=== PATIENT | male | born 1935 | race Caucasian/White ===

== ENCOUNTER 2019-12-16 19:12 | Emergency (ER) | payer OTHER, MEDICARE, SELFPAY ==
--- NOTE | 2019-12-16 19:15 | XRR_ITS ---
PROCEDURE INFORMATION: Exam: XR Chest, 1 View Exam date and time: 12/16/2019 7:51 PM Age: 84 years old Clinical indication: Other: Weakness; Prior surgery; Surgery type: Bypass TECHNIQUE: Imaging protocol: XR of the chest Views: 1 view. COMPARISON: CR Chest 1 [place] [id number] 01/10/2015 3:04 AM FINDINGS: Lungs: Emphysematous change and interstitial prominence. Pleural space: Residual left basilar scarring. Heart/Mediastinum: No cardiomegaly. Bones/joints: Median sternotomy. Degenerative change and mild scoliosis. When correlating with the previous study, no significant interval changes are present. XR/XR chest 1V portable [id number] IMPRESSION: Stable appearance of the chest, not significantly changed from 01/10/15.
--- NOTE | 2019-12-16 19:16 | ECG_ITS ---
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 [id number]
[2019-12-16 19:36] VITALS: BP 122/74; PULSE 65; RESP 14; TEMP 36.9; O2SAT 96; BMI 26.6
[2019-12-16 19:40] LABS: Basophils # 0.1 10^3/uL (0.0-0.1); Basophils % 0.6 %; Eosinophils # 0.3 10^3/uL (0.0-0.8); Eosinophils % 3.8 %; Hemoglobin 12.1 g/dL (11.7-16.6); Lymphocytes # 4.2 10^3/uL (0.8-4.8); Lymphocytes % 53.6 %; Mean Corpuscular HGB Conc 31.8 g/dL (30.0-36.0); Mean Corpuscular Hemoglobin 30.8 pg (28.0-34.0); Mean Corpuscular Volume 96.7 fL (80-94); Mean Platelet Volume 9.5 fL (7.4-10.4); Monocytes # 0.9 10^3/uL (0.2-0.9); Monocytes % 11.5 %; Neutrophils # 2.38 10^3/uL (1.8-7.7); Neutrophils % 30.2 %; Nucleated Red Blood Cells % 0 %; Platelet Count 216 10^3/cmm (130-400); Red Blood Count 3.93 10^6/uL (4.1-5.3); Red Cell Distribution Width 12.3 % (12.1-15.1); White Blood Count 7.9 10^3/uL (4.0-10.0)
[2019-12-16 19:46] LABS: Glucose Point of Care 184 mg/dL (70-110)
[2019-12-16 19:55] LABS: INR 0.98 (0.8-1.2)
[2019-12-16 20:00] LABS: Alanine Aminotransferase 39 U/L (0-41); Albumin Level 4.3 g/dL (3.5-5.2); Alkaline Phosphatase 85 IU/L (40-130); Anion Gap 13.2 (5-19); Aspartate Amino Transferase 40 U/L (0-40); Blood Urea Nitrogen 16 mg/dL (8-23); Calcium 8.8 mg/dL (8.5-10.5); Carbon Dioxide 27 mmol/L (22-29); Chloride 104 mmol/L (98-107); Globulin 2.2 g/dL (1.3-4.6); Glucose 166 mg/dL (65-115); Osmolality Calculated 290 mOsm/kg (285-295); Potassium 4.2 mmol/L (3.5-5.1); Sodium 140 mmol/L (136-145); Total Bilirubin 0.3 mg/dL (0.15-1.2); Total Protein 6.5 g/dL (6.6-8.7)
[2019-12-16 20:31] VITALS: BP 139/74; PULSE 54; RESP 15; O2SAT 97
--- NOTE | 2019-12-16 20:31 | ED_ITS ---
HPI - Neuro Symptoms/Deficit General: Chief Complaint: Neuro Symptoms/Deficit Stated Complaint: WEAKNESS Time Seen by Provider: 12/16/19 20:20 Source: patient Mode of arrival: ambulatory Limitations: no limitations History of Present Illness: HPI Narrative: 84-year-old male who states that [place] 2 [place]. He states he did start a new nighttime medicine is unsure exactly what it was. He states he just felt very tired. He told triage he is having difficulty speaking but denied having any aphasia. He denies any focal deficits. He states he is feeling improved but still has some generalized weakness. Denies any worsening improving factors. Associated symptoms: Deny chest pain, nausea or vomiting Review of Systems Const: Denies: fever(s), chills, body aches or change in appetite Eyes: Denies: blurry vision or eye discomfort ENMT: Denies: throat pain or dental pain Card: Denies: chest pain Resp: Denies: dyspnea GI: Denies: abdominal pain, nausea, vomiting or diarrhea : Denies: dysuria Musc: Denies: neck pain or back pain Skin/Breast: Denies: rash Neuro: Reports: weakness in extremities Psych: Denies: depression Chase/Lymph: Denies: easy bruising All/Imm: Denies: urticaria PFSH ED PFSH: Medical History (Updated 12/16/19 @ 22:09 by Diana Thomas MD) Chronic constipation Constipation Family History Father , Age 34 No problems noted. Mother , Age 86 No problems noted. Denies family history of Anesthesia complication Bleeding disorder Social History Smoking and tobacco status: never smoked Lives independently: Yes Marital status: History of recent travel: No Physical Exam Const: COMMON NORMALS: no acute distress, patient oriented x3 and healthy appearing HENMT: COMMON NORMALS: normocephalic and atraumatic HEAD & SCALP: normocephalic and atraumatic Eye: COMMON NORMALS: Equal, round and reactive pupils present and EOMs intact bilaterally PUPIL: Yes Equal, round and reactive pupils present Neck/C-Spine: COMMON NORMALS: full ROM and supple Chest: COMMONS NORMALS: normal inspection of the chest and normal palpation of entire chest wall Resp: COMMON NORMALS: normal respiratory effort, No retractions, No use of accessory muscles and clear to auscultation bilaterally AUSCULTATION: clear to auscultation bilaterally Cardio: COMMON NORMALS: regular rate, regular rhythm and No murmurs present (Cardio) RATE: regular rate RHYTHM: regular rhythm GI: COMMON NORMALS: Normal to inspection, nondistended, normoactive bowel sounds present, Soft to palpation, non-tender and no masses PALPATION: Yes Soft to palpation Extremity: COMMON NORMALS: normal to inspection and full ROM Neuro: COMMON NORMALS: patient oriented x3, moves all extremities and no focal motor deficits Psych: COMMON NORMALS: mental status grossly normal, Normal thought process present and cooperative THOUGHT PROCESS: Normal thought process present Skin: COMMON NORMALS: no rashes or lesions noted and no wounds GENERAL SKIN EXAM: no rashes or lesions noted Course 2 Vital Signs: Vital signs: Vital Signs Temperature 98.5 F 12/16/19 19:36 Pulse Rate 53 L 12/16/19 22:00 Respiratory Rate 16 12/16/19 22:00 Blood Pressure 117/59 12/16/19 22:00 Pulse Oximetry 98 12/16/19 22:00 MDM - Neuro Symptoms/Deficit MDM Narrative: Medical decision making narrative: 84-year-old male who presents here with generalized weakness that is since resolved. He has no focal deficits and neuro exam here is benign. Patient's head CT here is normal. Patient is stable for discharge and is to follow-up with primary care doctor in 3 to 5 days and return if worsening. Patient is able to ambulate without any problems. Patient understands agrees to plan. Lab Data: Labs: Lab Results 12/16/19 12/16/19 12/16/19 Range/Units 19:30 19:30 19:30 WBC 7.9 (4.0-10.0) 10^3/ uL RBC 3.93 L (4.1-5.3) 10^6/u L Hgb 12.1 (11.7-16.6) g/dL Hct 38.0 L (42.0-52.0) % MCV 96.7 H (80-94) fL MCH 30.8 (28.0-34.0) pg MCHC 31.8 (30.0-36.0) g/dL RDW 12.3 (12.1-15.1) % Plt Count 216 (130-400) 10^3/c mm MPV 9.5 (7.4-10.4) fL Neut % (Auto) 30.2 % Lymph % (Auto) 53.6 % Alexander % (Auto) 11.5 % Eos % (Auto) 3.8 % Baso % (Auto) 0.6 % Neut # (Auto) 2.38 (1.8-7.7) 10^3/u L Lymph # (Auto) 4.2 (0.8-4.8) 10^3/u L Alexander # (Auto) 0.9 (0.2-0.9) 10^3/u L Eos # (Auto) 0.3 (0.0-0.8) 10^3/u L Baso # (Auto) 0.1 (0.0-0.1) 10^3/u L Nucleated RBC % (a uto) 0 % Nucleated RBCs # 0.0 /100WBC PT 13.30 (10.5-13.3) SECO NDS INR 0.98 (0.8-1.2) Sodium 140 (136-145) mmol/L Potassium 4.2 (3.5-5.1) mmol/L Chloride 104 (98-107) mmol/L Carbon Dioxide 27 (22-29) mmol/L Anion Gap 13.2 (5-19) BUN 16 (8-23) mg/dL Creatinine 1.2 (0.7-1.2) mg/dL Glucose 166 H (65-115) mg/dL POC Glucose (70-110) mg/dL Calculated Osmolal ity 290 (285-295) mOsm/k g Calcium 8.8 (8.5-10.5) mg/dL Total Bilirubin 0.3 (0.15-1.2) mg/dL AST 40 (0-40) U/L ALT 39 (0-41) U/L Alkaline Phosphata se 85 (40-130) IU/L Total Protein 6.5 L (6.6-8.7) g/dL Albumin 4.3 (3.5-5.2) g/dL Globulin 2.2 (1.3-4.6) g/dL Urine Color (Yellow) Urine Appearance (CLEAR) Urine pH (5-7) Ur Specific Gravit y (1.005-1.030) Urine Protein (Negative) Urine Glucose (UA) (Normal) Urine Ketones (Negative) Urine Blood (Negative) Urine Nitrate (Negative) Urine Bilirubin (NEGATIVE) Urine Urobilinogen (Negative) mg/dL Ur Leukocyte Anne ase (Negative) 12/16/19 12/16/19 Range/Units 19:37 20:33 WBC (4.0-10.0) 10^3/ uL RBC (4.1-5.3) 10^6/u L Hgb (11.7-16.6) g/dL Hct (42.0-52.0) % MCV (80-94) fL MCH (28.0-34.0) pg MCHC (30.0-36.0) g/dL RDW (12.1-15.1) % Plt Count (130-400) 10^3/c mm MPV (7.4-10.4) fL Neut % (Auto) % Lymph % (Auto) % Alexander % (Auto) % Eos % (Auto) % Baso % (Auto) % Neut # (Auto) (1.8-7.7) 10^3/u L Lymph # (Auto) (0.8-4.8) 10^3/u L Alexander # (Auto) (0.2-0.9) 10^3/u L Eos # (Auto) (0.0-0.8) 10^3/u L Baso # (Auto) (0.0-0.1) 10^3/u L Nucleated RBC % (a uto) % Nucleated RBCs # /100WBC PT (10.5-13.3) SECO NDS INR (0.8-1.2) Sodium (136-145) mmol/L Potassium (3.5-5.1) mmol/L Chloride (98-107) mmol/L Carbon Dioxide (22-29) mmol/L Anion Gap (5-19) BUN (8-23) mg/dL Creatinine (0.7-1.2) mg/dL Glucose (65-115) mg/dL POC Glucose 184 (70-110) mg/dL Calculated Osmolal ity (285-295) mOsm/k g Calcium (8.5-10.5) mg/dL Total Bilirubin (0.15-1.2) mg/dL AST (0-40) U/L ALT (0-41) U/L Alkaline Phosphata se (40-130) IU/L Total Protein (6.6-8.7) g/dL Albumin (3.5-5.2) g/dL Globulin (1.3-4.6) g/dL Urine Color Yellow (Yellow) Urine Appearance Clear (CLEAR) Urine pH 5 (5-7) Ur Specific Gravit y 1.025 (1.005-1.030) Urine Protein Neg (Negative) Urine Glucose (UA) Norm (Normal) Urine Ketones Negative (Negative) Urine Blood Neg (Negative) Urine Nitrate Negative (Negative) Urine Bilirubin Neg (NEGATIVE) Urine Urobilinogen Norm (Negative) mg/dL Ur Leukocyte Anne ase Negative (Negative) Imaging Data^: CT Head: Radiologist's impression: [place] [id number] CT Scan Report Signed Patient: Ida Vásquez Unit #: [id number] : 1935 Age/Sex: 84 / M ADM Date: 12/16/19 Loc: ER Room/Bed: Attending Dr: Ordering Provider/Ordering MD: Diana Thomas MD Date of Service: 12/16/19 Procedure(s): CT head wo con* [id number] Accession Number(s): [id number] Report Number: [id number] PROCEDURE INFORMATION: Exam: CT Head Without Contrast Exam date and time: 12/16/2019 8:31 PM Age: 84 years old Clinical indication: Malaise or fatigue; Patient HX: PT states he was at the [facility] when he began to feel very tired and weak; Additional info: Weakness TECHNIQUE: Imaging protocol: Computed tomography of the head without contrast. Radiation optimization: All CT scans at this facility use at least one of these dose optimization techniques: automated exposure control; mA and/or kV adjustment per patient size (includes targeted exams where dose is matched to clinical indication); or iterative reconstruction. COMPARISON: CTA Head/Neck [id number] 06/26/2013 9:18 AM RADIATION DOSE METRICS: Total DLP (mGy-cm): 862.31 FINDINGS: Brain: No findings of acute intracranial pathologic process or hemorrhage. Cerebral and cerebral atrophy with ventricular dilatation not inconsistent with the patient's chronological age. Moderate small vessel ischemic disease with senile periventricular leukomalacia. Ventricles: No obstructive ventriculomegaly. Bones/joints: Unremarkable. No acute fracture. Sinuses: Visualized sinuses are unremarkable. No fluid levels. Mastoid air cells: Visualized mastoid air cells are well aerated. Vasculature: Mild cerebral arterial sclerosis. Soft tissues: Unremarkable. CT/CT head wo con* [id number] IMPRESSION: 1. No visible evidence of acute intracranial pathologic process or hemorrhage. 2. Small vessel ischemic disease. Discharge Plan Discharge Patient Disposition: Home, Self-Care Clinical Impression: Weakness Condition: Stable Prescriptions: No Action docusate sodium 50 mg capsule 50 mg PO ONCE PRNRF: 0 acetaminophen 500 mg capsule 500 mg PO Q4H PRNRF: 0 levothyroxine 125 mcg capsule 125 mcg PO ONCE RF: 0 omeprazole 40 mg capsule,delayed release(DR/EC) 40 mg PO BID RF: 0 gabapentin 100 mg capsule 100 mg PO BID RF: 0 atorvastatin 40 mg tablet 40 mg PO ONCE RF: 0 cyclobenzaprine 5 mg tablet 5 mg PO .COMPLEX PRNRF: 0 Discharge Orders: Discharge Order (Routine); Ordered 12/16/19 Ordered By: Diana Thomas Referrals: Emily Pineda MD [Primary Care Provider] - 1-3 days Discharge Diet: Advance as tolerated Discharge Activity: Resume usual activity Patient Instructions: Weakness (ED) Discharge Date/Time: 12/16/19 22:18 Coding Level of Care Code ED Ammunition Storage Superintendent for Chg Fwd Exam Comprehensive
[2019-12-16 21:15] LABS: Add Urine Microscopic? NO
[2019-12-16 21:35] LABS: Bilirubin Urine Neg (NEGATIVE); Blood Urine Neg (Negative); Glucose Urine UA Norm (Normal); Ketones Urine Negative (Negative); Leukocyte Esterase Urine Negative (Negative); Nitrate Urine Negative (Negative); Protein Urine Neg (Negative); Specific Gravity, Urine 1.025 (1.005-1.030); Urine Appearance Clear (CLEAR); Urine Color Yellow (Yellow); Urobilinogen Urine Norm (Negative); pH Urine 5 (5-7)
[2019-12-16 22:00] VITALS: BP 117/59; PULSE 53; RESP 16; O2SAT 98
== END 2019-12-16 22:18 | disposition home or self-care (01) ==
PROVIDERS: Emergency Provider Emergency Medicine; PCP Family Medicine
DX: R53.1 Weakness (principal)
CPT/HCPCS: 12345; 36415; 36416; 70450; 71045; 80053; 81003; 82962; 85025; 85610; 93005; 99283; 99284

== ENCOUNTER 2020-01-06 18:36 | Emergency (ER) | payer OTHER, MEDICARE, SELFPAY ==
[2020-01-06 18:40] VITALS: BP 119/62; PULSE 63; RESP 22; TEMP 36.6; O2SAT 98; BMI 26.6
== END 2020-01-06 18:58 | disposition left against medical advice (07) ==
LOC: ER 19:04
PROVIDERS: Emergency Provider Emergency Medicine; PCP Family Medicine
DX: Z53.21 Procedure and treatment not carried out due to patient leaving prior to being seen by health care provider (principal)
CPT/HCPCS: 99281

== ENCOUNTER 2020-07-11 14:01 | Emergency (ER) | payer OTHER, MEDICARE, SELFPAY ==
[2020-07-11 14:06] VITALS: BP 138/62; PULSE 66; RESP 20; TEMP 37.1; O2SAT 97; BMI 25.8
[2020-07-11 14:14] VITALS: RESP 19
--- NOTE | 2020-07-11 14:42 | XRR_ITS ---
PROCEDURE INFORMATION: Exam: XR Right Ankle Exam date and time: 07/11/2020 2:50 PM Age: 85 years old Clinical indication: Injury or trauma; Fall; Blunt trauma; Ankle; Right; Additional info: Fall, deformity TECHNIQUE: Imaging protocol: XR Right ankle. Views: 3 or more views. COMPARISON: No relevant prior studies available. FINDINGS: Bones/joints: There is a nondisplaced spiral fracture of the distal fibula metaphysis. No additional acute fracture. No dislocation. Bony remodeling of the tip of the medial malleolus and fibula are noted compatible with old ankle injury. There is calcaneal enthesopathy. Soft tissues: There is soft tissue edema. XR/XR ankle RT min 3V* [id number] IMPRESSION: There is a nondisplaced spiral fracture of the distal fibula metaphysis.
--- NOTE | 2020-07-11 14:42 | XRR_ITS ---
PROCEDURE INFORMATION: Exam: XR Right Knee Exam date and time: 07/11/2020 2:49 PM Age: 85 years old Clinical indication: Injury or trauma; Fall; Blunt trauma; Knee; Right; Additional info: Fall, pain TECHNIQUE: Imaging protocol: XR Right knee. Views: 3 views. COMPARISON: No relevant prior studies available. FINDINGS: Bones/joints: There is no knee joint effusion. There is patellar enthesopathy. There are mild degenerative changes. There is no intra-articular body. No acute fracture or dislocation. No chondrocalcinosis. Soft tissues: There is no foreign body. XR/XR knee RT 3V* [id number] IMPRESSION: No acute bony abnormality.
--- NOTE | 2020-07-11 14:43 | ED_ITS ---
HPI - Extremity Problem General: Chief complaint: Extremity Injury, Lower Stated complaint: FALL / LEFT LEG PAIN / DEFORMITY Time Seen by Provider: 07/11/20 14:19 History of Present Illness: HPI Narrative: Patient arrives by ambulance complains about pain to his right ankle and right knee after a fall on the ice. Patient states that his his right foot was under [place] twisted about and says that his knees hurt since then but he is able to move his knee he denies any other injury. Denies any pain anywhere he denies hitting his head. Complaint: extremity pain and joint pain Onset (ago): minute(s) Pain Consistency: constant Location: right and lower extremity Severity scale (1-10): 4 Quality: aching Radiation: none Relieving factors: immobilization Exacerbating factors: range of motion and palpation Associated symptoms: Reports no associated symptoms; Deny chest pain, fever(s) or rash Review of Systems Const: Denies: fever(s), chills or body aches Eyes: Denies: change in vision or blurry vision ENMT: Denies: throat pain or nasal congestion Card: Denies: chest pain or dyspnea on exertion Resp: Denies: dyspnea, productive cough or non-productive cough GI: Denies: abdominal pain, nausea or vomiting : Denies: difficulty urinating Musc: Reports: extremity pain (Right knee and right ankle) and joint pain (Right knee right ankle -from a fall on ice.) Skin/Breast: Denies: rash Neuro: Denies: headache(s) Psych: Denies: anxiety or depression Chase/Lymph: Denies: easy bruising PFS ED PFSH: Medical History (Updated 07/11/20 @ 16:07 by MARÍA Philip) Chronic constipation Constipation Family History Father , Age 34 No problems noted. Mother , Age 86 No problems noted. Denies family history of Anesthesia complication Bleeding disorder Social History Smoking and tobacco status: never smoked Lives independently: Yes Marital status: History of recent travel: No Physical Exam Const: COMMON NORMALS: no acute distress, average body habitus and patient oriented x3 HENMT: COMMON NORMALS: normocephalic HEAD & SCALP: normal to inspection and normocephalic FACE & SINUS: normal facial exam Eye: COMMON NORMALS: conjunctivae normal GENERAL EYE: appearance normal, both eyes and all related structures CONJUNCTIVA: Yes conjunctivae normal Neck/C-Spine: COMMON NORMALS: no JVD Chest: COMMONS NORMALS: normal inspection of the chest Resp: COMMON NORMALS: normal respiratory effort and clear to auscultation bilaterally AUSCULTATION: clear to auscultation bilaterally Cardio: COMMON NORMALS: no JVD, regular rate and regular rhythm RATE: regular rate RHYTHM: regular rhythm GI: COMMON NORMALS: Normal to inspection, nondistended, normoactive bowel sounds present Extremity: RIGHT LOWER EXTREMITY: Yes knee joint (Tender with palpation but has full range of motion slight swelling bruising) and Yes foot & digits Right ankle: Yes inspection (Deformity lateral aspect swelling. Pulses intact) Neuro: COMMON NORMALS: patient oriented x3 Course Vital Signs: Vital signs: Vital Signs Temperature 98.8 F 07/11/20 14:06 Pulse Rate 66 07/11/20 14:06 Respiratory Rate 18 07/11/20 16:46 Blood Pressure 138/62 07/11/20 14:06 Pulse Oximetry 97 07/11/20 14:06 MDM - Extremity (Nontraumatic) MDM Narrative: Medical decision making narrative: Discussed patient with Dr. Rodas. Reviewed radiology results. Agreed upon plan to place plan to have patient use crutches, no weightbearing. Patient has pain medication at home to take. Patient agrees with plan and will meet with Ortho this coming week. Discharge Plan Discharge Patient Disposition: Home Clinical Impression: Fractured fibula Qualifiers: Encounter type: initial encounter Fibula location: distal Fracture type: closed Fracture morphology: torus Laterality: right Qualified Code(s): S82.821A - Torus fracture of lower end of right fibula, initial encounter for closed fracture Condition: Stable Prescriptions: No Action docusate sodium 50 mg capsule 50 mg PO ONCE PRNRF: 0 acetaminophen 500 mg capsule 500 mg PO Q4H PRNRF: 0 levothyroxine 125 mcg capsule 125 mcg PO ONCE RF: 0 omeprazole 40 mg capsule,delayed release(DR/EC) 40 mg PO BID RF: 0 gabapentin 100 mg capsule 100 mg PO BID RF: 0 atorvastatin 40 mg tablet 40 mg PO ONCE RF: 0 cyclobenzaprine 5 mg tablet 5 mg PO .COMPLEX PRNRF: 0 Discharge Orders: Discharge ED (Routine); Ordered 07/11/20 Ordered By: Laurent Booker Referrals: Emily Pineda MD [Primary Care Provider] - Discharge Diet: Usual diet Discharge Activity: Use walker/crutches as instructed Patient Instructions: Leg Fracture (ED), Crutch Instructions (ED) Activity Restrictions/Additional Instructions: Hospital contact you on Monday with appointment for therapeutics. No weightbearing. Use crutches. Take medicine that you have at home for discomfort. Wear splint. Coding Level of Care Code ED Cloth Covered Helmet Puller for Chg Fwd Exam Comprehensive
[2020-07-11 16:46] VITALS: RESP 18
--- NOTE | 2020-07-13 10:35 | DCPLANNER ---
manager leasing received message to schedule a follow up appointment with ortho. manager leasing called and spoke to Lesvia. manager leasing provided Lesvia with patient information needed. Ortho will contact patient with appointment details.
--- NOTE | 2020-07-15 13:37 | DCPLANNER ---
Patient has VA insurance, case supervisor called the [facility] clinic, spoke with Tamra informed the clinic that patient had VA insurance. manager testing told [facility] that case supervisor would email patients information to [employer] with [employer] in the community to start the authorization process. Tamra told case supervisor that when clinic called patient to schedule a follow up appointment that patient declined appointment at this time. Patient stated that his does not drive and that right now he can not drive. Patient stated that he wanted to see his primary care physician. Patient will call clinic and let clinic know if he wants a follow up appointment. manager testing emailed patients information to the VA, so that authorization process could be started in case patient wanted a follow up appointment.
== END 2020-07-11 17:16 | disposition home or self-care (01) ==
PROVIDERS: Emergency Provider Nurse Practitioner Family; PCP Family Medicine
DX: S82.821A Torus fracture of lower end of right fibula, initial encounter for closed fracture (principal); W00.0XXA Fall on same level due to ice and snow, initial encounter
CPT/HCPCS: 29515; 73562; 73610; 99283

== ENCOUNTER → 2020-07-28 13:18 | Outpatient (BNVA) | payer OTHER, SELFPAY | PROVIDERS: PCP Family Medicine; Visit Provider Orthopaedic Surgery | DX: S82.61XD Displaced fracture of lateral malleolus of right fibula, subsequent encounter for closed fracture with routine healing (principal); X58.XXXD Exposure to other specified factors, subsequent encounter | CPT/HCPCS: 73610 ==

== ENCOUNTER 2020-07-28 14:54 | Outpatient (CLI) | payer OTHER, SELFPAY | END 2020-07-28 14:55 | disposition home or self-care (01) | LOC: SPT 14:55 | PROVIDERS: PCP Family Medicine; Visit Provider Orthopaedic Surgery | DX: Z46.89 Encounter for fitting and adjustment of other specified devices (principal); S82.831D Other fracture of upper and lower end of right fibula, subsequent encounter for closed fracture with routine healing; X58.XXXD Exposure to other specified factors, subsequent encounter | CPT/HCPCS: 97760; L4361 ==

== ENCOUNTER → 2020-08-11 14:32 | Outpatient (BNVA) | payer OTHER, SELFPAY | PROVIDERS: PCP Family Medicine; Visit Provider Orthopaedic Surgery | DX: S82.61XA Displaced fracture of lateral malleolus of right fibula, initial encounter for closed fracture (principal); X58.XXXA Exposure to other specified factors, initial encounter | CPT/HCPCS: 73610 ==

== ENCOUNTER → 2020-09-08 16:31 | Outpatient (BNVA) | payer OTHER, SELFPAY | PROVIDERS: PCP Family Medicine; Visit Provider Orthopaedic Surgery | DX: S82.61XD Displaced fracture of lateral malleolus of right fibula, subsequent encounter for closed fracture with routine healing (principal); X58.XXXD Exposure to other specified factors, subsequent encounter | CPT/HCPCS: 73610 ==

== ENCOUNTER 2020-11-10 09:56 | Outpatient (CLI) | payer MEDICARE, SELFPAY ==
--- NOTE | 2020-11-10 10:04 | CT_ITS ---
WS: [id number] CT NECK WITH CONTRAST HISTORY: OTHER DYSPHAGIA TECHNIQUE: Contiguous 5 mm axial images are performed through the neck with intravenous contrast. Sag ittal and coronal reformats are also submitted. All CT scans at [facility] use at least o ne of these dose optimization techniques: automated exposure control; mA and/or kV adjustment per pat ient size (includes targeted exams where dose is matched to clinical indication); or iterative recons truction. CONTRAST: CONTRAST: Omnipaque 300; 95 mL IV. DLP: 1241.42 mGycm COMPARISON: 03/13/2019 and 09/29/2017 Nasopharynx, oropharynx, hypopharynx and larynx are unremarkable. No soft tissue masses or abnormal e nhancement. Torus tubarius and fossa of Rosenmuller and parapharyngeal fat are normal. No significant lymphadenopathy is identified. Small caliber thyroid. Submandibular glands and parotid glands are normal. No masses. No obstruction or inflammation. No osseous abnormalities. Visualized portions of the skull base demonstrate no abnormalities. Orbits and globes are within norm al limits. No soft tissue masses. Visualized paranasal sinuses and mastoid air cells are normal. Prior median sternotomy. Mild atherosclerotic plaque within the visualized thoracic aorta. CT/CT neck w con* [id number] IMPRESSION: 1. No mass or adenopathy. 2. Similar appearance to the soft tissues of the neck since 03/13/2019. No int erval change.
--- NOTE | 2020-11-10 10:04 | FL_ITS ---
WS: [id number] ESOPHAGRAM WITH FLUOROSCOPY HISTORY: OTHER DYSPHAGIA COMPARISON: None available. FLUOROSCOPY TIME: 0.8 minutes. Esophagus and swallowing function: Patient was able to swallow the barium mixture without difficulty. There is a moderate stenosis in the cervical esophagus at the C5-6 level. Stenosis approximately 50% . May be due to cricopharyngeal spasm. The mucosa is smooth. Did not attempt to have the patient swal lowed the barium tablet as patient describes pills becoming lodged. Otherwise no mucosal abnormalitie s are identified. Gastroesophageal reflux: None. Hiatal hernia: There is a small reducible hiatal hernia seen during the examination. FL/FL barium swallow [id number] IMPRESSION: 1. 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 Also noted on prio r examinations. Recommend endoscopy. 2. Small reducible hiatal hernia.
[2020-11-10 10:52] LABS: Blood Urea Nitrogen 16 mg/dL (8-23)
[2020-11-10] MEDS: iohexol 300 mg/mL 100 mL Btl IV (11:07)
== END 2020-11-10 09:57 | disposition home or self-care (01) ==
PROVIDERS: PCP Family Medicine; Visit Provider Specialist
DX: R13.19 Other dysphagia (principal); K44.9 Diaphragmatic hernia without obstruction or gangrene; M48.02 Spinal stenosis, cervical region
CPT/HCPCS: 70491; 74220; 82565; 84520; Q9967

== ENCOUNTER 2020-12-16 09:41 | Outpatient (CLI) | payer MEDICARE, SELFPAY ==
--- NOTE | 2020-12-16 10:28 | ECG_ITS ---
[facility] Test Date: 2020-12-16 Pat Name: Ida Vásquez Department: Room: Gender: Male Help Aid: : 1935 Requested By: Navneet Prieto Order Number: [id number] Stanton MD: Vahe Flores M.D. Measurements Intervals [place] Rate: 59 P: 58 CT: 200 QRS: -9 QRSD: 91 T: 53 QT: 411 QTc: 410 Interpretive Statements SINUS BRADYCARDIA MODERATE ST DEPRESSION [0.05+ mV ST DEPRESSION] Compared to ECG 12/16/2019 19:40:20 ST (T wave) deviation now present Sinus rhythm no longer present Myocardial infarct finding no longer present Electronically Signed On 12-16-2020 18:35:38 CDT by Vahe Flores M.D. [email or web address]
[2020-12-16 10:48] LABS: Basophils # 0.1 10^3/uL (0.0-0.1); Eosinophils # 0.2 10^3/uL (0.0-0.8); Eosinophils % 2.4 %; Hematocrit 35.9 % (42.0-52.0); Lymphocytes # 3.1 10^3/uL (0.8-4.8); Lymphocytes % 44.1 %; Mean Corpuscular HGB Conc 33.4 g/dL (30.0-36.0); Mean Corpuscular Hemoglobin 32.3 pg (28.0-34.0); Mean Corpuscular Volume 96.8 fL (80-94); Monocytes # 0.8 10^3/uL (0.2-0.9); Neutrophils # 2.81 10^3/uL (1.8-7.7); Neutrophils % 40.1 %; Nucleated Red Blood Cells % 0 %; Platelet Count 198 10^3/cmm (130-400); Red Blood Count 3.71 10^6/uL (4.1-5.3); Red Cell Distribution Width 12.4 % (12.1-15.1)
[2020-12-16 11:23] LABS: Alanine Aminotransferase 13 U/L (0-41); Albumin Level 3.8 g/dL (3.5-5.2); Alkaline Phosphatase 77 IU/L (40-130); Anion Gap 12.3 (5-19); Aspartate Amino Transferase 19 U/L (0-40); Blood Urea Nitrogen 14 mg/dL (8-23); Calcium 8.5 mg/dL (8.5-10.5); Carbon Dioxide 28 mmol/L (22-29); Chloride 105 mmol/L (98-107); Globulin 2.4 g/dL (1.3-4.6); Glucose 115 mg/dL (65-115); Osmolality Calculated 293 mOsm/kg (285-295); Potassium 4.3 mmol/L (3.5-5.1); Sodium 141 mmol/L (136-145); Total Bilirubin 0.5 mg/dL (0.15-1.2); Total Protein 6.2 g/dL (6.6-8.7)
== END 2020-12-16 09:42 | disposition home or self-care (01) ==
LOC: RT 09:48
PROVIDERS: PCP Family Medicine; Visit Provider Specialist
DX: R13.19 Other dysphagia (principal); R00.1 Bradycardia, unspecified
CPT/HCPCS: 36415; 80053; 85025; 93005

== ENCOUNTER 2022-05-25 13:59 | Emergency (ER) | payer MEDICARE, SELFPAY ==
[2022-05-25 14:06] VITALS: BP 117/76; PULSE 93; RESP 18; TEMP 36.8; O2SAT 99; BMI 27.3
--- NOTE | 2022-05-25 15:41 | ED_ITS ---
HPI - Abdominal Pain General: Chief Complaint: Abdominal Pain Stated Complaint: possible kidney infection Time Seen by Provider: 05/25/22 15:01 History of Present Illness: 87-year-old male who presents with abdominal distention and difficulty urinating. Patient states has not had a bowel movement for the past 5 days. He is also now not been able to urinate more than dribbling for the past 24 hours. He denies fever. He denies nausea or vomiting. No prior history of prostatic hypertrophy or urinary retention. He also states today he feels like he is more cloudy headed into has generalized weakness. Associated Symptoms: Reports belching and excessive flatus; Denies chills, coffee ground emesis, fever(s), heartburn, hematochezia, hemat uria, hematemesis, nausea, syncope and vomiting Review of Systems Const: Reports: fatigue and malaise; Denies: fever(s), chills or body aches Eyes: Denies: change in vision or blurry vision ENMT: Denies: throat pain, hoarseness or mouth pain Card: Reports: lightheadedness; Denies: chest pain, palpitations, swelling of feet/ankles, syncope, pre-syncope or dyspnea on exertion Resp: Denies: dyspnea, productive cough, non-productive cough or wheezing GI: Reports: abdominal pain, belching and excessive flatus; Denies: nausea, vomiting, hematemesis, coffee ground emesis, dysphagia, heartburn or hematochezia : Reports: difficulty urinating, urinary dribbling and difficulty starting urination; Denies: flank pain, urinary urgency or hematuria Musc: Reports: joint pain and muscle cramps (rare) Skin/Breast: Denies: rash, pruritus or erythema Neuro: Reports: dizziness; Denies: headache(s) Psych: Denies: anxiety, depression, mood swings, suicidal ideation or homicidal ideation Endo: Denies: polyuria, polydipsia or excessive sweating [place]/Lymph: Denies: easy bruising or easy bleeding PFSH ED PFSH: Medical History Asymptomatic stenosis of right carotid artery Atherosclerosis of coronary artery of [place] heart without angina pectoris Bilateral carotid artery stenosis BPH with urinary obstruction Chronic constipation Constipation Dysphagia HTN (hypertension), benign Hyperlipidemia Surgical History History of cataract surgery Bilateral History of coronary artery bypass graft History of vasectomy Family History Father , Age 34 No problems noted. Mother , Age 86 No problems noted. Denies family history of Anesthesia complication Bleeding disorder Social History Smoking and tobacco status: never smoked Lives independently: Yes Marital status: History of recent travel: No Physical Exam Const: COMMON NORMALS: no acute distress, average body habitus, patient oriented x3, alert and well nourished GENERAL APPEARANCE: cooperative, comfortable, well kempt and well developed ORIENTATION/CONSCIOUSNESS: Yes oriented to person, Yes oriented to place and Yes oriented to time HENMT: COMMON NORMALS: normocephalic, atraumatic, hearing grossly normal bilaterally, external ears normal and Normal external nose present HEAD & SCALP: normocephalic and atraumatic FACE & SINUS: face symmetric NOSE: Normal external nose present EXTERNAL EAR: Yes external ears normal Eye: COMMON NORMALS: Equal, round and reactive pupils present, EOMs intact bilaterally and conjunctivae normal ALIGNMENT: Yes alignment normal CONJUNCTIVA: Yes conjunctivae normal SCLERA: sclerae normal PUPIL: Yes Equal, round and reactive pupils present Neck/C-Spine: COMMON NORMALS: supple, no JVD and Thyroid normal; negative for No carotid bruits THYROID: Thyroid normal Chest: COMMONS NORMALS: normal inspection of the chest CHEST: Yes Symmetrical chest wall rise and No tenderness Resp: COMMON NORMALS: normal respiratory effort, No use of accessory muscles and clear to auscultation bilaterally EFFORT & INSPECTION: Yes able to speak in complete sentences, No tachypneic and No audible wheezes AUSCULTATION: clear to auscultation bilaterally, no crackles, no rales, no rhonchi and no wheezes Cardio: COMMON NORMALS: no JVD, regular rate, regular rhythm, S1 normal heart sound present, S2 normal heart sound present and Peripheral pulses 2+ throughout; negative for No gallops present (Cardio) JUGULAR VENOUS DISTENTION: no JVD PALPATION: normal PMI, no heave, no palpable S3 and no thrill RATE: regular rate RHYTHM: regular rhythm HEART SOUNDS: S1 normal heart sound present, S2 normal heart sound present, no gallops and no murmurs BRUITS: no carotid b ruits PERIPHERAL PULSES: Peripheral pulses 2+ throughout GI: COMMON NORMALS: Normal to inspection, nondistended, normoactive bowel sounds present and Soft to palpation PALPATION: Yes Soft to palpation, Yes Tenderness to palpation present (GI) (mild tenderness in lower abdomen) and Yes Bladder palpation abnormal PERCUSSION: tympanic to percussion RECTAL EXAM: Yes deferred : BLADDER/KIDNEY EXAM: Yes Bladder palpation abnormal Bladder abnormal details: distended midway to the umbilicus Back/Pelvis: LUMBAR SPINE/LOWER BACK: Yes normal to inspection Neuro: COMMON NORMALS: patient oriented x3, no focal motor deficits and gait normal SENSORIUM/ORIENTATION: Yes alert, Yes oriented to person, Yes oriented to place and Yes oriented to time CRANIAL NERVES: Yes CN normal except as noted Psych: COMMON NORMALS: Normal thought process present APPEARANCE: Yes well kempt MOOD & AFFECT: Yes euthymic mood THOUGHT PROCESS: Normal thought process present THOUGHT CONTENT: Yes Normal thought content present ATTENTION/CONCENTRATION: Yes attention grossly intact MEMORY/COGNITION: Yes memory grossly intact INSIGHT: Good insight present (Psych) JUDGEMENT: Renan rainey judgement present (Psych) Course ED course: Patient's work-up is unremarkable. His labs are stable. Urinalysis is negative. He has been able to void small amounts of urine spontaneously in the ER. Renal function is stable. We will plan to discharge home on Flomax 0.4 mg daily. Return precautions have been discussed Vital Signs: Vital signs: Vital Signs Temperature 98.3 F 05/25/22 14:06 Pulse Rate 84 05/25/22 16:12 Respiratory Rate 16 05/25/22 16:12 Blood Pressure 126/71 05/25/22 16:12 Pulse Oximetry 98 05/25/22 16:12 Oxygen Delivery Me thod 05/25/22 16:12 MDM - Abdominal Pain Medical Decision Making 87-year-old male who presents with urinary frequency and hesitancy as well as constipation. Differential includes constipation, urinary obstruction, UTI, spinal cord compression. We will start an IV, obtain labs. We will send urinalysis. We will do bladder scan to see if patient is having retention. Lab Data 05/25/22 15:42 05/25/22 15:42 Labs/Radiology: Laboratory Results WBC 8.3 10^3/uL (4.0-10.0) 05/25/22 15:42 RBC 3.83 10^6/uL (4.1-5.3) L 05/25/22 15:42 Hgb 12.2 g/dL (11.7-16.6) 05/25/22 15:42 Hct 36.5 % (42.0-52.0) L 05/25/22 15:42 MCV 95.3 fl (80-94) H 05/25/22 15:42 MCH 31.9 pg (28.0-34.0) 05/25/22 15:42 MCHC 33.4 g/dL (30.0-36.0) 05/25/22 15:42 RDW 12.3 % (12.1-15.1) 05/25/22 15:42 Plt Count 274 10^3/cmm (130-400) 05/25/22 15:42 MPV 8.8 fL (7.4-10.4) 05/25/22 15:42 Neut % (Auto) 46.8 % 05/25/22 15:42 Lymph % (Auto) 38.9 % 05/25/22 15:42 [place] % (Auto) 11.0 % 05/25/22 15:42 Eos % (Auto) 2.1 % 05/25/22 15:42 Baso % (Auto) 0.8 % 05/25/22 15:42 Neut # (Auto) 3.87 10^3/uL (1.8-7.7) 05/25/22 15:42 Lymph # (Auto) 3.2 10^3/uL (0.8-4.8) 05/25/22 15:42 [place] # (Auto) 0.9 10^3/uL (0.2-0.9) 05/25/22 15:42 Eos # (Auto) 0.2 10^3/uL (0.0-0.8) 05/25/22 15:42 Baso # (Auto) 0.1 10^3/uL (0.0-0.1) 05/25/22 15:42 Nucleated RBC % (auto) 0 % 05/25/22 15:42 Nucleated RBCs # 0.0 /100WBC 05/25/22 15:42 Sodium 133 mmol/L (136-145) L 05/25/22 15:42 Potassium 3.9 mmol/L (3.5-5.1) 05/25/22 15:42 Chloride 99 mmol/L (98-107) 05/25/22 15:42 Carbon Dioxide 25 mmol/L (22-29) 05/25/22 15:42 Anion Gap 12.9 (5-19) 05/25/22 15:42 BUN 23 mg/dL (8-23) 05/25/22 15:42 Creatinine 1.3 mg/dL (0.7-1.2) H 05/25/22 15:42 GFR Calculation Not Reportable 05/25/22 15:42 Glucose 160 mg/dL (65-115) H 05/25/22 15:42 Calculated Osmolality 283 mOsm/kg (285-295) L 05/25/22 15:42 Lactate 1.1 mmol/L (0.5-2.2) 05/25/22 15:42 Calcium 9.2 mg/dL (8.5-10.5) 05/25/22 15:42 Magnesium 2.0 mg/dL (1.7-2.3) 05/25/22 15:42 Total Bilirubin 0.7 mg/dL (0.15-1.2) 05/25/22 15:42 AST 32 U/L (0-40) 05/25/22 15:42 ALT 18 U/L (0-41) 05/25/22 15:42 Alkaline Phosphatase 90 U/L (40-130) 05/25/22 15:42 Total Protein 7.0 g/dL (6.6-8.7) 05/25/22 15:42 Albumin 4.2 g/dL (3.5-5.2) 05/25/22 15:42 Globulin 2.8 g/dL (1.3-4.6) 05/25/22 15:42 Urine Color Yellow (Yellow) 05/25/22 16:10 Urine Appearance Clear (CLEAR) 05/25/22 16:10 Urine pH 5 (5-7) 05/25/22 16:10 Ur Specific [place] 1.030 (1.005-1.030) 05/25/22 16:10 Urine Protein Trace (Negative) 05/25/22 16:10 Urine Glucose (UA) Norm (Normal) 05/25/22 16:10 Urine Ketones 1+ (Negative) H 05/25/22 16:10 Urine Blood Neg (Negative) 05/25/22 16:10 Urine Nitrate Negative (Negative) 05/25/22 16:10 Urine Bilirubin Neg (Negative) 05/25/22 16:10 Urine Urobilinogen Norm mg/dL (Negative) 05/25/22 16:10 Ur Leukocyte Esterase Negative (Negative) 05/25/22 16:10 Urine RBC None /hpf (0-2) 05/25/22 16:10 Urine WBC None /hpf (0-5) 05/25/22 16:10 Ur Squamous Epith Cells None /hpf (0-5) 05/25/22 16:10 Amorphous Sediment Not Reportable 05/25/22 16:10 Urine Bacteria Trace /hpf (NONE) 05/25/22 16:10 Urine Mucus 4+ /hpf 05/25/22 16:10 Discharge Plan Discharge Patient Disposition: Home Clinical Impression: Urinary hesitancy Condition: Stable Prescriptions: New Flomax 0.4 mg capsule 0.4 mg PO DAILY Qty: 30 0RF No Action (DME) Buzz Quesada See Rx Instructions .ROUTE .MEDSUPPLY Qty: 1 0RF Rx Instructions: As directed docusate sodium 50 mg capsule 50 mg PO ONCE PRN acetaminophen 500 mg capsule 500 mg PO Q4H PRN levothyroxine 125 mcg capsule 125 mcg PO ONCE omeprazole 40 mg capsule,delayed release(DR/EC) 40 mg PO BID gabapentin 100 mg capsule 100 mg PO BID atorvastatin 40 mg tablet 40 mg PO ONCE Rx Instructions: bedtime cyclobenzaprine 5 mg tablet 5 mg PO .COMPLEX PRN Rx Instructions: 5 mg PO PRN; 1-2 tablets Discharge Orders: Discharge ED (Routine); Ordered 05/25/22 Ordered By: Rosalind Walker Referrals: Emily Pineda MD [Primary Care Provider] - Discharge Diet: Advance as tolerated Discharge Activity: Resume usual activity Patient Instructions: Enlarged Prostate (BPH) (ED), Opioid Safety, Pain Management Activity Restrictions/Additional Instructions: Take the Flomax daily. Return if you have any further problems emptying your bladder. Follow-up in 1 to 2 weeks with your primary care doctor Coding Level of Care Code ED [employer] for Chg Fwd Exam Comprehensive
[2022-05-25 15:53] LABS: Basophils # 0.1 10^3/uL (0.0-0.1); Basophils % 0.8 %; Eosinophils # 0.2 10^3/uL (0.0-0.8); Eosinophils % 2.1 %; Hematocrit 36.5 % (42.0-52.0); Hemoglobin 12.2 g/dL (11.7-16.6); Lymphocytes # 3.2 10^3/uL (0.8-4.8); Lymphocytes % 38.9 %; Mean Corpuscular HGB Conc 33.4 g/dL (30.0-36.0); Mean Corpuscular Hemoglobin 31.9 pg (28.0-34.0); Mean Corpuscular Volume 95.3 fl (80-94); Mean Platelet Volume 8.8 fL (7.4-10.4); Monocytes # 0.9 10^3/uL (0.2-0.9); Neutrophils # 3.87 10^3/uL (1.8-7.7); Neutrophils % 46.8 %; Nucleated Red Blood Cells % 0 %; Platelet Count 274 10^3/cmm (130-400); Red Blood Count 3.83 10^6/uL (4.1-5.3); Red Cell Distribution Width 12.3 % (12.1-15.1); White Blood Count 8.3 10^3/uL (4.0-10.0)
[2022-05-25 16:00] VITALS: BP 126/71; PULSE 90; RESP 16; O2SAT 98
[2022-05-25 16:12] VITALS: BP 126/71; PULSE 84; RESP 16; O2SAT 98
[2022-05-25 16:12] LABS: Alanine Aminotransferase 18 U/L (0-41); Albumin Level 4.2 g/dL (3.5-5.2); Alkaline Phosphatase 90 U/L (40-130); Anion Gap 12.9 (5-19); Aspartate Amino Transferase 32 U/L (0-40); Blood Urea Nitrogen 23 mg/dL (8-23); Calcium 9.2 mg/dL (8.5-10.5); Carbon Dioxide 25 mmol/L (22-29); Chloride 99 mmol/L (98-107); Globulin 2.8 g/dL (1.3-4.6); Glucose 160 mg/dL (65-115); Lactate (Lactic Acid level) 1.1 mmol/L (0.5-2.2); Osmolality Calculated 283 mOsm/kg (285-295); Potassium 3.9 mmol/L (3.5-5.1); Sodium 133 mmol/L (136-145); Total Bilirubin 0.7 mg/dL (0.15-1.2)
[2022-05-25 17:40] LABS: Add Urine Microscopic? YES; Bilirubin Urine Neg (Negative); Blood Urine Neg (Negative); Glucose Urine UA Norm (Normal); Ketones Urine 1+ (Negative); Leukocyte Esterase Urine Negative (Negative); Nitrate Urine Negative (Negative); Protein Urine Trace (Negative); Urine Appearance Clear (CLEAR); Urine Color Yellow (Yellow); Urobilinogen Urine Norm (Negative); pH Urine 5 (5-7)
[2022-05-25 17:41] LABS: Add Urine Culture? No; Bacteria Urine TRACE /hpf; Mucus Urine 4+ /hpf
[2022-05-25 18:39] VITALS: BP 120/79; PULSE 77; RESP 16; O2SAT 98
== END 2022-05-25 18:41 | disposition home or self-care (01) ==
PROVIDERS: Family Medicine; Emergency Provider Emergency Medicine; PCP Family Medicine
DX: R39.11 Hesitancy of micturition (principal); I25.10 Atherosclerotic heart disease of native coronary artery without angina pectoris; I10 Essential (primary) hypertension; E78.5 Hyperlipidemia, unspecified; Z95.1 Presence of aortocoronary bypass graft
CPT/HCPCS: 36415; 51798; 80053; 81001; 83605; 83735; 85025; 99283

== ENCOUNTER 2022-07-04 05:42 | Emergency (ER) | payer OTHER, SELFPAY ==
[2022-07-04 05:44] VITALS: BMI 25.1
[2022-07-04 05:49] VITALS: BP 143/64; PULSE 90; RESP 18; TEMP 36.9; O2SAT 98
--- NOTE | 2022-07-04 06:08 | XRR_ITS ---
PROCEDURE INFORMATION: Exam: XR Cervical Spine Exam date and time: 07/04/2022 6:17 AM Age: 87 years old Clinical indication: Injury or trauma; Fall; Blunt trauma; Injury date: 1 week ago; Additional info: Pain/fall 1 wk ago TECHNIQUE: Imaging protocol: Radiologic exam of the cervical spine. Views: 2 or 3 views. COMPARISON: CT neck w con* [id number] 11/10/2020 10:58 AM FINDINGS: Bones/joints: The cervical spine is visible through C6 on the lateral view. Alignment is normal. Vertebral body height is maintained. No acute fracture. There is intervertebral and facet ankylosis at C3-C4. Soft tissues: Visible soft tissues are unremarkable. XR/XR cervical spine 3V* [id number] IMPRESSION: 1. No acute findings. 2. Lower cervical spine is incompletely visualized.
--- NOTE | 2022-07-04 06:09 | ED_ITS ---
HPI - Neck Pain/Injury General: Chief Complaint: Neck Pain/Injury Stated Complaint: neck pain Time Seen by Provider: 07/04/22 06:00 Source: patient Mode of arrival: ambulatory History of Present Illness: 87-year-old male presents emergency room with complaint of neck pain. He states it began last night he thinks it may be from a tooth. He has poor dentition he is complaining of some discomfort with a tooth on the left side of the mandible the premolar region. He has not had any drainage from it there is not been any swelling. He also fell 1 week ago when he slipped on the ice landed on his back he was not seen after this happened he had no loss consciousness. He has some stiffness in his neck that he had been accounting to the tooth. Denies any other injury or any other pain MD complaint: neck pain Onset (ago): day(s) Place: home Radiation: left lateral Severity: mild Quality: aching Duration: constant Relieving factors: none Exacerbating factors: none Associated symptoms: Denies dysphagia, difficulty walking, dizziness, fevers/c hills, headache(s), nausea, swollen glands, tingling or weakness Treatments prior to arrival: none Review of Systems Const: Denies: fever(s), chills, body aches, change in appetite, fatigue or malaise ENMT: Denies: throat pain, ear or mastoid pain, nasal discharge or nasal congestion Card: Denies: chest pain, edema, dyspnea on exertion or orthopnea Resp: Denies: dyspnea, productive cough or non-productive cough GI: Denies: nausea or dysphagia Skin/Breast: Denies: rash or pruritus Neuro: Denies: headache(s), difficulty walking or dizziness PFSH ED PFSH: Medical History Asymptomatic stenosis of right carotid artery Atherosclerosis of coronary artery of [place] heart without angina pectoris Bilateral carotid artery stenosis BPH with urinary obstruction Chronic constipation Constipation Dysphagia HTN (hypertension), benign Hyperlipidemia Surgical History History of cataract surgery Bilateral History of coronary artery bypass graft History of vasectomy Family History Father , Age 34 No problems noted. Mother , Age 86 No problems noted. Denies family history of Anesthesia complication Bleeding disorder Social History Smoking and tobacco status: never smoked Lives independently: Yes Marital status: History of recent travel: No Physical Exam Const: COMMON NORMALS: no acute distress GENERAL APPEARANCE: cooperative and comfortable ORIENTATION/CONSCIOUSNESS: Yes awake, Yes oriented to person, Yes oriented to place and Yes oriented to time HENMT: COMMON NORMALS: normocephalic, atraumatic and hearing grossly normal bilaterally HEAD & SCALP: normocephalic and atraumatic OTHER: Poor dentition with multiple caries several missing teeth but no swelling of the gumline no obvious dental abscesses. Palpation along the mandible on the left there is no exquisite tenderness there is no cervical lymphadenopathy no submandibular fullness or swelling. Neck/C-Spine: COMMON NORMALS: no lymphadenopathy, supple and no JVD OTHER: Pain with side bending and rotation to the right. Otherwise has full range of motion no crepitus no step-offs no reproducible pain with palpation along the cervical spine Resp: COMMON NORMALS: normal respiratory effort, No retractions, No use of accessory muscles and clear to auscultation bilaterally AUSCULTATION: clear to auscultation bilaterally Cardio: COMMON NORMALS: no JVD, regular rate, regular rhythm and No murmurs present (Cardio) RATE: regular rate RHYTHM: regular rhythm Extremity: COMMON NORMALS: normal to inspection, capillary refill normal, no clubbing, cyanosis or edema, no calf tenderness and no pedal edema Neuro: SENSORIUM/ORIENTATION: Yes oriented to person, Yes oriented to place and Yes oriented to time Skin: COMMON NORMALS: no rashes or lesions noted GENERAL SKIN EXAM: no rashes or lesions noted Course Vital Signs: Vital signs: Vital Signs Temperature 98.4 F 07/04/22 05:49 Pulse Rate 90 07/04/22 05:49 Respiratory Rate 18 07/04/22 05:49 Blood Pressure 143/64 07/04/22 05:49 Pulse Oximetry 98 07/04/22 05:49 Oxygen Delivery Me thod 07/04/22 05:49 MDM - Neck Pain/Injury Medical Decision Making CBC reviewed unremarkable, no leukocytosis. C-spine films show significant arthritic changes but otherwise is unremarkable. Patient has some improvement with the Decadron Norflex and Toradol given will discharge patient home on diclofenac he has cyclobenzaprine to use as needed. He has some underlying dementia on the Norflex we gave him caused some mild confusion we will get a family member to bring him home. Do not think steroids or other muscle relaxers would be helpful as it is likely due to increased confusion and create other issues. Follow-up with primary care as needed. Medical Records I reviewed the patient's medical records. Lab Data I reviewed the patient's lab results. 07/04/22 06:06 Laboratory Results WBC 6.6 10^3/uL (4.0-10.0) 07/04/22 06:06 RBC 3.83 10^6/uL (4.1-5.3) L 07/04/22 06:06 Hgb 11.9 g/dL (11.7-16.6) 07/04/22 06:06 Hct 36.7 % (42.0-52.0) L 07/04/22 06:06 MCV 95.8 fl (80-94) H 07/04/22 06:06 MCH 31.1 pg (28.0-34.0) 07/04/22 06:06 MCHC 32.4 g/dL (30.0-36.0) 07/04/22 06:06 RDW 12.1 % (12.1-15.1) 07/04/22 06:06 Plt Count 295 10^3/cmm (130-400) 07/04/22 06:06 MPV 9.4 fL (7.4-10.4) 07/04/22 06:06 Neut % (Auto) 40.9 % 07/04/22 06:06 Lymph % (Auto) 43.4 % 07/04/22 06:06 [place] % (Auto) 11.3 % 07/04/22 06:06 Eos % (Auto) 3.2 % 07/04/22 06:06 Baso % (Auto) 0.9 % 07/04/22 06:06 Neut # (Auto) 2.68 10^3/uL (1.8-7.7) 07/04/22 06:06 Lymph # (Auto) 2.8 10^3/uL (0.8-4.8) 07/04/22 06:06 [place] # (Auto) 0.7 10^3/uL (0.2-0.9) 07/04/22 06:06 Eos # (Auto) 0.2 10^3/uL (0.0-0.8) 07/04/22 06:06 Baso # (Auto) 0.1 10^3/uL (0.0-0.1) 07/04/22 06:06 Nucleated RBC % (auto) 0 % 07/04/22 06:06 Nucleated RBCs # 0.0 /100WBC 07/04/22 06:06 Discharge Plan Discharge Patient Disposition: Home Clinical Impression: Cervicalgia Condition: Stable Prescriptions: New diclofenac sodium 75 mg tablet,delayed release (DR/EC) 75 mg PO Q12H PRN (Reason: pain) Qty: 20 0RF No Action (DME) Cam Walker See Rx Instructions .ROUTE .MEDSUPPLY Qty: 1 0RF Rx Instructions: As directed docusate sodium 50 mg capsule 50 mg PO ONCE PRN acetaminophen 500 mg capsule 500 mg PO Q4H PRN levothyroxine 125 mcg capsule 125 mcg PO ONCE omeprazole 40 mg capsule,delayed release(DR/EC) 40 mg PO BID gabapentin 100 mg capsule 100 mg PO BID atorvastatin 40 mg tablet 40 mg PO ONCE Rx Instructions: bedtime cyclobenzaprine 5 mg tablet 5 mg PO .COMPLEX PRN Rx Instructions: 5 mg PO PRN; 1-2 tablets Flomax 0.4 mg capsule 0.4 mg PO DAILY Qty: 30 0RF Discharge Orders: Discharge ED (Routine); Ordered 07/04/22 Ordered By: Maxx Spann Referrals: Emily Pineda MD [Primary Care Provider] - Discharge Diet: Usual diet Discharge Activity: Increase activity as tolerated Patient Instructions: Opioid Safety, Pain Management Activity Restrictions/Additional Instructions: You were seen today for neck discomfort. On exam there is no evidence of infection tooth. We gave you a prescription for diclofenac to use as needed. Follow-up with your primary care doctor if not improving Coding Level of Care Code ED Mustanger for Chg Fwd Exam Detailed
[2022-07-04 06:20] LABS: Basophils # 0.1 10^3/uL (0.0-0.1); Basophils % 0.9 %; Eosinophils # 0.2 10^3/uL (0.0-0.8); Eosinophils % 3.2 %; Hematocrit 36.7 % (42.0-52.0); Hemoglobin 11.9 g/dL (11.7-16.6); Lymphocytes # 2.8 10^3/uL (0.8-4.8); Lymphocytes % 43.4 %; Mean Corpuscular HGB Conc 32.4 g/dL (30.0-36.0); Mean Corpuscular Hemoglobin 31.1 pg (28.0-34.0); Mean Corpuscular Volume 95.8 fl (80-94); Mean Platelet Volume 9.4 fL (7.4-10.4); Monocytes # 0.7 10^3/uL (0.2-0.9); Monocytes % 11.3 %; Neutrophils # 2.68 10^3/uL (1.8-7.7); Neutrophils % 40.9 %; Nucleated Red Blood Cells % 0 %; Platelet Count 295 10^3/cmm (130-400); Red Blood Count 3.83 10^6/uL (4.1-5.3); Red Cell Distribution Width 12.1 % (12.1-15.1); White Blood Count 6.6 10^3/uL (4.0-10.0)
[2022-07-04] MEDS: dexamethasone 10 mg/mL INJ IVP (06:44)
[2022-07-04] MEDS: orphenadrine 30 mg/mL Inj 2 mL 60 MG IVP (06:45)
[2022-07-04] MEDS: ketorolac 30 mg/mL INJ 15 MG IVP (06:45)
--- NOTE | 2022-07-04 07:16 | PC.NURSE ---
attempted to call both contacts on file to come get patient for DC. no answer for son and no voice mail not set up. Other contact, Tamiak is not an active contact.
[2022-07-04 07:50] VITALS: BP 148/76; PULSE 71; RESP 18; O2SAT 97
[2022-07-04 08:03] VITALS: BP 148/76; PULSE 70; RESP 18; O2SAT 98
== END 2022-07-04 08:11 | disposition home or self-care (01) ==
PROVIDERS: Emergency Provider Family Medicine; PCP Family Medicine
DX: M54.2 Cervicalgia (principal); I25.10 Atherosclerotic heart disease of native coronary artery without angina pectoris; I10 Essential (primary) hypertension; E78.5 Hyperlipidemia, unspecified
CPT/HCPCS: 72040; 85025; 96374; 96375; 99284; J1100; J1885; J2360

== ENCOUNTER 2022-08-13 11:41 | Inpatient (IN) | payer OTHER, SELFPAY ==
[2022-08-13 11:51] VITALS: BP 129/65; PULSE 75; RESP 15; TEMP 36.6; O2SAT 98; BMI 24.9
--- NOTE | 2022-08-13 12:28 | CTR_ITS ---
PROCEDURE INFORMATION: Exam: CT Cervical Spine Without Contrast Exam date and time: 08/13/2022 12:39 PM Age: 87 years old Clinical indication: Injury or trauma; Fall; Blunt trauma TECHNIQUE: Imaging protocol: Computed tomography of the cervical spine without contrast. Radiation optimization: All CT scans at this facility use at least one of these dose optimization techniques: automated exposure control; mA and/or kV adjustment per patient size (includes targeted exams where dose is matched to clinical indication); or iterative reconstruction. REPORTING DATA: Count of CT and Cardiac NM exams in prior 12 months: This patient has received [address] and 0 known cardiac nuclear medicine studies in the 12 months prior to the current study. COMPARISON: CR XR cervical spine 3V* [id number] 07/04/2022 6:17 AM RADIATION DOSE METRICS: Total DLP (mGy-cm): 256.1 FINDINGS: Bones/joints: Spinal alignment is normal. Vertebral body height is maintained. There is mild degenerative disc disease in the cervical spine. There is mild multilevel facet spondylosis. No acute fracture. No spinal canal stenosis. Lungs: Lung apices are clear. Vasculature: There is mild atherosclerotic disease of the carotid arteries bilaterally. Soft tissues: Soft tissues in the neck and thoracic inlet are unremarkable. CT/CT cervical spin wo con* [id number] IMPRESSION: No acute fracture.
--- NOTE | 2022-08-13 12:28 | CTR_ITS ---
PROCEDURE INFORMATION: Exam: CT Head Without Contrast Exam date and time: 08/13/2022 12:39 PM Age: 87 years old Clinical indication: Injury or trauma; Fall; Blunt trauma (contusions or hematomas); Additional info: Fall with head injury TECHNIQUE: Imaging protocol: Computed tomography of the head without contrast. Radiation optimization: All CT scans at this facility use at least one of these dose optimization techniques: automated exposure control; mA and/or kV adjustment per patient size (includes targeted exams where dose is matched to clinical indication); or iterative reconstruction. REPORTING DATA: Count of CT and Cardiac NM exams in prior 12 months: This patient has received [address] and 0 known cardiac nuclear medicine studies in the 12 months prior to the current study. COMPARISON: CT head wo con* [id number] 12/16/2019 9:33 PM RADIATION DOSE METRICS: Total DLP (mGy-cm): 1213.5 FINDINGS: Brain: There is diffuse cerebral atrophy and chronic microvascular white matter disease. There is no acute intracranial hemorrhage. Cerebral ventricles: There is moderate ex vacuo dilation of the lateral ventricles. Basal cisterns are unremarkable. Paranasal sinuses: The paranasal sinuses are clear. Mastoid air cells: The mastoid air cells are clear. Bones/joints: The calvarium is intact. Soft tissues: The visible extracranial soft tissues are unremarkable. CT/CT head wo con* [id number] IMPRESSION: No acute intracranial abnormality.
[2022-08-13 12:40] LABS: Add Urine Microscopic? NO; Charge for UA Resulting for Rev
--- NOTE | 2022-08-13 12:40 | ED_ITS ---
HPI - Neck Pain/Injury General: Chief Complaint: Neck Pain/Injury Stated Complaint: neck pian Time Seen by Provider: 08/13/22 11:48 History of Present Illness: This 87-year-old male with a history of hyperlipidemia, hypertension, and coronary artery disease presents to the ER with neck pain. However, on questioning, patient appears to be confused. He talked about having a lady friend and also talked about how the chair slipped from under him when he was transferring from 1 wheelchair to the other. On further inquiry, one of the RNs told me how patient was wandering in the [place] ways and had to be directed to the ER. He is able to mobilize without support. During my initial evaluation patient did not complain of neck pain. Daughter who I later spoke with noted that patient has been living by himself since his passed about 2 months ago. She recalls how patient went to the police station, thinking it was the [place]. This makes me suspect that confusion has been going on for a while. However, there is no documentation of dementia in patient's medical records. Patient could not exactly state how he got to the hospital. Daughter does not believe he has a lady friend. He appears clinically stable. Associated symptoms: Reports headache(s) Review of Systems Const: Denies: chills, body aches or change in appetite Eyes: Denies: change in vision or eye discharge ENMT: Denies: throat pain, dental pain or nasal discharge Card: Denies: chest pain or lightheadedness : Denies: dysuria Musc: Reports: neck pain; Denies: back pain Neuro: Reports: headache(s); Denies: weakness in extremities Chase/Lymph: Denies: easy bruising All/Imm: Denies: urticaria, tongue swelling or facial swelling PFSH ED PFSH: Medical History Asymptomatic stenosis of right carotid artery Atherosclerosis of coronary artery of [place] heart without angina pectoris Bilateral carotid artery stenosis BPH with urinary obstruction Chronic constipation Constipation Dysphagia HTN (hypertension), benign Hyperlipidemia Surgical History History of cataract surgery Bilateral History of coronary artery bypass graft History of vasectomy Family History Father , Age 34 No problems noted. Mother , Age 86 No problems noted. Denies family history of Anesthesia complication Bleeding disorder Social History Smoking and tobacco status: never smoked Lives independently: Yes Marital status: Physical Exam Const: COMMON NORMALS: no acute distress, patient oriented x3, no limitations and alert HENMT: COMMON NORMALS: normocephalic HEAD & SCALP: normocephalic Eye: COMMON NORMALS: EOMs intact bilaterally Neck/C-Spine: COMMON NORMALS: full ROM (With minimal discomfort. No demonstrable tenderness to palpation.) Chest: COMMONS NORMALS: normal inspection of the chest Resp: COMMON NORMALS: normal respiratory effort, No retractions, No use of accessory muscles and clear to auscultation bilaterally AUSCULTATION: clear to auscultation bilaterally Cardio: COMMON NORMALS: regular rate, regular rhythm and No murmurs present ( Cardio) RATE: regular rate RHYTHM: regular rhythm GI: COMMON NORMALS: Normal to inspection, nondistended, normoactive bowel sounds present and non-tender : COMMON NORMALS: Yes no CVA tenderness BLADDER/KIDNEY EXAM: Yes no CVA tenderness Back/Pelvis: COMMON NORMALS: no CVA tenderness and no thoracic nor lumbar tenderness Extremity: GENERAL: Yes normal exam except as noted Neuro: COMMON NORMALS: patient oriented x3 and no focal motor deficits SENSORIUM/ORIENTATION: Yes alert Psych: COMMON NORMALS: mental status grossly normal and cooperative Course Vital Signs: Vital signs: Vital Signs Temperature 97.8 F 08/13/22 20:00 Pulse Rate 52 L 08/13/22 20:00 Respiratory Rate 17 08/13/22 20:00 Blood Pressure 138/68 08/13/22 20:00 Pulse Oximetry 99 08/13/22 20:00 Oxygen Delivery Me thod 08/13/22 17:13 MDM - Neck Pain/Injury Medical Decision Making Medical decision making: History as above. Patient is obviously confused and since he lives by himself, will not be able to care for himself. Case discussed with Dr. Cordero who accepted patient for admission. Lab Data 08/13/22 13:07 08/13/22 13:07 Radiology Impressions Cervical Spine CT 08/13/22 12:28 IMPRESSION: No acute fracture. Head CT 08/13/22 12:28 IMPRESSION: No acute intracranial abnormality. Carotid Doppler Study 08/13/22 17:12 IMPRESSION: 1. Less than 50% stenosis left internal carotid artery. 2. Less than 50% stenosis right internal carotid artery. 3. Patent bilateral vertebral arteries with normal direction of flow. REFERENCES: SRU CRITERIA. The degree of internal carotid artery stenosis is based on criteria defined by the Society of Radiologists in Ultrasound (SRU). Normal is no stenosis. Mild is less than 50% stenosis. Moderate is 50-69% stenosis. Severe is greater than 69% stenosis to near occlusion. Near occlusion is a markedly narrowed lumen. Total occlusion is no detectable patent lumen. Chest X-Ray 08/13/22 17:12 IMPRESSION: Mild left basilar atelectasis and/or infiltrate and/or effusion. Laboratory Results WBC 5.7 10^3/uL (4.0-10.0) 08/13/22 13:07 RBC 3.57 10^6/uL (4.1-5.3) L 08/13/22 13:07 Hgb 11.0 g/dL (11.7-16.6) L 08/13/22 13:07 Hct 34.2 % (42.0-52.0) L 08/13/22 13:07 MCV 95.8 fl (80-94) H 08/13/22 13:07 MCH 30.8 pg (28.0-34.0) 08/13/22 13:07 MCHC 32.2 g/dL (30.0-36.0) 08/13/22 13:07 RDW 11.9 % (12.1-15.1) L 08/13/22 13:07 Plt Count 219 10^3/cmm (130-400) 08/13/22 13:07 MPV 9.4 fL (7.4-10.4) 08/13/22 13:07 Neut % (Auto) 46.5 % 08/13/22 13:07 Lymph % (Auto) 38.1 % 08/13/22 13:07 [place] % (Auto) 12.0 % 08/13/22 13:07 Eos % (Auto) 2.1 % 08/13/22 13:07 Baso % (Auto) 0.9 % 08/13/22 13:07 Neut # (Auto) 2.64 10^3/uL (1.8-7.7) 08/13/22 13:07 Lymph # (Auto) 2.2 10^3/uL (0.8-4.8) 08/13/22 13:07 [place] # (Auto) 0.7 10^3/uL (0.2-0.9) 08/13/22 13:07 Eos # (Auto) 0.1 10^3/uL (0.0-0.8) 08/13/22 13:07 Baso # (Auto) 0.1 10^3/uL (0.0-0.1) 08/13/22 13:07 Nucleated RBC % (auto) 0 % 08/13/22 13:07 Nucleated RBCs # 0.0 /100WBC 08/13/22 13:07 Sodium 140 mmol/L (136-145) 08/13/22 13:07 Potassium 4.1 mmol/L (3.5-5.1) 08/13/22 13:07 Chloride 105 mmol/L (98-107) 08/13/22 13:07 Carbon Dioxide 25 mmol/L (22-29) 08/13/22 13:07 Anion Gap 14.1 (5-19) 08/13/22 13:07 BUN 14 mg/dL (8-23) 08/13/22 13:07 Creatinine 1.0 mg/dL (0.7-1.2) 08/13/22 13:07 GFR Calculation Not Reportable 08/13/22 13:07 Glucose 135 mg/dL (65-115) H 08/13/22 13:07 Calculated Osmolality 293 mOsm/kg (285-295) 08/13/22 13:07 Calcium 8.9 mg/dL (8.5-10.5) 08/13/22 13:07 Total Bilirubin 0.4 mg/dL (0.15-1.2) 08/13/22 13:07 AST 18 U/L (0-40) 08/13/22 13:07 ALT 15 U/L (0-41) 08/13/22 13:07 Alkaline Phosphatase 78 U/L (40-130) 08/13/22 13:07 Total Protein 5.9 g/dL (6.6-8.7) L 08/13/22 13:07 Albumin 3.5 g/dL (3.5-5.2) 08/13/22 13:07 Globulin 2.4 g/dL (1.3-4.6) 08/13/22 13:07 Urine Color Yellow (Yellow) 08/13/22 12:08 Urine Appearance Clear (CLEAR) 08/13/22 12:08 Urine pH 5 (5-7) 08/13/22 12:08 Ur Specific [place] 1.025 (1.005-1.030) 08/13/22 12:08 Urine Protein Neg (Negative) 08/13/22 12:08 Urine Glucose (UA) 1+ (Normal) H 08/13/22 12:08 Urine Ketones Negative (Negative) 08/13/22 12:08 Urine Blood Neg (Negative) 08/13/22 12:08 Urine Nitrate Negative (Negative) 08/13/22 12:08 Urine Bilirubin Neg (Negative) 08/13/22 12:08 Urine Urobilinogen Norm mg/dL (Negative) 08/13/22 12:08 Ur Leukocyte Esterase Negative (Negative) 08/13/22 12:08 Discharge Plan Discharge Patient Disposition: Admitted As Inpatient Admit Provider: Elvis Cordero Clinical Impression: Neck pain, Dementia, Fall, Confusion Condition: Stable Coding Level of Care Code ED Lead Neurodiagnostic Technologist for Madi Gonzalez
[2022-08-13 13:01] LABS: Bilirubin Urine Neg (Negative); Blood Urine Neg (Negative); Glucose Urine UA 1+ (Normal); Ketones Urine Negative (Negative); Leukocyte Esterase Urine Negative (Negative); Nitrate Urine Negative (Negative); Protein Urine Neg (Negative); Specific Gravity, Urine 1.025 (1.005-1.030); Urine Appearance Clear (CLEAR); Urine Color Yellow (Yellow); Urobilinogen Urine Norm (Negative); pH Urine 5 (5-7)
[2022-08-13 13:15] LABS: Basophils # 0.1 10^3/uL (0.0-0.1); Basophils % 0.9 %; Eosinophils # 0.1 10^3/uL (0.0-0.8); Eosinophils % 2.1 %; Hematocrit 34.2 % (42.0-52.0); Lymphocytes # 2.2 10^3/uL (0.8-4.8); Lymphocytes % 38.1 %; Mean Corpuscular HGB Conc 32.2 g/dL (30.0-36.0); Mean Corpuscular Hemoglobin 30.8 pg (28.0-34.0); Mean Corpuscular Volume 95.8 fl (80-94); Mean Platelet Volume 9.4 fL (7.4-10.4); Monocytes # 0.7 10^3/uL (0.2-0.9); Neutrophils # 2.64 10^3/uL (1.8-7.7); Neutrophils % 46.5 %; Nucleated Red Blood Cells % 0 %; Platelet Count 219 10^3/cmm (130-400); Red Blood Count 3.57 10^6/uL (4.1-5.3); Red Cell Distribution Width 11.9 % (12.1-15.1); White Blood Count 5.7 10^3/uL (4.0-10.0)
[2022-08-13 13:43] LABS: Alanine Aminotransferase 15 U/L (0-41); Albumin Level 3.5 g/dL (3.5-5.2); Alkaline Phosphatase 78 U/L (40-130); Anion Gap 14.1 (5-19); Aspartate Amino Transferase 18 U/L (0-40); Blood Urea Nitrogen 14 mg/dL (8-23); Calcium 8.9 mg/dL (8.5-10.5); Carbon Dioxide 25 mmol/L (22-29); Chloride 105 mmol/L (98-107); Globulin 2.4 g/dL (1.3-4.6); Glucose 135 mg/dL (65-115); Osmolality Calculated 293 mOsm/kg (285-295); Potassium 4.1 mmol/L (3.5-5.1); Sodium 140 mmol/L (136-145); Total Bilirubin 0.4 mg/dL (0.15-1.2); Total Protein 5.9 g/dL (6.6-8.7)
--- NOTE | 2022-08-13 15:59 | PC.PHAR ---
Addendum entered by Heather Rodriguez 08/13/22 16:00: meds verified by last entered Original Note: pt was unable to verify meds - fills med[facility]
[2022-08-13 16:20] VITALS: BP 135/84; PULSE 78; RESP 14; O2SAT 98
[2022-08-13 16:52] VITALS: BMI 24.9
--- NOTE | 2022-08-13 17:12 | USR_ITS ---
PROCEDURE INFORMATION: Exam: US Duplex Bilateral Extracranial Arteries, Carotid Arteries Exam date and time: 08/13/2022 8:37 PM Age: 87 years old Clinical indication: Altered mental status/memory loss; Additional info: AMS TECHNIQUE: Imaging protocol: Real-time Duplex ultrasound scan of the bilateral carotid and vertebral arteries combining monet scale, color Doppler and spectral waveform analysis. Bilateral exam. Exam focused on the carotid arteries. COMPARISON: CT cervical spin wo con* [id number] 08/13/2022 12:39 PM FINDINGS: Right common carotid artery: Unremarkable. No occlusion or stenosis. Waveforms are normal. Right internal carotid artery: Unremarkable. No occlusion or stenosis. Waveforms are normal. Right ICA/CCA ratio: Within normal limits. Right external carotid artery: No stenosis in the origin. Right vertebral artery: Unremarkable. Antegrade flow. Left common carotid artery: Unremarkable. No occlusion or stenosis. Waveforms are normal. Left internal carotid artery: Unremarkable. No occlusion or stenosis. Waveforms are normal. Left ICA/CCA ratio: Within normal limits. Left external carotid artery: No stenosis in the origin. Left vertebral artery: Unremarkable. Antegrade flow. US/CV carotid duplex BI* [id number] IMPRESSION: 1. Less than 50% stenosis left internal carotid artery. 2. Less than 50% stenosis right internal carotid artery. 3. Patent bilateral vertebral arteries with normal direction of flow. REFERENCES: SRU CRITERIA. The degree of internal carotid artery stenosis is based on criteria defined by the Society of Radiologists in Ultrasound (SRU). Normal is no stenosis. Mild is less than 50% stenosis. Moderate is 50-69% stenosis. Severe is greater than 69% stenosis to near occlusion. Near occlusion is a markedly narrowed lumen. Total occlusion is no detectable patent lumen.
--- NOTE | 2022-08-13 17:12 | XRR_ITS ---
PROCEDURE INFORMATION: Exam: XR Chest Exam date and time: 08/13/2022 4:34 PM Age: 87 years old Clinical indication: Other: Ams/fall; Prior surgery; Surgery type: Bypass TECHNIQUE: Imaging protocol: Radiologic exam of the chest. Views: 1 view. COMPARISON: CR XR chest 1V portable [id number] 12/16/2019 7:33 PM FINDINGS: Lungs: Mild left basilar atelectasis and/or infiltrate and/or effusion. Pleural spaces: Unremarkable. No pleural effusion. No pneumothorax. Heart/Mediastinum: Unremarkable. No cardiomegaly. Bones/joints: Stable sternotomy. XR/XR chest 1V portable [id number] IMPRESSION: Mild left basilar atelectasis and/or infiltrate and/or effusion.
[2022-08-13 17:13] VITALS: BP 149/71; PULSE 74; RESP 18; TEMP 36.4; O2SAT 99
[2022-08-13 17:50] VITALS: PULSE 63
--- NOTE | 2022-08-13 17:50 | ECG_ITS ---
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
--- NOTE | 2022-08-13 17:50 | PM.HP ---
Providers/Chief Complaint Admitting Physician: Elvis Cordero MD Primary Care Provider: Emily Pineda MD Chief Complaint: neck pian History of Present Illness Ida Vásquez is a 87 year old male with a past medical history of hypertension, CAD status post single-vessel CABG, carotid artery stenosis, hypertension, hyperlipidemia who presents to [facility] due to altered mental status and neck pain. Currently patient is alert to person, not to place, not to time, he tells me he drove to the hospital but he does not know the type of car he has, nor does he know what color car he drives. He tells me that what brought him to the hospital he was having neck pain, neck pain at the back of his neck, no pain with range of motion, but pain radiating down both sides of his neck, no clicking, no popping, no recent injury. But that is all he is able to tell me pain in the back of his neck. And he talked to this vague person which was a girl he does not know her name and she told him to come to the hospital so he came to the hospital. He is not exactly sure how he got here but then he corrects himself and told his tells me he drove here I asked him what road he took and he cannot remember I asked him where he parked, and he cannot remember. I asked him his address he cannot remember, he tells me he lives here in town, he tells me that his 4 months ago and he becomes very tearful and quite withdrawn and does not want to answer any more questions about that. He denies any suicidal ideation, denies any homicidal ideation, he does not report feeling down or depressed. He denies any chest pain. Denies any palpitations, denies any shortness of breath, denies any dysuria. Denies any flank pain. No falls, no injuries. I asked him after your who was cooking for you, he tells me that the neighbor, I asked him what he had for breakfast he cannot remember that. I asked that once the last time he had a meal and he cannot remember. I asked him how he buys groceries and he tells me people help him but he is not exactly able to elaborate who these people are. I asked him about his medical conditions and he is not exactly sure, but I was able to get some of his medical history from the chart. He is actually a [place] , he tells me, he was in the [place], he is not exactly able to tell me where he went for in the [place]. 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 But he knows that he has to keep his distance from children, he gives me an example of a child falls, he will make sure that besides a fall the child is doing okay but he will never go up and help the child up. He does report weight loss, and a poor appetite. He does not know the month, he does not know the date he does not know the year, he does not know who the president is. Denies any blurry vision. He is well dressed, he has his [place] hat on, he is well shaven. I was upfront and honest with patient, I discussed with him that I am concerned about his forgetfulness, I am not sure if this is his baseline, but I am worried that with his passing, he has developed severe atypical depression. I am wondering if he does have some underlying dementia, and that now is worse with his atypical depression. But I want to make sure that there is nothing medically going on to explain his confusion, so I will run a few other tests and make sure that there is nothing other medically going on. But I was upfront and honest with him that I am worried about his safety when he goes home, as I do not know how he is going to get home I would recommend against driving but I do not know who is going to take care of him, and his social support network. He tells me he has children but he is quite estranged from his children and he has not talked to them in many years,, that he has no family, he has no friends. He actually recognizes that he is confused, and is agreeable that it is related to dementia, but he does not know what to do about it, he is agreeable to stay here in the hospital overnight but he tells me he does want to eventually go home Review of Systems Const: Denies: fever(s), chills, fatigue or malaise Eyes: Denies: change in vision or blurry vision ENMT: Denies: nasal congestion Resp: Denies: dyspnea, productive cough, non-productive cough or wheezing GI: Denies: abdominal pain, nausea, vomiting, hematemesis, diarrhea, constipation, hematochezia or melena : Denies: flank pain, difficulty urinating, dysuria or urinary frequency Musc: Denies: back pain Skin/Breast: Denies: rash Neuro: Reports: confusion; Denies: headache(s), dizziness or vertigo Psych: Denies: anxiety or depression Endo: Denies: polyuria or polydipsia Medications/Allergies Home Medications Medication Instructions Recorded Confirmed Last Taken Type acetaminophen 500 mg capsule 500 mg PO Q4H PRN Pain 06/03/19 08/13/22 Unknown History atorvastatin 40 mg tablet 40 mg PO DAILY 06/03/19 08/13/22 Unknown History cyclobenzaprine 5 mg tablet 5 mg PO .COMPLEX PRN Muscle Pain 06/03/19 08/13/22 Unknown History docusate sodium 50 mg capsule 50 mg PO DAILY PRN Constipation 06/03/19 08/13/22 Unknown History gabapentin 100 mg capsule 100 mg PO BID 06/03/19 08/13/22 Unknown History levothyroxine 125 mcg capsule 125 mcg PO DAILY 06/03/19 08/13/22 Unknown History omeprazole 40 mg capsule,delayed 40 mg PO BID 06/03/19 08/13/22 Unknown History release Cam Walker #1 ea 07/28/20 08/13/22 Unknown Rx tamsulosin 0.4 mg capsule (Flomax) 0.4 mg PO DAILY #30 caps 05/25/22 08/13/22 Unknown Rx diclofenac sodium 75 mg 75 mg PO Q12H PRN pain #20 tabs 07/04/22 08/13/22 Unknown Rx tablet,delayed release Allergies Allergy/AdvReac Type Severity Reaction Status Date / Time promethazine Allergy Unknown Verified 04/26/21 13:03 PFSH Acute PFSH: Medical History Asymptomatic stenosis of right carotid artery Atherosclerosis of coronary artery of [place] heart without angina pectoris Bilateral carotid artery stenosis BPH with urinary obstruction Chronic constipation Constipation Dysphagia HTN (hypertension), benign Hyperlipidemia Surgical History History of cataract surgery Bilateral History of coronary artery bypass graft History of vasectomy Family History Father , Age 34 No problems noted. Mother , Age 86 No problems noted. Denies family history of Anesthesia complication Bleeding disorder Social History Smoking and tobacco status: never smoked Lives independently: Yes Marital status: Vitals/I&O/Wt Last Vital Signs Temp 97.5 F L 08/13/22 17:13 Pulse 74 08/13/22 17:13 Resp 18 08/13/22 17:13 BP 149/71 08/13/22 17:13 Pulse Ox 99 08/13/22 17:13 O2 Del Method 08/13/22 17:13 Weight last 48 hrs Weight 76.657 kg Physical Exam Const: COMMON NORMALS: no acute distress EXAM LIMITATIONS: altered mental status ORIENTATION/CONSCIOUSNESS: Yes awake, Yes oriented to person and Yes confused; not oriented to place and not oriented to time HENMT: COMMON NORMALS: normocephalic HEAD & SCALP: normocephalic Neck/C-Spine: COMMON NORMALS: no JVD GENERAL: Yes normal visual inspection CERVICAL SPINE: Yes cervical ROM normal, No Cervical spine tenderness, No Paracervical muscle tenderness and Yes Trapezius muscle tenderness Resp: COMMON NORMALS: normal respiratory effort, No retractions, No use of accessory muscles and clear to auscultation bilaterally AUSCULTATION: clear to auscultation bilaterally Cardio: COMMON NORMALS: no JVD, regular rate, regular rhythm, S1 normal heart sound present and S2 normal heart sound present RATE: regular rate RHYTHM: regular rhythm HEART SOUNDS: S1 normal heart sound present and S2 normal heart sound present GI: COMMON NORMALS: Normal to inspection, nondistended, normoactive bowel sounds present, Soft to palpation and non-tender PALPATION: Yes Soft to palpation and Yes No hepatosplenomegaly present Extremity: COMMON NORMALS: capillary refill normal, no clubbing, cyanosis or edema, no calf tenderness and no pedal edema Neuro: COMMON NORMALS: CN's II-XII intact bilaterally, moves all extremities and no focal motor deficits Psych: COMMON NORMALS: mental status grossly normal Data 08/13/22 13:07 08/13/22 13:07 A&P Assessment and plan (1) Dementia: (2) Confusion: (3) Neck pain: (4) Altered mental status: (5) Hyperlipidemia: Qualifiers: Hyperlipidemia type: unspecified Qualified Code(s): E78.5 - Hyperlipidemia, unspecified (6) HTN (hypertension), benign: (7) Atherosclerosis of coronary artery of [place] heart without angina pectoris: Qualifiers: Coronary Disease-Associated Artery/Lesion type: [place] artery Qualified Code(s): I25.10 - Atherosclerotic heart disease of [place] coronary artery without angina pectoris Plan Altered mental status -Likely secondary to underlying dementia -With severe atypical depression -However need to rule out underlying medical etiology -He does complain of neck pain, but Kernig sign negative, Brudzinski sign negative, no fevers, no vision changes, good neck pain range of motion -Urinalysis no evidence of UTI -Chest x-ray pending -No significant leukocytosis -No significant electrolyte abnormalities -Head CT no acute findings, but does show diffuse cerebral atrophy and chronic microvascular white matter disease. -Cervical CT no acute findings -He does have a history of coronary stenosis, will order a carotid artery ultrasound -Does have a history of CAD, serial EKGs or troponins cardiac echo -We will get alcohol out of her, U tox, acetaminophen, salicylate level -HIV, acute hep, blood alcohol level -B12, folate, RPR, thiamine, TSH -The issue is that patient does not have a safe discharge, he does not even know how he got to the hospital but eventually remembers the drove here but does not know the type of car he has, does not know the color of car, so he is an unsafe discharge home, I do not know how I would even get him home, nor he is not sure where he lives, or to get into his home -I I have told him he cannot drive -He does not have a lot of social support -He does not have any suicidal ideation, no homicide ideation, he is not a harm to himself -But I recommend at least medical evaluation for his confusion -But if there is no significant medical reason for his confusion except that he has dementia and atypical depression -Then I do not have anything else to really hold him here in the hospital -Certainly I could have psychiatry see him and psychiatrist in consult for possible competency evaluation but this would be quite difficult -As patient understands he has dementia, he understands he is forgetful, and he is reasonable -I do not think he will agree to custodial placement, or placement to a neuro unit -I I do not believe I could do a 96-hour hold, as he is not on imminent danger to himself, or others -I have reached out to psychiatry to see if competency evaluation could help -Ongoing to reach out to patient's family members to see if I can get more of the family dynamics, to see if he has a support structure at home -But patient is agreeable to stay here in the hospital, he is reasonable, -I will start him on Prozac 10 mg once daily for depression -Full code -Lovenox for DVT prophylaxis Attestations Medical Necessity Statement*: Patient requires hospitalization, inpatient, greater than 2 midnights, for altered mental status Coding Level of Care Code Acute Code for [facility] Fwd Diagnoses Dementia F03.90 Confusion R41.0 Neck pain M54.2 Altered mental status R41.82 Hyperlipidemia E78.5 Hyperlipidemia type: unspecified HTN (hypertension), benign I10 Atherosclerosis of coronary artery of [place] heart without angina pectoris I25.10 Coronary Disease-Associated Artery/Lesion type: [place] artery
[2022-08-13] MEDS: pantoprazole DR 40 mg Tablet PO (18:04)
[2022-08-13] MEDS: gabapentin 100 mg Capsule PO (18:04)
[2022-08-13] MEDS: enoxaparin 40 mg/0.4 mL Syringe SUBCUT (18:05)
[2022-08-13 19:24] LABS: Troponin(5th) Baseline 22 ng/L (0-15)
[2022-08-13 19:29] LABS: NT Pro B Type Natriuretic Pept 163 pg/mL (0-450); Procalcitonin 0.06 ng/mL (0-0.5)
[2022-08-13 19:35] LABS: Thyroid Stimulating Hormone 0.03 uIU/mL (0.27-4.20); Vitamin B12 473 pg/mL (232-1245)
[2022-08-13 19:43] LABS: Acetaminophen < 5.0 ug/mL (10-30); Alcohol Level < 10 mg/dL (0-10); Folate Level 12.5 ng/mL (4.5-32.2); Salicylate < 0.3 mg/dL (3-10)
[2022-08-13 19:47] LABS: Chol HDL Ratio 3.18 mg/dL (1.0-5.00); Cholesterol 124 mg/dL (0-200); HDL Cholesterol 39 mg/dL (60-100); LDL Cholesterol Calculated 67 mg/dL (50-129); LDL HDL Ratio 1.72 RATIO (0.00-3.22); Triglycerides 90 mg/dL (0-150)
[2022-08-13 20:00] VITALS: BP 138/68; PULSE 52; RESP 17; TEMP 36.6; O2SAT 99
--- NOTE | 2022-08-13 20:04 | ECG_ITS ---
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
[2022-08-13 21:16] LABS: Troponin 5 2HR 22.41 ng/L (0-15)
[2022-08-13 21:18] LABS: Troponin 5 2HR Delta 0.41 ABS# (0-10)
[2022-08-13 23:02] LABS: Estmated Average Glucose 163; Hemoglobin A1C 7.3 % (4.0-6.0)
[2022-08-13 23:10] LABS: Hepatitis A Antibody IgM Non-Reactive (Nonreactive); Hepatitis B Core IgM Non-Reactive (Nonreactive); Hepatitis B Surface Antigen Non-Reactive (Nonreactive); Hepatitis C Virus Antibody Non-Reactive (Nonreactive)
[2022-08-13 23:11] LABS: Rapid Plasma Reagin Syphilis Nonreactive (Nonreactive)
[2022-08-13 23:48] LABS: T3 Free 3.8 PG/ML (2.0-4.4)
[2022-08-14] VITALS: BP 137/75; BP 142/72; PULSE 57; PULSE 75; RESP 17; RESP 19; TEMP 36.2; TEMP 36.6; O2SAT 98
[2022-08-14 00:34] LABS: Troponin 5 6HR 27.26 ng/L (0-15)
[2022-08-14 00:38] LABS: Troponin 5 6HR Delta 5.26 ng/L (0-12)
[2022-08-14 03:33] LABS: Basophils # 0.1 10^3/uL (0.0-0.1); Basophils % 0.9 %; Eosinophils # 0.2 10^3/uL (0.0-0.8); Eosinophils % 2.9 %; Hematocrit 33.1 % (42.0-52.0); Hemoglobin 10.8 g/dL (11.7-16.6); Lymphocytes # 3.3 10^3/uL (0.8-4.8); Lymphocytes % 47.3 %; Mean Corpuscular HGB Conc 32.6 g/dL (30.0-36.0); Mean Corpuscular Hemoglobin 30.8 pg (28.0-34.0); Mean Corpuscular Volume 94.3 fl (80-94); Mean Platelet Volume 9.2 fL (7.4-10.4); Monocytes # 0.9 10^3/uL (0.2-0.9); Monocytes % 12.4 %; Neutrophils % 36.2 %; Nucleated Red Blood Cells % 0 %; Platelet Count 211 10^3/cmm (130-400); Red Blood Count 3.51 10^6/uL (4.1-5.3); Red Cell Distribution Width 11.9 % (12.1-15.1); White Blood Count 6.9 10^3/uL (4.0-10.0)
[2022-08-14 03:56] LABS: Alanine Aminotransferase 14 U/L (0-41); Albumin Level 3.2 g/dL (3.5-5.2); Alkaline Phosphatase 60 U/L (40-130); Anion Gap 10.2 (5-19); Aspartate Amino Transferase 19 U/L (0-40); Blood Urea Nitrogen 12 mg/dL (8-23); Calcium 8.9 mg/dL (8.5-10.5); Carbon Dioxide 28 mmol/L (22-29); Chloride 107 mmol/L (98-107); Globulin 2.4 g/dL (1.3-4.6); Glucose 125 mg/dL (65-115); Magnesium 1.9 mg/dL (1.7-2.3); Osmolality Calculated 293 mOsm/kg (285-295); Phosphorus 3.8 mg/dL (2.5-4.5); Potassium 4.2 mmol/L (3.5-5.1); Sodium 141 mmol/L (136-145); Total Bilirubin 0.6 mg/dL (0.15-1.2); Total Protein 5.6 g/dL (6.6-8.7)
[2022-08-14 04:00] VITALS: BP 137/75; PULSE 57; RESP 17; TEMP 36.6; O2SAT 98
--- NOTE | 2022-08-14 06:00 | USCV_ITS ---
Ida Vásquez Age: 87 Gender: M : 1935 Exam Date: 08/14/2022 12:53 Ordering Phys: Elvis Cordero MD Technologist: ELVIA [place] [facility] [place]: ams BP: / HR: Rhythm: Sinus Technical Quality: Adequate MEASUREMENTS (Male / Female) Normal Values FINDINGS Left Ventricle Normal left ventricular size, systolic function and wall thickness, with no regional wall motion abnormalities. Left ventricular ejection fraction is estimated at 60 %. Grade I/IV diastolic dysfunction (abnormal relaxation filling pattern), normal to mildly elevated filling pressures. Right Ventricle The right ventricle is normal in size and function. Right Atrium The right atrium is normal in size. Left Atrium The left atrium is normal in size. Mitral Valve Structurally normal mitral valve without significant stenosis or prolapse. There is no mitral regurgitation. Aortic Valve Structurally normal aortic valve without significant sclerosis or stenosis. There is no aortic regurgitation. Tricuspid Valve Qdvk-gq-leihvgic tricuspid valve regurgitation. Pulmonic Valve Structurally normal pulmonic valve without significant stenosis. There is no pulmonic regurgitation. Pericardium Normal pericardium without effusion. Aorta Normal ascending aorta dimension. IVC The inferior vena cava appears normal. CONCLUSIONS 1-Normal left ventricular size, systolic function and wall thickness, with no regional wall motion abnormalities. Left ventricular ejection fraction is estimated at 60 %. Grade I/IV diastolic dysfunction (abnormal relaxation filling pattern), normal to mildly elevated filling pressures. 8-Trtk-xa-moderate tricuspid valve regurgitation. 3-There is no pericardial effusion. 4-Right atrial pressure is around 5 mm of mercury. Artem Desai MD (Electronically Signed) Final Date: 14 August 2022 16:34 S
[2022-08-14 06:46] LABS: Amphetamines Screen Urine Negative (Negative); Barbiturates Screen Urine Negative (Negative); Benzodiazepines Screen Urine Negative (Negative); Cocaine Screen Urine Negative (Negative); Opiate Screen Urine Negative (Negative); PCP Screen Urine Negative (Negative); THC Screen Urine Negative (Negative)
[2022-08-14 08:00] VITALS: BP 107/61; PULSE 66; O2SAT 97
[2022-08-14] MEDS: pantoprazole DR 40 mg Tablet PO ×2 (09:02→17:23)
[2022-08-14] MEDS: tamsulosin 0.4 mg Capsule PO (09:03)
[2022-08-14] MEDS: gabapentin 100 mg Capsule PO ×2 (09:03→17:23)
[2022-08-14] MEDS: levothyroxine 125 mcg Tablet PO (09:03)
[2022-08-14] MEDS: fluoxetine 10 mg Capsule PO (09:03)
[2022-08-14] MEDS: atorvastatin 40 mg Tablet PO (09:03)
[2022-08-14] MEDS: cyclobenzaprine 10 mg Tablet 5 MG PO (09:07)
[2022-08-14 12:12] LABS: Glucose Point of Care 216 mg/dL (70-110)
--- NOTE | 2022-08-14 12:18 | PM.PN ---
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, he tells me that it is in the 1966 model, he is not sure how he got here again is very vague in his description on how he got to the hospital, he has no complaints, during my conversation with him he periodically has to stop and think about his answers and cannot come up with an answer, denies any neck pain this morning, he tells me he did not like the hospital food this morning, but cannot elaborate exactly what he ate Vitals/I&O/Wt Last Vital Signs Temp 97.9 F 08/14/22 04:00 Pulse 66 08/14/22 08:00 Resp 17 08/14/22 04:00 BP 107/61 08/14/22 08:00 Pulse Ox 97 08/14/22 08:00 O2 Del Method 08/13/22 17:13 08/13/22 08/14/22 08/14/22 22:59 06:59 14:59 Intake Total 120 / 120 Balance 120 / 120 Weight last 48 hrs Weight 76.657 kg Weight 76.657 kg Physical Exam Const: COMMON NORMALS: no acute distress and patient oriented x3 Resp: COMMON NORMALS: normal respiratory effort, No retractions, No use of accessory muscles and clear to auscultation bilaterally AUSCULTATION: clear to auscultation bilaterally Cardio: COMMON NORMALS: regular rate, regular rhythm, S1 normal heart sound present and S2 normal heart sound present RATE: regular rate RHYTHM: regular rhythm HEART SOUNDS: S1 normal heart sound present and S2 normal heart sound present GI: COMMON NORMALS: Normal to inspection, nondistended, normoactive bowel sounds present and non-tender Extremity: COMMON NORMALS: no pedal edema Neuro: COMMON NORMALS: patient oriented x3 Psych: COMMON NORMALS: mental status grossly normal Data 08/14/22 03:15 08/14/22 03:15 Micro: Microbiology 08/13/22 18:45 Blood Culture - Preliminary Blood SPECIMEN COLLECTED 08/13/22 18:30 Blood Culture - Preliminary Blood SPECIMEN COLLECTED A&P Assessment and plan (1) Dementia: (2) Confusion: (3) Neck pain: (4) Altered mental status: (5) Hyperlipidemia: Qualifiers: Hyperlipidemia type: unspecified Qualified Code(s): E78.5 - Hyperlipidemia, unspecified (6) HTN (hypertension), benign: (7) 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 pectoris: Qualifiers: Coronary Disease-Associated Artery/Lesion type: [place] artery Qualified Code(s): I25.10 - Atherosclerotic heart disease of [place] coronary artery without angina pectoris Plan Altered mental status -Evidence of short-term memory loss, long-term memory loss -Evidence of inability to make complex decisions -Likely secondary to underlying dementia -With severe atypical depression -However need to rule out underlying medical etiology -He does complain of neck pain, but Kernig sign negative, Brudzinski sign negative, no fevers, no vision changes, good neck pain range of motion -Urinalysis no evidence of UTI -Chest x-ray pending -No significant leukocytosis -No significant electrolyte abnormalities -Head CT no acute findings, but does show diffuse cerebral atrophy and chronic microvascular white matter disease. -Cervical CT no acute findings -He does have a history of coronary stenosis, will order a carotid artery ultrasound -Does have a history of CAD, serial EKGs or troponins cardiac echo -We will get alcohol out of her, U tox, acetaminophen, salicylate level -HIV, acute hep, blood alcohol level negative -B12, folate, RPR, within normal limits -The issue is that patient does not have a safe discharge, he does not even know how he got to the hospital but eventually remembers the drove here but does not know the type of car he has, does not know the color of car, so he is an unsafe discharge home, I do not know how I would even get him home, nor he is not sure where he lives, or to get into his home -I I have told him he cannot drive -He does not have social support -We will have psychiatry see him, as I do not think he has capacity to make decisions, and I feel that he is an unsafe discharge home, spoke to psychiatry will see -I will start him on Prozac 10 mg once daily for depression -Full code -Lovenox for DVT prophylaxis Attestations Medical Necessity Statement*: Patient requires hospitalization for altered mental status, increased forgetfulness Diagnoses Dementia F03.90 Confusion R41.0 Neck pain M54.2 Altered mental status R41.82 Hyperlipidemia E78.5 Hyperlipidemia type: unspecified HTN (hypertension), benign I10 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 pectoris I25.10 Coronary Disease-Associated Artery/Lesion type: [place] artery
[2022-08-14] MEDS: insulin lispro 100 unit/1 mL SUBCUT (12:26)
[2022-08-14 16:00] VITALS: BP 134/55; PULSE 63; RESP 16; TEMP 36.6; O2SAT 99
[2022-08-14 17:14] LABS: Glucose Point of Care 111 mg/dL (70-110)
[2022-08-14] MEDS: enoxaparin 40 mg/0.4 mL Syringe SUBCUT (17:23)
--- NOTE | 2022-08-14 17:27 | P.NPUCON_ITS ---
Providers/Reason for Consult Consulting Physican/Specialty*: Lukasz Chavez MD Reason for Consult*: confusion/altered mental status Attending Physician: Elvis Cordero MD Primary Care Provider: Emily Pineda MD Psych Consult HPI History of Present Illness Ida Vásquez is a 87 year old male who presented to [facility] initially into the emergency department with complaints of neck pain. He was admitted to the unit for altered mental status and had been admitted to the [facility] floor on 08/13/2022. Patient was evaluated and was willing to sit down and discuss his information and stated that he had problems with his memory as he reported that he was unable to recall any information regarding where he was where he lived the date this season the year or even the floor that he was currently on. He had reported that he had been more upset since his of several years had a few months ago. 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 He reports struggling with remembering warnings and reports that he has been cooking for himself and l iving in his own home. Allergies: Unknown Psychiatric history: Unknown Medical history: History of bilateral carotid artery stenosis, hyperlipidemia, hypertension, atherosclerosis ,constipation, Drug and alcohol history: None reported Family history: Unknown Social history: Patient had reported having been in the [place]. He reports having been and stated that he had limited contact with his family. 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 Meds Home Medications and Allergies Home Medications Medication Instructions Recorded Confirmed Last Taken Type acetaminophen 500 mg capsule 500 mg PO Q4H PRN Pain 06/03/19 08/13/22 Unknown History atorvastatin 40 mg tablet 40 mg PO DAILY 06/03/19 08/13/22 Unknown History cyclobenzaprine 5 mg tablet 5 mg PO .COMPLEX PRN Muscle Pain 06/03/19 08/13/22 Unknown History docusate sodium 50 mg capsule 50 mg PO DAILY PRN Constipation 06/03/19 08/13/22 Unknown History gabapentin 100 mg capsule 100 mg PO BID 06/03/19 08/13/22 Unknown History levothyroxine 125 mcg capsule 125 mcg PO DAILY 06/03/19 08/13/22 Unknown History omeprazole 40 mg capsule,delayed 40 mg PO BID 06/03/19 08/13/22 Unknown History release Cam Walker #1 ea 07/28/20 08/13/22 Unknown Rx tamsulosin 0.4 mg capsule (Flomax) 0.4 mg PO DAILY #30 caps 05/25/22 08/13/22 Unknown Rx diclofenac sodium 75 mg 75 mg PO Q12H PRN pain #20 tabs 07/04/22 08/13/22 Unknown Rx tablet,delayed release Allergies Allergy/AdvReac Type Severity Reaction Status Date / Time promethazine Allergy Unknown Verified 04/26/21 13:03 Current Medications Current Medications Generic Name Dose Route Start Last Admin Trade Name Freq PRN Reason Stop Dose Admin Atorvastatin Calcium 40 mg 08/14/22 09:00 08/14/22 09:03 Atorvastatin 40 Mg Tablet PO 40 mg DAILY NICHOLAS Administration Cyclobenzaprine HCl 5 mg 08/13/22 17:20 08/14/22 09:07 Cyclobenzaprine 10 Mg Tablet PO 5 mg Q24H PRN Administration Muscle Pain Enoxaparin Sodium 40 mg 08/13/22 17:15 08/14/22 17:23 Enoxaparin 40 Mg/0.4 Ml Syringe SUBCUT 40 mg Q24H NICHOLAS Administration Fluoxetine HCl 10 mg 08/14/22 09:00 08/14/22 09:03 Fluoxetine 10 Mg Capsule PO 10 mg DAILY NICHOLAS Administration Gabapentin 100 mg 08/13/22 18:00 08/14/22 17:23 Gabapentin 100 Mg Capsule PO 100 mg BID NICHOLAS Administration Insulin Human Lispro 0 unit 08/14/22 12:00 08/14/22 17:22 Insulin Lispro 100 Unit/1 Ml SUBCUT Not Given TIDWM [facility] Protocol Levothyroxine Sodium 125 mcg 08/14/22 09:00 08/14/22 09:03 Levothyroxine 125 Mcg Tablet PO 125 mcg DAILY NICHOLAS Administration Pantoprazole Sodium 40 mg 08/13/22 18:00 08/14/22 17:[address] 40 Mg Tablet PO 40 mg BID NICHOLAS Administration Tamsulosin HCl 0.4 mg 08/14/22 09:00 08/14/22 09:03 Tamsulosin 0.4 Mg Capsule PO 0.4 mg DAILY NICHOLAS Administration PFSH NPU PFSH: Medical History Asymptomatic stenosis of right carotid artery Atherosclerosis of coronary artery of [place] heart without angina pectoris Bilateral carotid artery stenosis BPH with urinary obstruction Chronic constipation Constipation Dysphagia HTN (hypertension), benign Hyperlipidemia Surgical History History of cataract surgery Bilateral History of coronary artery bypass graft History of vasectomy Family History Father , Age 34 No problems noted. Mother , Age 86 No problems noted. Denies family history of Anesthesia complication Bleeding disorder Social History Smoking and tobacco status: never smoked Lives independently: Yes Marital status: Mental Status Exam MSE Comments: He was a well-dressed white male tall and skinny who appeared his stated age. He was initially guarded and did reference that he had spoken to me before despite the lead technical writer never having spoken to him. His mood was descr ibed as fine. His affect appeared somewhat flat and mood incongruent. His thought process was superficial there appeared to be some confabulation was present. His thought content showed no evidence of homicidal or suicidal ideation. There was no clear evidence of delusional thinking. His ability to abstract was impaired when asked questions regarding decisions to be made. He was not oriented to date day month season or year. He appeared uncertain as to his exact location or the kind of place that he was at. He was unable to recall 3 objects stated to them after 5 minutes. His registration was also impaired his attention appeared impaired as he was unable to complete serial sevens or calculate things. He appeared to struggle significantly with naming things and struggled with following three-step commands. His insight appeared impaired his judgment appeared poor. His impulse control appeared guarded at this time. There did not appear to be any waxing or waning of consciousness as he was fully alert and awake during the interview. Vitals/I&O/Wt Last Vital Signs Temp 97.8 F 08/14/22 16:00 Pulse 63 08/14/22 16:00 Resp 16 08/14/22 16:00 BP 134/55 08/14/22 16:00 Pulse Ox 99 08/14/22 16:00 O2 Del Method 08/13/22 17:13 08/14/22 08/14/22 08/14/22 06:59 14:59 22:59 Intake Total 480 / 480 Balance 480 / 480 Weight last 48 hrs Weight 76.657 kg Weight 76.657 kg Data NPU 08/14/22 03:15 08/14/22 03:15 Micro: Microbiology 08/13/22 18:45 Blood Culture - Preliminary Blood SPECIMEN COLLECTED 08/13/22 18:30 Blood Culture - Preliminary Blood SPECIMEN COLLECTED Microbiology 08/13/22 18:45 Blood Blood Culture - Preliminary SPECIMEN COLLECTED 08/13/22 18:30 Blood Blood Culture - Preliminary SPECIMEN COLLECTED A&P Assessment and plan (1) Dementia: (2) Altered mental status: Plan This is a 87-year-old male who appears to be suffering from significant dementia of unknown type who presents with confusion and appears to lack any ability to make decisions at this time. It would be likely very dangerous for him to attempt to even return home as he poses a risk to himself or others if he were to drive a vehicle. He appears to have some reasonable insight regarding his memory problems and had intimated that he may need further help for managing his significant loss of memory. Attestations NPU Medical Necessity Statement*: He may need hospitalization at a geropsych facility with long-term plan of guardianship necessary and possible placement in an extended care facility such as a dementia unit. In the interim a work-up for dementia may be beneficial. Coding Level of Care Code Acute Code for [facility] Fwd Diagnoses Dementia F03.90 Altered mental status R41.82
[2022-08-14 20:00] VITALS: BP 105/58; PULSE 64; RESP 17; TEMP 36.4; O2SAT 96
--- NOTE | 2022-08-14 21:31 | PC.NURSE ---
Pt served with copy of 96 HH paperwork by this nurse and security @ [id number]. Pt did not seem to fully comprehend purpose of 96 Hour Hold, pt stated I don't think I'm worth all that trouble .
--- NOTE | 2022-08-14 21:33 | PC.NURSE ---
Pt moved to [place] 278-2 for 1:1, placed in green NPU scrubs, belongings takend and placed in closet.
[2022-08-14 22:11] LABS: Glucose Point of Care 196 mg/dL (70-110)
[2022-08-15] VITALS: BP 134/85; PULSE 68; RESP 17; TEMP 36.7; O2SAT 98
[2022-08-15 03:28] VITALS: BP 112/70; PULSE 79; RESP 16; TEMP 36.6; O2SAT 97
[2022-08-15 06:47] LABS: Glucose Point of Care 143 mg/dL (70-110)
[2022-08-15 08:00] VITALS: BP 117/63; PULSE 93; RESP 18; TEMP 37.1; O2SAT 98
[2022-08-15] MEDS: insulin lispro 100 unit/1 mL SUBCUT ×3 (08:42→17:18)
[2022-08-15] MEDS: fluoxetine 10 mg Capsule PO (08:44)
[2022-08-15] MEDS: atorvastatin 40 mg Tablet PO (08:44)
[2022-08-15] MEDS: levothyroxine 125 mcg Tablet PO (08:44)
[2022-08-15] MEDS: gabapentin 100 mg Capsule PO ×2 (08:44→17:18)
[2022-08-15] MEDS: pantoprazole DR 40 mg Tablet PO ×2 (08:45→17:19)
[2022-08-15] MEDS: tamsulosin 0.4 mg Capsule PO (08:45)
--- NOTE | 2022-08-15 10:22 | PC.SOCIAL ---
IMM update IMM updated with patient's family at bedside. Verbalized an understanding. Copy Pg 2 provided. Initialled, dated, timed, and placed in chart.
[2022-08-15 10:42] LABS: Glucose Point of Care 176 mg/dL (70-110)
--- NOTE | 2022-08-15 10:49 | PC.CHAP ---
Pastoral Care Encounter/Spiritual Assessment Type of Contact [] Declined imaging clerk visit [] Patient/Family/Request visit [] Outpatient visit [] Follow-up visit [] Physician referral [] Code/Alert [] Routine visit [] Staff referral [] Actively dying [] Patient sleeping [] Family support [] [] Out of room [] Palliative care [] [x] Receiving care in room [] Pre-surgical visit [] Trauma [] Long length of stay [] ICU visit [] Other: Relational/Emotional Strength [] Patient feels connected with others/family/visitors/staff [] Distress [] Loneliness/isolation [] Abandonment Spirituality of Patient [] Person of Agnes [] Attends Protestant of their Agnes [] Believes in Prayer [] Reads Bible or Yarsanism materials [] There are Spiritual issues to be addressed Welfare Officer Interventions [] Prayer [] Active listening [] Non-anxious presence [] Spiritual/emotional support [] Crisis/trauma care [] Spiritual counseling [] Bereavement support [] Provided bereavement packet [] Provided Bible/devotional materials [] Provided toy/stuffed animal, coloring book to patient or family member [] Provided Communion [] Anointing/[place] [] Salvation [] Completed spiritual assessment [] Other: Impact on Illness or Injury [] Angry [] Fearful [] Anxious [] Often cries [] Exhaustion [] Unable to work [] Unable to attend holiness [] Unable to walk/stand [] Unable to read [] Unable to drive [] Unable to eat/drink [] Unable to sleep [] Unable to be with family [] Patient intubated [] Other: Summary Time spent with patient
[2022-08-15 11:49] LABS: T4 Total 15.9 mcg/dL (4.9-10.5)
[2022-08-15 12:00] VITALS: BP 115/67; PULSE 98; RESP 18; TEMP 36.7; O2SAT 97
--- NOTE | 2022-08-15 12:52 | P.PN_ITS ---
Subjective Subjective: Patient was seen this morning, he is alert to person, not to place, not to time, he has no complaints, he is seen by me while walking the halls with nursing staff, he tells me that normally he exercises, and is hard to exercise here in the hospital Vitals/I&O/Wt Last Vital Signs Temp 98.0 F 08/15/22 12:00 Pulse 98 08/15/22 12:00 Resp 18 08/15/22 12:00 BP 115/67 08/15/22 12:00 Pulse Ox 97 08/15/22 12:00 O2 Del Method 08/15/22 12:00 08/14/22 08/15/22 08/15/22 22:59 06:59 14:59 Intake Total 480 / 960 240 / 240 Output Total 250 / 250 Balance 230 / 710 240 / 240 Weight last 48 hrs Weight 76.657 kg Physical Exam Const: COMMON NORMALS: no acute distress ORIENTATION/CONSCIOUSNESS: Yes awake, Yes oriented to person and Yes confused; not oriented to place and not oriented to time Resp: COMMON NORMALS: normal respiratory effort, No retractions, No use of accessory muscles and clear to auscultation bilaterally AUSCULTATION: clear to auscultation bilaterally Cardio: COMMON NORMALS: regular rate, regular rhythm, S1 normal heart sound present and S2 normal heart sound present RATE: regular rate RHYTHM: regular rhythm HEART SOUNDS: S1 normal heart sound present and S2 normal heart sound present GI: COMMON NORMALS: Normal to inspection, nondistended, normoactive bowel sounds present and non-tender Extremity: COMMON NORMALS: no pedal edema Neuro: SENSORIUM/ORIENTATION: Yes oriented to person, No oriented to place and No oriented to time Data 08/14/22 03:15 08/14/22 03:15 Micro: Microbiology 08/13/22 18:30 Blood Culture - Preliminary Blood NEGATIVE TO DATE 08/13/22 18:45 Blood Culture - Preliminary Blood NEGATIVE TO DATE A&P Assessment and plan (1) Dementia: (2) Confusion: (3) Neck pain: (4) Altered mental status: (5) Hyperlipidemia: Qualifiers: Hyperlipidemia type: unspecified Qualified Code(s): E78.5 - Hy perlipidemia, unspecified (6) HTN (hypertension), benign: (7) Atherosclerosis of coronary artery of [place] heart without angina pectoris: Qualifiers: Coronary Disease-Associated Artery/Lesion type: [place] artery Qualified Code(s): I25.10 - Atherosclerotic heart disease of [place] coronary artery without angina pectoris Plan Altered mental status -Evidence of short-term memory loss, long-term memory loss -Evidence of inability to make complex decisions -Likely secondary to underlying dementia -With atypical depression -I will start him on Prozac 10 mg once daily for depression -Patient is a unsafe discharge home, with no social support, placed on a 96-hour hold, will require guardianship -Full code -Lovenox for DVT prophylaxis Attestations Medical Necessity Statement*: Patient requires hospitalization for altered mental status, with evidence of short-term and long-term memory loss, inability to make complex decisions Coding Level of Care Code Acute Code for [facility] Fwd Diagnoses Dementia F03.90 Confusion R41.0 Neck pain M54.2 Altered mental status R41.82 Hyperlipidemia E78.5 Hyperlipidemia type: unspecified HTN (hypertension), benign I10 Atherosclerosis of coronary artery of [place] heart without angina pectoris I25 .10 Coronary Disease-Associated Artery/Lesion type: [place] artery
[2022-08-15 16:00] VITALS: BP 95/55; PULSE 75; RESP 18; TEMP 36.4; O2SAT 100
[2022-08-15 16:39] LABS: Glucose Point of Care 189 mg/dL (70-110)
--- NOTE | 2022-08-15 17:02 | P.NPUCON_ITS ---
Providers/Reason for Consult Consulting Physican/Specialty*: Lukasz Chavez MD Reason for Consult*: confusion, dementia Attending Physician: Elvis Cordero MD Primary Psychiatrist/Therapist: Lukasz Chavez MD Primary Care Provider: Emily Pineda MD Psych Consult HPI History of Present Illness Ida Vásquez is a 87 year old male admitted with complaints of neck pain and confusion. The patient continued to appear confused with significant memory problems. There were no affective changes today. Patient had reported that he was just sitting in his room waiting. He did not appear to make any attempts to leave the hospital And continued to have one-to-one observation in the hospital. Meds Home Medications and Allergies Home Medications Medication Instructions Recorded Confirmed Last Taken Type acetaminophen 500 mg capsule 500 mg PO Q4H PRN Pain 06/03/19 08/13/22 Unknown History atorvastatin 40 mg tablet 40 mg PO DAILY 06/03/19 08/13/22 Unknown History cyclobenzaprine 5 mg tablet 5 mg PO .COMPLEX PRN Muscle Pain 06/03/19 08/13/22 Unknown History docusate sodium 50 mg capsule 50 mg PO DAILY PRN Constipation 06/03/19 08/13/22 Unknown History gabapentin 100 mg capsule 100 mg PO BID 06/03/19 08/13/22 Unknown History levothyroxine 125 mcg capsule 125 mcg PO DAILY 06/03/19 08/13/22 Unknown History omeprazole 40 mg capsule,delayed 40 mg PO BID 06/03/19 08/13/22 Unknown History release Cam Walker #1 ea 07/28/20 08/13/22 Unknown Rx tamsulosin 0.4 mg capsule (Flomax) 0.4 mg PO DAILY #30 caps 05/25/22 08/13/22 Unknown Rx diclofenac sodium 75 mg 75 mg PO Q12H PRN pain #20 tabs 07/04/22 08/13/22 U nknown Rx tablet,delayed release Allergies Allergy/AdvReac Type Severity Reaction Status Date / Time promethazine Allergy Unknown Verified 04/26/21 13:03 Current Medications Current Medications Generic Name Dose Route Start Last Admin Trade Name Freq PRN Reason Stop Dose Admin Atorvastatin Calcium 40 mg 08/14/22 09:00 08/15/22 08:44 Atorvastatin 40 Mg Tablet PO 40 mg DAILY NICHOLAS Administration Cyclobenzaprine HCl 5 mg 08/13/22 17:20 08/14/22 09:07 Cyclobenzaprine 10 Mg Tablet PO 5 mg Q24H PRN Administration Muscle Pain Enoxaparin Sodium 40 mg 08/13/22 17:15 08/14/22 17:23 Enoxaparin 40 Mg/0.4 Ml Syringe SUBCUT 40 mg Q24H NICHOLAS Administration Fluoxetine HCl 10 mg 08/14/22 09:00 08/15/22 08:44 Fluoxetine 10 Mg Capsule PO 10 mg DAILY NICHOLAS Administration Gabapentin 100 mg 08/13/22 18:00 08/15/22 08:44 Gabapentin 100 Mg Capsule PO 100 mg BID NICHOLAS Administration Insulin Human Lispro 0 unit 08/14/22 12:00 08/15/22 12:19 Insulin Lispro 100 Unit/1 Ml SUBCUT 2 unit TIDWM NICHOLAS Administration Protocol Levothyroxine Sodium 125 mcg 08/14/22 09:00 08/15/22 08:44 Levothyroxine 125 Mcg Tablet PO 125 mcg DAILY NICHOLAS Administration Pantoprazole Sodium 40 mg 08/13/22 18:00 08/15/22 08:[address] 40 Mg Tablet PO 40 mg BID NICHOLAS Administration Tamsulosin HCl 0.4 mg 08/14/22 09:00 08/15/22 08:45 Tamsulosin 0.4 Mg Capsule PO 0.4 mg DAILY NICHOLAS Administration PFSH NPU PFSH: Medical History Asymptomatic stenosis of right carotid artery Atherosclerosis of coronary artery of [place] heart without angina pectoris Bilateral carotid artery stenosis BPH with urinary obstruction Chronic constipation Constipation Dysphagia HTN (hypertension), benign Hyperlipidemia Surgical History History of cataract surgery Bilateral History of coronary artery bypass graft History of vasectomy Family History Father , Age 34 No problems noted. Mother , Age 86 No problems noted. Denies family history of Anesthesia complication Bleeding disorder Social History Smoking and tobacco status: never smoked Lives independently: Yes Marital status: Mental Status Exam MSE Comments: He was a well-dressed white male tall and skinny who appeared his stated age. He was initially guarded and stated that he had seen me before but could not remember where. His mood was described as fine. His affect appeared somewhat flat and mood incongruent. His thought process was superficial there appeared to be some confabulation was present. His thought content showed no evidence of homicidal or suicidal ideation. There was no clear evidence of delusional thinking. His ability to abstract was impaired when asked questions regarding decisions to be made. He was not oriented to date day month season or year. He appeared uncertain as to his exact location or the kind of place that he was at. His registration was also impaired his attention appeared impaired as he was unable to complete serial sevens or calculate things. He appeared to struggle significantly with naming things and struggled with following three-step commands. His insight appeared impaired his judgment appeared poor. His impulse control appeared guarded at this time. There did not appear to be any waxing or waning of consciousness as he was fully alert and awake during the interview. Vitals/I&O/Wt Last Vital Signs Temp 98.0 F 08/15/22 12:00 Pulse 98 08/15/22 12:00 Resp 18 08/15/22 12:00 BP 115/67 08/15/22 12:00 Pulse Ox 97 08/15/22 12:00 O2 Del Method 08/15/22 12:00 08/15/22 08/15/22 08/15/22 06:59 14:59 22:59 Intake Total 480 / 480 Balance 480 / 480 Data NPU 08/14/22 03:15 08/14/22 03:15 Micro: Microbiology 08/13/22 18:30 Blood Culture - Preliminary Blood NEGATIVE TO DATE 08/13/22 18:45 Blood Culture - Preliminary Blood NEGATIVE TO DATE Microbiology 08/13/22 18:30 Blood Blood Culture - Preliminary NEGATIVE TO DATE 08/13/22 18:45 Blood Blood Culture - Preliminary NEGATIVE TO DATE A&P Assessment and plan (1) Dementia: (2) Altered mental status: Plan Patient unable to provide consent, needs workup for dementia, geropsychiatry inpatient bed availability needs to be checked. Attestations NPU Medical Necessity Statement*: Continued inpatient hospitalization as patient unable to return safely to home, no guardian in place. Coding Level of Care Code Acute Code for [facility] Diagnoses Dementia F03.90 Altered mental status R41.82
[2022-08-15] MEDS: enoxaparin 40 mg/0.4 mL Syringe SUBCUT (17:18)
[2022-08-15 20:00] VITALS: BP 97/53; PULSE 60; RESP 17; TEMP 36.6; O2SAT 97
[2022-08-15 20:27] LABS: Glucose Point of Care 148 mg/dL (70-110)
--- NOTE | 2022-08-15 22:09 | PC.NURSE ---
Sales Exhibitor received a phone call from a Song Sanderson requesting information on this pt. He stated he was the grandson of Fahad, and that him and his provide all day to day care for this pt in their home. He reports that pt got into a car a couple of days ago, and took off, and that they had been looking for him since his disappearance. Mr Sanderson states that he was on his way to the police station to file a missing persons report because they were having no such luck finding him. Commercial Management Accountant informed him that without him being on pt chart, I was unable to discuss anything in regards to patient. Kin also states that he is an RN, and has been caring him in all regards since April when pt's /Kin's grandmother. Mr Sanderson says that pt does not speak to son, and that family does not have anything to do with him. Information from the phone call passed off to the ceramic chemist on [facility], so that she may report info off to dayshift Charge as well. Song Sanderson phone #
[2022-08-16] VITALS: BP 106/56; PULSE 62; RESP 17; TEMP 36.5; O2SAT 96
--- NOTE | 2022-08-16 02:26 | PC.NURSE ---
Addendum entered by GRETA Hendricks 08/16/22 02:28: This event took place at 2305 on 08/15/2022. Original Note: This nurse was in room 278 caring for the patient in 278 bed 1 when Mr. Vásquez began talking. He stated that there was a mouse running around the room and that the ceiling tiles were falling out of the ceiling. He also stated that he had a pet opossum in the room with him, and stated She bit me, but I still like her.
[2022-08-16 04:00] VITALS: BP 132/77; PULSE 70; RESP 16; TEMP 36.6; O2SAT 99
[2022-08-16 06:27] LABS: Glucose Point of Care 126 mg/dL (70-110)
[2022-08-16 08:00] VITALS: BP 110/63; PULSE 64; RESP 18; TEMP 36.8; O2SAT 97
[2022-08-16] MEDS: atorvastatin 40 mg Tablet PO (08:37)
[2022-08-16] MEDS: tamsulosin 0.4 mg Capsule PO (08:37)
[2022-08-16] MEDS: cyclobenzaprine 10 mg Tablet 5 MG PO ×2 (08:37→22:00)
[2022-08-16] MEDS: pantoprazole DR 40 mg Tablet PO ×2 (08:37→17:09)
[2022-08-16] MEDS: fluoxetine 10 mg Capsule PO (08:37)
[2022-08-16] MEDS: levothyroxine 125 mcg Tablet PO (08:37)
[2022-08-16] MEDS: gabapentin 100 mg Capsule PO ×2 (08:37→17:09)
--- NOTE | 2022-08-16 10:04 | PC.CHAP ---
Pastoral Care Encounter/Spiritual Assessment Type of Contact [] Declined wine cellar worker visit [] Patient/Family/Request visit [] Outpatient visit [] Follow-up visit [] Physician referral [] Code/Alert [x] Routine visit [] Staff referral [] Actively dying [] Patient sleeping [] Family support [] [] Out of room [] Palliative care [] [] Receiving care in room [] Pre-surgical visit [] Trauma [] Long length of stay [] ICU visit [] Other: Relational/Emotional Strength [] Patient feels connected with others/family/visitors/staff [] Distress [] Loneliness/isolation [] Abandonment Spirituality of Patient [x] Person of Agnes [] Attends Shinto of their Agnes [x] Believes in Prayer [] Reads Bible or Alevism materials [] There are Spiritual issues to be addressed Travel Manager Interventions [x] Prayer [] Active listening [] Non-anxious presence [] Spiritual/emotional support [] Crisis/trauma care [] Spiritual counseling [] Bereavement support [] Provided bereavement packet [] Provided Bible/devotional materials [] Provided toy/stuffed animal, coloring book to patient or family member [] Provided Communion [] Anointing/[place] [] Salvation [] Completed spiritual assessment [] Other: Impact on Illness or Injury [] Angry [] Fearful [] Anxious [] Often cries [] Exhaustion [] Unable to work [] Unable to attend adventist [] Unable to walk/stand [] Unable to read [] Unable to drive [] Unable to eat/drink [] Unable to sleep [] Unable to be with family [] Patient intubated [] Other: Summary Time spent with patient 5 min
[2022-08-16 11:20] LABS: Glucose Point of Care 180 mg/dL (70-110)
[2022-08-16 12:00] VITALS: BP 138/82; PULSE 76; RESP 18; TEMP 36.8; O2SAT 94
[2022-08-16] MEDS: insulin lispro 100 unit/1 mL SUBCUT ×2 (12:27→17:09)
--- NOTE | 2022-08-16 14:25 | PC.SOCIAL ---
IMM Update pg 2 of IMM not updated w/ patient as patient is confused and is on 96 hour hold and not anticipated to DC. Copy placed in chart and copy left @ bedside.
--- NOTE | 2022-08-16 14:54 | P.PN_ITS ---
Subjective Subjective: Patient was seen this morning, he tells me he is doing well, he is alert to person, not place, not to time, but he tells me that he likes to eat, and that he wants to take me possum hunting Vitals/I&O/Wt Last Vital Signs Temp 98.2 F 08/16/22 12:00 Pulse 76 08/16/22 12:00 Resp 18 08/16/22 12:00 BP 138/82 08/16/22 12:00 Pulse Ox 94 08/16/22 12:00 O2 Del Method 08/16/22 12:00 08/15/22 08/16/22 08/16/22 22:59 06:59 14:59 Intake Total 480 / 960 1080 / 1080 Balance 480 / 960 1080 / 1080 Physical Exam Const: COMMON NORMALS: no acute distress Resp: COMMON NORMALS: normal respiratory effort, No retractions, No use of accessory muscles and clear to auscultation bilaterally AUSCULTATION: clear to auscultation bilaterally Cardio: COMMON NORMALS: regular rate, regular rhythm, S1 normal heart sound present and S2 normal heart sound present RATE: regular rate RHYTHM: regular rhythm HEART SOUNDS: S1 normal heart sound present and S2 normal heart sound present GI: COMMON NORMALS: Normal to inspection, nondistended, normoactive bowel sounds present and non-tender Extremity: COMMON NORMALS: no pedal edema Psych: COMMON NORMALS: mental status grossly normal Data 08/14/22 03:15 08/14/22 03:15 A&P Assessment and plan (1) Dementia: (2) Confusion: (3) Neck pain: (4) Altered mental status: (5) Hyperlipidemia: Qualifiers: Hyperlipidemia type: unspecified Qualified Code(s): E78.5 - Hyperlipidemia, unspecified (6) HTN (hypertension), benign: (7) Atherosclerosis of coronary artery of [place] heart without angina pectoris: Qualifiers: Coronary Disease-Associated Artery/Lesion type: [place] artery Qualified Code(s): I25.10 - Atherosclerotic heart disease of [place] coronary artery without angina pectoris Plan Altered mental status likely secondary to dementia -Evidence of short-term memory loss, long-term memory loss -Evidence of inability to make complex decisions -Likely secondary to underlying dementia -With atypical depression -Continue n Prozac 10 mg once daily for depression -Patient is a unsafe discharge home, with no social support, placed on a 96-hour hold, will require guardianship versus geriatric psych -Full code -Lovenox for DVT prophylaxis Attestations Medical Necessity Statement*: Patient requires hospitalization, for dementia Diagnoses Dementia F03.90 Confusion R41.0 Neck pain M54.2 Altered mental status R41.82 Hyperlipidemia E78.5 Hyperlipidemia type: unspecified HTN (hypertension), benign I10 Atherosclerosis of coronary artery of [place] heart without angina pectoris I25.10 Coronary Disease-Associated Artery/Lesion type: [place] artery
[2022-08-16 16:00] VITALS: BP 127/56; PULSE 70; RESP 18; TEMP 36.7; O2SAT 98
[2022-08-16 16:58] LABS: Glucose Point of Care 157 mg/dL (70-110)
[2022-08-16] MEDS: enoxaparin 40 mg/0.4 mL Syringe SUBCUT (17:09)
[2022-08-16 20:00] VITALS: BP 115/62; PULSE 64; RESP 17; TEMP 36.7; O2SAT 94
[2022-08-16] MEDS: acetaminophen 325 mg Tablet 650 MG PO (22:00)
[2022-08-17] VITALS (7 sets, daily range): BP systolic 108–122; BP diastolic 58–69; PULSE 59–66; RESP 16–18; TEMP 36.6–37.1; O2SAT 94–98
[2022-08-17] MEDS: insulin lispro 100 unit/1 mL SUBCUT ×2 (09:51→17:58)
[2022-08-17] MEDS: fluoxetine 10 mg Capsule PO (09:53)
[2022-08-17] MEDS: gabapentin 100 mg Capsule PO ×2 (09:53→17:58)
[2022-08-17] MEDS: atorvastatin 40 mg Tablet PO (09:53)
[2022-08-17] MEDS: pantoprazole DR 40 mg Tablet PO ×2 (09:53→17:58)
[2022-08-17] MEDS: tamsulosin 0.4 mg Capsule PO (09:53)
[2022-08-17] MEDS: levothyroxine 125 mcg Tablet PO (09:53)
[2022-08-17 09:59] LABS: Glucose Point of Care 139 mg/dL (70-110)
[2022-08-17 09:59] LABS: Glucose Point of Care 172 mg/dL (70-110)
[2022-08-17 11:17] LABS: Glucose Point of Care 138 mg/dL (70-110)
--- NOTE | 2022-08-17 12:47 | P.PN_ITS ---
Subjective Subjective: Patient was seen this morning, he was complaining of constipation but had a bowel movement this morning he feels a lot better, he has no complaints, he is alert to person, not to place, not to time, no episodes of agitation, he is quite ambulatory, can ambulate to the bathroom without assistance, can be seen walking the hallways under the supervision of nursing staff Vitals/I&O/Wt Last Vital Signs Temp 98.1 F 08/17/22 12:00 Pulse 64 08/17/22 12:00 Resp 16 08/17/22 12:00 BP 122/65 08/17/22 12:00 Pulse Ox 95 08/17/22 12:00 O2 Del Method 08/17/22 12:00 08/16/22 08/17/22 08/17/22 22:59 06:59 14:59 Intake Total 480 / 1560 240 / 1800 480 / 480 Balance 480 / 1560 240 / 1800 480 / 480 Physical Exam Const: COMMON NORMALS: no acute distress ORIENTATION/CONSCIOUSNESS: Yes awake and Yes oriented to person; not oriented to place and not oriented to time Resp: COMMON NORMALS: normal respiratory effort, No retractions, No use of accessory muscles and clear to auscultation bilaterally AUSCULTATION: clear to auscultation bilaterally Cardio: COMMON NORMALS: regular rate, regular rhythm, S1 normal heart sound present and S2 normal heart sound present RATE: regular rate RHYTHM: regular rhythm HEART SOUNDS: S1 normal heart sound present and S2 normal heart sound present GI: COMMON NORMALS: Normal to inspection, nondistended, normoactive bowel sounds present and non-tender Extremity: COMMON NORMALS: no pedal edema Neuro: SENSORIUM/ORIENTATION: Yes oriented to person, No oriented to place and No oriented to time Data 08/14/22 03:15 08/14/22 03:15 A&P Assessment and plan (1) Dementia: (2) Confusion: (3) Neck pain: (4) Altered mental status: (5) Hyperlipidemia: Qualifiers: Hyperlipidemia type: unspecified Qualified Code(s): E78.5 - Hyperlipidemia, unspecified (6) HTN (hypertension), benign: (7) Atherosclerosis of coronary artery of [place] heart without angina pectoris: Qualifiers: Coronary Disease-Associated Artery/Lesion type: [place] artery Qualified Code(s): I25.10 - Atherosclerotic heart disease of [place] coronary artery without angina pectoris Plan Altered mental status likely secondary to dementia -Evidence of short-term memory loss, long-term memory loss -Evidence of inability to make complex decisions -Likely secondary to underlying dementia -With atypical depression -Continue n Prozac 10 mg once daily for depression -Patient is a unsafe discharge home, with no social support, placed on a 96-hour hold, will require guardianship versus geriatric psych -Full code -Patient is quite mobile, stop Lovenox, SCDs Attestations Medical Necessity Statement*: Patient requires hospitalization for dementia, altered mental status, Coding Level of Care Code Acute Code for [facility] Fwd Diagnoses Dementia F03.90 Confusion R41.0 Neck pain M54.2 Altered mental status R41.82 Hyperlipidemia E78.5 Hyperlipidemia type: unspecified HTN (hypertension), benign I10 Atherosclerosis of coronary artery of [place] heart without angina pectoris I25.10 Coronary Disease-Associated Artery/Lesion type: [place] artery
[2022-08-17 17:05] LABS: Glucose Point of Care 171 mg/dL (70-110)
[2022-08-17] MEDS: docusate sodium 100 mg Capsule PO (17:58)
--- NOTE | 2022-08-17 19:18 | W.PM.PSYCONS ---
Providers/Reason for Consult Consulting Physican/Specialty*: Dementia Reason for Consult*: dementia Requesting Physcian: Lukasz Chavez MD Attending Physician: Elvis Cordero MD Primary Care Provider: Emily Pineda MD Psych Consult HPI History of Present Illness Ida Vásquez is a 87 year old male currently admitted with complaints of neck pain and complete confusion. He appears unchanged from yesterday. He has been compliant in taking medications as tolerated. He was unable to provide any new information nor was he able to recognize the movie writer of this note despite seeing the movie writer for the past 3 days. Meds Home Medications and Allergies Home Medications Medication Instructions Recorded Confirmed Last Taken Type acetaminophen 500 mg capsule 500 mg PO Q4H PRN Pain 06/03/19 08/13/22 Unknown History atorvastatin 40 mg tablet 40 mg PO DAILY 06/03/19 08/13/22 Unknown History cyclobenzaprine 5 mg tablet 5 mg PO .COMPLEX PRN Muscle Pain 06/03/19 08/13/22 Unknown History docusate sodium 50 mg capsule 50 mg PO DAILY PRN Constipation 06/03/19 08/13/22 Unknown History gabapentin 100 mg capsule 100 mg PO BID 06/03/19 08/13/22 Unknown History levothyroxine 125 mcg capsule 125 mcg PO DAILY 06/03/19 08/13/22 Unknown History omeprazole 40 mg capsule,delayed 40 mg PO BID 06/03/19 08/13/22 Unknown History release Cam Walker #1 ea 07/28/20 08/13/22 Unknown Rx tamsulosin 0.4 mg capsule (Flomax) 0.4 mg PO DAILY #30 caps 05/25/22 08/13/22 Unknown Rx diclofenac sodium 75 mg 75 mg PO Q12H PRN pain #20 tabs 07/04/22 08/13/22 Unknown Rx tablet,delayed release Allergies Allergy/AdvReac Type Severity Reaction Status Date / Time promethazine Allergy Unknown Verified 04/26/21 13:03 Current Medications Current Medications Generic Name Dose Route Start Last Admin Trade Name Freq PRN Reason Stop Dose Admin Acetaminophen 650 mg 08/13/22 17:12 08/16/22 22:00 Acetaminophen 325 Mg Tablet PO 650 mg Q6H PRN Administration Mild/Mod Pain Or Temp >/= 101 Atorvastatin Calcium 40 mg 08/14/22 09:00 08/17/22 09:53 Atorvastatin 40 Mg Tablet PO 40 mg DAILY NICHOLAS Administration Cyclobenzaprine HCl 5 mg 08/13/22 17:20 08/16/22 22:00 Cyclobenzaprine 10 Mg Tablet PO 5 mg Q24H PRN Administration Muscle Pain Docusate Sodium 100 mg 08/17/22 18:00 08/17/22 17:58 Docusate Sodium 100 Mg Capsule PO 100 mg BID NICHOLAS Administration Fluoxetine HCl 10 mg 08/14/22 09:00 08/17/22 09:53 Fluoxetine 10 Mg Capsule PO 10 mg DAILY NICHOLAS Administration Gabapentin 100 mg 08/13/22 18:00 08/17/22 17:58 Gabapentin 100 Mg Capsule PO 100 mg BID NICHOLAS Administration Insulin Human Lispro 0 unit 08/14/22 12:00 08/17/22 17:58 Insulin Lispro 100 Unit/1 Ml SUBCUT 2 unit TIDWM NICHOLAS Administration Protocol Levothyroxine Sodium 125 mcg 08/14/22 09:00 08/17/22 09:53 Levothyroxine 125 Mcg Tablet PO 125 mcg DAILY NICHOLAS Administration Pantoprazole Sodium 40 mg 08/13/22 18:00 08/17/22 17:[address] 40 Mg Tablet PO 40 mg BID NICHOLAS Administration Tamsulosin HCl 0.4 mg 08/14/22 09:00 08/17/22 09:53 Tamsulosin 0.4 Mg Capsule PO 0.4 mg DAILY NICHOLAS Administration PFSH NPU PFSH: Medical History Asymptomatic stenosis of right carotid artery Atherosclerosis of coronary artery of [place] heart without angina pectoris Bilateral carotid artery stenosis BPH with urinary obstruction Chronic constipation Constipation Dysphagia HTN (hypertension), benign Hyperlipidemia Surgical History History of cataract surgery Bilateral History of coronary artery bypass graft History of vasectomy Family History Father , Age 34 No problems noted. Mother , Age 86 No problems noted. Denies family history of Anesthesia complication Bleeding disorder Social History Smoking and tobacco status: never smoked Lives independently: Yes Marital status: Mental Status Exam MSE Comments: He was a well-dressed white male tall and skinny who appeared his stated age. He was initially guarded and stated that he had seen me before but could not remember where. His mood was described as okay.. His affect appeared somewhat flat and mood incongruent. His thought process was superficial there appeared to be some confabulation was present. His thought content showed no evidence of homicidal or suicidal ideation. There was no clear evidence of delusional thinking. His ability to abstract was impaired when asked questions regarding decisions to be made. He was not oriented to date day month season or year. He appeared uncertain as to his exact location or the kind of place that he was at. His registration was also impaired his attention appeared impaired as he was unable to complete serial sevens or calculate things. He appeared to struggle significantly with naming things and struggled with following three-step commands. His insight appeared impaired his judgment appeared poor. His impulse control appeared guarded at this time. There did not appear to be any waxing or waning of consciousness as he was fully alert and awake during the interview. Vitals/I&O/Wt Last Vital Signs Temp 97.8 F 08/17/22 16:00 Pulse 62 08/17/22 16:00 Resp 18 08/17/22 16:00 BP 113/66 08/17/22 16:00 Pulse Ox 97 08/17/22 16:00 O2 Del Method 08/17/22 16:00 08/17/22 08/17/22 08/17/22 06:59 14:59 22:59 Intake Total 240 / 1800 960 / 960 480 / 1440 Balance 240 / 1800 960 / 960 480 / 1440 Data NPU 08/14/22 03:15 08/14/22 03:15 A&P Assessment and plan (1) Dementia: Plan continue Prozac, needs residential unit Attestations NPU Medical Necessity Statement*: Continued inpatient hospitalization as patient unable to return safely to home, no guardian in place. He will need placement in Dementia- Senior Living Unit. 96 hour hold placed. Coding Level of Care Code Acute Code for [facility] Fwd Diagnoses Dementia F03.90
[2022-08-17 21:34] LABS: Glucose Point of Care 175 mg/dL (70-110)
[2022-08-18 04:00] VITALS: BP 116/61; PULSE 64; RESP 16; TEMP 36.8; O2SAT 96
[2022-08-18 06:54] LABS: Glucose Point of Care 124 mg/dL (70-110)
[2022-08-18 07:26] VITALS: BP 116/66; PULSE 64; RESP 18; TEMP 37.1; O2SAT 93
[2022-08-18] MEDS: tamsulosin 0.4 mg Capsule PO (08:26)
[2022-08-18] MEDS: docusate sodium 100 mg Capsule PO ×2 (08:26→17:22)
[2022-08-18] MEDS: gabapentin 100 mg Capsule PO ×2 (08:26→17:22)
[2022-08-18] MEDS: cyclobenzaprine 10 mg Tablet 5 MG PO (08:26)
[2022-08-18] MEDS: atorvastatin 40 mg Tablet PO (08:26)
[2022-08-18] MEDS: levothyroxine 125 mcg Tablet PO (08:26)
[2022-08-18] MEDS: thiamine 100 mg Tablet PO (08:26)
[2022-08-18] MEDS: multivitamin therapeutic Tablet 1 TAB PO (08:27)
[2022-08-18] MEDS: pantoprazole DR 40 mg Tablet PO ×2 (08:27→17:22)
[2022-08-18] MEDS: fluoxetine 10 mg Capsule PO (08:27)
[2022-08-18 11:35] VITALS: BP 100/56; PULSE 60; RESP 16; TEMP 37; O2SAT 97
[2022-08-18 12:03] LABS: Glucose Point of Care 191 mg/dL (70-110)
[2022-08-18] MEDS: insulin lispro 100 unit/1 mL SUBCUT (13:04)
[2022-08-18] MEDS: acetaminophen 325 mg Tablet 650 MG PO (13:52)
[2022-08-18 14:08] LABS: HIV 1 & 2 Antibody Non-Reactive (Non-Reactiv); HIV 1 & 2 Antigen Non-Reactive (Non-Reactiv)
--- NOTE | 2022-08-18 14:17 | PM.PN ---
Subjective Subjective: Patient was seen this morning, alert to person, not to place, not to time, he is complaining of neck pain Vitals/I&O/Wt Last Vital Signs Temp 98.6 F 08/18/22 11:35 Pulse 60 08/18/22 11:35 Resp 16 08/18/22 11:35 BP 100/56 08/18/22 11:35 Pulse Ox 97 08/18/22 11:35 O2 Del Method 08/18/22 11:35 08/17/22 08/18/22 08/18/22 22:59 06:59 14:59 Intake Total 480 / 1440 200 / 1640 960 / 960 Balance 480 / 1440 200 / 1640 960 / 960 Physical Exam Const: COMMON NORMALS: no acute distress ORIENTATION/CONSCIOUSNESS: Yes awake, Yes oriented to person and Yes oriented to place; not oriented to time Resp: COMMON NORMALS: normal respiratory effort, No retractions, No use of accessory muscles and clear to auscultation bilaterally AUSCULTATION: clear to auscultation bilaterally Cardio: COMMON NORMALS: regular rate, regular rhythm, S1 normal heart sound present and S2 normal heart sound present RATE: regular rate RHYTHM: regular rhythm HEART SOUNDS: S1 normal heart sound present and S2 normal heart sound present GI: COMMON NORMALS: Normal to inspection, nondistended, normoactive bowel sounds present and non-tender Extremity: COMMON NORMALS: no pedal edema Neuro: SENSORIUM/ORIENTATION: Yes oriented to person, Yes oriented to place and No oriented to time Psych: COMMON NORMALS: mental status grossly normal Data 08/14/22 03:15 08/14/22 03:15 A&P Assessment and plan (1) Dementia: (2) Confusion: (3) Neck pain: (4) Altered mental status: (5) Hyperlipidemia: Qualifiers: Hyperlipidemia type: unspecified Qualified Code(s): E78.5 - Hyperlipidemia, unspecified (6) HTN (hypertension), benign: (7) Atherosclerosis of coronary artery of [place] heart without angina pectoris: Qualifiers: Coronary Disease-Associated Artery/Lesion type: [place] artery Qualified Code(s): I25.10 - Atherosclerotic heart disease of [place] coronary artery without angina pectoris Plan Altered mental status likely secondary to dementia -Evidence of short-term memory loss, long-term memory loss -Evidence of inability to make decisions, -Likely secondary to underlying dementia -With atypical depression -Continue n Prozac 10 mg once daily for depression -Patient is a unsafe discharge home, with no social support, placed on a 96-hour hold, will require guardianship -Tramadol 50 every 8 hours as needed for pain -Flexeril 5 mg p.o. 3 times daily for neck pain -Full code -Patient is quite mobile, stop Lovenox, SCDs Attestations Medical Necessity Statement*: Patient requires hospitalization for dementia, proceeding with guardianship Coding Level of Care Code Acute Code for [facility] Fwd Diagnoses Dementia F03.90 Confusion R41.0 Neck pain M54.2 Altered mental status R41.82 Hyperlipidemia E78.5 Hyperlipidemia type: unspecified HTN (hypertension), benign I10 Atherosclerosis of coronary artery of [place] heart without angina pectoris I25.10 Coronary Disease-Associated Artery/Lesion type: [place] artery
--- NOTE | 2022-08-18 14:27 | PC.SOCIAL ---
IMM not updated as patient is on 96 hours hold, guardianship and placement are being arranged. Patient not expect to discharge in the next 24-48 hours.
[2022-08-18 15:38] VITALS: BP 103/54; PULSE 62; RESP 17; TEMP 36.9; O2SAT 96
[2022-08-18 17:00] LABS: Glucose Point of Care 103 mg/dL (70-110)
[2022-08-18 19:11] VITALS: BP 113/58; PULSE 65; RESP 18; TEMP 36.9; O2SAT 94
--- NOTE | 2022-08-18 19:27 | W.PM.NPUPNS ---
Subjective NPU Subjective: 87-year-old white male with history of dementia with no legal guardian who arrived in the hospital with confusion and disorientation with complaints of neck pain. He had continued require one-to-one observation. He had been able to get out of bed to exercise. He had continued to be unaware of his surroundings although he was able to state that he was in a place where people got fixed . He was unable to recognize the mortgage underwriter of this note today despite routine visits over the past week. He reported no changes in his mood. He had reported neck pain today. Mental Status Exam MSE Comments: He was a well-dressed white male tall and skinny who appeared his stated age. He was pleasant and cooperative but still confused as to whether he had met the mortgage underwriter of this note before. His mood was described as okay. His affect appeared somewhat flat and mood incongruent. His thought process was superficial there appeared to be some confabulation was present. His thought content showed no evidence of homicidal or suicidal ideation. There was no clear evidence of delusional thinking. His ability to abstract was impaired when asked questions regarding decisions to be made. He was not oriented to date day month season or year. He appeared uncertain as to his exact location or the kind of place that he was at. His registration was also impaired his attention appeared impaired as he was unable to complete serial sevens or calculate things. He appeared to struggle significantly with naming things and struggled with following three-step commands. His insight appeared impaired his judgment appeared poor. His impulse control appeared guarded at this time. There did not appear to be any waxing or waning of consciousness as he was fully alert and awake during the interview. Vitals/I&O/Wt Last Vital Signs Temp 98.5 F 08/18/22 19:11 Pulse 65 08/18/22 19:11 Resp 18 08/18/22 19:11 BP 113/58 08/18/22 19:11 Pulse Ox 94 08/18/22 19:11 O2 Del Method 08/18/22 19:11 08/18/22 08/18/22 08/18/22 06:59 14:59 22:59 Intake Total 200 / 1640 960 / 960 480 / 1440 Balance 200 / 1640 960 / 960 480 / 1440 Data NPU 08/14/22 03:15 08/14/22 03:15 Micro: Microbiology 08/13/22 18:45 Blood Culture - Final Blood NO GROWTH AFTER 5 DAYS 08/13/22 18:30 Blood Culture - Final Blood NO GROWTH AFTER 5 DAYS Microbiology 08/13/22 18:45 Blood Blood Culture - Final NO GROWTH AFTER 5 DAYS 08/13/22 18:30 Blood Blood Culture - Final NO GROWTH AFTER 5 DAYS A&P Assessment and plan (1) Dementia: Plan continue Prozac, needs correction unit, hearing tommorow for 21 day stay. Attestations NPU Medical Necessity Statement*: Continued inpatient hospitalization as patient unable to return safely to home, no guardian in place. He will need placement in Dementia- Fdc Unit. 21 day hearing scheduled tommorow. Coding Level of Care Code Acute Code for [facility] Diagnoses Dementia F03.90
[2022-08-18 20:09] LABS: Glucose Point of Care 208 mg/dL (70-110)
[2022-08-18 23:47] VITALS: BP 121/62; PULSE 68; RESP 18; TEMP 36.9; O2SAT 94
[2022-08-19 04:00] VITALS: BP 123/64; PULSE 62; RESP 16; TEMP 36.9; O2SAT 94
[2022-08-19 06:33] LABS: Glucose Point of Care 124 mg/dL (70-110)
[2022-08-19 07:57] VITALS: BP 117/64; PULSE 64; RESP 18; TEMP 36.9; O2SAT 95
[2022-08-19] MEDS: thiamine 100 mg Tablet PO (08:41)
[2022-08-19] MEDS: atorvastatin 40 mg Tablet PO (08:41)
[2022-08-19] MEDS: multivitamin therapeutic Tablet 1 TAB PO (08:41)
[2022-08-19] MEDS: docusate sodium 100 mg Capsule PO ×2 (08:41→17:39)
[2022-08-19] MEDS: tamsulosin 0.4 mg Capsule PO (08:41)
[2022-08-19] MEDS: fluoxetine 10 mg Capsule PO (08:41)
[2022-08-19] MEDS: levothyroxine 125 mcg Tablet PO (08:41)
[2022-08-19] MEDS: pantoprazole DR 40 mg Tablet PO ×2 (08:41→17:39)
[2022-08-19] MEDS: gabapentin 100 mg Capsule PO ×2 (08:41→17:39)
--- NOTE | 2022-08-19 11:53 | W.PM.NPUPNS ---
Subjective NPU Subjective: Patient presented today reporting that he was doing fine. We spent considerable time discussing his birthday which he could not recall. We discussed that we had a hearing later today and that I was meeting him to be able to testify that hearing. He did recall that there was a hearing and that he did not have to go. Otherwise we spent most of the time talking about things that he could not remember. I did discuss with him the ultimate plan to find placement and get guardianship which she acknowledges he did not want to go to a facility. Mental Status Exam MSE Comments: This is a well-nourished well-developed white male in hospital clothing with adequate grooming and eye contact. No abnormal movements. Cooperative with exam in no acute distress. Speech was normal rate and volume. Mood described as good, affect congruent. Thought process organized. Thought content: Patient denied suicidal or homicidal ideation, there were no delusions reported or noted, he denied any auditory or visual hallucinations. Attention and concentration were limited and memory was impaired but none were formally tested. He is alert and oriented times person and place. Insight, judgment and impulse control were impaired. Vitals/I&O/Wt Last Vital Signs Temp 98.0 F 08/19/22 12:17 Pulse 73 08/19/22 12:17 Resp 17 08/19/22 12:17 BP 98/48 08/19/22 12:17 Pulse Ox 98 08/19/22 12:17 O2 Del Method 08/19/22 12:17 08/18/22 08/19/22 08/19/22 22:59 06:59 14:59 Intake Total 580 / 1540 60 / 1600 720 / 720 Balance 580 / 1540 60 / 1600 720 / 720 Data NPU 08/14/22 03:15 08/14/22 03:15 Micro: Microbiology 08/13/22 18:45 Blood Culture - Final Blood NO GROWTH AFTER 5 DAYS 08/13/22 18:30 Blood Culture - Final Blood NO GROWTH AFTER 5 DAYS Microbiology 08/13/22 18:45 Blood Blood Culture - Final NO GROWTH AFTER 5 DAYS 08/13/22 18:30 Blood Blood Culture - Final NO GROWTH AFTER 5 DAYS A&P Assessment and plan (1) Dementia: (2) Altered mental status: Plan This is a 87-year-old male who appears to be suffering from significant dementia of unknown type who presents with confusion and appears to lack any ability to make decisions at this time. It would be likely very dangerous for him to attempt to even return home as he poses a risk to himself or others if he were to drive a vehicle. He appears to have some reasonable insight regarding his memory problems and had intimated that he may need further help for managing his significant loss of memory. 1. Continue current medication. 2. Agree for the need for a 21-day hold and pursuit of guardianship. 3. We will attend the hearing and pursuit of a 21-day hold. Attestations NPU Medical Necessity Statement*: Continued inpatient hospitalization as patient unable to return safely to home, no guardian in place. He will need placement in Dementia- Group Home Unit. 21 day hearing scheduled today. Coding Level of Care Code Acute Code for [facility] Diagnoses Dementia F03.90 Altered mental status R41.82
[2022-08-19 12:13] LABS: Glucose Point of Care 210 mg/dL (70-110)
[2022-08-19 12:17] VITALS: BP 98/48; PULSE 73; RESP 17; TEMP 36.7; O2SAT 98
[2022-08-19] MEDS: insulin lispro 100 unit/1 mL SUBCUT ×2 (13:22→18:18)
[2022-08-19 14:05] LABS: SARS Covid-2 Antigen negative (Negative)
--- NOTE | 2022-08-19 15:13 | P.PN_ITS ---
Subjective Subjective: Patient was seen this morning, he does not remember what he had for breakfast this morning, he does not know where he is, he knows his name, does not know the date, does not know the time, Vitals/I&O/Wt Last Vital Signs Temp 98.0 F 08/19/22 12:17 Pulse 73 08/19/22 12:17 Resp 17 08/19/22 12:17 BP 98/48 08/19/22 12:17 Pulse Ox 98 08/19/22 12:17 O2 Del Method 08/19/22 12:17 08/19/22 08/19/22 08/19/22 06:59 14:59 22:59 Intake Total 60 / 1600 720 / 720 Balance 60 / 1600 720 / 720 Physical Exam Const: COMMON NORMALS: no acute distress Resp: COMMON NORMALS: normal respiratory effort, No retractions, No use of accessory muscles and clear to auscultation bilaterally AUSCULTATION: clear to auscultation bilaterally Cardio: COMMON NORMALS: regular rate, regular rhythm, S1 normal heart sound present and S2 normal heart sound present RATE: regular rate RHYTHM: regular rhythm HEART SOUNDS: S1 normal heart sound present and S2 normal heart sound present GI: COMMON NORMALS: Normal to inspection, nondistended, normoactive bowel sounds present Extremity: COMMON NORMALS: no pedal edema Data 08/14/22 03:15 08/14/22 03:15 Micro: Microbiology 08/13/22 18:45 Blood Culture - Final Blood NO GROWTH AFTER 5 DAYS 08/13/22 18:30 Blood Culture - Final Blood NO GROWTH AFTER 5 DAYS A&P Assessment and plan (1) Dementia: (2) Confusion: (3) Neck pain: (4) Altered mental status: (5) Hyperlipidemia: Qualifiers: Hyperlipidemia type: unspecified Qualified Code(s): E78.5 - Hyperlipidemia, unspecified (6) HTN (hypertension), benign: (7) Atherosclerosis of coronary artery of [place] heart without angina pectoris: Qualifiers: Coronary Disease-Associated Artery/Lesion type: [place] artery Qualified Code(s): I25.10 - Atherosclerotic heart disease of [place] coronary artery without angina pectoris Plan Altered mental status likely secondary to dementia -Evidence of short-term memory loss, long-term memory loss -Evidence of inability to make decisions, -Likely secondary to underlying dementia -With atypical depression -Continue n Prozac 10 mg once daily for depression -Patient is a unsafe discharge home, with no social support, placed on a 96-hour hold, will require guardianship -Tramadol 50 every 8 hours as needed for pain -Flexeril 5 mg p.o. 3 times daily for neck pain -Full code -Patient is quite mobile, SCDs Attestations Medical Necessity Statement*: Patient requires hospitalization for guardianship, versus [facility] Diagnoses Dementia F03.90 Confusion R41.0 Neck pain M54.2 Altered mental status R41.82 Hyperlipidemia E78.5 Hyperlipidemia type: unspecified HTN (hypertension), benign I10 Atherosclerosis of coronary artery of [place] heart without angina pectoris I25.10 Coronary Disease-Associated Artery/Lesion type: [place] artery
[2022-08-19 15:55] VITALS: BP 108/57; PULSE 65; RESP 18; TEMP 36.6; O2SAT 94
[2022-08-19 16:00] VITALS: BP 108/57; PULSE 65; RESP 18; TEMP 36.6
[2022-08-19 17:06] LABS: Glucose Point of Care 144 mg/dL (70-110)
--- NOTE | 2022-08-19 17:29 | PC.NURSE ---
Patient 17:00 accucheck is 144.
[2022-08-19 21:16] VITALS: BP 114/62; PULSE 65; RESP 18; TEMP 36.7; O2SAT 94
[2022-08-19 22:55] LABS: Glucose Point of Care 136 mg/dL (70-110)
[2022-08-20] VITALS (7 sets, daily range): BP systolic 107–125; BP diastolic 50–66; PULSE 63–92; RESP 16–18; TEMP 36.5–36.7; O2SAT 94–97
[2022-08-20 07:10] LABS: Glucose Point of Care 133 mg/dL (70-110)
[2022-08-20] MEDS: pantoprazole DR 40 mg Tablet PO ×2 (09:21→17:38)
[2022-08-20] MEDS: atorvastatin 40 mg Tablet PO (09:21)
[2022-08-20] MEDS: tamsulosin 0.4 mg Capsule PO (09:21)
[2022-08-20] MEDS: thiamine 100 mg Tablet PO (09:21)
[2022-08-20] MEDS: levothyroxine 125 mcg Tablet PO (09:21)
[2022-08-20] MEDS: gabapentin 100 mg Capsule PO ×2 (09:21→17:38)
[2022-08-20] MEDS: multivitamin therapeutic Tablet 1 TAB PO (09:21)
[2022-08-20] MEDS: docusate sodium 100 mg Capsule PO ×2 (09:21→17:38)
[2022-08-20] MEDS: fluoxetine 10 mg Capsule PO (09:21)
--- NOTE | 2022-08-20 10:51 | PC.SOCIAL ---
IMM not updated as patient is on 21 day hold, guardianship and placement are being arranged. Patient not expect to discharge in the next 24-48 hours.
[2022-08-20 11:53] LABS: Glucose Point of Care 268 mg/dL (70-110)
[2022-08-20] MEDS: insulin lispro 100 unit/1 mL SUBCUT (12:30)
--- NOTE | 2022-08-20 14:20 | P.NPUPN_ITS ---
Subjective NPU Subjective: Patient presented today once again demonstrating his very significant reduced attention span and memory difficulties that he acknowledges. He was able to listen to this functional tester typewriters's report about the plan including guardianship and placement. We discussed the importance of us keeping him safe which he agreed was probably a good idea. He did not report any new problems or difficulties. Mental Status Exam MSE Comments: This is a well-nourished well-developed white male in hospital clothing with adequate grooming and eye contact. No abnormal movements. Cooperative with exam in no acute distress. Speech was normal rate and volume. Mood described as pretty good, affect congruent. Thought process organized but confused. Thought content: Patient denied suicidal or homicidal ideation, there were no delusions reported or noted, he denied any auditory or visual hallucinations. Attention and concentration were limited and memory was impaired but none were formally tested. He is alert and oriented times person and place. Insight, judgment and impulse control were impaired. Vitals/I&O/Wt Last Vital Signs Temp 98.1 F 08/20/22 10:50 Pulse 66 08/20/22 10:50 Resp 17 08/20/22 10:50 BP 108/58 08/20/22 10:50 Pulse Ox 96 08/20/22 05:08 O2 Del Method 08/19/22 15:55 08/19/22 08/20/22 08/20/22 22:59 06:59 14:59 Intake Total 240 / 960 240 / 1200 720 / 720 Balance 240 / 960 240 / 1200 720 / 720 Data NPU 08/14/22 03:15 08/14/22 03:15 A&P Assessment and plan (1) Dementia: (2) Altered mental status: Plan This is a 87-year-old male who appears to be suffering from significant dementia of unknown type who presents with confusion and appears to lack any ability to make decisions at this time. It would be likely very dangerous for him to attempt to even return home as he poses a risk to himself or others if he were to drive a vehicle. He appears to have some reasonable insight regarding his memory problems and had intimated that he may need further help for managing his significant loss of memory. 1. Continue current medication. 2. Agree for the need for a 21-day hold and pursuit of guardianship. 3. Patient placed on a 21-day hold 08/19/2022. Will work on interrogatories. Attestations NPU Medical Necessity Statement*: Continued inpatient hospitalization as patient unable to return safely to home, no guardian in place. He will need placement in Dementia- Group Home Unit. Coding Level of Care Code Acute Code for [facility] Diagnoses Dementia F03.90 Altered mental status R41.82
--- NOTE | 2022-08-20 15:51 | PC.NURSE ---
Patient asked if he would wear security monitor and he refused. Patient educated on importance of cardiac monitoring. Patient still refused.
--- NOTE | 2022-08-20 17:08 | PM.PN ---
Subjective Subjective: Patient was seen this morning resting comfortably, has no complaints Vitals/I&O/Wt Last Vital Signs Temp 98.0 F 08/20/22 15:31 Pulse 92 08/20/22 15:31 Resp 18 08/20/22 15:31 BP 125/65 08/20/22 15:31 Pulse Ox 96 08/20/22 05:08 O2 Del Method 08/19/22 15:55 08/20/22 08/20/22 08/20/22 06:59 14:59 22:59 Intake Total 240 / 1200 720 / 720 Balance 240 / 1200 720 / 720 Physical Exam Const: COMMON NORMALS: no acute distress Neck/C-Spine: COMMON NORMALS: no JVD Resp: COMMON NORMALS: normal respiratory effort, No retractions, No use of accessory muscles and clear to auscultation bilaterally AUSCULTATION: clear to auscultation bilaterally Cardio: COMMON NORMALS: no JVD, regular rate, regular rhythm, S1 normal heart sound present and S2 normal heart sound present RATE: regular rate RHYTHM: regular rhythm HEART SOUNDS: S1 normal heart sound present and S2 normal heart sound present GI: COMMON NORMALS: Normal to inspection, nondistended, normoactive bowel sounds present and non-tender Extremity: COMMON NORMALS: no calf tenderness and no pedal edema Data 08/14/22 03:15 08/14/22 03:15 A&P Assessment and plan (1) Dementia: (2) Confusion: (3) Neck pain: (4) Altered mental status: (5) Hyperlipidemia: Qualifiers: Hyperlipidemia type: unspecified Qualified Code(s): E78.5 - Hyperlipidemia, unspecified (6) HTN (hypertension), benign: (7) Atherosclerosis of coronary artery of [place] heart without angina pectoris: Qualifiers: Coronary Disease-Associated Artery/Lesion type: [place] artery Qualified Code(s): I25.10 - Atherosclerotic heart disease of [place] coronary artery without angina pectoris Plan Altered mental status likely secondary to dementia -Evidence of short-term memory loss, long-term memory loss -Evidence of inability to make decisions, -Likely secondary to underlying dementia -With atypical depression -Continue n Prozac 10 mg once daily for depression -Patient is a unsafe discharge home, with no social support, placed on a 96-hour hold, will require guardianship -Tramadol 50 every 8 hours as needed for pain -Flexeril 5 mg p.o. 3 times daily for neck pain -Full code -Patient is quite mobile, SCDs Attestations Medical Necessity Statement*: Patient requires hospitalization for guardianship, versus [facility] Diagnoses Dementia F03.90 Confusion R41.0 Neck pain M54.2 Altered mental status R41.82 Hyperlipidemia E78.5 Hyperlipidemia type: unspecified HTN (hypertension), benign I10 Atherosclerosis of coronary artery of [place] heart without angina pectoris I25.10 Coronary Disease-Associated Artery/Lesion type: [place] artery
[2022-08-20 17:10] LABS: Glucose Point of Care 111 mg/dL (70-110)
[2022-08-20 20:17] LABS: Glucose Point of Care 242 mg/dL (70-110)
[2022-08-21 04:00] VITALS: BP 109/59; PULSE 65; RESP 16; TEMP 36.9; O2SAT 97
[2022-08-21 06:31] LABS: Glucose Point of Care 143 mg/dL (70-110)
[2022-08-21 08:00] VITALS: BP 120/63; PULSE 61; RESP 16; TEMP 37; O2SAT 96
[2022-08-21] MEDS: docusate sodium 100 mg Capsule PO ×2 (08:47→17:23)
[2022-08-21] MEDS: multivitamin therapeutic Tablet 1 TAB PO (08:47)
[2022-08-21] MEDS: thiamine 100 mg Tablet PO (08:47)
[2022-08-21] MEDS: levothyroxine 125 mcg Tablet PO (08:47)
[2022-08-21] MEDS: pantoprazole DR 40 mg Tablet PO ×2 (08:47→17:23)
[2022-08-21] MEDS: fluoxetine 10 mg Capsule PO (08:47)
[2022-08-21] MEDS: gabapentin 100 mg Capsule PO ×2 (08:47→17:23)
[2022-08-21] MEDS: atorvastatin 40 mg Tablet PO (08:47)
[2022-08-21] MEDS: tamsulosin 0.4 mg Capsule PO (08:47)
[2022-08-21] MEDS: insulin lispro 100 unit/1 mL SUBCUT ×3 (08:48→17:23)
[2022-08-21 12:00] VITALS: BP 109/62; PULSE 61; RESP 15; TEMP 36.9; O2SAT 96
--- NOTE | 2022-08-21 12:52 | PM.PN ---
Subjective Subjective: Patient was seen this morning, he has no complaints, he is resting comfortably Vitals/I&O/Wt Last Vital Signs Temp 98.6 F 08/21/22 08:00 Pulse 61 08/21/22 08:00 Resp 16 08/21/22 08:00 BP 120/63 08/21/22 08:00 Pulse Ox 96 08/21/22 08:00 O2 Del Method 08/19/22 15:55 08/20/22 08/21/22 08/21/22 22:59 06:59 14:59 Intake Total 600 / 1320 240 / 240 Balance 600 / 1320 240 / 240 Physical Exam Const: COMMON NORMALS: no acute distress Resp: COMMON NORMALS: normal respiratory effort, No retractions, No use of accessory muscles and clear to auscultation bilaterally AUSCULTATION: clear to auscultation bilaterally Cardio: COMMON NORMALS: regular rate, regular rhythm, S1 normal heart sound present and S2 normal heart sound present RATE: regular rate RHYTHM: regular rhythm HEART SOUNDS: S1 normal heart sound present and S2 normal heart sound present GI: COMMON NORMALS: Normal to inspection, nondistended, normoactive bowel sounds present and non-tender Extremity: COMMON NORMALS: no pedal edema Data 08/14/22 03:15 08/14/22 03:15 A&P Assessment and plan (1) Dementia: (2) Confusion: (3) Neck pain: (4) Altered mental status: (5) Hyperlipidemia: Qualifiers: Hyperlipidemia type: unspecified Qualified Code(s): E78.5 - Hyperlipidemia, unspecified (6) HTN (hypertension), benign: (7) Atherosclerosis of coronary artery of [place] heart without angina pectoris: Qualifiers: Coronary Disease-Associated Artery/Lesion type: [place] artery Qualified Code(s): I25.10 - Atherosclerotic heart disease of [place] coronary artery without angina pectoris Plan Altered mental status likely secondary to dementia -Evidence of short-term memory loss, long-term memory loss -Evidence of inability to make decisions, -Likely secondary to underlying dementia -With atypical depression -Continue n Prozac 10 mg once daily for depression -Patient is a unsafe discharge home, with no social support, placed on a 96-hour hold, will require guardianship -Tramadol 50 every 8 hours as needed for pain -Flexeril 5 mg p.o. 3 times daily for neck pain -Full code -Patient is quite mobile, SCDs Attestations Medical Necessity Statement*: Patient requires hospitalization, proceeding guardianship Coding Level of Care Code Acute Code for [facility] Diagnoses Dementia F03.90 Confusion R41.0 Neck pain M54.2 Altered mental status R41.82 Hyperlipidemia E78.5 Hyperlipidemia type: unspecified HTN (hypertension), benign I10 Atherosclerosis of coronary artery of [place] heart without angina pectoris I25.10 Coronary Disease-Associated Artery/Lesion type: [place] artery
[2022-08-21 13:55] LABS: Glucose Point of Care 141 mg/dL (70-110)
[2022-08-21 17:11] LABS: Glucose Point of Care 157 mg/dL (70-110)
[2022-08-21 17:22] VITALS: BP 118/60; PULSE 71; RESP 16; TEMP 37; O2SAT 96
--- NOTE | 2022-08-21 17:24 | P.NPUPN_ITS ---
Subjective NPU Subjective: Presented today with continued limitations in his memory but very pleasant and interactive. He has one-to-one and was interactive with staff in room. He continues to be honest about his memory deficits and seeming to understand what the plan is however he continues to struggle with recollection later in the conversation. Mental Status Exam MSE Comments: This is a well-nourished well-developed white male in hospital clothing with adequate grooming and eye contact. No abnormal movements. Coop erative with exam in no acute distress. Speech was normal rate and volume. Mood described as pretty good, affect congruent. Thought process organized but confused. Thought content: Patient denied suicidal or homicidal ideation, there were no delusions reported or noted, he denied any auditory or visual hallucinations. Attention and concentration were limited and memory was impaired but none were formally tested. He is alert and oriented times person and place. Insight, judgment and impulse control were impaired. Vitals/I&O/Wt Last Vital Signs Temp 98.6 F 08/21/22 17:22 Pulse 71 08/21/22 17:22 Resp 16 08/21/22 17:22 BP 118/60 08/21/22 17:22 Pulse Ox 96 08/21/22 17:22 O2 Del Method 08/21/22 17:22 Data NPU 08/14/22 03:15 08/14/22 03:15 A&P Assessment and plan (1) Dementia: (2) Altered mental status: Plan This is a 87-year-old male who appears to be suffering from significant dementia of unknown type who presents with confusion and appears to lack any ability to make decisions at this time. It would be likely very dangerous for him to attempt to even return home as he poses a risk to himself or others if he were to drive a vehicle. He appears to have some reasonable insight regarding his memory problems and had intimated that he may need further help for managing his significant loss of memory. 1. Continue current medication. 2. Agree for the need for a 21-day hold and pursuit of guardianship. 3. Patient placed on a 21-day hold 08/19/2022. Will work on interrogatories. Attestations NPU Medical Necessity Statement*: Continued inpatient hospitalization as patient unable to return safely to home, no guardian in place. He will need placement in Dementia- Care Home Unit. Coding Level of Care Code Acute Code for [facility] Diagnoses Dementia F03.90 Altered mental status R41.82
[2022-08-21 19:23] VITALS: BP 124/72; PULSE 62; RESP 16; TEMP 36.6; O2SAT 95
[2022-08-21 20:53] LABS: Glucose Point of Care 127 mg/dL (70-110)
[2022-08-21 23:44] VITALS: BP 115/56; PULSE 64; RESP 16; TEMP 36.8; O2SAT 95
[2022-08-22] VITALS (7 sets, daily range): BP systolic 106–130; BP diastolic 58–67; PULSE 62–94; RESP 15–17; TEMP 36.6–37.1; O2SAT 95–97
[2022-08-22 06:49] LABS: Glucose Point of Care 123 mg/dL (70-110)
[2022-08-22] MEDS: docusate sodium 100 mg Capsule PO ×2 (08:59→17:41)
[2022-08-22] MEDS: pantoprazole DR 40 mg Tablet PO ×2 (08:59→17:41)
[2022-08-22] MEDS: gabapentin 100 mg Capsule PO ×2 (08:59→17:41)
[2022-08-22] MEDS: atorvastatin 40 mg Tablet PO (08:59)
[2022-08-22] MEDS: thiamine 100 mg Tablet PO (08:59)
[2022-08-22] MEDS: tamsulosin 0.4 mg Capsule PO (09:00)
[2022-08-22] MEDS: levothyroxine 125 mcg Tablet PO (09:00)
[2022-08-22] MEDS: fluoxetine 10 mg Capsule PO (09:00)
[2022-08-22] MEDS: multivitamin therapeutic Tablet 1 TAB PO (09:02)
[2022-08-22 11:15] LABS: Glucose Point of Care 172 mg/dL (70-110)
--- NOTE | 2022-08-22 14:06 | PM.PN ---
Subjective Subjective: Patient was seen and examined this morning Patient said he has a lot of question but he forgot at the time of my evaluation He is under one-to-one supervision No complaints No active complaint Vitals/I&O/Wt Last Vital Signs Temp 98.8 F 08/22/22 12:18 Pulse 75 08/22/22 12:18 Resp 15 08/22/22 12:18 BP 113/58 08/22/22 12:18 Pulse Ox 96 08/22/22 12:18 O2 Del Method 08/22/22 12:18 08/21/22 08/22/22 08/22/22 22:59 06:59 14:59 Intake Total 240 / 720 300 / 300 Balance 240 / 720 300 / 300 Physical Exam Narrative: Awake and alert Sitting in his chair Euvolemic Disorganized thinking Nonfocal neuro exam S1, S2 Currently on room air Hemodynamically stable Data 08/14/22 03:15 08/14/22 03:15 A&P Assessment and plan (1) Dementia: (2) Altered mental status: (3) Bilateral carotid artery stenosis: (4) Constipation: Plan Dementia No acute exacerbation Atypical depression with behavioral disturbance Awaiting [facility] placement I would continue his antidepressant Patient has no social support he has been placed on 96-hour hold requiring guardianship SCDs for DVT prophylaxis We will add senna S for constipation Attestations Medical Necessity Statement*: Awaiting placement Diagnoses Dementia F03.90 Altered mental status R41.82 Bilateral carotid artery stenosis I65.23 Constipation K59.00
--- NOTE | 2022-08-22 14:21 | PC.OT ---
OT TREATMENT ATTEMPTED. PATIENT IS SLEEPING SOUNDLY. WILL ATTEMPT AGAIN AT A LATER TIME.
[2022-08-22 17:18] LABS: Glucose Point of Care 122 mg/dL (70-110)
[2022-08-22] MEDS: sennosides-docusate Tablet 1 TAB PO (17:41)
--- NOTE | 2022-08-22 17:51 | W.PM.NPUPNS ---
Subjective NPU Subjective: Patient presented today essentially unchanged. We continued to discuss the plan moving forward which he understood in real-time but continues to have short-term memory deficits as well as long-term memory deficits as he asked the same questions about the plan each day. However he continues to be pleasant and agreeable that this is a reasonable plan given his limitations. Mental Status Exam MSE Comments: This is a well-nourished well-developed white male in hospital clothing with adequate grooming and eye contact. No abnormal movements. Cooperative with exam in no acute distress. Speech was normal rate and volume. Mood described as fine, affect congruent. Thought process organized but confused. Thought content: Patient denied suicidal or homicidal ideation, there were no delusions reported or noted, he denied any auditory or visual hallucinations. Attention and concentration were limited and memory was impaired but none were formally tested. He is alert and oriented times person and place. Insight, judgment and impulse control were impaired. Vitals/I&O/Wt Last Vital Signs Temp 97.9 F 08/22/22 16:24 Pulse 62 08/22/22 16:24 Resp 16 08/22/22 16:24 BP 106/61 08/22/22 16:24 Pulse Ox 96 08/22/22 16:24 O2 Del Method 08/22/22 16:24 Data NPU 08/14/22 03:15 08/14/22 03:15 A&P Assessment and plan (1) Dementia: (2) Altered mental status: Plan This is a 87-year-old male who appears to be suffering from significant dementia of unknown type who presents with confusion and appears to lack any ability to make decisions at this time. It would be likely very dangerous for him to attempt to even return home as he poses a risk to himself or others if he were to drive a vehicle. He appears to have some reasonable insight regarding his memory problems and had intimated that he may need further help for managing his significant loss of memory. 1. Continue current medication. 2. Agree for the need for a 21-day hold and pursuit of guardianship. 3. Patient placed on a 21-day hold 08/19/2022. Will work on interrogatories. Attestations NPU Medical Necessity Statement*: Continued inpatient hospitalization as patient unable to return safely to home, no guardian in place. He will need placement in Dementia- [facility] Unit. Coding Level of Care Code Acute Code for [facility] Diagnoses Dementia F03.90 Altered mental status R41.82
[2022-08-22 20:31] LABS: Glucose Point of Care 161 mg/dL (70-110)
[2022-08-23 04:00] VITALS: BP 113/56; PULSE 65; RESP 17; TEMP 36.4; O2SAT 96
[2022-08-23 06:31] LABS: Glucose Point of Care 150 mg/dL (70-110)
[2022-08-23 08:00] VITALS: BP 121/65; PULSE 77; RESP 16; TEMP 36.6; O2SAT 97
[2022-08-23] MEDS: insulin lispro 100 unit/1 mL SUBCUT ×3 (08:00→17:46)
[2022-08-23] MEDS: fluoxetine 10 mg Capsule PO (08:01)
[2022-08-23] MEDS: docusate sodium 100 mg Capsule PO ×2 (08:01→17:46)
[2022-08-23] MEDS: multivitamin therapeutic Tablet 1 TAB PO (08:02)
[2022-08-23] MEDS: gabapentin 100 mg Capsule PO ×2 (08:02→17:46)
[2022-08-23] MEDS: sennosides-docusate Tablet 1 TAB PO ×2 (08:02→17:46)
[2022-08-23] MEDS: atorvastatin 40 mg Tablet PO (08:02)
[2022-08-23] MEDS: tamsulosin 0.4 mg Capsule PO (08:02)
[2022-08-23] MEDS: thiamine 100 mg Tablet PO (08:02)
[2022-08-23] MEDS: pantoprazole DR 40 mg Tablet PO ×2 (08:02→17:46)
[2022-08-23] MEDS: levothyroxine 125 mcg Tablet PO (08:02)
--- NOTE | 2022-08-23 10:52 | PM.PN ---
Subjective Subjective: Stating that he has not felt this good in a long time, endorsing feeling better No events overnight Patient is endorsing sore throat No fever or cough Vitals/I&O/Wt Last Vital Signs Temp 97.8 F 08/23/22 08:00 Pulse 77 08/23/22 08:00 Resp 16 08/23/22 08:00 BP 121/65 08/23/22 08:00 Pulse Ox 97 08/23/22 08:00 O2 Del Method 08/22/22 20:00 08/22/22 08/23/22 08/23/22 22:59 06:59 14:59 Intake Total 480 / 780 Balance 480 / 780 Physical Exam Narrative: Eating breakfast Awake and alert GCS 15 Pleasant and cooperative Asymptomatic On room air S1, S2 Abdomen soft Data 08/14/22 03:15 08/14/22 03:15 A&P Assessment and plan (1) Sore throat: (2) Dementia: (3) Altered mental status: (4) Dementia: (5) Dysphagia: Qualifiers: Dysphagia type: unspecified Qualified Code(s): R13.10 - Dysphagia, unspecified (6) Fracture of right ankle, lateral malleolus: (7) Constipation: Plan Patient is awaiting placement For sore throat we will give him Chloraseptic spray Postprandial is not showing any sign of purulence mild hyperemia noted Afebrile Dry cough Request rapid strep Dementia without acute exacerbation Patient does not have enough care at home and safe to be discharged Awaiting placement Continue levothyroxine and SSRI Attestations Medical Necessity Statement*: Awaiting placement Diagnoses Sore throat J02.9 Dementia F03.90 Altered mental status R41.82 Dementia F03.90 Dysphagia R13.10 Dysphagia type: unspecified Fracture of right ankle, lateral malleolus S82.61XA Constipation K59.00
[2022-08-23 11:37] LABS: Glucose Point of Care 176 mg/dL (70-110)
[2022-08-23] MEDS: phenol oral Spray 177 mL 3 SPRAY MUCOUS MEM ×2 (11:56→17:46)
[2022-08-23 12:00] VITALS: BP 119/61; PULSE 74; RESP 16; TEMP 36.6; O2SAT 96
--- NOTE | 2022-08-23 12:21 | PM.DCS ---
Discharge Providers Date of Admission: 08/13/22 15:56 Date of Discharge: August 23, 2022 Attending Provider at Admission: Elvis Cordero MD Attending Provider at Discharge: Artem Diamond MD Primary Care Provider: Emily Pineda MD Diagnoses at Discharge Discharge Diagnosis (1) Sore throat: Status: Acute (2) Dementia: Status: Acute (3) Altered mental status: Status: Acute (4) Dementia: Status: Acute (5) Dysphagia: Status: Acute Qualifiers: Dysphagia type: unspecified Qualified Code(s): R13.10 - Dysphagia, unspecified (6) Fracture of right ankle, lateral malleolus: Status: Acute (7) Constipation: Status: Acute Reason for Visit Reason for Visit: neck pian Hospital Course Hospital Course 87-year male who was admitted to the hospital for management of altered mental status related to underlying dementia, patient has atypical depression with behavioral disturbance there were no signs of infection patient remained hemodynamically stable, infectious work-up was unremarkable, psychiatrist was consulted who recommended management with Prozac 10 mg daily, tramadol and Flexeril for neck pain patient is full code, patient was put on 21-day hold, guardianship was pursued, preserved ejection fraction grade 1 diastolic function, no acute decompensation, patient was complaining of sore throat for which rapid strep test was requested, Chloraseptic spray was recommended. He remained afebrile. COVID-negative, rapid strep negative Physical Exam Narrative: Eating breakfast Awake and alert GCS 15 Pleasant and cooperative Asymptomatic On room air S1, S2 Abdomen soft Discharge Data Studies Completed and Pending Completed Studies During Hospitalization Category Date Time Status CT cervical spin wo con* [id number] Stat Cat Scan 08/13/22 12:[address] head wo con* [id number] Stat Cat Scan 08/13/22 12:28 Completed XR chest 1V portable [id number] Routine Exams 08/13/22 17:12 Completed CV carotid duplex BI* [id number] Routine Ultrasound 08/13/22 17:12 Completed CV. echo complete* [id number] Routine Ultrasound 08/14/22 06:00 Completed Pending at discharge Category Date Time Status Rapid Strep A Test Routine Lab 08/23/22 11:32 Received SARS Covid-2 Antigen Stat Lab 08/23/22 11:31 Received Vitamin B1(Thiamin) Plas/Ser Stat Lab 08/13/22 18:30 Received Radiology Impressions Cervical Spine CT 08/13/22 12:28 IMPRESSION: No acute fracture. Head CT 08/13/22 12:28 IMPRESSION: No acute intracranial abnormality. Carotid Doppler Study 08/13/22 17:12 IMPRESSION: 1. Less than 50% stenosis left internal carotid artery. 2. Less than 50% stenosis right internal carotid artery. 3. Patent bilateral vertebral arteries with normal direction of flow. REFERENCES: SRU CRITERIA. The degree of internal carotid artery stenosis is based on criteria defined by the Society of Radiologists in Ultrasound (SRU). Normal is no stenosis. Mild is less than 50% stenosis. Moderate is 50-69% stenosis. Severe is greater than 69% stenosis to near occlusion. Near occlusion is a markedly narrowed lumen. Total occlusion is no detectable patent lumen. Chest X-Ray 08/13/22 17:12 IMPRESSION: Mild left basilar atelectasis and/or infiltrate and/or effusion. Laboratory Results WBC 6.9 10^3/uL (4.0-10.0) 08/14/22 03:15 RBC 3.51 10^6/uL (4.1-5.3) L 08/14/22 03:15 Hgb 10.8 g/dL (11.7-16.6) L 08/14/22 03:15 Hct 33.1 % (42.0-52.0) L 08/14/22 03:15 MCV 94.3 fl (80-94) H 08/14/22 03:15 MCH 30.8 pg (28.0-34.0) 08/14/22 03:15 MCHC 32.6 g/dL (30.0-36.0) 08/14/22 03:15 RDW 11.9 % (12.1-15.1) L 08/14/22 03:15 Plt Count 211 10^3/cmm (130-400) 08/14/22 03:15 MPV 9.2 fL (7.4-10.4) 08/14/22 03:15 Neut % (Auto) 36.2 % 08/14/22 03:15 Lymph % (Auto) 47.3 % 08/14/22 03:15 [place] % (Auto) 12.4 % 08/14/22 03:15 Eos % (Auto) 2.9 % 08/14/22 03:15 Baso % (Auto) 0.9 % 08/14/22 03:15 Neut # (Auto) 2.50 10^3/uL (1.8-7.7) 08/14/22 03:15 Lymph # (Auto) 3.3 10^3/uL (0.8-4.8) 08/14/22 03:15 [place] # (Auto) 0.9 10^3/uL (0.2-0.9) 08/14/22 03:15 Eos # (Auto) 0.2 10^3/uL (0.0-0.8) 08/14/22 03:15 Baso # (Auto) 0.1 10^3/uL (0.0-0.1) 08/14/22 03:15 Nucleated RBC % (auto) 0 % 08/14/22 03:15 Nucleated RBCs # 0.0 /100WBC 08/14/22 03:15 Sodium 141 mmol/L (136-145) 08/14/22 03:15 Potassium 4.2 mmol/L (3.5-5.1) 08/14/22 03:15 Chloride 107 mmol/L (98-107) 08/14/22 03:15 Carbon Dioxide 28 mmol/L (22-29) 08/14/22 03:15 Anion Gap 10.2 (5-19) 08/14/22 03:15 BUN 12 mg/dL (8-23) 08/14/22 03:15 Creatinine 1.1 mg/dL (0.7-1.2) 08/14/22 03:15 GFR Calculation Not Reportable 08/14/22 03:15 Glucose 125 mg/dL (65-115) H 08/14/22 03:15 POC Glucose 176 mg/dL (70-110) H 08/23/22 11:03 Estimat Average Glucose 163 08/13/22 18:30 Hemoglobin A1c 7.3 % (4.0-6.0) H 08/13/22 18:30 Calculated Osmolality 293 mOsm/kg (285-295) 08/14/22 03:15 Calcium 8.9 mg/dL (8.5-10.5) 08/14/22 03:15 Phosphorus 3.8 mg/dL (2.5-4.5) 08/14/22 03:15 Magnesium 1.9 mg/dL (1.7-2.3) 08/14/22 03:15 Total Bilirubin 0.6 mg/dL (0.15-1.2) 08/14/22 03:15 AST 19 U/L (0-40) 08/14/22 03:15 ALT 14 U/L (0-41) 08/14/22 03:15 Alkaline Phosphatase 60 U/L (40-130) 08/14/22 03:15 Troponin T Baseline 22 ng/L (0-15) H 08/13/22 18:30 Troponin T 120 Minute 22.41 ng/L (0-15) H 08/13/22 20:30 Delta Troponin T 0.41 ABS# (0-10) 08/13/22 20:30 Troponin T Hi Sens 6Hr 27.26 ng/L (0-15) H 08/13/22 23:59 Troponin T Hi Sens 6Hr Delta 5.26 ng/L (0-12) 08/13/22 23:59 C-Reactive Protein 3.0 mg/L (0.0-4.9) 08/13/22 18:30 NT-Pro-B Natriuret Pep 163 pg/mL (0-450) 08/13/22 18:30 Total Protein 5.6 g/dL (6.6-8.7) L 08/14/22 03:15 Albumin 3.2 g/dL (3.5-5.2) L 08/14/22 03:15 Globulin 2.4 g/dL (1.3-4.6) 08/14/22 03:15 Triglycerides 90 mg/dL (0-150) 08/13/22 18:30 Cholesterol 124 mg/dL (0-200) 08/13/22 18:30 LDL Cholesterol, Calc 67 mg/dL (50-129) 08/13/22 18:30 HDL Cholesterol 39 mg/dL (60-100) L 08/13/22 18:30 LDL/HDL Ratio 1.72 RATIO (0.00-3.22) 08/13/22 18:30 Cholesterol/HDL Ratio 3.18 mg/dL (1.0-5.00) 08/13/22 18:30 Vitamin B12 473 pg/mL (232-1245) 08/13/22 18:30 Folate 12.5 ng/mL (4.5-32.2) 08/13/22 18:30 Procalcitonin 0.06 ng/mL (0-0.5) 08/13/22 18:30 TSH 0.03 uIU/mL (0.27-4.20) L 08/13/22 18:30 Thyroxine (T4) 15.9 mcg/dL (4.9-10.5) H 08/13/22 18:30 Free T3 3.8 PG/ML (2.0-4.4) 08/13/22 18:30 Urine Color Yellow (Yellow) 08/13/22 12:08 Urine Appearance Clear (CLEAR) 08/13/22 12:08 Urine pH 5 (5-7) 08/13/22 12:08 Ur Specific [place] 1.025 (1.005-1.030) 08/13/22 12:08 Urine Protein Neg (Negative) 08/13/22 12:08 Urine Glucose (UA) 1+ (Normal) H 08/13/22 12:08 Urine Ketones Negative (Negative) 08/13/22 12:08 Urine Blood Neg (Negative) 08/13/22 12:08 Urine Nitrate Negative (Negative) 08/13/22 12:08 Urine Bilirubin Neg (Negative) 08/13/22 12:08 Urine Urobilinogen Norm mg/dL (Negative) 08/13/22 12:08 Ur Leukocyte Esterase Negative (Negative) 08/13/22 12:08 Salicylates < 0.3 mg/dL (3-10) L 08/13/22 18:30 Urine Opiates Screen Negative ng/mL (Negative) 08/13/22 12:08 Acetaminophen < 5.0 ug/mL (10-30) L 08/13/22 18:30 Ur Barbiturates Screen Negative ng/mL (Negative) 08/13/22 12:08 Ur Phencyclidine Scrn Negative ng/mL (Negative) 08/13/22 12:08 Ur Amphetamines Screen Negative ng/mL (Negative) 08/13/22 12:08 U Benzodiazepines Scrn Negative ng/mL (Negative) 08/13/22 12:08 Urine Cocaine Screen Negative ng/mL (Negative) 08/13/22 12:08 U Marijuana (THC) Screen Negative ng/mL (Negative) 08/13/22 12:08 Ethyl Alcohol < 10 mg/dL (0-10) 08/13/22 18:30 RPR Nonreactive (Nonreactive) 08/13/22 18:30 Hepatitis A IgM Ab Non-reactive (Nonreactive) 08/13/22 18:30 Hep Bs Antigen Non-reactive (Nonreactive) 08/13/22 18:30 Hep B Core IgM Ab Non-reactive (Nonreactive) 08/13/22 18:30 Hepatitis C Antibody Non-reactive (Nonreactive) 08/13/22 18:30 HIV 1&2 Ab & HIV 1 Ag Non-reactive (Non-Reactiv) 08/13/22 18:30 HIV 1&2 Antibody Non-reactive (Non-Reactiv) 08/13/22 18:30 SARS-CoV-2 Ag (Rapid) negative (Negative) 08/19/22 13:00 Vitals Last Vital Signs Temp 97.8 F 08/23/22 12:00 Pulse 74 08/23/22 12:00 Resp 16 08/23/22 12:00 BP 119/61 08/23/22 12:00 Pulse Ox 96 08/23/22 12:00 O2 Del Method 08/22/22 20:00 Discharge Plan Discharge Patient Disposition: Home Condition: Stable Prescriptions: New fluoxetine 10 mg Capsule 10 mg PO DAILY Qty: 30 3RF Continued (DME) Buzz Quesada See Rx Instructions .ROUTE .MEDSUPPLY Qty: 1 0RF Rx Instructions: As directed docusate sodium 50 mg capsule 50 mg PO DAILY PRN (Reason: Constipation) acetaminophen 500 mg capsule 500 mg PO Q4H PRN (Reason: Pain) levothyroxine 125 mcg capsule 125 mcg PO DAILY omeprazole 40 mg capsule,delayed release(DR/EC) 40 mg PO BID gabapentin 100 mg capsule 100 mg PO BID atorvastatin 40 mg tablet 40 mg PO DAILY Rx Instructions: bedtime cyclobenzaprine 5 mg tablet 5 mg PO .COMPLEX PRN (Reason: Muscle Pain) Rx Instructions: 5 mg PO PRN; 1-2 tablets tamsulosin [Flomax] 0.4 mg capsule 0.4 mg PO DAILY Qty: 30 0RF Discontinued diclofenac sodium 75 mg tablet,delayed release (DR/EC) 75 mg PO Q12H PRN (Reason: pain) Qty: 20 0RF Referrals: Emily Pineda MD [Primary Care Provider] - Patient Instructions: Opioid Safety, Pain Management Coding Level of Care Code Acute Code for Chg Fwd Diagnoses Sore throat J02.9 Dementia F03.90 Altered mental status R41.82 Dementia F03.90 Dysphagia R13.10 Dysphagia type: unspecified Fracture of right ankle, lateral malleolus S82.61XA Constipation K59.00
[2022-08-23 12:40] LABS: Rapid Strep A Test Negative (Negative)
[2022-08-23 12:46] LABS: SARS Covid-2 Antigen negative (Negative)
[2022-08-23 14:00] VITALS: PULSE 72
[2022-08-23 15:59] VITALS: BP 118/63; PULSE 69; RESP 17; O2SAT 98
[2022-08-23 17:19] LABS: Glucose Point of Care 162 mg/dL (70-110)
[2022-08-23 20:00] VITALS: BP 118/64; PULSE 69; RESP 18; TEMP 36.4; O2SAT 97
[2022-08-23 21:31] LABS: Glucose Point of Care 193 mg/dL (70-110)
[2022-08-24] VITALS (11 sets, daily range): BP systolic 110–132; BP diastolic 53–78; PULSE 61–80; RESP 16–18; TEMP 36.6–37.1; O2SAT 95–97
[2022-08-24 06:41] LABS: Glucose Point of Care 144 mg/dL (70-110)
[2022-08-24] MEDS: insulin lispro 100 unit/1 mL SUBCUT ×3 (08:49→18:26)
[2022-08-24] MEDS: levothyroxine 125 mcg Tablet PO (08:50)
[2022-08-24] MEDS: atorvastatin 40 mg Tablet PO (08:50)
[2022-08-24] MEDS: tamsulosin 0.4 mg Capsule PO (08:50)
[2022-08-24] MEDS: pantoprazole DR 40 mg Tablet PO ×2 (08:50→18:26)
[2022-08-24] MEDS: gabapentin 100 mg Capsule PO ×2 (08:50→18:26)
[2022-08-24] MEDS: thiamine 100 mg Tablet PO (08:50)
[2022-08-24] MEDS: fluoxetine 10 mg Capsule PO (08:50)
[2022-08-24] MEDS: docusate sodium 100 mg Capsule PO ×2 (08:50→18:26)
[2022-08-24] MEDS: sennosides-docusate Tablet 1 TAB PO ×2 (08:50→18:26)
[2022-08-24] MEDS: multivitamin therapeutic Tablet 1 TAB PO (08:51)
[2022-08-24] MEDS: phenol oral Spray 177 mL 3 SPRAY MUCOUS MEM ×2 (10:46→18:36)
--- NOTE | 2022-08-24 10:52 | PM.PN ---
Subjective Subjective: Patient sitting comfortably in his chair Yesterday he required a dose of Haldol when he was trying to leave AGAINST MEDICAL ADVICE, code 10 was called however today he is very calm and cooperative I do not see any signs of agitation or confusion today He is in good spirits, Vitals/I&O/Wt Last Vital Signs Temp 98.5 F 08/24/22 08:15 Pulse 77 08/24/22 08:15 Resp 18 08/24/22 08:15 BP 132/63 08/24/22 08:15 Pulse Ox 96 08/24/22 07:44 O2 Del Method 08/24/22 07:44 08/23/22 08/24/22 08/24/22 22:59 06:59 14:59 Intake Total 120 / 790 360 / 360 Balance 120 / 790 360 / 360 Physical Exam Narrative: Awake and alert Euvolemic No active complaint GCS 15 Nonfocal neuro exam Currently on room air S1, S2 Being in a chair without any discomfort No signs of confusion or agitation Data 08/14/22 03:15 08/14/22 03:15 A&P Assessment and plan (1) Sore throat: (2) Dementia: (3) Altered mental status: (4) Fracture of right ankle, lateral malleolus: Plan Dementia without acute exacerbation Yesterday required 1 dose of Haldol when he was trying to leave AMA, code 10 was called This morning he is very cooperative In good spirits No active complaint Sore throat: Rapid strep negative, COVID-negative afebrile Continue regular diet Atypical depression Continue Prozac Hypothyroidism continue levothyroxine BPH continue tamsulosin Awaiting placement Attestations Medical Necessity Statement*: Continue medical management Diagnoses Sore throat J02.9 Dementia F03.90 Altered mental status R41.82 Fracture of right ankle, lateral malleolus S82.61XA
[2022-08-24 11:49] LABS: Glucose Point of Care 157 mg/dL (70-110)
--- NOTE | 2022-08-24 12:07 | PC.OT ---
OT TREATMENT ATTEMPTED. PATIENT REPORTS, NOT RIGHT NOW. AGREEABLE TO P.M. ATTEMPT.
--- NOTE | 2022-08-24 12:28 | PC.SOCIAL ---
IMM Not Updated IMM not updated. Pt is on 21 day hold, guardianship and placement are being arranged. Pt is not expected to discharge in the next 24-48 hours.
[2022-08-24 17:11] LABS: Glucose Point of Care 165 mg/dL (70-110)
[2022-08-24] MEDS: acetaminophen 325 mg Tablet 650 MG PO (18:35)
[2022-08-24 21:07] LABS: Glucose Point of Care 82 mg/dL (70-110)
[2022-08-25 03:40] VITALS: BP 113/58; PULSE 67; RESP 16; TEMP 37; O2SAT 94
[2022-08-25] MEDS: acetaminophen 325 mg Tablet 650 MG PO (06:42)
[2022-08-25 06:57] LABS: Glucose Point of Care 128 mg/dL (70-110)
[2022-08-25 08:00] VITALS: BP 109/61; PULSE 68; RESP 15; TEMP 37; O2SAT 96
[2022-08-25] MEDS: docusate sodium 100 mg Capsule PO ×2 (09:02→17:21)
[2022-08-25] MEDS: pantoprazole DR 40 mg Tablet PO ×2 (09:02→17:21)
[2022-08-25] MEDS: multivitamin therapeutic Tablet 1 TAB PO (09:02)
[2022-08-25] MEDS: gabapentin 100 mg Capsule PO ×2 (09:02→17:21)
[2022-08-25] MEDS: atorvastatin 40 mg Tablet PO (09:02)
[2022-08-25] MEDS: sennosides-docusate Tablet 1 TAB PO ×2 (09:02→17:21)
[2022-08-25] MEDS: fluoxetine 10 mg Capsule PO (09:02)
[2022-08-25] MEDS: thiamine 100 mg Tablet PO (09:02)
[2022-08-25] MEDS: tamsulosin 0.4 mg Capsule PO (09:02)
[2022-08-25] MEDS: levothyroxine 125 mcg Tablet PO (09:02)
[2022-08-25] MEDS: cyclobenzaprine 10 mg Tablet 5 MG PO (09:23)
--- NOTE | 2022-08-25 09:51 | P.PN_ITS ---
Subjective Subjective: We have started the process of pursuing guardianship Patient is complaining of neck pain and neck stiffness I have asked nurse to give him Flexeril Chloraseptic spray for the sore throat COVID and rapid strep negative He was eating breakfast Vitals/I&O/Wt Last Vital Signs Temp 98.6 F 08/25/22 08:00 Pulse 68 08/25/22 08:00 Resp 15 08/25/22 08:00 BP 109/61 08/25/22 08:00 Pulse Ox 96 08/25/22 08:00 O2 Del Method 08/25/22 08:00 08/24/22 08/25/22 08/25/22 22:59 06:59 14:59 Intake Total 120 / 720 240 / 240 Balance 120 / 720 240 / 240 Physical Exam Narrative: Patient is eating breakfast No headache Neck sprain Tense neck muscles GCS 15 Abdomen soft no signs of agitation Calm and cooperative S1, S2 Abdomen soft Currently on room air Data 08/14/22 03:15 08/14/22 03:15 Micro: Microbiology 08/23/22 11:32 Group A Streptococcus Rapid Screen - Preliminary Throat A&P Assessment and plan (1) Sore throat: (2) Altered mental status: (3) Neck pain: (4) Fracture of right ankle, lateral malleolus: (5) Constipation: Plan Sore throat Complaining of cough Neck pain I will add Augmentin Afebrile Dementia without acute exacerbation No active signs of delirium Constipation: Continue docusate Hypothyroid continue with thyroxine Chloraseptic [place] for sore throat For neck stiffness okay with Flexeril for now Pursuing guardianship Full code Regular diet DVT prophylaxis Lovenox Attestations Medical Necessity Statement*: Pursuing guardianship Diagnoses Sore throat J02.9 Altered mental status R41.82 Neck pain M54.2 Fracture of right ankle, lateral malleolus S82.61XA Constipation K59.00
[2022-08-25 11:00] VITALS: BP 103/61; PULSE 68; RESP 16; TEMP 36.8; O2SAT 96
[2022-08-25 12:01] LABS: Glucose Point of Care 209 mg/dL (70-110)
[2022-08-25] MEDS: insulin lispro 100 unit/1 mL SUBCUT (12:23)
[2022-08-25] MEDS: enoxaparin 40 mg/0.4 mL Syringe SUBCUT (12:23)
[2022-08-25 16:00] VITALS: BP 116/63; PULSE 71; RESP 18; TEMP 36.7; O2SAT 99
[2022-08-25] MEDS: amoxicillin-clav 875-125 mg Tablet 1 TAB PO (17:21)
[2022-08-25 17:23] LABS: Glucose Point of Care 129 mg/dL (70-110)
[2022-08-25 19:08] VITALS: BP 119/61; PULSE 64; RESP 17; TEMP 37.3; O2SAT 97
[2022-08-25 22:03] LABS: Glucose Point of Care 158 mg/dL (70-110)
--- NOTE | 2022-08-25 22:25 | PC.NURSE ---
Patient keeps coughing and asked sitter if nurse could get some medication for cough. Nurse informed Dr Graham of the situation and patient medication request. Dr Graham instructed to give Tessalon pearls 100mg TID PRN.
[2022-08-25] MEDS: benzonatate 100 mg Capsule PO (22:47)
[2022-08-25 23:43] VITALS: BP 120/64; PULSE 62; RESP 17; TEMP 37.2; O2SAT 96
[2022-08-26 03:55] VITALS: BP 125/65; PULSE 65; RESP 17; TEMP 37.2; O2SAT 96
[2022-08-26 06:10] LABS: Glucose Point of Care 124 mg/dL (70-110)
[2022-08-26 08:00] VITALS: BP 109/64; PULSE 67; RESP 15; TEMP 37.2; O2SAT 94
--- NOTE | 2022-08-26 08:07 | PC.SOCIAL ---
IMM Update pg 2 of IMM not updated @ this time. Guardianship is pending and Level 2 is pending @ this time.
[2022-08-26] MEDS: gabapentin 100 mg Capsule PO ×2 (09:36→17:40)
[2022-08-26] MEDS: amoxicillin-clav 875-125 mg Tablet 1 TAB PO ×2 (09:37→17:39)
[2022-08-26] MEDS: docusate sodium 100 mg Capsule PO ×2 (09:38→17:40)
[2022-08-26] MEDS: sennosides-docusate Tablet 1 TAB PO ×2 (09:39→17:40)
[2022-08-26] MEDS: atorvastatin 40 mg Tablet PO (09:39)
[2022-08-26] MEDS: tamsulosin 0.4 mg Capsule PO (09:40)
[2022-08-26] MEDS: fluoxetine 10 mg Capsule PO (09:41)
[2022-08-26] MEDS: pantoprazole DR 40 mg Tablet PO ×2 (09:41→17:40)
[2022-08-26] MEDS: multivitamin therapeutic Tablet 1 TAB PO (09:41)
[2022-08-26] MEDS: levothyroxine 125 mcg Tablet PO (09:42)
[2022-08-26] MEDS: thiamine 100 mg Tablet PO (09:42)
[2022-08-26] MEDS: enoxaparin 40 mg/0.4 mL Syringe SUBCUT (09:49)
--- NOTE | 2022-08-26 11:06 | PM.PN ---
Subjective Subjective: Patient was eating breakfast One-to-one supervision No overnight events Vitals/I&O/Wt Last Vital Signs Temp 99.0 F 08/26/22 08:00 Pulse 67 08/26/22 08:00 Resp 15 08/26/22 08:00 BP 109/64 08/26/22 08:00 Pulse Ox 94 08/26/22 08:00 O2 Del Method 08/26/22 08:00 08/25/22 08/26/22 08/26/22 22:59 06:59 14:59 Intake Total 400 / 880 0 / 880 240 / 240 Balance 400 / 880 0 / 880 240 / 240 Physical Exam Narrative: Pleasant cooperative GCS 15 Euvolemic Neck pain improved No signs of meningitis S1, S2 Nonfocal neuro exam Data 08/14/22 03:15 08/14/22 03:15 Micro: Microbiology 08/23/22 11:32 Group A Streptococcus Rapid Screen - Final Throat A&P Assessment and plan (1) Sore throat: (2) Dementia: (3) Altered mental status: (4) Neck pain: (5) Dementia: (6) Confusion: (7) Fracture of right ankle, lateral malleolus: (8) Constipation: Plan 87-year male who was admitted to the hospital for management of altered mental status related to underlying dementia, patient has atypical depression with behavioral disturbance there were no signs of infection patient remained hemodynamically stable, infectious work-up was unremarkable, psychiatrist was consulted who recommended management with Prozac 10 mg daily, tramadol and Flexeril for neck pain patient is full code, patient was put on 21-day hold, guardianship was pursued, preserved ejection fraction grade 1 diastolic function, no acute decompensation, patient was complaining of sore throat for which rapid strep test was requested, Chloraseptic spray was recommended. He remained afebrile. COVID-negative, rapid strep negative Dementia: No acute exacerbation Patient has been very calm and cooperative Requiring one-to-one supervision because of psych hold Sore throat slightly better experiencing dry cough afebrile Using Chloraseptic spray I started him on Augmentin yesterday Regular diet DVT prophylaxis Lovenox Right ankle fracture: Conservative management We are pursuing guardianship because state guardianship will take about 10 months, after we pursued guardianship should be able to place him to a longterm No change in medications today Attestations Medical Necessity Statement*: Continue medical management Diagnoses Sore throat J02.9 Dementia F03.90 Altered mental status R41.82 Neck pain M54.2 Dementia F03.90 Confusion R41.0 Fracture of right ankle, lateral malleolus S82.61XA Constipation K59.00
[2022-08-26 11:51] VITALS: BP 110/64; PULSE 67; TEMP 37.2; O2SAT 93
[2022-08-26 11:51] LABS: Glucose Point of Care 172 mg/dL (70-110)
[2022-08-26] MEDS: insulin lispro 100 unit/1 mL SUBCUT (12:20)
[2022-08-26 16:00] VITALS: BP 106/62; PULSE 67; RESP 16; TEMP 36.6; O2SAT 97
[2022-08-26 16:30] LABS: Glucose Point of Care 108 mg/dL (70-110)
[2022-08-26 20:05] VITALS: BP 117/61; PULSE 84; RESP 18; TEMP 36.8; O2SAT 97
[2022-08-26 21:09] LABS: Glucose Point of Care 137 mg/dL (70-110)
--- NOTE | 2022-08-26 21:33 | PC.NURSE ---
Nurse walked by patient room and found patient standing near doorway with sitter, and patient was asking primary nurse if he could walk around the unit. Nurse informed patient that he had to stay in his room, and nurse told sitter to keep patient in his room and bed.
[2022-08-27 00:52] VITALS: BP 112/62; PULSE 66; RESP 17; TEMP 37.2; O2SAT 95
[2022-08-27 04:20] VITALS: BP 97/59; PULSE 77; RESP 19; TEMP 36.8; O2SAT 95
[2022-08-27 06:38] LABS: Glucose Point of Care 117 mg/dL (70-110)
[2022-08-27 08:00] VITALS: BP 108/55; PULSE 64; RESP 16; O2SAT 94
--- NOTE | 2022-08-27 08:37 | P.NPUPN_ITS ---
Subjective NPU Subjective: Patient presented today reporting that he is doing fine. He continues to show signs of memory deficiency but continues to appear to be on board with the plan for placement. He continues to await guardianship. Mental Status Exam MSE Comments: This is a well-nourished well-developed white male in hospital clothing with adequate grooming and eye contact. No abnormal movements. Cooperative with exam in no acute distress. Speech was normal rate and volume. Mood described as pretty good, affect congruent. Thought process organized but confused. Thought content: Patient denied suicidal or homicidal ideation, there were no delusions reported or noted, he denied any auditory or visual halluc inations. Attention and concentration were limited and memory was impaired but none were formally tested. He is alert and oriented times person and place. Insight, judgment and impulse control were impaired. Vitals/I&O/Wt Last Vital Signs Temp 98.2 F 08/27/22 04:20 Pulse 64 08/27/22 08:00 Resp 16 08/27/22 08:00 BP 108/55 08/27/22 08:00 Pulse Ox 94 08/27/22 08:00 O2 Del Method 08/27/22 04:20 08/26/22 08/27/22 08/27/22 22:59 06:59 14:59 Intake Total 0 / 480 0 / 480 Balance 0 / 480 0 / 480 Data NPU 08/14/22 03:15 08/14/22 03:15 A&P Assessment and plan (1) Dementia: (2) Altered mental status: Plan This is a 87-year-old male who appears to be suffering from significant dementia of unknown type who presents with confusion and appears to lack any ability to m javi decisions at this time. It would be likely very dangerous for him to attempt to even return home as he poses a risk to himself or others if he were to drive a vehicle. He appears to have some reasonable insight regarding his memory problems and had intimated that he may need further help for managing his significant loss of memory. 1. Continue current medication. 2. Agree for the need for a 21-day hold and pursuit of guardianship. 3. Patient placed on a 21-day hold 08/19/2022. The interrogatories were submitted. Attestations NPU Medical Necessity Statement*: Continued inpatient hospitalization as patient unable to return safely to home, no guardian in place. He will need placement in Dementia- Detention Unit. Coding Level of Care Code Acute Code for g Fwd Diagnoses Dementia F03.90 Altered mental status R41.82
[2022-08-27] MEDS: gabapentin 100 mg Capsule PO ×2 (09:42→18:22)
[2022-08-27] MEDS: docusate sodium 100 mg Capsule PO ×2 (09:42→18:22)
[2022-08-27] MEDS: multivitamin therapeutic Tablet 1 TAB PO (09:42)
[2022-08-27] MEDS: tamsulosin 0.4 mg Capsule PO (09:42)
[2022-08-27] MEDS: amoxicillin-clav 875-125 mg Tablet 1 TAB PO ×2 (09:42→18:22)
[2022-08-27] MEDS: sennosides-docusate Tablet 1 TAB PO ×2 (09:42→18:22)
[2022-08-27] MEDS: fluoxetine 10 mg Capsule PO (09:43)
[2022-08-27] MEDS: thiamine 100 mg Tablet PO (09:43)
[2022-08-27] MEDS: levothyroxine 125 mcg Tablet PO (09:43)
[2022-08-27] MEDS: pantoprazole DR 40 mg Tablet PO ×2 (09:43→18:22)
[2022-08-27] MEDS: atorvastatin 40 mg Tablet PO (09:43)
[2022-08-27] MEDS: enoxaparin 40 mg/0.4 mL Syringe SUBCUT (09:47)
[2022-08-27 11:18] VITALS: BP 116/64; PULSE 62; RESP 15; O2SAT 95
[2022-08-27 11:27] LABS: Glucose Point of Care 158 mg/dL (70-110)
[2022-08-27] MEDS: insulin lispro 100 unit/1 mL SUBCUT (13:29)
[2022-08-27 16:00] VITALS: BP 110/59; PULSE 62; RESP 16; TEMP 36.6; O2SAT 97
[2022-08-27 17:18] LABS: Glucose Point of Care 119 mg/dL (70-110)
--- NOTE | 2022-08-27 17:58 | P.PN_ITS ---
Subjective Subjective: No recurrence overnight. Hospital course appreciated. Comfortably in bed with sitter at bedside. No new complaints. No labs done in some time. We will repeat tomorrow morning. Vitals/I&O/Wt Last Vital Signs Temp 97.8 F 08/27/22 16:00 Pulse 62 08/27/22 16:00 Resp 16 08/27/22 16:00 BP 110/59 08/27/22 16:00 Pulse Ox 97 08/27/22 16:00 O2 Del Method 08/27/22 04:20 08/27/22 08/27/22 08/27/22 06:59 14:59 22:59 Intake Total 0 / 480 720 / 720 Balance 0 / 480 720 / 720 Physical Exam Narrative: Pleasant cooperative GCS 15 Euvolemic Neck pain improved No signs of meningitis S1, S2 Nonfocal neuro exam Data 08/14/22 03:15 08/14/22 03:15 A&P Assessment and plan (1) Sore throat: (2) Dementia: (3) Altered mental status: (4) Neck pain: (5) Confusion: (6) Fracture of right ankle, lateral malleolus: (7) Constipation: Plan 87-year male who was admitted to the hospital for management of altered mental status related to underlying dementia, patient has atypical depression with behavioral disturbance there were no signs of infection patient remained hemodynamically stable, infectious work-up was unremarkable, psychiatrist was consulted who recommended management with Prozac 10 mg daily, tramadol and Flexeril for neck pain patient is full code, patient was put on 21- day hold, guardianship was pursued, preserved ejection fraction grade 1 diastolic function, no acute decompensation, patient was complaining of sore throat for which rapid strep test was requested, Chloraseptic spray was recommended. He remained afebrile. COVID-negative, rapid strep negative Dementia: No acute exacerbation Patient has been very calm and cooperative Requiring one-to-one supervision because of psych hold awaiting guardianship. Sore throat slightly better experiencing dry cough afebrile Augmentin started on 08/25 possible upper respiratory infection empirically. We will continue to finish a 5-day course. Regular diet DVT prophylaxis Lovenox Right ankle fracture: Conservative management We are pursuing guardianship because state guardianship will take about 10 months, after we pursued guardianship should be able to place him to a retirement No change in medications today. Psychiatrist team is primary. Will follow peripherally now. Will monitor blood work done tomorrow. Continue chronic medication for now including statin, Protonix, Flomax, gabapentin, levothyroxine. Please feel free to reach out to us when needed. Attestations Medical Necessity Statement*: As per primary team as guardianship is sought before safe discharge planning. Diagnoses Sore throat J02.9 Dementia F03.90 Altered mental status R41.82 Neck pain M54.2 Confusion R41.0 Fracture of right ankle, lateral malleolus S82.61XA Constipation K59.00
[2022-08-27] MEDS: acetaminophen 325 mg Tablet 650 MG PO (18:25)
[2022-08-27] MEDS: cyclobenzaprine 10 mg Tablet 5 MG PO (18:26)
[2022-08-27] MEDS: sitagliptin 100 mg Tablet PO (18:26)
[2022-08-27 20:00] VITALS: BP 109/55; PULSE 73; RESP 17; TEMP 37.1; O2SAT 95
[2022-08-27 20:47] LABS: Glucose Point of Care 161 mg/dL (70-110)
[2022-08-28] VITALS (8 sets, daily range): BP systolic 95–129; BP diastolic 51–70; PULSE 61–90; RESP 16–18; TEMP 36.4–37.1; O2SAT 95–97
[2022-08-28 05:33] LABS: Basophils # 0.1 10^3/uL (0.0-0.1); Basophils % 1.1 %; Eosinophils # 0.3 10^3/uL (0.0-0.8); Eosinophils % 4.3 %; Hematocrit 32.3 % (42.0-52.0); Hemoglobin 10.5 g/dL (11.7-16.6); Lymphocytes # 2.8 10^3/uL (0.8-4.8); Lymphocytes % 37.8 %; Mean Corpuscular HGB Conc 32.5 g/dL (30.0-36.0); Mean Corpuscular Hemoglobin 30.2 pg (28.0-34.0); Mean Corpuscular Volume 92.8 fl (80-94); Mean Platelet Volume 9.5 fL (7.4-10.4); Monocytes % 13.8 %; Neutrophils # 3.14 10^3/uL (1.8-7.7); Neutrophils % 42.2 %; Nucleated Red Blood Cells % 0 %; Platelet Count 275 10^3/cmm (130-400); Red Blood Count 3.48 10^6/uL (4.1-5.3); Red Cell Distribution Width 11.8 % (12.1-15.1); White Blood Count 7.4 10^3/uL (4.0-10.0)
[2022-08-28 06:12] LABS: Alanine Aminotransferase 12 U/L (0-41); Albumin Level 3.1 g/dL (3.5-5.2); Alkaline Phosphatase 69 U/L (40-130); Anion Gap 9.6 (5-19); Aspartate Amino Transferase 18 U/L (0-40); Blood Urea Nitrogen 18 mg/dL (8-23); Calcium 8.8 mg/dL (8.5-10.5); Carbon Dioxide 25 mmol/L (22-29); Chloride 97 mmol/L (98-107); Globulin 2.8 g/dL (1.3-4.6); Glucose 114 mg/dL (65-115); Osmolality Calculated 269 mOsm/kg (285-295); Potassium 3.6 mmol/L (3.5-5.1); Sodium 128 mmol/L (136-145); Total Bilirubin 0.3 mg/dL (0.15-1.2); Total Protein 5.9 g/dL (6.6-8.7)
[2022-08-28 06:52] LABS: Glucose Point of Care 122 mg/dL (70-110)
--- NOTE | 2022-08-28 08:28 | PC.SOCIAL ---
Imm update IMM Update pg 2 of IMM not updated @ this time. Guardianship is pending and Level 2 is pending @ this time.
[2022-08-28] MEDS: amoxicillin-clav 875-125 mg Tablet 1 TAB PO ×2 (09:44→18:25)
[2022-08-28] MEDS: gabapentin 100 mg Capsule PO ×2 (09:44→18:25)
[2022-08-28] MEDS: tamsulosin 0.4 mg Capsule PO (09:44)
[2022-08-28] MEDS: atorvastatin 40 mg Tablet PO (09:44)
[2022-08-28] MEDS: sitagliptin 100 mg Tablet PO (09:44)
[2022-08-28] MEDS: pantoprazole DR 40 mg Tablet PO ×2 (09:45→18:25)
[2022-08-28] MEDS: thiamine 100 mg Tablet PO (09:45)
[2022-08-28] MEDS: sennosides-docusate Tablet 1 TAB PO ×2 (09:45→18:25)
[2022-08-28] MEDS: fluoxetine 10 mg Capsule PO (09:45)
[2022-08-28] MEDS: enoxaparin 40 mg/0.4 mL Syringe SUBCUT (09:45)
[2022-08-28] MEDS: multivitamin therapeutic Tablet 1 TAB PO (09:45)
[2022-08-28] MEDS: docusate sodium 100 mg Capsule PO ×2 (09:45→18:24)
[2022-08-28] MEDS: levothyroxine 125 mcg Tablet PO (09:45)
[2022-08-28 11:53] LABS: Glucose Point of Care 134 mg/dL (70-110)
[2022-08-28 17:04] LABS: Glucose Point of Care 140 mg/dL (70-110)
[2022-08-28] MEDS: cyclobenzaprine 10 mg Tablet 5 MG PO (18:24)
[2022-08-28] MEDS: benzonatate 100 mg Capsule PO (18:24)
[2022-08-28] MEDS: acetaminophen 325 mg Tablet 650 MG PO (18:25)
[2022-08-28 20:05] LABS: Glucose Point of Care 138 mg/dL (70-110)
[2022-08-29 04:00] VITALS: BP 94/54; PULSE 64; RESP 17; TEMP 36.8; O2SAT 97
[2022-08-29 06:34] LABS: Glucose Point of Care 121 mg/dL (70-110)
[2022-08-29 08:00] VITALS: BP 109/61; PULSE 58; RESP 16; TEMP 36.7; O2SAT 98
[2022-08-29] MEDS: amoxicillin-clav 875-125 mg Tablet 1 TAB PO ×2 (08:53→17:45)
[2022-08-29] MEDS: pantoprazole DR 40 mg Tablet PO ×2 (08:54→17:45)
[2022-08-29] MEDS: enoxaparin 40 mg/0.4 mL Syringe SUBCUT (08:54)
[2022-08-29] MEDS: sennosides-docusate Tablet 1 TAB PO ×2 (08:54→17:45)
[2022-08-29] MEDS: gabapentin 100 mg Capsule PO ×2 (08:54→17:45)
[2022-08-29] MEDS: thiamine 100 mg Tablet PO (08:54)
[2022-08-29] MEDS: sitagliptin 100 mg Tablet PO (08:54)
[2022-08-29] MEDS: docusate sodium 100 mg Capsule PO ×2 (08:54→17:45)
[2022-08-29] MEDS: fluoxetine 10 mg Capsule PO (08:54)
[2022-08-29] MEDS: tamsulosin 0.4 mg Capsule PO (08:54)
[2022-08-29] MEDS: atorvastatin 40 mg Tablet PO (08:54)
[2022-08-29] MEDS: multivitamin therapeutic Tablet 1 TAB PO (08:54)
[2022-08-29] MEDS: levothyroxine 125 mcg Tablet PO (08:54)
--- NOTE | 2022-08-29 08:57 | P.NPUPN_ITS ---
Subjective NPU Subjective: Patient presented today unchanged. He continues to be pleasant and without expressed concern. He attempted to tell some stories but got sidetracked and his poor working memory derailed the storytelling. He continues to acknowledge his memory limitations and understands the plan for placement and guardianship. During the conversation his son came in the room and he did recognize his son and he denied any new or pressing problems. Mental Status Exam MSE Comments: This is a well-nourished well-developed white male in hospital clothing with adequate grooming and eye contact. No abnormal movements. Cooperative with exam in no acute distress. Speech was normal rate and volume. Mood described as all right, affect congruent. Thought process organized but confused. Thought content: Patient denied suicidal or homicidal ideation, there were no delusions reported or noted, he denied any auditory or visual hallucinations. Attention and concentration were limited and memory was impaired but none were formally tested. He is alert and oriented times person and place. Insight, judgment and impulse control were impaired. Vitals/I&O/Wt Last Vital Signs Temp 98.0 F 08/29/22 08:00 Pulse 58 L 08/29/22 08:00 Resp 16 08/29/22 08:00 BP 109/61 08/29/22 08:00 Pulse Ox 98 08/29/22 08:00 O2 Del Method 08/29/22 08:00 08/28/22 08/29/22 08/29/22 22:59 06:59 14:59 Intake Total 480 / 1080 Balance 480 / 1080 Data NPU 08/28/22 05:13 08/28/22 05:13 A&P Assessment and plan (1) Dementia: (2) Altered mental status: Plan This is a 87-year-old male who appears to be suffering from significant dementia of unknown type who presents with confusion and appears to lack any ability to make decisions at this time. It would be likely very dangerous for him to attempt to even return home as he poses a risk to himself or others if he were to drive a vehicle. He appears to have some reasonable insight regarding his memory problems and had intimated that he may need further help for managing his significant loss of memory. 1. Continue current medication. 2. Agree for the need for a 21-day hold and pursuit of guardianship. 3. Patient placed on a 21-day hold 08/19/2022. The interrogatories were submitted. Attestations NPU Medical Necessity Statement*: Continued inpatient hospitalization as patient unable to return safely to home, no guardian in place. He will need placement in Dementia- Custodial Unit. Coding Level of Care Code Acute Code for Chg Fwd Diagnoses Dementia F03.90 Altered mental status R41.82
[2022-08-29 11:46] VITALS: BP 109/61; PULSE 58; RESP 16; TEMP 36.7; O2SAT 98
[2022-08-29 11:57] LABS: Glucose Point of Care 146 mg/dL (70-110)
[2022-08-29] MEDS: insulin lispro 100 unit/1 mL SUBCUT (12:43)
[2022-08-29 15:30] VITALS: BP 103/77; PULSE 62; RESP 16; TEMP 36.6; O2SAT 98
[2022-08-29 16:59] LABS: Glucose Point of Care 111 mg/dL (70-110)
--- NOTE | 2022-08-29 17:19 | P.PN_ITS ---
Subjective Subjective: Status: No acute events. Patient executively in bed. Sitter at bedside. No episode of agitation. Eating well. Blood sugars better controlled. Vitals/I&O/Wt Last Vital Signs Temp 97.8 F 08/29/22 15:30 Pulse 62 08/29/22 15:30 Resp 16 08/29/22 15:30 BP 103/77 08/29/22 15:30 Pulse Ox 98 08/29/22 15:30 O2 Del Method 08/29/22 15:30 08/29/22 08/29/22 08/29/22 06:59 14:59 22:59 Intake Total 360 / 360 Balance 360 / 360 Physical Exam Narrative: Pleasant cooperative GCS 15 Euvolemic Neck pain improved No signs of meningitis S1, S2 Nonfocal neuro exam Data 08/28/22 05:13 08/28/22 05:13 A&P Assessment and plan (1) Sore throat: (2) Dementia: (3) Altered mental status: (4) Neck pain: (5) Confusion: (6) Fracture of right ankle, lateral malleolus: (7) Constipation: Plan 87-year male who was admitted to the hospital for management of altered mental status related to underlying dementia, patient has atypical depression with behavioral disturbance there were no signs of infection patient remained hemodynamically stable, infectious work-up was unremarkable, psychiatrist was consulted who recommended management with Prozac 10 mg daily, tramadol and Flexeril for neck pain patient is full code, patient was put on 21- day hold, guardianship was pursued, preserved ejection fraction grade 1 diastolic function, no acute decompensation, patient was complaining of sore throat for which rapid strep test was requested, Chloraseptic spray was recommended. He remained afebrile. COVID-negative, rapid strep negative Dementia: No acute exacerbation Patient has been very calm and cooperative Requiring one-to-one supervision because of psych hold awaiting guardianship. Sore throat slightly better experiencing dry cough afebrile Augmentin started on 08/25 possible upper respiratory infection empirically. We will continue to finish a 5-day course. Regular diet DVT prophylaxis Lovenox Right ankle fracture: Conservative management We are pursuing guardianship because state guardianship will take about 10 months, after we pursued guardianship should be able to place him to a intermediate No change in medications today. Care discussed in detail with nurse at bedside. Will follow peripherally now. Continue chronic medication for now including statin, Protonix, Flomax, gabapentin, levothyroxine. Started on Januvia for diabetes mellitus. Most likely will discharge on Januvia with recommendation to repeat A1c in 6 months. Please feel free to reach out to us when needed. Attestations Medical Necessity Statement*: As per primary team as level 2 was awaited for safe discharge planning Diagnoses Sore throat J02.9 Dementia F03.90 Altered mental status R41.82 Neck pain M54.2 Confusion R41.0 Fracture of right ankle, lateral malleolus S82.61XA Constipation K59.00
[2022-08-29 20:00] VITALS: BP 106/59; PULSE 60; RESP 17; TEMP 36.6; O2SAT 98
[2022-08-29 20:18] LABS: Glucose Point of Care 162 mg/dL (70-110)
[2022-08-29 23:47] VITALS: BP 105/62; PULSE 65; RESP 17; TEMP 36.2; O2SAT 96
[2022-08-30 04:00] VITALS: BP 119/66; PULSE 66; RESP 16; TEMP 36.5; O2SAT 97
[2022-08-30 06:59] LABS: Glucose Point of Care 111 mg/dL (70-110)
--- NOTE | 2022-08-30 07:42 | PC.SOCIAL ---
IMM Update pg 2 of IMM not updated. Patient is on 21 day hold and guardianship is pending @ this time.
[2022-08-30 08:00] VITALS: BP 130/71; PULSE 92; RESP 18; TEMP 36.6; O2SAT 96
[2022-08-30] MEDS: thiamine 100 mg Tablet PO (08:27)
[2022-08-30] MEDS: fluoxetine 10 mg Capsule PO (08:27)
[2022-08-30] MEDS: atorvastatin 40 mg Tablet PO (08:27)
[2022-08-30] MEDS: gabapentin 100 mg Capsule PO ×2 (08:27→17:23)
[2022-08-30] MEDS: amoxicillin-clav 875-125 mg Tablet 1 TAB PO (08:28)
[2022-08-30] MEDS: tamsulosin 0.4 mg Capsule PO (08:28)
[2022-08-30] MEDS: docusate sodium 100 mg Capsule PO ×2 (08:28→17:24)
[2022-08-30] MEDS: pantoprazole DR 40 mg Tablet PO ×2 (08:28→17:23)
[2022-08-30] MEDS: sitagliptin 100 mg Tablet PO (08:28)
[2022-08-30] MEDS: levothyroxine 125 mcg Tablet PO (08:28)
[2022-08-30] MEDS: sennosides-docusate Tablet 1 TAB PO ×2 (08:28→17:23)
[2022-08-30] MEDS: multivitamin therapeutic Tablet 1 TAB PO (08:28)
[2022-08-30 08:30] VITALS: O2SAT 96
[2022-08-30] MEDS: enoxaparin 40 mg/0.4 mL Syringe SUBCUT (11:09)
[2022-08-30 11:14] LABS: Glucose Point of Care 149 mg/dL (70-110)
[2022-08-30] MEDS: insulin lispro 100 unit/1 mL SUBCUT (11:52)
[2022-08-30 12:00] VITALS: BP 111/62; PULSE 82; RESP 18; TEMP 36.6; O2SAT 98
[2022-08-30 16:00] VITALS: BP 121/58; PULSE 66; RESP 17; TEMP 36.9; O2SAT 97
--- NOTE | 2022-08-30 16:55 | W.PM.NPUPNS ---
Subjective NPU Subjective: Patient presented today unchanged and without any specific issues. He continues to be aware of the plan and awaiting guardianship and placement. Mental Status Exam MSE Comments: This is a well-nourished well-developed white male in hospital clothing with adequate grooming and eye contact. No abnormal movements. Cooperative with exam in no acute distress. Speech was normal rate and volume. Mood described as pretty good, affect congruent. Thought process organized but confused. Thought content: Patient denied suicidal or homicidal ideation, there were no delusions reported or noted, he denied any auditory or visual hallucinations. Attention and concentration were limited and memory was impaired but none were formally tested. He is alert and oriented times person and place. Insight, judgment and impulse control were impaired. Vitals/I&O/Wt Last Vital Signs Temp 98.5 F 08/30/22 16:00 Pulse 66 08/30/22 16:00 Resp 17 08/30/22 16:00 BP 121/58 08/30/22 16:00 Pulse Ox 97 08/30/22 16:00 O2 Del Method 08/30/22 16:00 08/30/22 08/30/22 08/31/22 14:59 22:59 06:59 Intake Total 480 / 480 Balance 480 / 480 Data NPU 08/28/22 05:13 08/28/22 05:13 A&P Assessment and plan (1) Dementia: (2) Altered mental status: Plan This is a 87-year-old male who appears to be suffering from significant dementia of unknown type who presents with confusion and appears to lack any ability to make decisions at this time. It would be likely very dangerous for him to attempt to even return home as he poses a risk to himself or others if he were to drive a vehicle. He appears to have some reasonable insight regarding his memory problems and had intimated that he may need further help for managing his significant loss of memory. 1. Continue current medication. 2. Agree for the need for a 21-day hold and pursuit of guardianship. 3. Patient placed on a 21-day hold 08/19/2022. The interrogatories were submitted. Attestations NPU Medical Necessity Statement*: Continued inpatient hospitalization as patient unable to return safely to home, no guardian in place. He will need placement in Dementia- Senior Living Unit. Coding Level of Care Code Acute Code for Chg Fwd Diagnoses Dementia F03.90 Altered mental status R41.82
[2022-08-30 17:15] LABS: Glucose Point of Care 110 mg/dL (70-110)
[2022-08-30 20:00] VITALS: BP 131/71; PULSE 88; RESP 18; TEMP 36.4; O2SAT 91
[2022-08-30 21:19] LABS: Glucose Point of Care 160 mg/dL (70-110)
[2022-08-31] MEDS: acetaminophen 325 mg Tablet 650 MG PO ×2 (00:07→19:54)
[2022-08-31 01:00] VITALS: BP 113/54; PULSE 69; RESP 19; TEMP 37.2; O2SAT 95
[2022-08-31 04:00] VITALS: BP 118/76; PULSE 64; RESP 17; TEMP 37; O2SAT 98
[2022-08-31 06:21] LABS: Glucose Point of Care 104 mg/dL (70-110)
[2022-08-31 08:00] VITALS: BP 110/69; PULSE 89; RESP 18; TEMP 36.9; O2SAT 98
[2022-08-31] MEDS: docusate sodium 100 mg Capsule PO ×2 (08:39→17:36)
[2022-08-31] MEDS: multivitamin therapeutic Tablet 1 TAB PO (08:39)
[2022-08-31] MEDS: atorvastatin 40 mg Tablet PO (08:40)
[2022-08-31] MEDS: levothyroxine 125 mcg Tablet PO (08:40)
[2022-08-31] MEDS: thiamine 100 mg Tablet PO (08:40)
[2022-08-31] MEDS: pantoprazole DR 40 mg Tablet PO ×2 (08:40→17:36)
[2022-08-31] MEDS: fluoxetine 10 mg Capsule PO (08:40)
[2022-08-31] MEDS: sennosides-docusate Tablet 1 TAB PO ×2 (08:40→17:36)
[2022-08-31] MEDS: gabapentin 100 mg Capsule PO ×2 (08:40→17:36)
[2022-08-31] MEDS: sitagliptin 100 mg Tablet PO (08:41)
[2022-08-31] MEDS: tamsulosin 0.4 mg Capsule PO (08:41)
[2022-08-31 11:21] LABS: Glucose Point of Care 121 mg/dL (70-110)
[2022-08-31] MEDS: enoxaparin 40 mg/0.4 mL Syringe SUBCUT (11:46)
[2022-08-31 12:00] VITALS: BP 117/60; PULSE 74; RESP 18; TEMP 36.9; O2SAT 96
--- NOTE | 2022-08-31 12:51 | P.NPUPN_ITS ---
Subjective NPU Subjective: Patient presented today reporting he is doing okay. For the first time he expressed some interest in doing something other than just letting us get him a place to stay. He reports that his son who I had spoken with a couple days ago would be a place to go and then made some general statement that he knows lots of people that he could go stay with. We discussed the fact that this was not just to go hang out this is long-term placement and that his son could be a possibility if he was open to that and we make sure his son's number was in the chart so that we can reach out to help and find out if he has any knowledge of this suggestion. Mental Status Exam MSE Comments: This is a well-nourished well-developed white male in hospital clothing with adequate grooming and eye contact. No abnormal movements. Cooperative with exam in no acute distress. Speech was normal rate and volume. Mood described as pretty good, affect congruent. Thought process organized but confused. Thought content: Patient denied suicidal or homicidal ideation, there were no delusions reported or noted, he denied any auditory or visual hallucinations. Attention and concentration were limited and memory was impaired but none were formally tested. He is alert and oriented times person and place. Insight, judgment and impulse control were impaired. Vitals/I&O/Wt Last Vital Signs Temp 98.6 F 08/31/22 04:00 Pulse 64 08/31/22 04:00 Resp 17 08/31/22 04:00 BP 118/76 08/31/22 04:00 Pulse Ox 98 08/31/22 04:00 O2 Del Method 08/30/22 16:00 08/30/22 08/31/22 08/31/22 22:59 06:59 14:59 Intake Total 600 / 1080 120 / 1200 Balance 600 / 1080 120 / 1200 Data NPU 08/28/22 05:13 08/28/22 05:13 A&P Assessment and plan (1) Dementia: (2) Altered mental status: Plan This is a 87-year-old male who appears to be suffering from significant dementia of unknown type who presents with confusion and appears to lack any ability to make decisions at this time. It would be likely very dangerous for him to attempt to even return home as he poses a risk to himself or others if he were t o drive a vehicle. He appears to have some reasonable insight regarding his memory problems and had intimated that he may need further help for managing his significant loss of memory. 1. Continue current medication. 2. Reach out to son and find out about if he is a possibility for placement. . 3. Patient placed on a 21-day hold 08/19/2022. The interrogatories were submitted. Attestations U Medical Necessity Statement*: Continued inpatient hospitalization as patient unable to return safely to home, no guardian in place. He will need placement in Dementia- Correction Unit. Coding Level of Care Code Acute Code for Chg Fwd Diagnoses Dementia F03.90 Altered mental status R41.82
[2022-08-31 16:00] VITALS: BP 120/62; PULSE 80; RESP 18; TEMP 36.8; O2SAT 98
[2022-08-31 17:14] LABS: Glucose Point of Care 124 mg/dL (70-110)
[2022-08-31] MEDS: cyclobenzaprine 10 mg Tablet 5 MG PO (19:54)
[2022-08-31 20:43] VITALS: BP 109/66; PULSE 57; RESP 17; TEMP 36.4; O2SAT 96
[2022-08-31 21:37] LABS: Glucose Point of Care 110 mg/dL (70-110)
[2022-09-01] MEDS: haloperidol inj 5 mg/mL INJ 1 mL 2 MG IM (01:06)
--- NOTE | 2022-09-01 01:08 | PC.NURSE ---
Patient seen running toward elevator. One-on-one sitter attempting to stop him. Security and warehouse distribution associate called to the floor. Patient confused and unable to be reoriented. Patient stating to staff members You are friends with the devil, you are snakes and I rebuke you in the name of Alessandro. After a few minutes, patient went back to him room and laid down in bed. When staff tries to touch patient or walk toward patient, patient states stop, don't come any closer. CARTER Sheldon ordered and given.
[2022-09-01 03:34] VITALS: BP 121/68; PULSE 58; RESP 17; TEMP 36.7; O2SAT 96
[2022-09-01 06:25] LABS: Glucose Point of Care 106 mg/dL (70-110)
[2022-09-01 08:00] VITALS: BP 104/57; PULSE 65; RESP 16; TEMP 36.6; O2SAT 98
[2022-09-01] MEDS: gabapentin 100 mg Capsule PO ×2 (10:51→18:10)
[2022-09-01] MEDS: tamsulosin 0.4 mg Capsule PO (10:51)
[2022-09-01] MEDS: sitagliptin 100 mg Tablet PO (10:51)
[2022-09-01] MEDS: sennosides-docusate Tablet 1 TAB PO ×2 (10:52→18:10)
[2022-09-01] MEDS: docusate sodium 100 mg Capsule PO ×2 (10:52→18:10)
[2022-09-01] MEDS: pantoprazole DR 40 mg Tablet PO ×2 (10:52→18:10)
[2022-09-01] MEDS: levothyroxine 125 mcg Tablet PO (10:52)
[2022-09-01] MEDS: multivitamin therapeutic Tablet 1 TAB PO (10:52)
[2022-09-01] MEDS: fluoxetine 10 mg Capsule PO (10:52)
[2022-09-01] MEDS: thiamine 100 mg Tablet PO (10:53)
[2022-09-01] MEDS: atorvastatin 40 mg Tablet PO (10:53)
[2022-09-01] MEDS: enoxaparin 40 mg/0.4 mL Syringe SUBCUT (10:56)
[2022-09-01 11:15] LABS: Glucose Point of Care 124 mg/dL (70-110)
--- NOTE | 2022-09-01 11:28 | PC.SOCIAL ---
IMM update IMM not updated as patient is awaiting court date for guardianship. No anticipated dc date at this time.
[2022-09-01 12:00] VITALS: BP 106/60; PULSE 64; RESP 15; TEMP 36.8; O2SAT 97
--- NOTE | 2022-09-01 12:45 | W.PM.NPUPNS ---
Subjective NPU Subjective: Patient presented today reporting that he is doing okay. He was lying in bed watching TV with sitter by bedside. We had a relaxed conversation once again reviewing vision for treatment and what we are waiting on. We discussed talking with the social work team about contact with his son to see if staying with him was actually a possibility. Otherwise things are unchanged as he awaits for guardianship and placement. Mental Status Exam MSE Comments: This is a well-nourished well-developed white male in hospital clothing with adequate grooming and eye contact. No abnormal movements. Cooperative with exam in no acute distress. Speech was normal rate and volume. Mood described as pretty good, affect congruent. Thought process organized but confused. Thought content: Patient denied suicidal or homicidal ideation, there were no delusions reported or noted, he denied any auditory or visual hallucinations. Attention and concentration were limited and memory was impaired but none were formally tested. He is alert and oriented times person and place. Insight, judgment and impulse control were impaired. Vitals/I&O/Wt Last Vital Signs Temp 98.0 F 09/01/22 03:34 Pulse 58 L 09/01/22 03:34 Resp 17 09/01/22 03:34 BP 121/68 09/01/22 03:34 Pulse Ox 96 09/01/22 03:34 O2 Del Method 09/01/22 03:34 08/31/22 09/01/22 09/01/22 22:59 06:59 14:59 Intake Total 240 / 960 Balance 240 / 960 Data NPU 08/28/22 05:13 08/28/22 05:13 A&P Assessment and plan (1) Dementia: (2) Altered mental status: Plan This is a 87-year-old male who appears to be suffering from significant dementia of unknown type who presents with confusion and appears to lack any ability to make decisions at this time. It would be likely very dangerous for him to attempt to even return home as he poses a risk to himself or others if he were to drive a vehicle. He appears to have some reasonable insight regarding his memory problems and had intimated that he may need further help for managing his significant loss of memory. 1. Continue current medication. 2. Reach out to son and find out about if he is a possibility for placement. . 3. Patient placed on a 21-day hold 08/19/2022. The interrogatories were submitted. Attestations NPU Medical Necessity Statement*: Continued inpatient hospitalization as patient unable to return safely to home, no guardian in place. He will need placement in Dementia- Group Home Unit. Coding Level of Care Code Acute Code for Chg Fwd Diagnoses Dementia F03.90 Altered mental status R41.82
--- NOTE | 2022-09-01 13:18 | P.PN_ITS ---
Subjective Subjective: Patient seen today morning laying comfortably in bed. Sitter at bedside. Patient did have episode of agitation last night when he tried to elope. Otherwise has remained hemodynamically stable and afebrile. Vitals/I&O/Wt Last Vital Signs Temp 98.3 F 09/01/22 12:00 Pulse 64 09/01/22 12:00 Resp 15 09/01/22 12:00 BP 106/60 09/01/22 12:00 Pulse Ox 97 09/01/22 12:00 O2 Del Method 09/01/22 12:00 08/31/22 09/01/22 09/01/22 22:59 06:59 14:59 Intake Total 240 / 960 240 / 240 Balance 240 / 960 240 / 240 Physical Exam Narrative: Pleasant cooperative GCS 15 Euvolemic Neck pain improved No signs of meningitis S1, S2 Nonfocal neuro exam Data 08/28/22 05:13 08/28/22 05:13 A&P Assessment and plan (1) Sore throat: (2) Dementia: (3) Altered mental status: (4) Neck pain: (5) Confusion: (6) Fracture of right ankle, lateral malleolus: (7) Constipation: Plan 87-year male who was admitted to the hospital for management of altered mental status related to underlying dementia, patient has atypical depression with behavioral disturbance there were no signs of infection patient remained hemodynamically stable, infectious work-up was unremarkable, psychiatrist was consulted who recommended management with Prozac 10 mg daily, tramadol and Flexeril for neck pain patient is full code, patient was put on 21- day hold, guardianship was pursued, preserved ejection fraction grade 1 diastolic function, no acute decompensation, patient was complaining of sore throat for which rapid strep test was requested, Chloraseptic spray was recommended. He remained afebrile. COVID-negative, rapid strep negative. Dementia: No acute exacerbation Patient has been very calm and cooperative Requiring one-to-one supervision because of psych hold awaiting guardianship. Did have episode of agitation overnight and he tried to elope. Haldol as needed. Continue as per primary psychiatric team. Might benefit with walk outside and confined area with sitter and security. But please confirm with primary team prior to doing so. Type 2 diabetes mellitus: Continue with Januvia 100 mg daily. A1c 7.3. Not requiring any added insulin premeals after adding Januvia. Continue with hypoglycemia protocol. Regular diet DVT prophylaxis Lovenox Right ankle fracture: Conservative management We are pursuing guardianship because state guardianship will take about 10 months, after we pursued guardianship should be able to place him to a snf. No changes in medications. On discharge patient should get recommendation of repeat A1c in 6 months. Care discussed in detail with patient nurse at bedside. Please call with any questions. Attestations Medical Necessity Statement*: As per primary team patient requires hospitalization while level 2 was achieved for safe discharge planning Diagnoses Sore throat J02.9 Dementia F03.90 Altered mental status R41.82 Neck pain M54.2 Confusion R41.0 Fracture of right ankle, lateral malleolus S82.61XA Constipation K59.00
[2022-09-01 16:00] VITALS: BP 101/60; PULSE 60; RESP 18; TEMP 36.6; O2SAT 96
[2022-09-01 17:10] LABS: Glucose Point of Care 109 mg/dL (70-110)
[2022-09-01 19:26] VITALS: BP 103/63; PULSE 80; RESP 20; TEMP 36.8; O2SAT 97
[2022-09-01 21:46] LABS: Glucose Point of Care 88 mg/dL (70-110)
[2022-09-01 23:08] VITALS: BP 118/63; PULSE 60; RESP 20; TEMP 36.6; O2SAT 97
[2022-09-02 03:39] VITALS: BP 105/60; PULSE 61; RESP 18; TEMP 36.6
[2022-09-02 06:19] LABS: Glucose Point of Care 110 mg/dL (70-110)
[2022-09-02] MEDS: cyclobenzaprine 10 mg Tablet 5 MG PO (08:47)
[2022-09-02] MEDS: multivitamin therapeutic Tablet 1 TAB PO (08:47)
[2022-09-02] MEDS: thiamine 100 mg Tablet PO (08:47)
[2022-09-02] MEDS: atorvastatin 40 mg Tablet PO (08:47)
[2022-09-02] MEDS: levothyroxine 125 mcg Tablet PO (08:47)
[2022-09-02] MEDS: sennosides-docusate Tablet 1 TAB PO ×2 (08:47→17:51)
[2022-09-02] MEDS: fluoxetine 10 mg Capsule PO (08:47)
[2022-09-02] MEDS: tamsulosin 0.4 mg Capsule PO (08:47)
[2022-09-02] MEDS: sitagliptin 100 mg Tablet PO (08:47)
[2022-09-02] MEDS: docusate sodium 100 mg Capsule PO ×2 (08:47→17:51)
[2022-09-02] MEDS: pantoprazole DR 40 mg Tablet PO ×2 (08:47→17:51)
[2022-09-02] MEDS: gabapentin 100 mg Capsule PO ×2 (08:47→17:51)
--- NOTE | 2022-09-02 10:37 | P.NPUPN_ITS ---
Subjective NPU Subjective: Patient presented today reporting that he was doing fine. Our conversation was pretty good in the beginning. He continues to show paraphasic errors and memory difficulties. Often responding to a question with a request for me to remind him of the basis of that question. We discussed the fact that his son was contacted and described that it would not be possible for his father to live with him. He asked what that meant and we discussed that we would continue looking for a place for him to go and pursue guardianship. This frustrated him and he started talking about us being in charge of him and doing what ever we wanted and that he did not want to continue the conversation anymore. Mental Status Exam MSE Comments: This is a well-nourished well-developed white male in hospital clothing with adequate grooming and eye contact. No abnormal movements. Cooperative with exam in no acute distress. Speech was normal rate and volume. Mood described as okay, affect congruent. Thought process organized but confused. Thought content: Patient denied suicidal or homicidal ideation, there were no delusions reported or noted, he denied any auditory or visual hallucinations. Attention and concentration were limited and memory was impaired but none were formally tested. He is alert and oriented times person and place. Insight, judgment and impulse control were impaired. Vitals/I&O/Wt Last Vital Signs Temp 97.9 F 09/02/22 03:39 Pulse 61 09/02/22 03:39 Resp 18 09/02/22 03:39 BP 105/60 09/02/22 03:39 Pulse Ox 97 09/01/22 23:08 O2 Del Method 09/01/22 23:08 09/01/22 09/02/22 09/02/22 22:59 06:59 14:59 Intake Total 360 / 840 200 / 1040 Output Total 1000 / 1000 Balance 360 / 840 -800 / 40 Data NPU 08/28/22 05:13 08/28/22 05:13 A&P Assessment and plan (1) Dementia: (2) Altered mental status: Plan This is a 87-year-old male who appears to be suffering from significant dementia of unknown type who presents with confusion and appears to lack any ability to make decisions at this time. It would be likely very dangerous for him to attempt to even return home as he poses a risk to himself or others if he were to drive a vehicle. He appears to have some reasonable insight regarding his memory problems and had intimated that he may need further help for managing his significant loss of memory. 1. Continue current medication. 2. Reach out to son and find out about if he is a possibility for placement. . 3. Patient placed on a 21-day hold 08/19/2022. The interrogatories were submitted. Attestations NPU Medical Necessity Statement*: Continued inpatient hospitalization as patient unable to return safely to home, no guardian in place. He will need placement in Dementia- Penitentiary Unit. Coding Level of Care Code Acute Code for g Fwd Diagnoses Dementia F03.90 Altered mental status R41.82
[2022-09-02 11:10] VITALS: BP 105/62; PULSE 84; RESP 15; TEMP 36.8; O2SAT 98
[2022-09-02 11:12] LABS: Glucose Point of Care 148 mg/dL (70-110)
[2022-09-02] MEDS: enoxaparin 40 mg/0.4 mL Syringe SUBCUT (11:23)
[2022-09-02] MEDS: insulin lispro 100 unit/1 mL SUBCUT (11:23)
[2022-09-02 15:40] VITALS: BP 106/58; PULSE 64; RESP 16; TEMP 36.6; O2SAT 98
[2022-09-02 17:06] LABS: Glucose Point of Care 113 mg/dL (70-110)
[2022-09-02 20:00] VITALS: BP 121/52; PULSE 74; RESP 16; TEMP 36.8; O2SAT 97
--- NOTE | 2022-09-02 20:25 | P.PN_ITS ---
Subjective Subjective: No new complaints. Wanting to know his plan to get out of here. Vitals/I&O/Wt Last Vital Signs Temp 97.8 F 09/02/22 15:40 Pulse 64 09/02/22 15:40 Resp 16 09/02/22 15:40 BP 106/58 09/02/22 15:40 Pulse Ox 98 09/02/22 15:40 O2 Del Method 09/02/22 15:40 09/02/22 09/02/22 09/02/22 06:59 14:59 22:59 Intake Total 200 / 1040 480 / 480 240 / 720 Output Total 1000 / 1000 Balance -800 / 40 480 / 480 240 / 720 Physical Exam Narrative: Patient awake and alert, oriented to person and place, not entirely to situation. Lungs are clear. Regular rhythm. 2+ pulses radially. No pitting edema. No involuntary movements. Cooperative during my evaluation and pleasant. Normal affect. Data 08/28/22 05:13 08/28/22 05:13 A&P Assessment and plan (1) Dementia: Specific type unknown known but well documented in his records (2) Sore throat: Resolved (3) Altered mental status: Resolved to recent baseline which varies (4) Neck pain: Not a current complaint (5) Confusion: Resolved to recent baseline (6) Constipation: Plan FROM PRIOR DOCUMENTATION: 87-year male who was admitted to the hospital for management of altered mental status related to underlying dementia, patient has atypical depression with behavioral disturbance there were no signs of infection patient remained hemodynamically stable, infectious work-up was unremarkable, psychiatrist was consulted who recommended management with Prozac 10 mg daily, tramadol and Flexeril for neck pain patient is full code, patient was put on 21- day hold, guardianship was pursued, preserved ejection fraction grade 1 diastolic function, no acute decompensation, patient was complaining of sore throat for which rapid strep test was requested, Chloraseptic spray was recommended. He remained afebrile. COVID-negative, rapid strep negative. Dementia: No acute exacerbation Patient generally calm and cooperative though with a few episodes of acute confusion One-to-one supervision for safety, he has tried to elope. Haldol as needed. Continue as per primary psychiatric team. Might benefit with walk outside in confined area with sitter and security. But please confirm with primary team prior to doing so. Type 2 diabetes mellitus: Continue with Januvia 100 mg daily. A1c 7.3. Minimal added insulin after adding Januvia. Continue with hypoglycemia protocol. Regular diet DVT prophylaxis Lovenox Right ankle fracture: Conservative management >> this is an old fracture from what I gather in records rather than new We are pursuing guardianship because state guardianship will take about 10 months, after we pursued guardianship should be able to place him to a group home. No changes in medications. On discharge patient should get recommendation of repeat A1c in 6 months. For Today: We will add bisacodyl and increase Senokot as dosing as no bowel movement for several days Decrease dose of prn Haldol Continue home statin therapy, as needed Flexeril, Flomax and gabapentin along with levothyroxine and PPI. Has had fluoxetine and Januvia added Currently off of home diclofenac which was a as needed medication Will recheck electrolytes anemia and hyponatremia previously noted Repeat thyroid studies as patient had a significantly low TSH in July and I do not see that he had dosage adjustment of his levothyroxine Attestations Medical Necessity Statement*: Requires ongoing stay in the hospital for ps ychiatric and other care until safe discharge can be arranged in this gentleman with dementia who has lost his and is not able to care for himself. and Moderate Time for a total of 35 minutes, includes reviewing past or interval history, examining/interviewing patient, placing orders and documenting encounter Diagnoses Dementia F03.90 Sore throat J02.9 Altered mental status R41.82 Neck pain M54.2 Confusion R41.0 Constipation K59.00
[2022-09-02 22:15] LABS: Glucose Point of Care 110 mg/dL (70-110)
[2022-09-02 23:46] VITALS: BP 116/57; PULSE 83; RESP 15; TEMP 36.7; O2SAT 95
[2022-09-03] VITALS (10 sets, daily range): BP systolic 107–123; BP diastolic 59–65; PULSE 64–90; RESP 15–18; TEMP 36.4–36.8; O2SAT 94–98
[2022-09-03 05:38] LABS: Basophils # 0.1 10^3/uL (0.0-0.1); Eosinophils # 0.2 10^3/uL (0.0-0.8); Eosinophils % 2.8 %; Hematocrit 33.4 % (42.0-52.0); Hemoglobin 10.8 g/dL (11.7-16.6); Lymphocytes # 3.1 10^3/uL (0.8-4.8); Mean Corpuscular HGB Conc 32.3 g/dL (30.0-36.0); Mean Corpuscular Hemoglobin 30.3 pg (28.0-34.0); Mean Corpuscular Volume 93.8 fl (80-94); Mean Platelet Volume 8.9 fL (7.4-10.4); Monocytes # 0.9 10^3/uL (0.2-0.9); Monocytes % 12.6 %; Neutrophils # 2.85 10^3/uL (1.8-7.7); Neutrophils % 39.8 %; Nucleated Red Blood Cells % 0 %; Platelet Count 306 10^3/cmm (130-400); Red Blood Count 3.56 10^6/uL (4.1-5.3); White Blood Count 7.2 10^3/uL (4.0-10.0)
[2022-09-03 06:08] LABS: Anion Gap 13.2 (5-19); Blood Urea Nitrogen 13 mg/dL (8-23); Calcium 8.9 mg/dL (8.5-10.5); Carbon Dioxide 25 mmol/L (22-29); Chloride 103 mmol/L (98-107); Glucose 103 mg/dL (65-115); Osmolality Calculated 284 mOsm/kg (285-295); Phosphorus 3.1 mg/dL (2.5-4.5); Potassium 4.2 mmol/L (3.5-5.1); Sodium 137 mmol/L (136-145); T3 Free 2.6 PG/ML (2.0-4.4)
[2022-09-03 07:10] LABS: Glucose Point of Care 106 mg/dL (70-110)
--- NOTE | 2022-09-03 07:39 | PC.SOCIAL ---
IMM update pg 2 of IMM not updated. Guardianship has been applied for, pending court date.
--- NOTE | 2022-09-03 09:48 | P.NPUPN_ITS ---
Subjective NPU Subjective: Patient presented today being much more pleasant and back to his old self. He was thankful for the plan to find him placement. We continue to discuss our plan to obtain guardianship and stable safe housing in a retirement facility and he reported that would be a start. He did ask whether he would be able to go squirrel hunting and we discussed the importance of finding a stable place and that there may be some concessions that may need to be made for that to happen. Mental Status Exam MSE Comments: This is a well-nourished well-developed white male in hospital clothing with adequate grooming and eye contact. No abnormal movements. Cooperative with exam in no acute distress. Speech was normal rate and volume. Mood described as okay, affect congruent. Thought process organized but confused. Thought content: Patient denied suicidal or homicidal ideation, there were no delusions reported or noted, he denied any auditory or visual hallucinations. Attention and concentration were limited and memory was impaired but none were formally tested. He is alert and oriented times person and place. Insight, judgment and impulse control were impaired. Vitals/I&O/Wt Last Vital Signs Temp 97.7 F 09/03/22 07:51 Pulse 64 09/03/22 07:51 Resp 16 09/03/22 07:51 BP 107/62 09/03/22 07:51 Pulse Ox 95 09/03/22 07:51 O2 Del Method 09/03/22 07:51 09/02/22 09/03/22 09/03/22 22:59 06:59 14:59 Intake Total 240 / 720 Balance 240 / 720 Data NPU 09/03/22 05:18 09/03/22 05:18 A&P Assessment and plan (1) Dementia: (2) Altered mental status: Plan This is a 87-year-old male who appears to be suffering from significant dementia of unknown type who presents with confusion and appears to lack any ability to make decisions at this time. It would be likely very dangerous for him to attempt to even return home as he poses a risk to himself or others if he were to drive a vehicle. He appears to have some reasonable insight regarding his memory problems and had intimated that he may need further help for managing his significant loss of memory. 1. Continue current medication. 2. Reach out to son and find out about if he is a possibility for placement. . 3. Patient placed on a 21-day hold 08/19/2022. The interrogatories were submitted. Attestations NPU Medical Necessity Statement*: Continued inpatient hospitalization as patient unable to return safely to home, no guardian in place. He will need placement in Dementia- [facility] Unit. Coding Level of Care Code Acute Code for [facility] Fwd Diagnoses Dementia F03.90 Altered mental status R41.82
[2022-09-03 10:47] LABS: Glucose Point of Care 153 mg/dL (70-110)
[2022-09-03] MEDS: docusate sodium 100 mg Capsule PO ×2 (11:04→18:02)
[2022-09-03] MEDS: gabapentin 100 mg Capsule PO ×2 (11:04→18:02)
[2022-09-03] MEDS: sitagliptin 100 mg Tablet PO (11:04)
[2022-09-03] MEDS: fluoxetine 10 mg Capsule PO (11:04)
[2022-09-03] MEDS: sennosides-docusate Tablet 2 TAB PO ×2 (11:04→18:02)
[2022-09-03] MEDS: pantoprazole DR 40 mg Tablet PO ×2 (11:04→18:02)
[2022-09-03] MEDS: tamsulosin 0.4 mg Capsule PO (11:05)
[2022-09-03] MEDS: multivitamin therapeutic Tablet 1 TAB PO (11:05)
[2022-09-03] MEDS: atorvastatin 40 mg Tablet PO (13:21)
[2022-09-03] MEDS: thiamine 100 mg Tablet PO (13:21)
[2022-09-03] MEDS: levothyroxine 50 mcg Tablet PO (13:22)
[2022-09-03] MEDS: insulin lispro 100 unit/1 mL SUBCUT (13:22)
[2022-09-03] MEDS: enoxaparin 40 mg/0.4 mL Syringe SUBCUT (13:22)
[2022-09-03 16:44] LABS: Glucose Point of Care 88 mg/dL (70-110)
--- NOTE | 2022-09-03 19:40 | PM.PN ---
Subjective Subjective: Patient without new complaints today Vitals/I&O/Wt Last Vital Signs Temp 98.0 F 09/03/22 16:00 Pulse 68 09/03/22 16:00 Resp 16 09/03/22 16:00 BP 117/59 09/03/22 16:00 Pulse Ox 98 09/03/22 15:59 O2 Del Method 09/03/22 15:59 Physical Exam Narrative: Patient asleep on arrival, awakens easily and cooperative, regular rhythm, no abnormal movements. Data 09/03/22 05:18 09/03/22 05:18 A&P Assessment and plan (1) Dementia: Specific type unknown known but well documented in his records this hospital stay Has been evaluated during this hospital stay for medical causes as follows: CT of the head with diffuse cerebral atrophy and chronic microvascular white matter disease Carotid artery Dopplers with less than 50% stenosis bilaterally Echocardiogram with normal systolic function, EF at 60%, grade 1 diastolic dysfunction Unremarkable troponin delta's and BNP Normal B12, folate, RPR, HIV, acute hepatitis panel and blood alcohol levels along with tox screen, Tylenol and salicylate levels, normal electrolytes and renal function No evidence of acute infection, normal CRP, normal procalcitonin a few months prior to admission and was started on Prozac for depression Demonstrates short and long-term memory loss and inability to make complex decisions. Has been seen by psychiatry as well and deemed to not have decision-making capacity for his own safety. On a 21-day hold and application has been made for guardianship. (2) Altered mental status: Resolved to recent baseline which varies (3) Hypothyroidism: TSH 0.03 with normal free T3 (3.8) and an elevated thyroxine level/T4 (15.49) at presentation. Has chronically been on 125 mcg of levothyroxine. Values rechecked revealing TSH of 0.10 with free T4 of 1.70 and free T3 of 2.6. Levothyroxine dose decreased on September 03 to 50 mcg with plan to repeat laboratory studies in 4 weeks (4) Diabetes mellitus, type II: New diagnosis, [id number]-fwqacxskq, A1c 7.3, started on Januvia during hospital stay. Blood sugars have been as high as 260s with average glucose at 163. (5) Sore throat: Resolved (6) Neck pain: Chief complaint upon arrival to the emergency room but not a current complaint. CT of the cervical spine showed no acute abnormalities. He may or may not have had a fall precipitating the neck pain. Not currently complaining of neck pain though has as needed cyclobenzaprine should pain recur. (7) Confusion: Resolved to recent baseline (8) Constipation: Chronic issue on laxative therapy (9) Hyperlipidemia: Chronically on statin therapy (10) HTN (hypertension), benign: Previous diagnosis, not an active medical condition, not on any medications for this prior to admission. Blood pressures have been in normal range and at times soft during hospital stay. (11) Atherosclerosis of coronary artery of [place] heart without angina pectoris: Chronic diagnosis, history of single-vessel bypass surgery. (12) BPH w urinary obs/LUTS: Chronically on Flomax Plan Normocytic anemia, present on admission, slight drop likley iatrogenic Documentation reflects a right ankle fracture. He had an ankle fracture in July 2020. He has been able to ambulate. I do not get a sense of a recent fracture. CAM Walker is still included on his medication list from July 2020. Denies ankle pain with me. Continue laxative therapy Has not required haldol Continue home statin therapy, Flomax and gabapentin Decrease dose of levothyroxine Has had fluoxetine and Januvia added this hospital stay Monitor blood sugars Off of home diclofenac which was a as needed medication, not complaining of pain, with anemia, will continue to hold Tylenol for pain as needed, flexeril if muscle pain On PPI On Lovenox for DVT prophylaxis Will adjust vital sign frequency and remove telemetry monitoring order Discussed case with Dr. Mercado; patient remains on a 21-day hold with guardianship application in process Supportive care otherwise Attestations Medical Necessity Statement*: Ongoing stay as not safe for disposition and Moderate Time for a total of 40 minutes, includes reviewing past or interval history, examining/interviewing patient, placing orders, discussing plan of care with staff, communicating with other healthcare providers and documenting encounter Diagnoses Dementia F03.90 Altered mental status R41.82 Hypothyroidism E03.9 Diabetes mellitus, type II E11.9 Sore throat J02.9 Neck pain M54.2 Confusion R41.0 Constipation K59.00 Hyperlipidemia E78.5 HTN (hypertension), benign I10 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
[2022-09-03 20:43] LABS: Glucose Point of Care 159 mg/dL (70-110)
[2022-09-04 04:58] VITALS: BP 107/58; PULSE 65; RESP 17; TEMP 36.4; O2SAT 94
[2022-09-04 06:39] LABS: Glucose Point of Care 106 mg/dL (70-110)
[2022-09-04 07:50] VITALS: BP 108/60; PULSE 54; RESP 17; TEMP 36.8; O2SAT 96
--- NOTE | 2022-09-04 07:55 | W.PM.NPUPNS ---
Subjective NPU Subjective: Patient presented today reporting that things are going fine. We discussed the guardianship hearing which has not been sent yet which he continues to not be happy about but quickly forgets that there was a hearing discussed. 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 Chavez will be back tomorrow to continue the process and then move towards guardianship and appropriate placement. Mental Status Exam MSE Comments: This is a well-nourished well-developed white male in hospital clothing with adequate grooming and eye contact. No abnormal movements. Cooperative with exam in no acute distress. Speech was normal rate and volume. Mood described as okay, affect congruent. Thought process organized but confused. Thought content: Patient denied suicidal or homicidal ideation, there were no delusions reported or noted, he denied any auditory or visual hallucinations. Attention and concentration were limited and memory was impaired but none were formally tested. He is alert and oriented times person. Insight, judgment and impulse control were impaired. Vitals/I&O/Wt Last Vital Signs Temp 98.3 F 09/04/22 07:50 Pulse 54 L 09/04/22 07:50 Resp 17 09/04/22 07:50 BP 108/60 09/04/22 07:50 Pulse Ox 96 09/04/22 07:50 O2 Del Method Room Air 09/04/22 07:50 Data NPU 09/10/22 03:13 09/03/22 05:18 A&P Assessment and plan (1) Dementia: (2) Altered mental status: Plan This is a 87-year-old male who appears to be suffering from significant dementia of unknown type who presents with confusion and appears to lack any ability to make decisions at this time. It would be likely very dangerous for him to attempt to even return home as he poses a risk to himself or others if he were to drive a vehicle. He appears to have some reasonable insight regarding his memory problems and had intimated that he may need further help for managing his significant loss of memory. 1. Continue current medication. 2. Reach out to son and find out about if he is a possibility for placement. . 3. Patient placed on a 21-day hold 08/19/2022. The interrogatories were submitted. Attestations NPU Medical Necessity Statement*: Continued inpatient hospitalization as patient unable to return safely to home, no guardian in place. He will need placement in Dementia- [facility] Unit. Coding Level of Care Code Acute Code for [facility] Fwd Diagnoses Dementia F03.90 Altered mental status R41.82
[2022-09-04] MEDS: atorvastatin 40 mg Tablet PO (10:34)
[2022-09-04] MEDS: sennosides-docusate Tablet 2 TAB PO ×2 (10:34→17:45)
[2022-09-04] MEDS: enoxaparin 40 mg/0.4 mL Syringe SUBCUT (10:34)
[2022-09-04] MEDS: levothyroxine 50 mcg Tablet PO (10:35)
[2022-09-04] MEDS: gabapentin 100 mg Capsule PO ×2 (10:35→17:44)
[2022-09-04] MEDS: thiamine 100 mg Tablet PO (10:35)
[2022-09-04] MEDS: tamsulosin 0.4 mg Capsule PO (10:35)
[2022-09-04] MEDS: docusate sodium 100 mg Capsule PO ×2 (10:35→17:45)
[2022-09-04] MEDS: pantoprazole DR 40 mg Tablet PO ×2 (10:35→17:44)
[2022-09-04] MEDS: multivitamin therapeutic Tablet 1 TAB PO (10:35)
[2022-09-04] MEDS: fluoxetine 10 mg Capsule PO (10:35)
[2022-09-04] MEDS: sitagliptin 100 mg Tablet PO (10:35)
[2022-09-04 12:07] LABS: Glucose Point of Care 159 mg/dL (70-110)
[2022-09-04] MEDS: insulin lispro 100 unit/1 mL SUBCUT (12:56)
[2022-09-04 14:00] VITALS: BP 101/60; PULSE 61; RESP 16; TEMP 36.8; O2SAT 98
[2022-09-04 17:08] LABS: Glucose Point of Care 99 mg/dL (70-110)
[2022-09-04 19:54] VITALS: BP 130/60; PULSE 74; RESP 18; TEMP 36.4; O2SAT 97
[2022-09-04 20:12] LABS: Glucose Point of Care 130 mg/dL (70-110)
--- NOTE | 2022-09-04 23:06 | PM.PN ---
Subjective Subjective: Complains of some itching on a spot on his back and requested something for it. He also asked if it would be okay if he used Chloraseptic once a day. He said his throat bothers him sometimes. Not bothering him now but he knows that that medicine helps when it does. No other complaints. Vitals/I&O/Wt Last Vital Signs Temp 97.6 F 09/04/22 19:54 Pulse 74 09/04/22 19:54 Resp 18 09/04/22 19:54 BP 130/60 09/04/22 19:54 Pulse Ox 97 09/04/22 19:54 O2 Del Method 09/03/22 15:59 09/04/22 09/04/22 09/05/22 14:59 22:59 06:59 Intake Total 840 / 840 480 / 1320 Balance 840 / 840 480 / 1320 Physical Exam Narrative: Mucous membranes are slightly dry but visible posterior oropharynx without any erythema. Has some dry skin and seborrheic keratosis noted. Data 09/03/22 05:18 09/03/22 05:18 A&P Assessment and plan (1) Dementia: Specific type unknown known but well documented in his records this hospital stay Has been evaluated during this hospital stay for medical causes as follows: CT of the head with diffuse cerebral atrophy and chronic microvascular white matter disease Carotid artery Dopplers with less than 50% stenosis bilaterally Echocardiogram with normal systolic function, EF at 60%, grade 1 diastolic dysfunction Unremarkable troponin delta's and BNP Normal B12, folate, RPR, HIV, acute hepatitis panel and blood alcohol levels along with tox screen, Tylenol and salicylate levels, normal electrolytes and renal function No evidence of acute infection, normal CRP, normal procalcitonin a few months prior to admission and was started on Prozac for depression Demonstrates short and long-term memory loss and inability to make complex decisions. Has been seen by psychiatry as well and deemed to not have decision-making capacity for his own safety. On a 21-day hold and application has been made for guardianship. (2) Altered mental status: Resolved to recent baseline which varies (3) Hypothyroidism: TSH 0.03 with normal free T3 (3.8) and an elevated thyroxine level/T4 (15.49) at presentation. Has chronically been on 125 mcg of levothyroxine. Values rechecked revealing TSH of 0.10 with free T4 of 1.70 and free T3 of 2.6. Levothyroxine dose decreased on September 03 to 50 mcg with plan to repeat laboratory studies in 4 weeks (4) Diabetes mellitus, type II: New diagnosis, jpr-paiqiyp-odrpqvsad, A1c 7.3, started on Januvia during hospital stay. Blood sugars have been as high as 260s with average glucose at 163. (5) Sore throat: Intermittent, has as needed chloroseptic spray (6) Neck pain: Chief complaint upon arrival to the emergency room but not a current complaint. CT of the cervical spine showed no acute abnormalities. He may or may not have had a fall precipitating the neck pain. Not currently complaining of neck pain though has as needed cyclobenzaprine should pain recur. (7) Confusion: Resolved to recent baseline (8) Constipation: Chronic issue on laxative therapy (9) Hyperlipidemia: Chronically on statin therapy (10) HTN (hypertension), benign: Previous diagnosis, not an active medical condition, not on any medications for this prior to admission. Blood pressures have been in normal range and at times soft during hospital stay. (11) Atherosclerosis of coronary artery of [place] heart without angina pectoris: Chronic diagnosis, history of single-vessel bypass surgery. (12) BPH w urinary obs/LUTS: Chronically on Flomax Plan Normocytic anemia, present on admission, slight drop likley iatrogenic Documentation reflects a right ankle fracture. He had an ankle fracture in July 2020. He has been able to ambulate. I do not get a sense of a recent fracture. CAM Walker is still included on his medication list from July 2020. Denies ankle pain with me. On home statin therapy, Flomax and gabapentin On lower dose of levothyroxine Need TSH rechecked ~ September 26 On laxative therapy Has had fluoxetine and Januvia added as new medications this hospital stay Monitor blood sugars Off of home diclofenac which was a as needed medication, not complaining of pain, with anemia, have continued to hold Tylenol for pain as needed, flexeril if muscle pain Add benadryl topical for itchy spot on back Has Chloroseptic spray if needed On PPI On Lovenox for DVT prophylaxis Patient remains on a 21-day hold with guardianship application in process Supportive care otherwise Will continue to follow Attestations Medical Necessity Statement*: On 21 day hold and Straight Forward/Low Time for a total of 25 minutes, includes examining/interviewing patient, placing orders and documenting encounter Diagnoses Dementia F03.90 Altered mental status R41.82 Hypothyroidism E03.9 Diabetes mellitus, type II E11.9 Sore throat J02.9 Neck pain M54.2 Confusion R41.0 Constipation K59.00 Hyperlipidemia E78.5 HTN (hypertension), benign I10 Atherosclerosis of coronary artery of [place] heart without angina pectoris I25.10 BPH w urinary obs/LUTS N40.1; N13.8
[2022-09-05 04:16] VITALS: BP 109/62; PULSE 77; RESP 16; TEMP 36.6; O2SAT 97
[2022-09-05 06:28] LABS: Glucose Point of Care 110 mg/dL (70-110)
[2022-09-05 08:04] VITALS: BP 115/62; PULSE 60; RESP 16; TEMP 36.8; O2SAT 97
--- NOTE | 2022-09-05 08:22 | PC.SOCIAL ---
IMM update pg 2 of IMM not updated. Guardianship has been applied for, pending court date.
[2022-09-05] MEDS: sennosides-docusate Tablet 2 TAB PO ×2 (10:13→16:30)
[2022-09-05] MEDS: atorvastatin 40 mg Tablet PO (10:13)
[2022-09-05] MEDS: sitagliptin 100 mg Tablet PO (10:13)
[2022-09-05] MEDS: gabapentin 100 mg Capsule PO ×2 (10:13→16:30)
[2022-09-05] MEDS: pantoprazole DR 40 mg Tablet PO ×2 (10:13→16:30)
[2022-09-05] MEDS: thiamine 100 mg Tablet PO (10:14)
[2022-09-05] MEDS: levothyroxine 50 mcg Tablet PO (10:14)
[2022-09-05] MEDS: fluoxetine 10 mg Capsule PO (10:14)
[2022-09-05] MEDS: multivitamin therapeutic Tablet 1 TAB PO (10:15)
[2022-09-05] MEDS: tamsulosin 0.4 mg Capsule PO (10:15)
[2022-09-05] MEDS: docusate sodium 100 mg Capsule PO ×2 (10:15→16:30)
[2022-09-05] MEDS: enoxaparin 40 mg/0.4 mL Syringe SUBCUT (10:15)
[2022-09-05 11:34] VITALS: BP 123/75; PULSE 67; RESP 18; TEMP 36.8; O2SAT 96
[2022-09-05 11:46] LABS: Glucose Point of Care 121 mg/dL (70-110)
[2022-09-05 14:00] VITALS: BP 121/62; PULSE 94; RESP 18; TEMP 36.8; O2SAT 99
[2022-09-05 16:51] LABS: Glucose Point of Care 122 mg/dL (70-110)
--- NOTE | 2022-09-05 18:35 | P.NPUPN_ITS ---
Subjective NPU Subjective: The patient continued to appear pleasant with no problems noted. He had been sleeping well. He continued to state that he would like to be placed in a place that was nearby and reported that he needed to find a place to be able to move around a little bit. He had again been told about the plan to obtain guardianship and for the patient to be placed in a skilled living facility. Mental Status Exam MSE Comments: This is a well-nourished well-developed white male in hospital clothing with adequate grooming and eye contact. No abnormal movements. Cooperative with exam in no acute distress. Speech was normal rate and volume. Mood described as allright, affect is mood congruent. Thought process organized but confused. Thought content: Patient denied suicidal or homicidal ideation, t here were no delusions reported or noted, he denied any auditory or visual hallucinations. Attention and concentration were limited and memory was impaired but none were formally tested. He is alert and oriented times person and place. Insight, judgment and impulse control were impaired. Vitals/I&O/Wt Last Vital Signs Temp 98.2 F 09/05/22 14:00 Pulse 94 09/05/22 14:00 Resp 18 09/05/22 14:00 BP 121/62 09/05/22 14:00 Pulse Ox 99 09/05/22 14:00 O2 Del Method 09/05/22 14:00 09/05/22 09/05/22 09/05/22 06:59 14:59 22:59 Intake Total 600 / 600 240 / 840 Balance 600 / 600 240 / 840 Data NPU 09/03/22 05:18 09/03/22 05:18 A&P Assessment and plan (1) Dementia: (2) Altered mental status: Plan This is a 87-year-old male who appears to be suffering from significant dementia of unknown type who presents with confusion and appears to lack any ability to make decisions at this time. It would be likely very dangerous for him to attempt to even return home as he poses a risk to himself or others if he were to drive a vehicle. He appears to have some reasonable insight regarding his memory problems and had intimated that he may need further help for managing his significant loss of memory. 1. Continue current medication. 2. Reach out to son and find out about if he is a possibility for placement. . 3. Patient placed on a 21-day hold 08/19/2022. The interrogatories were submitted. Attestations NPU Medical Necessity Statement*: Continued inpatient hospitalization as patient unable to return safely to home, no guardian in place. He will need placement in D[facility]- [facility] Unit. Coding Level of Care Code Acute Code for [facility] Fwd Diagnoses Dementia F03.90 Altered mental status R41.82
[2022-09-05 20:23] LABS: Glucose Point of Care 131 mg/dL (70-110)
[2022-09-05 20:31] VITALS: BP 98/57; PULSE 57; RESP 17; TEMP 37.1; O2SAT 97
--- NOTE | 2022-09-05 20:47 | P.PN_ITS ---
Subjective Subjective: Ambulating in the room. Denies pain or discomfort. Does not appear to remember medical issues, reminded him of diabetes, hypothyroidism. Does seem to agree that he has had memory issues. Vitals/I&O/Wt Last Vital Signs Temp 98.8 F 09/05/22 20:31 Pulse 57 L 09/05/22 20:31 Resp 17 09/05/22 20:31 BP 98/57 09/05/22 20:31 Pulse Ox 97 09/05/22 20:31 O2 Del Method 09/05/22 14:00 09/05/22 09/05/22 09/05/22 06:59 14:59 22:59 Intake Total 600 / 600 240 / 840 Balance 600 / 600 240 / 840 Physical Exam Const: COMMON NORMALS: alert GENERAL APPEARANCE: cooperative ORIENTATION/CONSCIOUSNESS: Yes awake HENMT: COMMON NORMALS: oropharynx normal Neck/C-Spine: COMMON NORMALS: no JVD Resp: COMMON NORMALS: normal respiratory effort and clear to auscultation bilaterally AUSCULTATION: clear to auscultation bilaterally Cardio: COMMON NORMALS: no JVD, regular rhythm, S1 normal heart sound present, S2 normal heart sound present and No murmurs present (Cardio) RHYTHM: regular rhythm HEART SOUNDS: S1 normal heart sound present and S2 normal heart sound present GI: COMMON NORMALS: Normal to inspection, nondistended, normoactive bowel sounds present, Soft to palpation and non-tender PALPATION: Yes Soft to palpation Extremity: COMMON NORMALS: no joint enlargement and no pedal edema Neuro: COMMON NORMALS: moves all extremities SENSORIUM/ORIENTATION: Yes alert Skin: COMMON NORMALS: no rashes or lesions noted GENERAL SKIN EXAM: no rashes or lesions noted Data 09/03/22 05:18 09/03/22 05:18 A&P Assessment and plan (1) Dementia: Discussed with case management. Awaiting guardianship process. Specific type unknown known but well documented in his records this hospital stay Has been evaluated during this hospital stay for medical causes as follows: CT of the head with diffuse cerebral atrophy and chronic microvascular white matter disease Carotid artery Dopplers with less than 50% stenosis bilaterally Echocardiogram with normal systolic function, EF at 60%, grade 1 diastolic dysfunction Unremarkable troponin delta's and BNP Normal B12, folate, RPR, HIV, acute hepatitis panel and blood alcohol levels along with tox screen, Tylenol and salicylate levels, normal electrolytes and renal function No evidence of acute infection, normal CRP, normal procalcitonin a few months prior to admission and was started on Prozac for depression Demonstrates short and long-term memory loss and inability to make complex decisions. Has been seen by psychiatry as well and deemed to not have decision- making capacity for his own safety. On a 21-day hold and application has been made for guardianship. (2) Altered mental status: Resolved to recent baseline which varies (3) Hypothyroidism: Levothyroxine dose has been decreased down to 50 mcg daily. TSH 0.03 with normal free T3 (3.8) and an elevated thyroxine level/T4 (15.49) at presentation. Has chronically been on 125 mcg of levothyroxine. Values rechecked revealing TSH of 0.10 with free T4 of 1.70 and free T3 of 2.6. Levothyroxine dose decreased on September 03 to 50 mcg with plan to repeat laboratory studies in 4 weeks (4) Diabetes mellitus, type II: Changed to consistent carbohydrate diet. Sliding scale insulin. New diagnosis, [id number]-amlmhynva, A1c 7.3, started on Januvia during hospital stay. (5) Sore throat: Resolved. Intermittent, has as needed chloroseptic spray (6) Neck pain: Chief complaint upon arrival to the emergency room but not a current complaint. CT of the cervical spine showed no acute abnormalities. He may or may not have had a fall precipitating the neck pain. Not currently complaining of neck pain though has as needed cyclobenzaprine should pain recur. (7) Confusion: Resolved to recent baseline (8) Constipation: Chronic issue on laxative therapy (9) Hyperlipidemia: Chronically on statin therapy (10) HTN (hypertension), benign: Previous diagnosis, not an active medical condition, not on any medications for this prior to admission. Blood pressures have been in normal range and at times soft during hospital stay. (11) Atherosclerosis of coronary artery of [place] heart without angina pectoris: Chronic diagnosis, history of single-vessel bypass surgery. (12) BPH w urinary obs/LUTS: Chronically on Flomax Plan Normocytic anemia, present on admission, slight drop likley iatrogenic Documentation reflects a right ankle fracture. He had an ankle fracture in July 2020. He has been able to ambulate. I do not get a sense of a recent fracture. CAM Walker is still included on his medication list from July 2020. Denies ankle pain with me. On home statin therapy, Flomax and gabapentin On lower dose of levothyroxine Need TSH rechecked ~ September 26 On laxative therapy Has had fluoxetine and Januvia added as new medications this hospital stay Monitor blood sugars Off of home diclofenac which was a as needed medication, not complaining of pain, with anemia, have continued to hold Tylenol for pain as needed, flexeril if muscle pain Benadryl topical for itchy spot on back Has Chloroseptic spray if needed Attestations Medical Necessity Statement*: Continue admission seeking guardianship. Diagnoses Dementia F03.90 Altered mental status R41.82 Hypothyroidism E03.9 Diabetes mellitus, type II E11.9 Sore throat J02.9 Neck pain M54.2 Confusion R41.0 Constipation K59.00 Hyperlipidemia E78.5 HTN (hypertension), benign I10 Atherosclerosis of coronary artery of [place] heart without angina pectoris I25.10 BPH w urinary obs/LUTS N40.1; N13.8
[2022-09-06 02:07] VITALS: O2SAT 98
[2022-09-06] MEDS: cyclobenzaprine 10 mg Tablet 5 MG PO (02:59)
[2022-09-06 04:00] VITALS: BP 102/52; PULSE 57; RESP 16; TEMP 36.6; O2SAT 95
[2022-09-06 06:30] LABS: Glucose Point of Care 109 mg/dL (70-110)
[2022-09-06 08:00] VITALS: BP 107/72; PULSE 60; RESP 16; TEMP 36.6; O2SAT 96
[2022-09-06] MEDS: sennosides-docusate Tablet 2 TAB PO ×2 (09:21→18:20)
[2022-09-06] MEDS: sitagliptin 100 mg Tablet PO (09:21)
[2022-09-06] MEDS: levothyroxine 50 mcg Tablet PO (09:21)
[2022-09-06] MEDS: tamsulosin 0.4 mg Capsule PO (09:21)
[2022-09-06] MEDS: multivitamin therapeutic Tablet 1 TAB PO (09:21)
[2022-09-06] MEDS: atorvastatin 40 mg Tablet PO (09:21)
[2022-09-06] MEDS: pantoprazole DR 40 mg Tablet PO ×2 (09:21→18:20)
[2022-09-06] MEDS: docusate sodium 100 mg Capsule PO (09:21)
[2022-09-06] MEDS: thiamine 100 mg Tablet PO (09:21)
[2022-09-06] MEDS: gabapentin 100 mg Capsule PO ×2 (09:22→18:20)
[2022-09-06] MEDS: enoxaparin 40 mg/0.4 mL Syringe SUBCUT (09:22)
[2022-09-06] MEDS: fluoxetine 10 mg Capsule PO (09:22)
[2022-09-06 11:08] LABS: Glucose Point of Care 134 mg/dL (70-110)
[2022-09-06 11:40] VITALS: BP 105/57; PULSE 68; RESP 16; TEMP 36.6; O2SAT 96
[2022-09-06 15:33] VITALS: BP 123/66; PULSE 62; RESP 16; TEMP 36.9; O2SAT 98
[2022-09-06 16:39] LABS: Glucose Point of Care 124 mg/dL (70-110)
[2022-09-06 19:30] VITALS: BP 121/65; PULSE 60; RESP 16; TEMP 36.4; O2SAT 98
--- NOTE | 2022-09-06 19:41 | W.PM.NPUPNS ---
Subjective NPU Subjective: The patient continues to remain in the hospital while seeking placement with guardianship hearing pending. He did not appear to have any episodes of noted aggression according to staff. Otherwise the patient had been walking briefly and continued to spend time in bed. Mental Status Exam MSE Comments: This is a well-nourished well-developed white male in hospital clothing with adequate grooming and eye contact. No abnormal movements. Cooperative with exam in no acute distress. Speech was normal rate and volume. Mood described as okay. Affect is mood congruent. Thought process organized but confused. Thought content: Patient denied suicidal or homicidal ideation, there were no delusions reported or noted, he denied any auditory or visual hallucinations. Attention and concentration were limited and memory was impaired but none were formally tested. He is alert and oriented to person only. Insight, judgment and impulse control were impaired. Vitals/I&O/Wt Last Vital Signs Temp 97.5 F L 09/06/22 19:30 Pulse 60 09/06/22 19:30 Resp 16 09/06/22 19:30 BP 121/65 09/06/22 19:30 Pulse Ox 98 09/06/22 19:30 O2 Del Method 09/06/22 19:30 09/06/22 09/06/22 09/06/22 06:59 14:59 22:59 Intake Total 600 / 600 240 / 840 Balance 600 / 600 240 / 840 Data NPU 09/03/22 05:18 09/03/22 05:18 A&P Assessment and plan (1) Dementia: (2) Altered mental status: Plan This is a 87-year-old male who appears to be suffering from significant dementia of unknown type who presents with confusion and appears to lack any ability to make decisions at this time. It would be likely very dangerous for him to attempt to even return home as he poses a risk to himself or others if he were to drive a vehicle. He appears to have some reasonable insight regarding his memory problems and had intimated that he may need further help for managing his significant loss of memory. 1. Continue current medication. 2. Patient placed on a 21-day hold 08/19/2022. The interrogatories were submitted. Attestations NPU Medical Necessity Statement*: Continued inpatient hospitalization as patient unable to return safely to home, no guardian in place. He will need placement in Dementia- Detention Unit. Coding Level of Care Code Acute Code for Chg Fwd Diagnoses Dementia F03.90 Altered mental status R41.82
[2022-09-06 20:46] LABS: Glucose Point of Care 140 mg/dL (70-110)
--- NOTE | 2022-09-06 22:15 | PM.PN ---
Subjective Subjective: He denies any pain or discomfort today. Denies any new complaints. No events per one-to-one sitter. Vitals/I&O/Wt Last Vital Signs Temp 97.5 F L 09/06/22 19:30 Pulse 60 09/06/22 19:30 Resp 16 09/06/22 19:30 BP 121/65 09/06/22 19:30 Pulse Ox 98 09/06/22 19:30 O2 Del Method 09/06/22 19:30 09/06/22 09/06/22 09/06/22 06:59 14:59 22:59 Intake Total 600 / 600 240 / 840 Balance 600 / 600 240 / 840 Physical Exam Const: COMMON NORMALS: alert GENERAL APPEARANCE: cooperative ORIENTATION/CONSCIOUSNESS: Yes awake HENMT: COMMON NORMALS: oropharynx normal Neck/C-Spine: COMMON NORMALS: no JVD Resp: COMMON NORMALS: normal respiratory effort and clear to auscultation bilaterally AUSCULTATION: clear to auscultation bilaterally Cardio: COMMON NORMALS: no JVD, regular rhythm, S1 normal heart sound present, S2 normal heart sound present and No murmurs present (Cardio) RHYTHM: regular rhythm HEART SOUNDS: S1 normal heart sound present and S2 normal heart sound present GI: COMMON NORMALS: Normal to inspection, nondistended, normoactive bowel sounds present, Soft to palpation and non-tender PALPATION: Yes Soft to palpation Extremity: COMMON NORMALS: no joint enlargement and no pedal edema Neuro: COMMON NORMALS: moves all extremities SENSORIUM/ORIENTATION: Yes alert Skin: COMMON NORMALS: no rashes or lesions noted GENERAL SKIN EXAM: no rashes or lesions noted Data 09/03/22 05:18 09/03/22 05:18 A&P Assessment and plan (1) Dementia: Guardianship hearing appointment is made. Post discharge planning in process. Specific type unknown known but well documented in his records this hospital stay Has been evaluated during this hospital stay for medical causes as follows: CT of the head with diffuse cerebral atrophy and chronic microvascular white matter disease Carotid artery Dopplers with less than 50% stenosis bilaterally Echocardiogram with normal systolic function, EF at 60%, grade 1 diastolic dysfunction Unremarkable troponin delta's and BNP Normal B12, folate, RPR, HIV, acute hepatitis panel and blood alcohol levels along with tox screen, Tylenol and salicylate levels, normal electrolytes and renal function No evidence of acute infection, normal CRP, normal procalcitonin a few months prior to admission and was started on Prozac for depression Demonstrates short and long-term memory loss and inability to make complex decisions. Has been seen by psychiatry as well and deemed to not have decision-making capacity for his own safety. On a 21-day hold and application has been made for guardianship. (2) Altered mental status: Resolved to recent baseline which varies (3) Hypothyroidism: Levothyroxine dose has been decreased down to 50 mcg daily. TSH 0.03 with normal free T3 (3.8) and an elevated thyroxine level/T4 (15.49) at presentation. Has chronically been on 125 mcg of levothyroxine. Values rechecked revealing TSH of 0.10 with free T4 of 1.70 and free T3 of 2.6. Levothyroxine dose decreased on September 03 to 50 mcg with plan to repeat laboratory studies in 4 weeks (4) Diabetes mellitus, type II: Glucose noted 140. Changed to consistent carbohydrate diet. Sliding scale insulin. New diagnosis, [id number], A1c 7.3, started on Januvia during hospital stay. (5) Sore throat: Resolved. Intermittent, has as needed chloroseptic spray (6) Neck pain: Chief complaint upon arrival to the emergency room but not a current complaint. CT of the cervical spine showed no acute abnormalities. He may or may not have had a fall precipitating the neck pain. Not currently complaining of neck pain though has as needed cyclobenzaprine should pain recur. (7) Confusion: Resolved to recent baseline (8) Constipation: Chronic issue on laxative therapy (9) Hyperlipidemia: Chronically on statin therapy (10) HTN (hypertension), benign: Previous diagnosis, not an active medical condition, not on any medications for this prior to admission. Blood pressures have been in normal range and at times soft during hospital stay. (11) Atherosclerosis of coronary artery of [place] heart without angina pectoris: Chronic diagnosis, history of single-vessel bypass surgery. (12) BPH w urinary obs/LUTS: Chronically on Flomax Plan Normocytic anemia, present on admission, slight drop likley iatrogenic Documentation reflects a right ankle fracture. He had an ankle fracture in July 2020. He has been able to ambulate. I do not get a sense of a recent fracture. CAM Walker is still included on his medication list from July 2020. Denies ankle pain with me. On home statin therapy, Flomax and gabapentin On lower dose of levothyroxine Need TSH rechecked ~ September 26 On laxative therapy Has had fluoxetine and Januvia added as new medications this hospital stay Monitor blood sugars Off of home diclofenac which was a as needed medication, not complaining of pain, with anemia, have continued to hold Tylenol for pain as needed, flexeril if muscle pain Benadryl topical for itchy spot on back Has Chloroseptic spray if needed Attestations Medical Necessity Statement*: Continue hospitalization pending guardianship arrangements and disposition planning, continue optimization reassessment of diabetes control. Other Coding Information Focused coding review requested Diagnoses Dementia F03.90 Altered mental status R41.82 Hypothyroidism E03.9 Diabetes mellitus, type II E11.9 Sore throat J02.9 Neck pain M54.2 Confusion R41.0 Constipation K59.00 Hyperlipidemia E78.5 HTN (hypertension), benign I10 Atherosclerosis of coronary artery of [place] heart without angina pectoris I25.10 BPH w urinary obs/LUTS N40.1; N13.8
--- NOTE | 2022-09-06 22:19 | PC.NURSE ---
This nurse went to round on and assess the patient at 21:58 and found the patient resting with his eyes closed while laying on his left side. The patient's sitter was seen by this nurse sitting in the chair across from the patient, watching him intently. This nurse saw the that the patient's respirations were even and unlabored.
[2022-09-07] VITALS: BP 98/49; PULSE 69; RESP 16; TEMP 36.4; O2SAT 96
[2022-09-07] MEDS: cyclobenzaprine 10 mg Tablet 5 MG PO (00:20)
[2022-09-07 04:00] VITALS: BP 120/76; PULSE 62; RESP 16; TEMP 36.6; O2SAT 98
[2022-09-07 06:46] LABS: Glucose Point of Care 100 mg/dL (70-110)
[2022-09-07 08:00] VITALS: BP 101/57; PULSE 56; RESP 15; TEMP 36.4; O2SAT 97
[2022-09-07] MEDS: fluoxetine 10 mg Capsule PO (08:20)
[2022-09-07] MEDS: sitagliptin 100 mg Tablet PO (08:20)
[2022-09-07] MEDS: sennosides-docusate Tablet 2 TAB PO ×2 (08:20→17:59)
[2022-09-07] MEDS: gabapentin 100 mg Capsule PO ×2 (08:20→17:59)
[2022-09-07] MEDS: multivitamin therapeutic Tablet 1 TAB PO (08:20)
[2022-09-07] MEDS: thiamine 100 mg Tablet PO (08:20)
[2022-09-07] MEDS: levothyroxine 50 mcg Tablet PO (08:20)
[2022-09-07] MEDS: atorvastatin 40 mg Tablet PO (08:20)
[2022-09-07] MEDS: pantoprazole DR 40 mg Tablet PO ×2 (08:20→17:59)
[2022-09-07] MEDS: tamsulosin 0.4 mg Capsule PO (08:20)
[2022-09-07] MEDS: enoxaparin 40 mg/0.4 mL Syringe SUBCUT (08:20)
[2022-09-07 10:51] LABS: Glucose Point of Care 134 mg/dL (70-110)
[2022-09-07 12:00] VITALS: BP 101/58; PULSE 59; RESP 16; TEMP 36.7; O2SAT 96
--- NOTE | 2022-09-07 13:25 | PC.SOCIAL ---
IMM Update pg 2 of IMM not updated. Guardianship is pending. Court date scheduled for 09/19.
[2022-09-07 16:00] VITALS: BP 115/62; PULSE 74; RESP 18; TEMP 36.6; O2SAT 95
[2022-09-07 17:04] LABS: Glucose Point of Care 108 mg/dL (70-110)
--- NOTE | 2022-09-07 17:13 | P.PN_ITS ---
Subjective Subjective: Greets me and tells me he remembers me from somewhere. Today he is having some sore throat and tenderness at the angle of his jaw bilaterally. Denies any other complaints. Vitals/I&O/Wt Last Vital Signs Temp 97.8 F 09/07/22 16:00 Pulse 74 09/07/22 16:00 Resp 18 09/07/22 16:00 BP 115/62 09/07/22 16:00 Pulse Ox 95 09/07/22 16:00 O2 Del Method Room Air 09/07/22 16:00 09/07/22 09/07/22 09/07/22 06:59 14:59 22:59 Intake Total 960 / 960 Balance 960 / 960 Physical Exam Const: COMMON NORMALS: alert GENERAL APPEARANCE: cooperative ORIENTATION/CONSCIOUSNESS: Yes awake HENMT: COMMON NORMALS: oropharynx normal Neck/C-Spine: COMMON NORMALS: no JVD Resp: COMMON NORMALS: normal respiratory effort and clear to auscultation bi laterally AUSCULTATION: clear to auscultation bilaterally Cardio: COMMON NORMALS: no JVD, regular rhythm, S1 normal heart sound present, S2 normal heart sound present and No murmurs present (Cardio) RHYTHM: regular rhythm HEART SOUNDS: S1 normal heart sound present and S2 normal heart sound present GI: COMMON NORMALS: Normal to inspection, nondistended, normoactive bowel sounds present, Soft to palpation and non-tender PALPATION: Yes Soft to palpation Extremity: COMMON NORMALS: no joint enlargement and no pedal edema Neuro: COMMON NORMALS: moves all extremities SENSORIUM/ORIENTATION: Yes alert Skin: COMMON NORMALS: no rashes or lesions noted GENERAL SKIN EXAM: no rashes or lesions noted Data 09/03/22 05:18 09/03/22 05:18 A&P Assessment and plan (1) Dementia: Guardianship hearing appointment is made. Post discharge planning in process. Specific type unknown known but well documented in his records this hospital stay Has been evaluated during this hospital stay for medical causes as follows: CT of the head with diffuse cerebral atrophy and chronic microvascular white matter disease Carotid artery Dopplers with less than 50% stenosis bilaterally Echocardiogram with normal systolic function, EF at 60%, grade 1 diastolic dysfunction Unremarkable troponin delta's and BNP Normal B12, folate, RPR, HIV, acute hepatitis panel and blood alcohol levels along with tox screen, Tylenol and salicylate levels, normal electrolytes and renal function No evidence of acute infection, normal CRP, normal procalcitonin a few months prior to admission and was started on Prozac for depression Demonstrates short and long-term memory loss and inability to make complex decisions. Has been seen by psychiatry as well and deemed to not have decision- making capacity for his own safety. On a 21-day hold and application has been made for guardianship. (2) Altered mental status: Resolved to recent baseline which varies (3) Hypothyroidism: Levothyroxine dose has been decreased down to 50 mcg daily. TSH 0.03 with normal free T3 (3.8) and an elevated thyroxine level/T4 (15.49) at presentation. Has chronically been on 125 mcg of levothyroxine. Values re checked revealing TSH of 0.10 with free T4 of 1.70 and free T3 of 2.6. Levothyroxine dose decreased on September 03 to 50 mcg with plan to repeat laboratory studies in 4 weeks (4) Diabetes mellitus, type II: Glucose noted 140. Changed to consistent carbohydrate diet. Sliding scale insulin. New diagnosis, [id number], A1c 7.3, started on Januvia during hospital stay. (5) Sore throat: Resolved. Intermittent, has as needed chloroseptic spray (6) Neck pain: Chief complaint upon arrival to the emergency room but not a current complaint. CT of the cervical spine showed no acute abnormalities. He may or may not have had a fall precipitating the neck pain. Not currently complaining of neck pain though has as needed cyclobenzaprine should pain recur. (7) Confusion: Resolved to recent baseline (8) Constipation: Chronic issue on laxative therapy (9) Hyperlipidemia: Chronically on statin therapy (10) HTN (hypertension), benign: Previous diagnosis, not an active medical condition, not on any medications for this prior to admission. Blood pressures have been in normal range and at times soft during hospital stay. (11) Atherosclerosis of coronary artery of [place] heart without angina pectoris: Chronic diagnosis, history of single-vessel bypass surgery. (12) BPH w urinary obs/LUTS: Chronically on Flomax Plan Sore throat: We will check rapid strep. Normocytic anemia, present on admission, slight drop likley iatrogenic Documentation reflects a right ankle fracture. He had an ankle fracture in July 2020. He has been able to ambulate. I do not get a sense of a recent fracture. CAM Walker is still included on his medication list from July 2020. Denies ankle pain with me. On home statin therapy, Flomax and gabapentin On lower dose of levothyroxine Need TSH rechecked ~ September 26 On laxative therapy Has had fluoxetine and Januvia added as new medications this hospital stay Monitor blood sugars Off of home diclofenac which was a as needed medication, not complaining of pain, with anemia, have continued to hold Tylenol for pain as needed, flexeril if muscle pain Benadryl topical for itchy spot on back Has Chloroseptic spray if needed Attestations Medical Necessity Statement*: Continue hospitalization pending guardianship arrangement. Diagnoses Dementia F03.90 Altered mental status R41.82 Hypothyroidism E03.9 Diabetes mellitus, type II E11.9 Sore throat J02.9 Neck pain M54.2 Confusion R41.0 Constipation K59.00 Hyperlipidemia E78.5 HTN (hypertension), benign I10 Atherosclerosis of coronary artery of [place] heart without angina pectoris I25 .10 BPH w urinary obs/LUTS N40.1; N13.8
--- NOTE | 2022-09-07 18:37 | W.PM.NPUPNS ---
Subjective NPU Subjective: The patient continues to remain in the hospital while seeking placement with guardianship hearing pending. He had been compliant on the milieu. There has been no noted changes. We continue to await guardianship hearing. Mental Status Exam MSE Comments: This is a well-nourished well-developed white male in hospital clothing with adequate grooming and eye contact. No abnormal movements. Cooperative with exam in no acute distress. Speech was normal rate and volume. Mood described as okay. Affect is mood congruent. Thought process organized but confused. Thought content: Patient denied suicidal or homicidal ideation, there were no delusions reported or noted, he denied any auditory or visual hallucinations. Attention and concentration were limited and memory was impaired but none were formally tested. He is alert and oriented to person only. Insight, judgment and impulse control were impaired. Vitals/I&O/Wt Last Vital Signs Temp 97.8 F 09/07/22 16:00 Pulse 74 09/07/22 16:00 Resp 18 09/07/22 16:00 BP 115/62 09/07/22 16:00 Pulse Ox 95 09/07/22 16:00 O2 Del Method Room Air 09/07/22 16:00 09/07/22 09/07/22 09/07/22 06:59 14:59 22:59 Intake Total 960 / 960 Balance 960 / 960 Data NPU 09/03/22 05:18 09/03/22 05:18 A&P Assessment and plan (1) Dementia: (2) Altered mental status: Plan This is a 87-year-old male who appears to be suffering from significant dementia of unknown type who presents with confusion and appears to lack any ability to make decisions at this time. It would be likely very dangerous for him to attempt to even return home as he poses a risk to himself or others if he were to drive a vehicle. He appears to have some reasonable insight regarding his memory problems and had intimated that he may need further help for managing his significant loss of memory. 1. Continue current medication. 2. Patient placed on a 21-day hold 08/19/2022. The interrogatories were submitted. Attestations NPU Medical Necessity Statement*: Continued inpatient hospitalization as patient unable to return safely to home, no guardian in place. He will need placement in Dementia- Shelter Unit. Coding Level of Care Code Acute Code for Chg Fwd Diagnoses Dementia F03.90 Altered mental status R41.82
[2022-09-07 18:39] LABS: Rapid Strep A Test Negative (Negative)
[2022-09-07 20:00] VITALS: BP 114/60; PULSE 63; RESP 17; TEMP 36.9; O2SAT 96
[2022-09-07 21:55] LABS: Glucose Point of Care 117 mg/dL (70-110)
[2022-09-08] VITALS: BP 108/57; PULSE 61; RESP 16; TEMP 37.1; O2SAT 95
[2022-09-08 04:00] VITALS: BP 96/57; PULSE 74; RESP 17; TEMP 37; O2SAT 95
[2022-09-08 06:54] LABS: Glucose Point of Care 103 mg/dL (70-110)
[2022-09-08 08:00] VITALS: BP 123/61; PULSE 59; RESP 15; TEMP 36.6; O2SAT 95
[2022-09-08] MEDS: atorvastatin 40 mg Tablet PO (08:17)
[2022-09-08] MEDS: pantoprazole DR 40 mg Tablet PO ×2 (08:17→17:36)
[2022-09-08] MEDS: sennosides-docusate Tablet 2 TAB PO ×2 (08:17→17:36)
[2022-09-08] MEDS: tamsulosin 0.4 mg Capsule PO (08:17)
[2022-09-08] MEDS: levothyroxine 50 mcg Tablet PO (08:17)
[2022-09-08] MEDS: thiamine 100 mg Tablet PO (08:17)
[2022-09-08] MEDS: multivitamin therapeutic Tablet 1 TAB PO (08:17)
[2022-09-08] MEDS: gabapentin 100 mg Capsule PO ×2 (08:17→17:36)
[2022-09-08] MEDS: fluoxetine 10 mg Capsule PO (08:17)
[2022-09-08] MEDS: sitagliptin 100 mg Tablet PO (08:17)
[2022-09-08] MEDS: enoxaparin 40 mg/0.4 mL Syringe SUBCUT (08:18)
[2022-09-08] MEDS: phenol oral Spray 177 mL 3 SPRAY MUCOUS MEM ×2 (08:18→09:54)
[2022-09-08 12:00] VITALS: BP 109/52; PULSE 57; RESP 15; TEMP 36.8; O2SAT 96
[2022-09-08 12:37] LABS: Glucose Point of Care 109 mg/dL (70-110)
--- NOTE | 2022-09-08 13:46 | PM.PN ---
Subjective Subjective: When sees me states I remember you from somewhere , I have seen you around . Still having some sore throat but feels it is better than before. Denies any ear pain or hearing deficit. No ear drainage. Vitals/I&O/Wt Last Vital Signs Temp 98.3 F 09/08/22 12:00 Pulse 57 L 09/08/22 12:00 Resp 15 09/08/22 12:00 BP 109/52 09/08/22 12:00 Pulse Ox 96 09/08/22 12:00 O2 Del Method Room Air 09/08/22 04:00 09/07/22 09/08/22 09/08/22 22:59 06:59 14:59 Intake Total 240 / 1200 250 / 250 Balance 240 / 1200 250 / 250 Physical Exam Const: COMMON NORMALS: alert GENERAL APPEARANCE: cooperative ORIENTATION/CONSCIOUSNESS: Yes awake HENMT: COMMON NORMALS: oropharynx normal OTHER: I do not appreciate pharyngeal erythema or tonsillar enlargement. Neck/C-Spine: COMMON NORMALS: no JVD Resp: COMMON NORMALS: normal respiratory effort and clear to auscultation bilaterally AUSCULTATION: clear to auscultation bilaterally Cardio: COMMON NORMALS: no JVD, regular rhythm, S1 normal heart sound present, S2 normal heart sound present and No murmurs present (Cardio) RHYTHM: regular rhythm HEART SOUNDS: S1 normal heart sound present and S2 normal heart sound present GI: COMMON NORMALS: Normal to inspection, nondistended, normoactive bowel sounds present, Soft to palpation and non-tender PALPATION: Yes Soft to palpation Extremity: COMMON NORMALS: no joint enlargement and no pedal edema Neuro: COMMON NORMALS: moves all extremities SENSORIUM/ORIENTATION: Yes alert Skin: COMMON NORMALS: no rashes or lesions noted GENERAL SKIN EXAM: no rashes or lesions noted Data 09/03/22 05:18 09/03/22 05:18 A&P Assessment and plan (1) Dementia: Guardianship hearing appointment is made. Post discharge planning in process. Specific type unknown known but well documented in his records this hospital stay Has been evaluated during this hospital stay for medical causes as follows: CT of the head with diffuse cerebral atrophy and chronic microvascular white matter disease Carotid artery Dopplers with less than 50% stenosis bilaterally Echocardiogram with normal systolic function, EF at 60%, grade 1 diastolic dysfunction Unremarkable troponin delta's and BNP Normal B12, folate, RPR, HIV, acute hepatitis panel and blood alcohol levels along with tox screen, Tylenol and salicylate levels, normal electrolytes and renal function No evidence of acute infection, normal CRP, normal procalcitonin a few months prior to admission and was started on Prozac for depression Demonstrates short and long-term memory loss and inability to make complex decisions. Has been seen by psychiatry as well and deemed to not have decision-making capacity for his own safety. On a 21-day hold and application has been made for guardianship. (2) Sore throat: Stable mild sore throat, feels it is better than before. But symptoms persist. Stop Chloraseptic. Add Cepacol lozenges. I do not appreciate obvious pharyngitis. No venous distention. No submandibular swelling or tenderness. Cannot palpate tenderness on exam externally over SCM, mastoids, do not appreciate any swollen lymph nodes. Rapid strep noted negative. In case persistent symptoms consider also follow-up with ENT. (3) Altered mental status: Resolved to recent baseline which varies (4) Hypothyroidism: Levothyroxine dose has been decreased down to 50 mcg daily. TSH 0.03 with normal free T3 (3.8) and an elevated thyroxine level/T4 (15.49) at presentation. Has chronically been on 125 mcg of levothyroxine. Values rechecked revealing TSH of 0.10 with free T4 of 1.70 and free T3 of 2.6. Levothyroxine dose decreased on September 03 to 50 mcg with plan to repeat laboratory studies in 4 weeks (5) Diabetes mellitus, type II: Glucose noted improved with change to consistent carbohydrate diet. Changed to consistent carbohydrate diet. Sliding scale insulin. New diagnosis, [id number], A1c 7.3, started on Januvia during hospital stay. (6) Neck pain: Chief complaint upon arrival to the emergency room but not a current complaint. CT of the cervical spine showed no acute abnormalities. He may or may not have had a fall precipitating the neck pain. Not currently complaining of neck pain though has as needed cyclobenzaprine should pain recur. (7) Confusion: Resolved to recent baseline (8) Constipation: Chronic issue on laxative therapy (9) Hyperlipidemia: Chronically on statin therapy (10) HTN (hypertension), benign: Previous diagnosis, not an active medical condition, not on any medications for this prior to admission. Blood pressures have been in normal range and at times soft during hospital stay. (11) Atherosclerosis of coronary artery of [place] heart without angina pectoris: Chronic diagnosis, history of single-vessel bypass surgery. (12) BPH w urinary obs/LUTS: Chronically on Flomax Plan Normocytic anemia, present on admission, slight drop likley iatrogenic Documentation reflects a right ankle fracture. He had an ankle fracture in July 2020. He has been able to ambulate. I do not get a sense of a recent fracture. CAM Walker is still included on his medication list from July 2020. Denies ankle pain with me. On home statin therapy, Flomax and gabapentin On lower dose of levothyroxine Need TSH rechecked ~ September 26 On laxative therapy Has had fluoxetine and Januvia added as new medications this hospital stay Monitor blood sugars Off of home diclofenac which was a as needed medication, not complaining of pain, with anemia, have continued to hold Tylenol for pain as needed, flexeril if muscle pain Benadryl topical for itchy spot on back Has Chloroseptic spray if needed Attestations Medical Necessity Statement*: Continue admission pending guardianship and disposition planning and arrangements. Diagnoses Dementia F03.90 Sore throat J02.9 Altered mental status R41.82 Hypothyroidism E03.9 Diabetes mellitus, type II E11.9 Neck pain M54.2 Confusion R41.0 Constipation K59.00 Hyperlipidemia E78.5 HTN (hypertension), benign I10 Atherosclerosis of coronary artery of [place] heart without angina pectoris I25.10 BPH w urinary obs/LUTS N40.1; N13.8
[2022-09-08 16:00] VITALS: BP 115/63; PULSE 68; RESP 17; TEMP 36.7; O2SAT 97
[2022-09-08 17:03] LABS: Glucose Point of Care 106 mg/dL (70-110)
[2022-09-08] MEDS: cetylpyridinium Lozenge 1 EACH MUCOUS MEM (17:37)
[2022-09-08] MEDS: cyclobenzaprine 10 mg Tablet 5 MG PO (17:40)
--- NOTE | 2022-09-08 17:49 | P.NPUPN_ITS ---
Subjective NPU Subjective: The patient continues to remain in the hospital while seeking placement with guardianship hearing pending. Continues to require one-to-one observation. Patient continued to struggle with his memory. He had stayed in his room while taking brief periods of time where he would walk outside with his one-to-one staff. He had continued to appear confused and he was unable to remember any details regarding his past. Mental Status Exam MSE Comments: This is a well-nourished well-developed white male in hospital clothing with adequate grooming and eye contact. No abnormal movements. Cooperative with exam in no acute distress. Speech was normal rate and volume. Mood described as good. Affect is mood incongruent and flat. Thought process organized but confused. Thought content: Patient denied suicidal or homicidal ideation, there were no delusions reported or noted, he denied any auditory or visual hallucinations. Attention and concentration were limited and memory was impaired but none were formally tested. He is alert and oriented to person only. Insight, judgment and impulse control were impaired. Vitals/I&O/Wt Last Vital Signs Temp 98.1 F 09/08/22 16:00 Pulse 68 09/08/22 16:00 Resp 17 09/08/22 16:00 BP 115/63 09/08/22 16:00 Pulse Ox 97 09/08/22 16:00 O2 Del Method Room Air 09/08/22 04:00 09/08/22 09/08/22 09/08/22 06:59 14:59 22:59 Intake Total 590 / 590 Balance 590 / 590 Data NPU 09/03/22 05:18 09/03/22 05:18 A&P Assessment and plan (1) Dementia: (2) Altered mental status: Plan This is a 87-year-old male who appears to be suffering from significant dementia of unknown type who presents with confusion and appears to lack any ability to make decisions at this time. It would be likely very dangerous for him to attempt to even return home as he poses a risk to himself or others if he were to drive a vehicle. He appears to have some reasonable insight regarding his memory problems and had intimated that he may need further help for managing his significant loss of memory. 1. Continue current medication. 2. Guardianship hearing set? Continue Prozac Attestations NPU Medical Necessity Statement*: Continued inpatient hospitalization as patient unable to return safely to home, no guardian in place. He will need placement in Dementia- Custodial Unit. Coding Level of Care Code Acute Code for g Fwd Diagnoses Dementia F03.90 Altered mental status R41.82
[2022-09-08 20:00] VITALS: BP 120/68; PULSE 62; RESP 17; TEMP 36.8; O2SAT 97
[2022-09-08 21:16] LABS: Glucose Point of Care 129 mg/dL (70-110)
[2022-09-09] VITALS: BP 111/63; PULSE 60; RESP 16; TEMP 36.9; O2SAT 96
[2022-09-09 04:00] VITALS: BP 114/61; PULSE 65; RESP 16; TEMP 36.9; O2SAT 96
[2022-09-09 06:56] LABS: Glucose Point of Care 105 mg/dL (70-110)
[2022-09-09 08:00] VITALS: BP 110/60; PULSE 70; RESP 16; TEMP 36.6; O2SAT 98
[2022-09-09] MEDS: fluoxetine 10 mg Capsule PO (08:32)
[2022-09-09] MEDS: sitagliptin 100 mg Tablet PO (08:33)
[2022-09-09] MEDS: gabapentin 100 mg Capsule PO ×2 (08:33→17:22)
[2022-09-09] MEDS: levothyroxine 50 mcg Tablet PO (08:33)
[2022-09-09] MEDS: pantoprazole DR 40 mg Tablet PO ×2 (08:33→17:28)
[2022-09-09] MEDS: tamsulosin 0.4 mg Capsule PO (08:33)
[2022-09-09] MEDS: thiamine 100 mg Tablet PO (08:33)
[2022-09-09] MEDS: sennosides-docusate Tablet 2 TAB PO ×2 (08:33→17:22)
[2022-09-09] MEDS: atorvastatin 40 mg Tablet PO (08:33)
[2022-09-09] MEDS: multivitamin therapeutic Tablet 1 TAB PO (08:33)
[2022-09-09 11:38] LABS: Glucose Point of Care 141 mg/dL (70-110)
[2022-09-09 12:00] VITALS: BP 116/65; PULSE 71; RESP 17; TEMP 36.6; O2SAT 99
--- NOTE | 2022-09-09 12:16 | PC.SOCIAL ---
IMM update IMM not updated as patient is pending guardianship.
[2022-09-09] MEDS: enoxaparin 40 mg/0.4 mL Syringe SUBCUT (12:23)
[2022-09-09] MEDS: nystatin 100,000 unit/mL UDC 5 mL 400000 UNIT PO ×3 (12:23→20:13)
[2022-09-09 16:00] VITALS: BP 115/63; PULSE 65; RESP 16; TEMP 36.8; O2SAT 96
--- NOTE | 2022-09-09 16:06 | P.PN_ITS ---
Subjective Subjective: States he is doing well. Denies any complaints. When asked about it, still having sore throat. Seems to forgot what time of day it is. Tells me he had just had dinner. Shortly prior to that told me that he was just about to order dinner. It was 10 AM, window shades wide open. Redirectable, I agreed when corrected. Vitals/I&O/Wt Last Vital Signs Temp 98 F 09/09/22 12:00 Pulse 71 09/09/22 12:00 Resp 17 09/09/22 12:00 BP 116/65 09/09/22 12:00 Pulse Ox 99 09/09/22 12:00 O2 Del Method Room Air 09/09/22 04:00 Physical Exam Const: COMMON NORMALS: alert GENERAL APPEARANCE: cooperative ORIENTATION/CONSCIOUSNESS: Yes awake OTHER: Pleasant, interactive and conversant HENMT: COMMON NORMALS: oropharynx normal OTHER: I do not appreciate pharyngeal erythema or tonsillar enlargement. Does have thrush Neck/C-Spine: COMMON NORMALS: no JVD Resp: COMMON NORMALS: normal respiratory effort and clear to auscultation bilaterally AUSCULTATION: clear to auscultation bilaterally Cardio: COMMON NORMALS: no JVD, regular rhythm, S1 normal heart sound present, S2 normal heart sound present and No murmurs present (Cardio) RHYTHM: regular rhythm HEART SOUNDS: S1 normal heart sound present and S2 normal heart sound present GI: COMMON NORMALS: Normal to inspection, nondistended, normoactive bowel sounds present, Soft to palpation and non-tender PALPATION: Yes Soft to palpation Extremity: COMMON NORMALS: no joint enlargement and no pedal edema Neuro: COMMON NORMALS: moves all extremities SENSORIUM/ORIENTATION: Yes alert Skin: COMMON NORMALS: no rashes or lesions noted GENERAL SKIN EXAM: no rashes or lesions noted Data 09/03/22 05:18 09/03/22 05:18 Micro: Microbiology 09/07/22 16:55 Group A Streptococcus Rapid Screen - Preliminary Throat A&P Assessment and plan (1) Dementia: Guardianship hearing appointment is made. Post discharge planning in process. Discussed with case management. Very forgetful. Per discussion with one-to-one sitter no behavioral issues. Discussed with psychiatry. Specific type unknown known but well documented in his records this hospital stay Has been evaluated during this hospital stay for medical causes as follows: CT of the head with diffuse cerebral atrophy and chronic microvascular white matter disease Carotid artery Dopplers with less than 50% stenosis bilaterally Echocardiogram with normal systolic function, EF at 60%, grade 1 diastolic dysfunction Unremarkable troponin delta's and BNP Normal B12, folate, RPR, HIV, acute hepatitis panel and blood alcohol levels along with tox screen, Tylenol and salicylate levels, normal electrolytes and renal function No evidence of acute infection, normal CRP, normal procalcitonin a few months prior to admission and was started on Prozac for depression Demonstrates short and long-term memory loss and inability to make complex decisions. Has been seen by psychiatry as well and deemed to not have decision- making capacity for his own safety. On a 21-day hold and application has been made for guardianship. (2) Constipation: Chronic issue on laxative therapy I do not see a documented bowel movement since 06/27. We will add MiraLAX, Dulcolax suppository. (3) Hypothyroidism: Levothyroxine dose has been decreased down to 50 mcg daily. TSH 0.03 with normal free T3 (3.8) and an elevated thyroxine level/T4 (15.49) at presentation. Has chronically been on 125 mcg of levothyroxine. Values rechecked revealing TSH of 0.10 with free T4 of 1.70 and free T3 of 2.6. Le vothyroxine dose decreased on September 03 to 50 mcg with plan to repeat laboratory studies in 4 weeks (4) Sore throat: Noted to have some mild thrush, possibly contributing to his persistent sore throat. Requesting oral nystatin. Stable mild sore throat, feels it is better than before. But symptoms persist. Stop Chloraseptic. Add Cepacol lozenges. I do not appreciate obvious pharyngitis. No venous distention. No submandibular swelling or tenderness. Cannot palpate tenderness on exam externally over SCM, mastoids, do not appreciate any swollen lymph nodes. Rapid strep noted negative. In case persistent symptoms consider also follow-up with ENT. (5) Altered mental status: Resolved to recent baseline which varies (6) Diabetes mellitus, type II: Glucose noted improved with change to consistent carbohydrate diet. Changed to consistent carbohydrate diet. Sliding scale insulin. New diagnosis, [id number], A1c 7.3, started on Januvia during hospital stay. (7) Neck pain: Chief complaint upon arrival to the emergency room but not a current complaint. CT of the cervical spine showed no acute abnormalities. He may or may not have had a fall precipitating the neck pain. Not currently complaining of neck pain though has as needed cyclobenzaprine should pain recur. (8) Confusion: Resolved to recent baseline (9) Hyperlipidemia: Chronically on statin therapy (10) HTN (hypertension), benign: Currently at goal. Previous diagnosis, not an active medical condition, not on any medications for this prior to admission. Blood pressures have been in normal range and at times soft during hospital stay. (11) Atherosclerosis of coronary artery of [place] heart without angina pectoris: Denies any chest pain. Chronic diagnosis, history of single-vessel bypass surgery. (12) BPH w urinary obs/LUTS: Continue Flomax Plan Normocytic anemia, present on admission, slight drop likley iatrogenic. Follow- up CBC requested. Documentation reflects a right ankle fracture. He had an ankle fracture in July 2020. He has been able to ambulate. I do not get a sense of a recent fracture. CAM Walker is still included on his medication list from July 2020. Denies ankle pain with me. On home statin therapy, Flomax and gabapentin On lower dose of levothyroxine Need TSH rechecked ~ September 26 On laxative therapy Has had fluoxetine and Januvia added as new medications this hospital stay Monitor blood sugars Off of home diclofenac which was a as needed medication, not complaining of pain, with anemia, have continued to hold Tylenol for pain as needed, flexeril if muscle pain Benadryl topical for itchy spot on back Has Chloroseptic spray if needed Attestations Medical Necessity Statement*: Continue admission for optimization multiple medical problems, including thrush, constipation, pending guardianship hearing, disposition planning and arrangements. Diagnoses Dementia F03.90 Constipation K59.00 Hypothyroidism E03.9 Sore throat J02.9 Altered mental status R41.82 Diabetes mellitus, type II E11.9 Neck pain M54.2 Confusion R41.0 Hyperlipidemia E78.5 HTN (hypertension), benign I10 Atherosclerosis of coronary artery of [place] heart without angina pectoris I25.10 BPH w urinary obs/LUTS N40.1; N13.8
[2022-09-09] MEDS: bisacodyl 10 mg Supp PR (17:22)
[2022-09-09] MEDS: polyethylene glycol 3350 Pkt 17 gm PO (17:23)
--- NOTE | 2022-09-09 17:43 | P.NPUPN_ITS ---
Subjective NPU Subjective: The patient continues to remain in the hospital while seeking placement with guardianship hearing pending. The no need changes noted. Patient reported that he was looking to find a place that was close to his home despite not having clear knowledge as to where he was at this time. He reported no thoughts of hurting himself or others. There was no recent episodes of agitation noted. He continues to require one-to-one. Mental Status Exam MSE Comments: This is a well-nourished well-developed white male in hospital clothing with adequate grooming and eye contact. No abnormal movements. Cooperative with exam in no acute distress. Speech was normal rate and volume. Mood described as okay. Affect is mood incongruent and flat. Thought process organized but confused. Thought content: Patient denied suicidal or homicidal ideation, there were no delusions reported or noted, he denied any auditory or visual hallucinations. Attention and concentration were limited and memory was im paired but none were formally tested. He is alert and oriented to person only. Insight, judgment and impulse control were impaired. Vitals/I&O/Wt Last Vital Signs Temp 98 F 09/09/22 12:00 Pulse 71 09/09/22 12:00 Resp 17 09/09/22 12:00 BP 116/65 09/09/22 12:00 Pulse Ox 99 09/09/22 12:00 O2 Del Method Room Air 09/09/22 04:00 09/09/22 09/09/22 09/09/22 06:59 14:59 22:59 Intake Total 480 / 480 Balance 480 / 480 Data NPU 09/03/22 05:18 09/03/22 05:18 Micro: Microbiology 09/07/22 16:55 Group A Streptococcus Rapid Screen - Preliminary Throat Microbiology 09/07/22 16:55 Throat Group A Streptococcus Rapid Screen - Preliminary A&P Assessment and plan (1) Dementia: (2) Altered mental status: Plan This is a 87-year-old male who appears to be suffering from significant dementia of unknown type who presents with confusion and appears to lack any ability to make decisions at this time. It would be likely very dangerous for him to attempt to even return home as he poses a risk to himself or others if he were to drive a vehicle. He appears to have some reasonable insight regarding his memory problems and had intimated that he may need further help for managing his significant loss of memory. 1. Continue current medication. 2. Guardianship hearing in next 10 days, per schedule. Continue Prozac Attestations NPU Medical Necessity Statement*: Continued inpatient hospitalization as patient unable to return safely to home, no guardian in place. He will need placement in Dementia- [facility] Unit. Coding Level of Care Code Acute Code for [facility] Fwd Diagnoses Dementia F03.90 Altered mental status R41.82
[2022-09-09 17:46] LABS: Glucose Point of Care 105 mg/dL (70-110)
[2022-09-09 19:31] VITALS: BP 118/73; PULSE 60; RESP 18; TEMP 36.7; O2SAT 94
[2022-09-09 21:50] LABS: Glucose Point of Care 105 mg/dL (70-110)
[2022-09-10] VITALS: BP 100/56; PULSE 64; RESP 18; TEMP 36.6; O2SAT 96
[2022-09-10 03:26] LABS: Basophils # 0.1 10^3/uL (0.0-0.1); Basophils % 1.1 %; Eosinophils # 0.3 10^3/uL (0.0-0.8); Eosinophils % 4.1 %; Hematocrit 33.4 % (42.0-52.0); Lymphocytes % 42.3 %; Mean Corpuscular HGB Conc 32.9 g/dL (30.0-36.0); Mean Corpuscular Hemoglobin 30.3 pg (28.0-34.0); Mean Platelet Volume 9.3 fL (7.4-10.4); Monocytes % 13.8 %; Neutrophils # 2.68 10^3/uL (1.8-7.7); Neutrophils % 38.3 %; Nucleated Red Blood Cells % 0 %; Platelet Count 288 10^3/cmm (130-400); Red Blood Count 3.63 10^6/uL (4.1-5.3); Red Cell Distribution Width 12.2 % (12.1-15.1)
[2022-09-10 04:00] VITALS: BP 95/55; PULSE 65; RESP 20; TEMP 36.9; O2SAT 90
[2022-09-10 06:27] LABS: Glucose Point of Care 101 mg/dL (70-110)
[2022-09-10 08:00] VITALS: BP 117/63; PULSE 91; RESP 16; TEMP 36.8; O2SAT 97
[2022-09-10] MEDS: sennosides-docusate Tablet 2 TAB PO ×2 (09:00→17:48)
[2022-09-10] MEDS: pantoprazole DR 40 mg Tablet PO ×2 (09:00→17:48)
[2022-09-10] MEDS: gabapentin 100 mg Capsule PO ×2 (09:00→17:48)
[2022-09-10] MEDS: fluoxetine 10 mg Capsule PO (09:00)
[2022-09-10] MEDS: levothyroxine 50 mcg Tablet PO (09:00)
[2022-09-10] MEDS: tamsulosin 0.4 mg Capsule PO (09:01)
[2022-09-10] MEDS: nystatin 100,000 unit/mL UDC 5 mL 400000 UNIT PO ×4 (09:01→20:27)
[2022-09-10] MEDS: thiamine 100 mg Tablet PO (09:01)
[2022-09-10] MEDS: sitagliptin 100 mg Tablet PO (09:01)
[2022-09-10] MEDS: multivitamin therapeutic Tablet 1 TAB PO (09:01)
[2022-09-10] MEDS: atorvastatin 40 mg Tablet PO (09:01)
[2022-09-10] MEDS: enoxaparin 40 mg/0.4 mL Syringe SUBCUT (09:02)
[2022-09-10] MEDS: polyethylene glycol 3350 Pkt 17 gm PO ×2 (09:02→17:48)
--- NOTE | 2022-09-10 11:45 | P.PN_ITS ---
Subjective Subjective: When asked how he is feeling, states about how I look . When asked to clarify states I do not have any representation here . Asking why he is still kept in the hospital we discussed with him regarding his memory issues being severe to the point of causing risk to self or others. He tells me he remembers my face, but not where from. States I am a [place] citizen and have honors coming up my sp ine . That main sally, he is lying . How will I be able to get out and get a job . Could you pass on the message for me, I do not believe anything he says . Other conditions discussed with him including his sore throat, he states like the one I am having? . Does not remember me examining his mouth yesterday or that we had already discussed about Sushila pharyngitis and treatment. Discussed with him again regarding thrush again among other things that we are treating more recently. Discussed with him that he is in the hospital for now with us until the hearing which I hear is scheduled for the . Discussed to let us know in case there is anything we can do to help his stay here. Vitals/I&O/Wt Last Vital Signs Temp 98.3 F 09/10/22 08:00 Pulse 91 09/10/22 08:00 Resp 16 09/10/22 08:00 BP 117/63 09/10/22 08:00 Pulse Ox 97 09/10/22 08:00 O2 Del Method Room Air 09/10/22 08:00 09/09/22 09/10/22 09/10/22 22:59 06:59 14:59 Intake Total 240 / 720 360 / 360 Output Total 500 / 500 Balance -260 / 220 360 / 360 Physical Exam Const: COMMON NORMALS: alert GENERAL APPEARANCE: cooperative ORIENTATION/CONSCIOUSNESS: Yes awake OTHER: Pleasant, interactive and conversant HENMT: COMMON NORMALS: oropharynx normal OTHER: I do not appreciate pharyngeal erythema or tonsillar enlargement. Mild-moderate thrush Neck/C-Spine: COMMON NORMALS: no JVD Resp: COMMON NORMALS: normal respiratory effort and clear to auscultation bilaterally AUSCULTATION: clear to auscultation bilaterally Cardio: COMMON NORMALS: no JVD, regular rhythm, S1 normal heart sound present, S2 normal heart sound present and No murmurs present (Cardio) RHYTHM: regular rhythm HEART SOUNDS: S1 normal heart sound present and S2 normal heart sound present GI: COMMON NORMALS: Normal to inspection, nondistended, normoactive bowel sounds present, Soft to palpation and non-tender PALPATION: Yes Soft to palpation Extremity: COMMON NORMALS: no joint enlargement and no pedal edema Neuro: COMMON NORMALS: moves all extremities SENSORIUM/ORIENTATION: Yes alert Skin: COMMON NORMALS: no rashes or lesions noted GENERAL SKIN EXAM: no rashes or lesions noted Data 09/10/22 03:13 09/03/22 05:18 Micro: Microbiology 09/07/22 16:55 Group A Streptococcus Rapid Screen - Preliminary Throat A&P Assessment and plan (1) Dementia: Impaired memory and judgement. Guardianship hearing appointment is made. Post discharge planning in process. Per discussion with one-to-one sitter no behavioral issues. Discussed with psychiatry. Specific type unknown known but well documented in his records this [facility] Has been evaluated during this hospital stay for medical causes as follows: CT of the head with diffuse cerebral atrophy and chronic microvascular white matter disease Carotid artery Dopplers with less than 50% stenosis bilaterally Echocardiogram with normal systolic function, EF at 60%, grade 1 diastolic dysfunction Unremarkable troponin delta's and BNP Normal B12, folate, RPR, HIV, acute hepatitis panel and blood alcohol levels along with tox screen, Tylenol and salicylate levels, normal electrolytes and renal function No evidence of acute infection, normal CRP, normal procalcitonin a few months prior to admission and was started on Prozac for depression Demonstrates short and long-term memory loss and inability to make complex decisions. Has been seen by psychiatry as well and deemed to not have decision- making capacity for his own safety. On a 21-day hold and application has been made for guardianship. (2) Constipation: Chronic issue on laxative therapy I do not see a documented bowel movement since 06/27. We will add MiraLAX, Dulcolax suppository. (3) Hypothyroidism: Levothyroxine dose has been decreased down to 50 mcg daily. TSH 0.03 with normal free T3 (3.8) and an elevated thyroxine level/T4 (15.49) at presentation. Has chronically been on 125 mcg of levothyroxine. Values rechecked revealing TSH of 0.10 with free T4 of 1.70 and free T3 of 2.6. Levothyroxine dose decreased on September 03 to 50 mcg with plan to repeat laboratory studies in 4 weeks (4) Sore throat: Noted to have some mild thrush, possibly contributing to his persistent sore throat. Requesting oral nystatin. Stable mild sore throat, feels it is better than before. But symptoms persist. Stop Chloraseptic. Add Cepacol lozenges. I do not appreciate obvious pharyngitis. No venous distention. No submandibular swelling or tenderness. Cannot palpate tenderness on exam externally over SCM, mastoids, do not appreciate any swollen lymph nodes. Rapid strep noted negative. In case persistent symptoms consider also follow-up with ENT. (5) Altered mental status: Resolved to recent baseline which varies (6) Diabetes mellitus, type II: Glucose noted improved with change to consistent carbohydrate diet. Changed to consistent carbohydrate diet. Sliding scale insulin. New diagnosis, [id number], A1c 7.3, started on Januvia during hospit al stay. (7) Neck pain: Chief complaint upon arrival to the emergency room but not a current complaint. CT of the cervical spine showed no acute abnormalities. He may or may not have had a fall precipitating the neck pain. Not currently complaining of neck pain though has as needed cyclobenzaprine should pain recur. (8) Confusion: Resolved to recent baseline (9) Hyperlipidemia: Chronically on statin therapy (10) HTN (hypertension), benign: Currently at goal. Previous diagnosis, not an active medical condition, not on any medications for this prior to admission. Blood pressures have been in normal range and at times soft during hospital stay. (11) Atherosclerosis of coronary artery of [place] heart without angina pectoris: Denies any chest pain. Chronic diagnosis, history of single-vessel bypass surgery. (12) BPH w urinary obs/LUTS: Continue Flomax Plan Normocytic anemia, present on admission, slight drop likley iatrogenic. Follow- up CBC requested. Documentation reflects a right ankle fracture. He had an ankle fracture in July 2020. He has been able to ambulate. I do not get a sense of a recent fracture. CAM Walker is still included on his medication list from July 2020. Denies ankle pain with me. On home statin therapy, Flomax and gabapentin On lower dose of levothyroxine Need TSH rechecked ~ September 26 On laxative therapy Has had fluoxetine and Januvia added as new medications this hospital stay Monitor blood sugars Off of home diclofenac which was a as needed medication, not complaining of pain, with anemia, have continued to hold Tylenol for pain as needed, flexeril if muscle pain Benadryl topical for itchy spot on back Has Chloroseptic spray if needed Attestations Medical Necessity Statement*: Continue admission for optimization multiple medical problems, including thrush, constipation, pending guardianship hearing, disposition planning and ar rangements. Diagnoses Dementia F03.90 Constipation K59.00 Hypothyroidism E03.9 Sore throat J02.9 Altered mental status R41.82 Diabetes mellitus, type II E11.9 Neck pain M54.2 Confusion R41.0 Hyperlipidemia E78.5 HTN (hypertension), benign I10 Atherosclerosis of coronary artery of [place] heart without angina pectoris I25.10 BPH w urinary obs/LUTS N40.1; N13.8
[2022-09-10 12:00] VITALS: BP 110/66; PULSE 72; RESP 16; TEMP 36.9; O2SAT 99
[2022-09-10 12:00] LABS: Glucose Point of Care 114 mg/dL (70-110)
[2022-09-10 16:00] VITALS: BP 109/66; PULSE 62; RESP 16; TEMP 36.7; O2SAT 96
[2022-09-10 17:22] LABS: Glucose Point of Care 101 mg/dL (70-110)
[2022-09-10 19:57] VITALS: BP 124/65; PULSE 64; RESP 17; TEMP 36.8; O2SAT 98
[2022-09-10 21:44] LABS: Glucose Point of Care 123 mg/dL (70-110)
[2022-09-11] VITALS (7 sets, daily range): BP systolic 97–116; BP diastolic 53–65; PULSE 57–87; RESP 15–18; TEMP 36.4–36.8; O2SAT 93–98
[2022-09-11] MEDS: acetaminophen 325 mg Tablet 650 MG PO ×3 (03:06→17:31)
[2022-09-11 07:04] LABS: Glucose Point of Care 117 mg/dL (70-110)
[2022-09-11] MEDS: levothyroxine 50 mcg Tablet PO (07:54)
[2022-09-11] MEDS: thiamine 100 mg Tablet PO (07:54)
[2022-09-11] MEDS: fluoxetine 10 mg Capsule PO (07:54)
[2022-09-11] MEDS: polyethylene glycol 3350 Pkt 17 gm PO ×2 (07:54→17:30)
[2022-09-11] MEDS: gabapentin 100 mg Capsule PO ×2 (07:54→17:31)
[2022-09-11] MEDS: sennosides-docusate Tablet 2 TAB PO ×2 (07:54→17:31)
[2022-09-11] MEDS: cyclobenzaprine 10 mg Tablet 5 MG PO ×2 (07:55→17:31)
[2022-09-11] MEDS: pantoprazole DR 40 mg Tablet PO ×2 (07:55→17:31)
[2022-09-11] MEDS: tamsulosin 0.4 mg Capsule PO (07:55)
[2022-09-11] MEDS: multivitamin therapeutic Tablet 1 TAB PO (07:55)
[2022-09-11] MEDS: nystatin 100,000 unit/mL UDC 5 mL 400000 UNIT PO ×4 (07:55→21:28)
[2022-09-11] MEDS: sitagliptin 100 mg Tablet PO (07:55)
[2022-09-11] MEDS: enoxaparin 40 mg/0.4 mL Syringe SUBCUT (07:57)
[2022-09-11] MEDS: atorvastatin 40 mg Tablet PO (08:01)
--- NOTE | 2022-09-11 09:13 | P.NPUPN_ITS ---
Subjective NPU Subjective: The patient continues to remain in the hospital while awaiting hearing for guardianship. He appears to be tolerating them here in the hospital with no acts of aggression noted. He has been with a one-to-one and has been able to complete some exercise and has been redirectable and compliant with his medications. He continues to appear unable to provide any information and appears to be confused as he is unable to identify the mortgage underwriter of this note despite having seen him for 6 consecutive days. Mental Status Exam MSE Comments: This is a well-nourished well-developed white male in hospital clothing with adequate grooming and eye contact. No abnormal movements. Cooperative with exam in no acute distress. Speech was normal rate and volume. Mood described as okay. Affect is mood incongruent and flat. Thought process organized but confused. He had asked whether he had met me before. Thought content: Patient denied suicidal or homicidal ideation, there were no delusions reported or noted, he denied any auditory or visual hallucinations. Attention and concentration were limited and memory was impaired but none were formally tested. He is alert and oriented to person only. Insight, judgment and impulse control were impaired. Memory is impaired. Vitals/I&O/Wt Last Vital Signs Temp 98.0 F 09/11/22 08:00 Pulse 57 L 09/11/22 08:00 Resp 18 09/11/22 08:00 BP 109/61 09/11/22 08:00 Pulse Ox 97 09/11/22 08:00 O2 Del Method Room Air 09/11/22 08:00 09/10/22 09/11/22 09/11/22 22:59 06:59 14:59 Intake Total 240 / 840 Balance 240 / 840 Data NPU 09/10/22 03:13 09/03/22 05:18 Micro: Microbiology 09/07/22 16:55 Group A Streptococcus Rapid Screen - Final Throat Microbiology 09/07/22 16:55 Throat Group A Streptococcus Rapid Screen - Final A&P Assessment and plan (1) Dementia: (2) Altered mental status: Plan This is a 87-year-old male who appears to be suffering from significant dementia of unknown type who presents with confusion and appears to lack any ability to make decisions at this time. He clearly stability to make any long-term or short-term decisions due to his significant memory problems and requires guardianship. 1. Continue current medication. 2. Guardianship hearing in next 10 days, per schedule. Continue Prozac as prescribed. Attestations NPU Medical Necessity Statement*: Continued inpatient hospitalization as patient unable to return safely to home, no guardian in place. He will need placement in Dementia- Nursing Home Unit. Coding Level of Care Code Acute Code for [facility] Diagnoses Dementia F03.90 Altered mental status R41.82
[2022-09-11 12:09] LABS: Glucose Point of Care 94 mg/dL (70-110)
--- NOTE | 2022-09-11 13:40 | PC.SOCIAL ---
IMM Update IMM was not updated, pt is pending guardianship.
[2022-09-11 16:49] LABS: Glucose Point of Care 124 mg/dL (70-110)
--- NOTE | 2022-09-11 20:25 | PM.PN ---
Subjective Subjective: States he is doing all right. He intravitreous breakfast. Denies any pain or discomfort. He recognizes me from somewhere. Vitals/I&O/Wt Last Vital Signs Temp 97.9 F 09/11/22 19:37 Pulse 64 09/11/22 19:37 Resp 15 09/11/22 19:37 BP 108/55 09/11/22 19:37 Pulse Ox 98 09/11/22 19:37 O2 Del Method Room Air 09/11/22 19:37 09/11/22 09/11/22 09/11/22 06:59 14:59 22:59 Intake Total 600 / 600 240 / 840 Balance 600 / 600 240 / 840 Physical Exam Const: COMMON NORMALS: alert GENERAL APPEARANCE: cooperative ORIENTATION/CONSCIOUSNESS: Yes awake OTHER: Pleasant, interactive and conversant HENMT: COMMON NORMALS: oropharynx normal OTHER: I do not appreciate pharyngeal erythema or tonsillar enlargement. Mild-moderate thrush Neck/C-Spine: COMMON NORMALS: no JVD Resp: COMMON NORMALS: normal respiratory effort and clear to auscultation bilaterally AUSCULTATION: clear to auscultation bilaterally Cardio: COMMON NORMALS: no JVD, regular rhythm, S1 normal heart sound present, S2 normal heart sound present and No murmurs present (Cardio) RHYTHM: regular rhythm HEART SOUNDS: S1 normal heart sound present and S2 normal heart sound present GI: COMMON NORMALS: Normal to inspection, nondistended, normoactive bowel sounds present, Soft to palpation and non-tender PALPATION: Yes Soft to palpation Extremity: COMMON NORMALS: no joint enlargement and no pedal edema Neuro: COMMON NORMALS: moves all extremities SENSORIUM/ORIENTATION: Yes alert Skin: COMMON NORMALS: no rashes or lesions noted GENERAL SKIN EXAM: no rashes or lesions noted Data 09/10/22 03:13 09/03/22 05:18 Micro: Microbiology 09/07/22 16:55 Group A Streptococcus Rapid Screen - Final Throat A&P Assessment and plan (1) Dementia: Impaired memory and judgement. Guardianship hearing appointment is made. Post discharge planning in process. Per discussion with one-to-one sitter no behavioral issues. Specific type unknown known but well documented in his records this hospital stay Has been evaluated during this hospital stay for medical causes as follows: CT of the head with diffuse cerebral atrophy and chronic microvascular white matter disease Carotid artery Dopplers with less than 50% stenosis bilaterally Echocardiogram with normal systolic function, EF at 60%, grade 1 diastolic dysfunction Unremarkable troponin delta's and BNP Normal B12, folate, RPR, HIV, acute hepatitis panel and blood alcohol levels along with tox screen, Tylenol and salicylate levels, normal electrolytes and renal function No evidence of acute infection, normal CRP, normal procalcitonin a few months prior to admission and was started on Prozac for depression Demonstrates short and long-term memory loss and inability to make complex decisions. Has been seen by psychiatry as well and deemed to not have decision-making capacity for his own safety. On a 21-day hold and application has been made for guardianship. (2) Constipation: Chronic issue on laxative therapy I do not see a documented bowel movement since 06/27. We will add MiraLAX, Dulcolax suppository. (3) Hypothyroidism: Levothyroxine dose has been decreased down to 50 mcg daily. TSH 0.03 with normal free T3 (3.8) and an elevated thyroxine level/T4 (15.49) at presentation. Has chronically been on 125 mcg of levothyroxine. Values rechecked revealing TSH of 0.10 with free T4 of 1.70 and free T3 of 2.6. Levothyroxine dose decreased on September 03 to 50 mcg with plan to repeat laboratory studies in 4 weeks (4) Sore throat: Noted to have some mild thrush, possibly contributing to his persistent sore throat. Requesting oral nystatin. Stable mild sore throat, feels it is better than before. But symptoms persist. Stop Chloraseptic. Add Cepacol lozenges. I do not appreciate obvious pharyngitis. No venous distention. No submandibular swelling or tenderness. Cannot palpate tenderness on exam externally over SCM, mastoids, do not appreciate any swollen lymph nodes. Rapid strep noted negative. In case persistent symptoms consider also follow-up with ENT. (5) Altered mental status: Resolved to recent baseline which varies (6) Diabetes mellitus, type II: Glucose noted improved with change to consistent carbohydrate diet. Changed to consistent carbohydrate diet. Sliding scale insulin. New diagnosis, [id number], A1c 7.3, started on Januvia during hospital stay. (7) Neck pain: Chief complaint upon arrival to the emergency room but not a current complaint. CT of the cervical spine showed no acute abnormalities. He may or may not have had a fall precipitating the neck pain. Not currently complaining of neck pain though has as needed cyclobenzaprine should pain recur. (8) Confusion: Resolved to recent baseline (9) Hyperlipidemia: Chronically on statin therapy (10) HTN (hypertension), benign: Currently at goal. Previous diagnosis, not an active medical condition, not on any medications for this prior to admission. Blood pressures have been in normal range and at times soft during hospital stay. (11) Atherosclerosis of coronary artery of [place] heart without angina pectoris: Denies any chest pain. Chronic diagnosis, history of single-vessel bypass surgery. (12) BPH w urinary obs/LUTS: Continue Flomax Plan Normocytic anemia, present on admission, slight drop likley iatrogenic. Follow-up CBC appreciated. Documentation reflects a right ankle fracture. He had an ankle fracture in July 2020. He has been able to ambulate. I do not get a sense of a recent fracture. CAM Walker is still included on his medication list from July 2020. Denies ankle pain with me. On home statin therapy, Flomax and gabapentin On lower dose of levothyroxine Need TSH rechecked ~ September 26 On laxative therapy Has had fluoxetine and Januvia added as new medications this hospital stay Monitor blood sugars Off of home diclofenac which was a as needed medication, not complaining of pain, with anemia, have continued to hold Tylenol for pain as needed, flexeril if muscle pain Benadryl topical for itchy spot on back Has Chloroseptic spray if needed Attestations Medical Necessity Statement*: Continue admission for optimization multiple medical p roblems, including thrush, constipat ion, pending guard ianship hearing, d isposition plannin g and arrangements . Diagnoses Dementia F03.90 Constipation K59.00 Hypothyroidism E03.9 Sore throat J02.9 Altered mental status R41.82 Diabetes mellitus, type II E11.9 Neck pain M54.2 Confusion R41.0 Hyperlipidemia E78.5 HTN (hypertension), benign I10 Atherosclerosis of coronary artery of [place] heart without angina pectoris I25.10 BPH w urinary obs/LUTS N40.1; N13.8
[2022-09-11 20:44] LABS: Glucose Point of Care 115 mg/dL (70-110)
[2022-09-12 03:47] VITALS: BP 108/50; PULSE 56; RESP 16; TEMP 36.4; O2SAT 95
[2022-09-12 06:36] LABS: Glucose Point of Care 94 mg/dL (70-110)
[2022-09-12 08:06] VITALS: BP 104/59; PULSE 68; RESP 16; TEMP 36.8; O2SAT 98
[2022-09-12] MEDS: nystatin 100,000 unit/mL UDC 5 mL 400000 UNIT PO ×3 (09:04→16:37)
[2022-09-12] MEDS: sennosides-docusate Tablet 2 TAB PO ×2 (09:05→16:37)
[2022-09-12] MEDS: cyclobenzaprine 10 mg Tablet 5 MG PO (09:05)
[2022-09-12] MEDS: multivitamin therapeutic Tablet 1 TAB PO (09:05)
[2022-09-12] MEDS: atorvastatin 40 mg Tablet PO (09:05)
[2022-09-12] MEDS: acetaminophen 325 mg Tablet 650 MG PO (09:05)
[2022-09-12] MEDS: tamsulosin 0.4 mg Capsule PO (09:05)
[2022-09-12] MEDS: levothyroxine 50 mcg Tablet PO (09:05)
[2022-09-12] MEDS: gabapentin 100 mg Capsule PO ×2 (09:06→16:37)
[2022-09-12] MEDS: thiamine 100 mg Tablet PO (09:06)
[2022-09-12] MEDS: fluoxetine 10 mg Capsule PO (09:06)
[2022-09-12] MEDS: pantoprazole DR 40 mg Tablet PO ×2 (09:06→16:37)
[2022-09-12] MEDS: sitagliptin 100 mg Tablet PO (09:06)
[2022-09-12] MEDS: enoxaparin 40 mg/0.4 mL Syringe SUBCUT (09:07)
[2022-09-12] MEDS: polyethylene glycol 3350 Pkt 17 gm PO ×2 (09:07→16:35)
[2022-09-12 11:11] LABS: Glucose Point of Care 138 mg/dL (70-110)
[2022-09-12 11:43] VITALS: BP 100/61; PULSE 58; RESP 16; TEMP 37; O2SAT 97
[2022-09-12 16:00] VITALS: BP 109/67; PULSE 75; RESP 16; TEMP 36.8; O2SAT 97
[2022-09-12 16:51] LABS: Glucose Point of Care 132 mg/dL (70-110)
--- NOTE | 2022-09-12 18:31 | W.PM.NPUPNS ---
Subjective NPU Subjective: The patient continues to remain in the hospital while awaiting hearing for guardianship. He appears to be tolerating them here in the hospital with no acts of aggression noted. No changes appreciated today. Patient was informed today of a hearing scheduled for guardianship next week. Mental Status Exam MSE Comments: This is a well-nourished well-developed white male in hospital clothing with adequate grooming and eye contact. No abnormal movements. Cooperative with exam in no acute distress. Speech was normal rate and volume. Mood described as okay. Affect is mood incongruent and flat. Thought process organized but confused. He did not appear to recognize the sports book writer of this note.. Thought content: Patient denied suicidal or homicidal ideation, there were no delusions reported or noted, he denied any auditory or visual hallucinations. Attention and concentration were limited and memory was impaired but none were formally tested. He is alert and oriented to person only. Insight, judgment and impulse control were impaired. Memory is impaired. Vitals/I&O/Wt Last Vital Signs Temp 98.2 F 09/12/22 16:00 Pulse 75 09/12/22 16:00 Resp 16 09/12/22 16:00 BP 109/67 09/12/22 16:00 Pulse Ox 97 09/12/22 16:00 O2 Del Method Room Air 09/12/22 16:00 09/12/22 09/12/22 09/12/22 06:59 14:59 22:59 Intake Total 200 / 1040 360 / 360 600 / 960 Balance 200 / 1040 360 / 360 600 / 960 Data NPU 09/10/22 03:13 09/03/22 05:18 A&P Assessment and plan (1) Dementia: (2) Altered mental status: Plan This is a 87-year-old male who appears to be suffering from significant dementia of unknown type who presents with confusion and appears to lack any ability to make decisions at this time. He clearly stability to make any long-term or short-term decisions due to his significant memory problems and requires guardianship. 1. Continue current medication. 2. Guardianship hearing in on 09/19/22, per schedule. Continue Prozac as prescribed. Attestations NPU Medical Necessity Statement*: Continued inpatient hospitalization as patient unable to return safely to home, no guardian in place. He will need placement in Dementia- Penit[facility]iary Unit. Coding Level of Care Code Acute Code for [facility] Fwd Diagnoses Dementia F03.90 Altered mental status R41.82
[2022-09-12 19:35] VITALS: BP 123/61; PULSE 55; RESP 15; TEMP 36.8; O2SAT 98
--- NOTE | 2022-09-12 19:58 | P.PN_ITS ---
Subjective Subjective: Patient reports he is doing all right. Denies any complaints. Vitals/I&O/Wt Last Vital Signs Temp 98.2 F 09/12/22 19:35 Pulse 55 L 09/12/22 19:35 Resp 15 09/12/22 19:35 BP 123/61 09/12/22 19:35 Pulse Ox 98 09/12/22 19:35 O2 Del Method Room Air 09/12/22 19:35 09/12/22 09/12/22 09/12/22 06:59 14:59 22:59 Intake Total 200 / 1040 360 / 360 600 / 960 Balance 200 / 1040 360 / 360 600 / 960 Physical Exam Const: COMMON NORMALS: alert GENERAL APPEARANCE: cooperative ORIENTATION/CONSCIOUSNESS: Yes awake HENMT: COMMON NORMALS: oropharynx normal Neck/C-Spine: COMMON NORMALS: no JVD Resp: COMMON NORMALS: normal respiratory effort and clear to auscultation bilaterally AUSCULTATION: clear to auscultation bilaterally Cardio: COMMON NORMALS: no JVD, regular rhythm, S1 normal heart sound present, S2 normal heart sound present and No murmurs present (Cardio) RHYTHM: regular rhythm HEART SOUNDS: S1 normal heart sound present and S2 normal heart sound present GI: COMMON NORMALS: Normal to inspection, nondistended, normoactive bowel sounds present, Soft to palpation and non-tender PALPATION: Yes Soft to palpation Extremity: COMMON NORMALS: no joint enlargement and no pedal edema Neuro: COMMON NORMALS: moves all extremities SENSORIUM/ORIENTATION: Yes alert Skin: COMMON NORMALS: no rashes or lesions noted GENERAL SKIN EXAM: no rashes or lesions noted Data 09/10/22 03:13 09/03/22 05:18 A&P Assessment and plan (1) Dementia: Impaired memory and judgement. Guardianship hearing appointment is made. Post discharge planning in process. Per discussion with one-to-one sitter no behavioral issues. Specific type unknown known but well documented in his records this hospital stay Has been evaluated during this hospital stay for medical causes as follows: CT of the head with diffuse cerebral atrophy and chronic microvascular white matter disease Carotid artery Dopplers with less than 50% stenosis bilaterally Echocardiogram with normal systolic function, EF at 60%, grade 1 diastolic dysfunction Unremarkable troponin delta's and BNP Normal B12, folate, RPR, HIV, acute hepatitis panel and blood alcohol levels along with tox screen, Tylenol and salicylate levels, normal electrolytes and renal function No evidence of acute infection, normal CRP, normal procalcitonin a few months prior to admission and was started on Prozac for depress ion Demonstrates short and long-term memory loss and inability to make complex decisions. Has been seen by psychiatry as well and deemed to not have decision- making capacity for his own safety. On a 21-day hold and application has been made for guardianship. (2) Constipation: Chronic issue on laxative therapy I do not see a documented bowel movement since 06/27. We will add MiraLAX, Dulcolax suppository. (3) Hypothyroidism: Levothyroxine dose has been decreased down to 50 mcg daily. TSH 0.03 with normal free T3 (3.8) and an elevated thyroxine level/T4 (15.49) at presentation. Has chronically been on 125 mcg of levothyroxine. Values r echecked revealing TSH of 0.10 with free T4 of 1.70 and free T3 of 2.6. Levothyroxine dose decreased on September 03 to 50 mcg with plan to repeat laboratory studies in 4 weeks (4) Sore throat: Noted to have some mild thrush, possibly contributing to his persistent sore throat. Requesting oral nystatin. Stable mild sore throat, feels it is better than before. But symptoms persist. Stop Chloraseptic. Add Cepacol lozenges. I do not appreciate obvious pharyngitis. No venous distention. No submandibular swelling or tenderness. Cannot palpate tenderness on exam externally over SCM, mastoids, do not appreciate any swollen lymph nodes. Rapid strep noted negative. In case persistent symptoms consider also follow-up with ENT. (5) Altered mental status: Resolved to recent baseline which varies (6) Diabetes mellitus, type II: Glucose noted improved with change to consistent carbohydrate diet. Changed to consistent carbohydrate diet. Sliding scale insulin. New diagnosis, [id number], A1c 7.3, started on Januvia during hospital stay. (7) Neck pain: Chief complaint upon arrival to the emergency room but not a current complaint. CT of the cervical spine showed no acute abnormalities. He may or may not have had a fall precipitating the neck pain. Not currently complaining of neck pain though has as needed cyclobenzaprine should pain recur. (8) Confusion: Resolved to recent baseline (9) Hyperlipidemia: Chronically on statin therapy (10) HTN (hypertension), benign: Currently at goal. Previous diagnosis, not an active medical condition, not on any medications for this prior to admission. Blood pressures have been in normal range and at times soft during hospital stay. (11) Atherosclerosis of coronary artery of [place] heart without angina pectoris: Denies any chest pain. Chronic diagnosis, history of single-vessel bypass surgery. (12) BPH w urinary obs/LUTS: Continue Flomax Plan Normocytic anemia, present on admission, slight drop likley iatrogenic. Follow- up CBC appreciated. Documentation reflects a right ankle fracture. He had an ankle fracture in July 2020. He has been able to ambulate. I do not get a sense of a recent fracture. CAM Walker is still included on his medication list from July 2020. Denies ankle pain with me. On home statin therapy, Flomax and gabapentin On lower dose of levothyroxine Need TSH rechecked ~ September 26 On laxative therapy Has had fluoxetine and Januvia added as new medications this hospital stay Monitor blood sugars Off of home diclofenac which was a as needed medication, not complaining of pain, with anemia, have continued to hold Tylenol for pain as needed, flexeril if muscle pain Benadryl topical for itchy spot on back Has Chloroseptic spray if needed Attestations Medical Necessity Statement*: Continue hospitalization pending guardianship arrangements. Diagnoses Dementia F03.90 Constipation K59.00 Hypothyroidism E03.9 Sore throat J02.9 Altered mental status R41.82 Diabetes mellitus, type II E11.9 Neck pain M54.2 Confusion R41.0 Hyperlipidemia E78.5 HTN (hypertension), benign I10 Atherosclerosis of coronary artery of [place] heart without angina pectoris I25.10 BPH w urinary obs/LUTS N40.1; N13.8
[2022-09-12 20:38] LABS: Glucose Point of Care 122 mg/dL (70-110)
[2022-09-13] VITALS (7 sets, daily range): BP systolic 104–120; BP diastolic 54–66; PULSE 56–62; RESP 15–18; TEMP 36.4–37.2; O2SAT 95–98
[2022-09-13 06:35] LABS: Glucose Point of Care 103 mg/dL (70-110)
[2022-09-13] MEDS: polyethylene glycol 3350 Pkt 17 gm PO (09:44)
[2022-09-13] MEDS: enoxaparin 40 mg/0.4 mL Syringe SUBCUT (09:44)
[2022-09-13] MEDS: cyclobenzaprine 10 mg Tablet 5 MG PO (09:45)
[2022-09-13] MEDS: atorvastatin 40 mg Tablet PO (09:45)
[2022-09-13] MEDS: levothyroxine 50 mcg Tablet PO (09:46)
[2022-09-13] MEDS: fluoxetine 10 mg Capsule PO (09:46)
[2022-09-13] MEDS: pantoprazole DR 40 mg Tablet PO ×2 (09:46→17:33)
[2022-09-13] MEDS: tamsulosin 0.4 mg Capsule PO (09:46)
[2022-09-13] MEDS: sitagliptin 100 mg Tablet PO (09:46)
[2022-09-13] MEDS: thiamine 100 mg Tablet PO (09:46)
[2022-09-13] MEDS: gabapentin 100 mg Capsule PO ×2 (09:46→17:33)
[2022-09-13] MEDS: sennosides-docusate Tablet 2 TAB PO ×2 (09:46→17:33)
[2022-09-13] MEDS: multivitamin therapeutic Tablet 1 TAB PO (09:47)
[2022-09-13] MEDS: nystatin 100,000 unit/mL UDC 5 mL 400000 UNIT PO ×4 (09:47→20:06)
[2022-09-13 11:16] LABS: Glucose Point of Care 152 mg/dL (70-110)
--- NOTE | 2022-09-13 11:37 | PC.SOCIAL ---
IMM update pg 2 of IMM not updated. Guardianship has been applied for, pending court date.
[2022-09-13] MEDS: insulin lispro 100 unit/1 mL SUBCUT (12:59)
[2022-09-13 17:36] LABS: Glucose Point of Care 87 mg/dL (70-110)
--- NOTE | 2022-09-13 18:56 | P.NPUPN_ITS ---
Subjective NPU Subjective: The patient continues to remain in the hospital while awaiting hearing for guardianship. No reported issues were appreciated. He was able to tolerate one-to-one observation. He was pleasant and cooperative on interview. He continued to appear confused and remained uncertain as to whether or not he had met the typewriter assembly and parts inspector of this note. Mental Status Exam MSE Comments: This is a well-nourished well-developed white male in hospital clothing with adequate grooming and eye contact. No abnormal movements. Cooperative with exam in no acute distress. Speech was normal rate and volume. Mood described as allright. Affect is mood incongruent and flat. Thought process organized but confused. He did not appear to recognize the typewriter assembly and parts inspector of this note.. Thought content: Patient denied suicidal or homicidal ideation, there were no delusions reported or noted, he denied any auditory or visual hallucinations. Attention and concentration were limited and memory was impaired but none were formally tested. He is alert and oriented to person only. Insight, judgment and impulse control were impaired. Memory is impaired. Vitals/I&O/Wt Last Vital Signs Temp 97.7 F 09/13/22 16:00 Pulse 56 L 09/13/22 16:00 Resp 18 09/13/22 16:00 BP 106/57 09/13/22 16:00 Pulse Ox 98 09/13/22 16:00 O2 Del Method Room Air 09/13/22 16:00 09/13/22 09/13/22 09/13/22 06:59 14:59 22:59 Intake Total 960 / 960 480 / 1440 Balance 960 / 960 480 / 1440 Data NPU 09/10/22 03:13 09/03/22 05:18 A&P Assessment and plan (1) Dementia: (2) Altered mental status: Plan This is a 87-year-old male who appears to be suffering from significant dementia of unknown type who presents with confusion and appears to lack any ability to make decisions at this time. He clearly stability to make any long-term or short-term decisions due to his significant memory problems and requires guardianship. 1. Continue current medication. 2. Guardianship hearing in on 09/19/22, per schedule. Continue Prozac as prescribed. Attestations NPU Medical Necessity Statement*: Continued inpatient hospitalization as patient unable to return safely to home, no guardian in place. He will need placement in Dementia- Intermediate Unit. Coding Level of Care Code Acute Code for [facility] Fwd Diagnoses Dementia F03.90 Altered mental status R41.82
--- NOTE | 2022-09-13 21:42 | P.PN_ITS ---
Subjective Subjective: States he is doing all right today. Some soreness in his neck which she attributes to the pillow in his bed. Wants to go for a walk as taken by one-to-one sitter. Vitals/I&O/Wt Last Vital Signs Temp 98.9 F 09/13/22 19:14 Pulse 60 09/13/22 19:14 Resp 18 09/13/22 19:14 BP 117/61 09/13/22 19:14 Pulse Ox 95 09/13/22 19:14 O2 Del Method Room Air 09/13/22 16:00 09/13/22 09/13/22 09/13/22 06:59 14:59 22:59 Intake Total 960 / 960 480 / 1440 Balance 960 / 960 480 / 1440 Physical Exam Const: COMMON NORMALS: alert GENERAL APPEARANCE: cooperative ORIENTATION/CONSCIOUSNESS: Yes awake OTHER: Pleasant, interactive and conversant HENMT: COMMON NORMALS: oropharynx normal OTHER: Mild-moderate thrush Neck/C-Spine: COMMON NORMALS: no JVD Resp: COMMON NORMALS: normal respiratory effort and clear to auscultation bilaterally AUSCULTATION: clear to auscultation bilaterally Cardio: COMMON NORMALS: no JVD, regular rhythm, S1 normal heart sound present, S2 normal heart sound present and No murmurs present (Cardio) RHYTHM: regular rhythm HEART SOUNDS: S1 normal heart sound present and S2 normal heart sound present GI: COMMON NORMALS: Normal to inspection, nondistended, normoactive bowel sounds present, Soft to palpation and non-tender PALPATION: Yes Soft to palpation Extremity: COMMON NORMALS: no joint enlargement and no pedal edema Neuro: COMMON NORMALS: moves all extremities SENSORIUM/ORIENTATION: Yes alert Skin: COMMON NORMALS: no rashes or lesions noted GENERAL SKIN EXAM: no rashes or lesions noted Data 09/10/22 03:13 09/03/22 05:18 A&P Assessment and plan (1) Dementia: Guardianship hearing appointment is made. Post discharge planning in process. Per discussion with one-to-one sitter no behavioral issues. Specific type unknown known but well documented in his records this hospital stay Has been evaluated during this hospital stay for medical causes as follows: CT of the head with diffuse cerebral atrophy and chronic microvascular white matter disease Carotid artery Dopplers with less than 50% stenosis bilaterally Echocardiogram with normal systolic function, EF at 60%, grade 1 diastolic dysfunction Unremarkable troponin delta's and BNP Normal B12, folate, RPR, HIV, acute hepatitis panel and blood alcohol levels along with tox screen, Tylenol and salicylate levels, normal electrolytes and renal function No evidence of acute infection, normal CRP, normal procalcitonin a few months prior to admission and was started on Prozac for depression Demonstrates short and long-term memory loss and inability to make complex decisions. Has been seen by psychiatry as well and deemed to not have decision- making capacity for his own safety. On a 21-day hold and application has been made for guardianship. (2) Constipation: Chronic issue on laxative therapy I do not see a documented bowel movement since 06/27. We will add MiraLAX, Dulcolax suppository. (3) Hypothyroidism: Levothyroxine dose has been decreased down to 50 mcg daily. TSH 0.03 with normal free T3 (3.8) and an elevated thyroxine level/T4 (15.49) at presentation. Has chronically been on 125 mcg of levothyroxine. Values rechecked revealing TSH of 0.10 with free T4 of 1.70 and free T3 of 2.6. Levothyroxine dose decreased on September 03 to 50 mcg with plan to repeat laboratory studies in 4 weeks (4) Sore throat: Noted to have some mild thrush, possibly contributing to his persistent sore throat. Requesting oral nystatin. Stable mild sore throat, feels it is better than before. But symptoms persist. Stop Chloraseptic. Add Cepacol lozenges. I do not appreciate obvious pharyngitis. No venous distention. No submandibular swelling or tenderness. Cannot palpate tenderness on exam externally over SCM, mastoids, do not appreciate any swollen lymph nodes. Rapid strep noted negative. In case persistent symptoms consider also follow-up with ENT. (5) Altered mental status: Resolved to recent baseline which varies (6) Diabetes mellitus, type II: Glucose noted improved with change to consistent carbohydrate diet. Changed to consistent carbohydrate diet. Sliding scale insulin. New diagnosis, [id number], A1c 7.3, started on Januvia during hospital stay. (7) Neck pain: Chief complaint upon arrival to the emergency room but not a current complaint. CT of the cervical spine showed no acute abnormalities. He may or may not have had a fall precipitating the neck pain. Not currently complaining of neck pain though has as needed cyclobenzaprine should pain recur. (8) Confusion: Resolved to recent baseline (9) Hyperlipidemia: Chronically on statin therapy (10) HTN (hypertension), benign: Currently at goal. Previous diagnosis, not an active medical condition, not on any medications for this prior to admission. Blood pressures have been in normal range and at times soft during hospital stay. (11) Atherosclerosis of coronary artery of [place] heart without angina pectoris: Denies any chest pain. Chronic diagnosis, history of single-vessel bypass surgery. (12) BPH w urinary obs/LUTS: Continue Flomax Plan Normocytic anemia, present on admission, slight drop likley iatrogenic. Follow- up CBC appreciated. Documentation reflects a right ankle fracture. He had an ankle fracture in July 2020. He has been able to ambulate. I do not get a sense of a recent fracture. CAM Walker is still included on his medication list from July 2020. Denies ankle pain with me. On home statin therapy, Flomax and gabapentin On lower dose of levothyroxine Need TSH rechecked ~ September 26 On laxative therapy Has had fluoxetine and Januvia added as new medications this hospital stay Monitor blood sugars Off of home diclofenac which was a as needed medication, not complaining of pain , with anemia, have continued to hold Tylenol for pain as needed, flexeril if muscle pain Benadryl topical for itchy spot on back Has Chloroseptic spray if needed Attestations Medical Necessity Statement*: Continue hospitalization pending guardianship arrangements. Diagnoses Dementia F03.90 Constipation K59.00 Hypothyroidism E03.9 Sore throat J02.9 Altered mental status R41.82 Diabetes mellitus, type II E11.9 Neck pain M54.2 Confusion R41.0 Hyperlipidemia E78.5 HTN (hypertension), benign I10 Atherosclerosis of coronary artery of [place] heart without angina pectoris I25.10 BPH w urinary obs/LUTS N40.1; N13.8
[2022-09-14 03:58] VITALS: BP 115/60; PULSE 62; RESP 17; TEMP 37.2; O2SAT 96
[2022-09-14 06:55] LABS: Glucose Point of Care 109 mg/dL (70-110)
[2022-09-14 08:00] VITALS: BP 131/73; PULSE 53; RESP 16; TEMP 36.6; O2SAT 99
[2022-09-14] MEDS: nystatin 100,000 unit/mL UDC 5 mL 400000 UNIT PO ×4 (08:15→20:14)
[2022-09-14] MEDS: sitagliptin 100 mg Tablet PO (08:16)
[2022-09-14] MEDS: polyethylene glycol 3350 Pkt 17 gm PO (08:16)
[2022-09-14] MEDS: multivitamin therapeutic Tablet 1 TAB PO (08:16)
[2022-09-14] MEDS: sennosides-docusate Tablet 2 TAB PO (08:16)
[2022-09-14] MEDS: atorvastatin 40 mg Tablet PO (08:16)
[2022-09-14] MEDS: gabapentin 100 mg Capsule PO ×2 (08:16→17:45)
[2022-09-14] MEDS: fluoxetine 10 mg Capsule PO (08:16)
[2022-09-14] MEDS: thiamine 100 mg Tablet PO (08:16)
[2022-09-14] MEDS: levothyroxine 50 mcg Tablet PO (08:16)
[2022-09-14] MEDS: tamsulosin 0.4 mg Capsule PO (08:16)
[2022-09-14] MEDS: pantoprazole DR 40 mg Tablet PO ×2 (08:27→17:45)
[2022-09-14 11:32] LABS: Glucose Point of Care 116 mg/dL (70-110)
[2022-09-14 12:00] VITALS: BP 122/66; PULSE 52; RESP 16; TEMP 36.6; O2SAT 98
[2022-09-14 16:00] VITALS: BP 116/64; PULSE 60; RESP 17; TEMP 36.7; O2SAT 97
[2022-09-14 17:19] LABS: Glucose Point of Care 145 mg/dL (70-110)
--- NOTE | 2022-09-14 17:22 | W.PM.NPUPNS ---
Subjective NPU Subjective: The patient continues to remain in the hospital while awaiting hearing for guardianship. No reported issues were appreciated. He was able to tolerate one-to-one observation. He was pleasant and cooperative on interview. The patient was served papers regarding his guardianship hearing today. He had also had a visit from his son. There did not appear to be any noted problems today. He had had an episode of diarrhea per one-to-one Mental Status Exam MSE Comments: Mike Barahona is a well-nourished well-developed white male in hospital clothing with adequate grooming and eye contact. He was pleasant and cooperative. No abnormal movements. He appeared in no acute distress. Speech was normal rate and volume. Mood described as allright. Affect is euthymic today. Thought process organized but confused. He did not appear to recognize the race and sports book writer of this note.. Thought content: Patient denied suicidal or homicidal ideation, there were no delusions reported or noted, he denied any auditory or visual hallucinations. Attention and concentration were limited and memory was impaired but none were formally tested. He is alert and oriented to person only. Insight, judgment and impulse control were impaired. Memory is impaired. Vitals/I&O/Wt Last Vital Signs Temp 97.8 F 09/14/22 12:00 Pulse 52 L 09/14/22 12:00 Resp 16 09/14/22 12:00 BP 122/66 09/14/22 12:00 Pulse Ox 98 09/14/22 12:00 O2 Del Method Room Air 09/14/22 12:00 09/14/22 09/14/22 09/14/22 06:59 14:59 22:59 Intake Total 120 / 1560 720 / 720 Balance 120 / 1560 720 / 720 Data NPU 09/10/22 03:13 09/03/22 05:18 A&P Assessment and plan (1) Dementia: (2) Altered mental status: Plan This is a 87-year-old male who appears to be suffering from significant dementia of unknown type who presents with confusion and appears to lack any ability to make decisions at this time. He clearly stability to make any long-term or short-term decisions due to his significant memory problems and requires guardianship. 1. Continue current medication. 2. Guardianship hearing in on 09/19/22, per schedule. Continue Prozac as prescribed. Attestations NPU Medical Necessity Statement*: Continued inpatient hospitalization as patient unable to return safely to home, no guardian in place. He will need placement in Dementia- Shelter Unit. Coding Level of Care Code Acute Code for Chg Fwd Diagnoses Dementia F03.90 Altered mental status R41.82
[2022-09-14] MEDS: insulin lispro 100 unit/1 mL SUBCUT (17:45)
--- NOTE | 2022-09-14 18:00 | PM.PN ---
Subjective Subjective: Resting, wakes up easily. Pleasant. Says he is doing well. Denies pain or discomfort. Denies neck pain. Some pain in the back of his mouth, but says it is getting better. When asked if it ever looked in his mouth before, states no . Vitals/I&O/Wt Last Vital Signs Temp 98.0 F 09/14/22 16:00 Pulse 60 09/14/22 16:00 Resp 17 09/14/22 16:00 BP 116/64 09/14/22 16:00 Pulse Ox 97 09/14/22 16:00 O2 Del Method Room Air 09/14/22 16:00 09/14/22 09/14/22 09/14/22 06:59 14:59 22:59 Intake Total 120 / 1560 720 / 720 Balance 120 / 1560 720 / 720 Physical Exam Const: COMMON NORMALS: alert GENERAL APPEARANCE: cooperative ORIENTATION/CONSCIOUSNESS: Yes awake OTHER: Pleasant, interactive and conversant HENMT: COMMON NORMALS: oropharynx normal OTHER: Mild-moderate thrush Neck/C-Spine: COMMON NORMALS: no JVD Resp: COMMON NORMALS: normal respiratory effort and clear to auscultation bilaterally AUSCULTATION: clear to auscultation bilaterally Cardio: COMMON NORMALS: no JVD, regular rhythm, S1 normal heart sound present, S2 normal heart sound present and No murmurs present (Cardio) RHYTHM: regular rhythm HEART SOUNDS: S1 normal heart sound present and S2 normal heart sound present GI: COMMON NORMALS: Normal to inspection, nondistended, normoactive bowel sounds present, Soft to palpation and non-tender PALPATION: Yes Soft to palpation Extremity: COMMON NORMALS: no joint enlargement and no pedal edema Neuro: COMMON NORMALS: moves all extremities SENSORIUM/ORIENTATION: Yes alert Skin: COMMON NORMALS: no rashes or lesions noted GENERAL SKIN EXAM: no rashes or lesions noted Data 09/10/22 03:13 09/03/22 05:18 A&P Assessment and plan (1) Dementia: Guardianship hearing appointment is made. Post discharge planning in process. Per discussion with one-to-one sitter no behavioral issues. Specific type unknown known but well documented in his records this hospital stay Has been evaluated during this hospital stay for medical causes as follows: CT of the head with diffuse cerebral atrophy and chronic microvascular white matter disease Carotid artery Dopplers with less than 50% stenosis bilaterally Echocardiogram with normal systolic function, EF at 60%, grade 1 diastolic dysfunction Unremarkable troponin delta's and BNP Normal B12, folate, RPR, HIV, acute hepatitis panel and blood alcohol levels along with tox screen, Tylenol and salicylate levels, normal electrolytes and renal function No evidence of acute infection, normal CRP, normal procalcitonin a few months prior to admission and was started on Prozac for depression Demonstrates short and long-term memory loss and inability to make complex decisions. Has been seen by psychiatry as well and deemed to not have decision-making capacity for his own safety. On a 21-day hold and application has been made for guardianship. (2) Constipation: Chronic issue on laxative therapy I do not see a documented bowel movement since 06/27. We will add MiraLAX, Dulcolax suppository. (3) Hypothyroidism: Levothyroxine dose has been decreased down to 50 mcg daily. TSH 0.03 with normal free T3 (3.8) and an elevated thyroxine level/T4 (15.49) at presentation. Has chronically been on 125 mcg of levothyroxine. Values rechecked revealing TSH of 0.10 with free T4 of 1.70 and free T3 of 2.6. Levothyroxine dose decreased on September 03 to 50 mcg with plan to repeat laboratory studies in 4 weeks (4) Sore throat: Noted to have some mild thrush, possibly contributing to his persistent sore throat. Requesting oral nystatin. Stable mild sore throat, feels it is better than before. But symptoms persist. Stop Chloraseptic. Add Cepacol lozenges. I do not appreciate obvious pharyngitis. No venous distention. No submandibular swelling or tenderness. Cannot palpate tenderness on exam externally over SCM, mastoids, do not appreciate any swollen lymph nodes. Rapid strep noted negative. In case persistent symptoms consider also follow-up with ENT. (5) Altered mental status: Resolved to recent baseline which varies (6) Diabetes mellitus, type II: Glucose noted improved with change to consistent carbohydrate diet. Changed to consistent carbohydrate diet. Sliding scale insulin. New diagnosis, [id number], A1c 7.3, started on Januvia during hospital stay. (7) Neck pain: Chief complaint upon arrival to the emergency room but not a current complaint. CT of the cervical spine showed no acute abnormalities. He may or may not have had a fall precipitating the neck pain. Not currently complaining of neck pain though has as needed cyclobenzaprine should pain recur. (8) Confusion: Resolved to recent baseline (9) Hyperlipidemia: Chronically on statin therapy (10) HTN (hypertension), benign: Currently at goal. Previous diagnosis, not an active medical condition, not on any medications for this prior to admission. Blood pressures have been in normal range and at times soft during hospital stay. (11) Atherosclerosis of coronary artery of [place] heart without angina pectoris: Denies any chest pain. Chronic diagnosis, history of single-vessel bypass surgery. (12) BPH w urinary obs/LUTS: Continue Flomax Plan Normocytic anemia, present on admission, slight drop likley iatrogenic. Follow-up CBC appreciated. Documentation reflects a right ankle fracture. He had an ankle fracture in July 2020. He has been able to ambulate. I do not get a sense of a recent fracture. CAM Walker is still included on his medication list from July 2020. Denies ankle pain with me. On home statin therapy, Flomax and gabapentin On lower dose of levothyroxine Need TSH rechecked ~ September 26 On laxative therapy Has had fluoxetine and Januvia added as new medications this hospital stay Monitor blood sugars Off of home diclofenac which was a as needed medication, not complaining of pain, with anemia, have continued to hold Tylenol for pain as needed, flexeril if muscle pain Benadryl topical for itchy spot on back Has Chloroseptic spray if needed Attestations Medical Necessity Statement*: Pending hearing for guardianship. Diagnoses Dementia F03.90 Constipation K59.00 Hypothyroidism E03.9 Sore throat J02.9 Altered mental status R41.82 Diabetes mellitus, type II E11.9 Neck pain M54.2 Confusion R41.0 Hyperlipidemia E78.5 HTN (hypertension), benign I10 Atherosclerosis of coronary artery of [place] heart without angina pectoris I25.10 BPH w urinary obs/LUTS N40.1; N13.8
[2022-09-14 19:26] VITALS: BP 105/57; PULSE 60; RESP 16; TEMP 36.7; O2SAT 95
[2022-09-14] MEDS: acetaminophen 325 mg Tablet 650 MG PO (20:18)
[2022-09-14 20:47] LABS: Glucose Point of Care 89 mg/dL (70-110)
[2022-09-14 23:41] VITALS: BP 107/60; PULSE 63; RESP 16; TEMP 36.7; O2SAT 95
[2022-09-15 03:59] VITALS: BP 113/65; PULSE 55; RESP 16; O2SAT 95
[2022-09-15 06:04] LABS: Glucose Point of Care 110 mg/dL (70-110)
[2022-09-15 08:00] VITALS: BP 118/52; PULSE 69; RESP 15; TEMP 36.8; O2SAT 97
[2022-09-15] MEDS: tamsulosin 0.4 mg Capsule PO (09:05)
[2022-09-15] MEDS: levothyroxine 50 mcg Tablet PO (09:05)
[2022-09-15] MEDS: sitagliptin 100 mg Tablet PO (09:05)
[2022-09-15] MEDS: multivitamin therapeutic Tablet 1 TAB PO (09:05)
[2022-09-15] MEDS: atorvastatin 40 mg Tablet PO (09:05)
[2022-09-15] MEDS: gabapentin 100 mg Capsule PO ×2 (09:05→17:58)
[2022-09-15] MEDS: fluoxetine 10 mg Capsule PO (09:05)
[2022-09-15] MEDS: polyethylene glycol 3350 Pkt 17 gm PO ×2 (09:05→17:58)
[2022-09-15] MEDS: thiamine 100 mg Tablet PO (09:05)
[2022-09-15] MEDS: pantoprazole DR 40 mg Tablet PO ×2 (09:05→17:58)
[2022-09-15] MEDS: nystatin 100,000 unit/mL UDC 5 mL 400000 UNIT PO ×4 (09:06→20:40)
[2022-09-15] MEDS: sennosides-docusate Tablet 2 TAB PO ×2 (09:06→17:58)
[2022-09-15 11:18] LABS: Glucose Point of Care 166 mg/dL (70-110)
[2022-09-15] MEDS: insulin lispro 100 unit/1 mL SUBCUT (11:53)
--- NOTE | 2022-09-15 12:27 | PC.SOCIAL ---
IMM Update IMM was not updated, pt is pending guardianship.
--- NOTE | 2022-09-15 16:36 | W.PM.NPUPNS ---
Subjective NPU Subjective: The patient continues to remain in the hospital while awaiting hearing for guardianship. No substantiated changes noted. He continued to appear confused and uncertain as to whether he had met people before but remained pleasant and cooperative. Mental Status Exam MSE Comments: Mike Barahona is a well-nourished well-developed white male in hospital clothing with adequate grooming and eye contact. He was pleasant and cooperative. No abnormal movements. He appeared in no acute distress. Speech was normal rate and volume. Mood described as okay.. Affect is euthymic and mood congruent.. Thought process organized but confused. He did not appear to recognize the video game script writer of this note.. Thought content: Patient denied suicidal or homicidal ideation, there were no delusions reported or noted, he denied any auditory or visual hallucinations. Attention and concentration were limited and memory was impaired but none were formally tested. He is alert and oriented to person only. He struggles with naming objects but when objects names were given he was able to determine what the object was today. Insight, judgment and impulse control were impaired. Memory remains impaired. Vitals/I&O/Wt Last Vital Signs Temp 98.2 F 09/15/22 08:00 Pulse 69 09/15/22 08:00 Resp 15 09/15/22 08:00 BP 118/52 09/15/22 08:00 Pulse Ox 97 09/15/22 08:00 O2 Del Method Room Air 09/15/22 08:00 09/15/22 09/15/22 09/15/22 06:59 14:59 22:59 Intake Total 240 / 960 720 / 720 Balance 240 / 960 720 / 720 Data NPU 09/10/22 03:13 09/03/22 05:18 A&P Assessment and plan (1) Dementia: (2) Altered mental status: Plan This is a 87-year-old male who appears to be suffering from significant dementia of unknown type who presents with confusion and appears to lack any ability to make decisions at this time. He clearly stability to make any long-term or short-term decisions due to his significant memory problems and requires guardianship. 1. Continue current medication. 2. Guardianship hearing in on 09/19/22, per schedule. Continue Prozac as prescribed. Attestations NPU Medical Necessity Statement*: Continued inpatient hospitalization as patient unable to return safely to home, no guardian in place. He will need placement in Dementia- [facility] Unit. Coding Level of Care Code Acute Code for g Fwd Diagnoses Dementia F03.90 Altered mental status R41.82
[2022-09-15 17:44] LABS: Glucose Point of Care 124 mg/dL (70-110)
[2022-09-15 19:20] VITALS: BP 116/68; PULSE 87; RESP 16; TEMP 36.8; O2SAT 96
[2022-09-15] MEDS: acetaminophen 325 mg Tablet 650 MG PO (20:41)
[2022-09-15 21:25] LABS: Glucose Point of Care 158 mg/dL (70-110)
--- NOTE | 2022-09-15 21:58 | P.PN_ITS ---
Subjective Subjective: States he is doing well. When asked about anything that bothers him at all, notes some posterior neck discomfort/tenderness laying in bed, otherwise denies any new symptoms. Not bothered by any pain in his mouth. Vitals/I&O/Wt Last Vital Signs Temp 98.3 F 09/15/22 19:20 Pulse 87 09/15/22 19:20 Resp 16 09/15/22 19:20 BP 116/68 09/15/22 19:20 Pulse Ox 96 09/15/22 19:20 O2 Del Method Room Air 09/15/22 19:20 09/15/22 09/15/22 09/15/22 06:59 14:59 22:59 Intake Total 240 / 960 720 / 720 240 / 960 Balance 240 / 960 720 / 720 240 / 960 Physical Exam Const: COMMON NORMALS: alert GENERAL APPEARANCE: cooperative ORIENTATION/CONSCIOUSNESS: Yes awake OTHER: Pleasant, interactive and conversant HENMT: COMMON NORMALS: oropharynx normal OTHER: Improving, no mild thrush Neck/C-Spine: COMMON NORMALS: no JVD OTHER: No erythema/rash, swelling or any wounds. Resp: COMMON NORMALS: normal respiratory effort and clear to auscultation bilaterally AUSCULTATION: clear to auscultation bilaterally Cardio: COMMON NORMALS: no JVD, regular rhythm, S1 normal heart sound present, S2 normal heart sound present and No murmurs present (Cardio) RHYTHM: regular rhythm HEART SOUNDS: S1 normal heart sound present and S2 normal heart sound present GI: COMMON NORMALS: Normal to inspection, nondistended, normoactive bowel sounds present, Soft to palpation and non-tender PALPATION: Yes Soft to palpation Extremity: COMMON NORMALS: no joint enlargement and no pedal edema Neuro: COMMON NORMALS: moves all extremities SENSORIUM/ORIENTATION: Yes alert Skin: COMMON NORMALS: no rashes or lesions noted GENERAL SKIN EXAM: no rashes or lesions noted Data 09/10/22 03:13 09/03/22 05:18 A&P Assessment and plan (1) Dementia: Guardianship hearing appointment is made. Post discharge planning in process. Per discussion with one-to-one sitter no behavioral issues. Specific type unknown known but well documented in his records this hospital stay Has been evaluated during this hospital stay for medical causes as follows: CT of the head with diffuse cerebral atrophy and chronic microvascular white matter disease Carotid artery Dopplers with less than 50% stenosis bilaterally Echocardiogram with normal systolic function, EF at 60%, grade 1 diastolic dysfunction Unremarkable troponin delta's and BNP Normal B12, folate, RPR, HIV, acute hepatitis panel and blood alcohol levels along with tox screen, Tylenol and salicylate levels, normal electrolytes and renal function No evidence of acute infection, normal CRP, normal procalcitonin a few months prior to admission and was started on Prozac for depress ion Demonstrates short and long-term memory loss and inability to make complex decisions. Has been seen by psychiatry as well and deemed to not have decision- making capacity for his own safety. On a 21-day hold and application has been made for guardianship. (2) Constipation: Chronic issue on laxative therapy I do not see a documented bowel movement since 06/27. We will add MiraLAX, Dulcolax suppository. (3) Neck pain: Bothered by some posterior neck pain. Afebrile, no other meningeal signs. Cervical spine CT reviewed, soft tissues unremarkable. Noted mild DJD. Chief complaint upon arrival to the emergency room but not a current complaint. CT of the cervical spine showed no acute abnormalities. He may or may not have had a fall precipitating the neck pain. Not currently complaining of neck pain though has as needed cyclobenzaprine should pain recur. (4) Hypothyroidism: Levothyroxine dose has been decreased down to 50 mcg daily. TSH 0.03 with normal free T3 (3.8) and an elevated thyroxine level/T4 (15.49) at presentation. Has chronically been on 125 mcg of levothyroxine. Values rechecked revealing TSH of 0.10 with free T4 of 1.70 and free T3 of 2.6. Levothyroxine dose decreased on September 03 to 50 mcg with plan to repeat laboratory studies in 4 weeks (5) Sore throat: Noted to have some mild thrush, possibly contributing to his persistent sore throat. Requesting oral nystatin. Stable mild sore throat, feels it is better than before. But symptoms persist. Stop Chloraseptic. Add Cepacol lozenges. I do not appreciate obvious pharyngitis. No venous distention. No submandibular swelling or tenderness. Cannot palpate tenderness on exam externally over SCM, mastoids, do not appreciate any swollen lymph nodes. Rapid strep noted negative. In case persistent symptoms consider also follow-up with ENT. (6) Altered mental status: Resolved to recent baseline which varies (7) Diabetes mellitus, type II: Glucose noted improved with change to consistent carbohydrate diet. Changed to consistent carbohydrate diet. Sliding scale insulin. New diagnosis, [id number], A1c 7.3, started on Januvia during hospital stay. (8) Confusion: Resolved to recent baseline (9) Hyperlipidemia: Chronically on statin therapy (10) HTN (hypertension), benign: Currently at goal. Previous diagnosis, not an active medical condition, not on any medications for this prior to admission. Blood pressures have been in normal range and at times soft during hospital stay. (11) Atherosclerosis of coronary artery of [place] heart without angina pectoris: Denies any chest pain. Chronic diagnosis, history of single-vessel bypass surgery. (12) BPH w urinary obs/LUTS: Continue Flomax Plan Normocytic anemia, present on admission, slight drop likley iatrogenic. Follow- up CBC appreciated. Documentation reflects a right ankle fracture. He had an ankle fracture in July 2020. He has been able to ambulate. I do not get a sense of a recent fracture. CAM Walker is still included on his medication list from July 2020. Denies ankle pain with me. On home statin therapy, Flomax and gabapentin On lower dose of levothyroxine Need TSH rechecked ~ September 26 On laxative therapy Has had fluoxetine and Januvia added as new medications this hospital stay Monitor blood sugars Off of home diclofenac which was a as needed medication, not complaining of pain, with anemia, have continued to hold Tylenol for pain as needed, flexeril if muscle pain Benadryl topical for itchy spot on back Has Chloroseptic spray if needed Attestations Medical Necessity Statement*: Continue hospitalization pending hearing for guardianship. Diagnoses Dementia F03.90 Constipation K59.00 Neck pain M54.2 Hypothyroidism E03.9 Sore throat J02.9 Altered mental status R41.82 Diabetes mellitus, type II E11.9 Confusion R41.0 Hyperlipidemia E78.5 HTN (hypertension), benign I10 Atherosclerosis of coronary artery of [place] heart without angina pectoris I25.10 BPH w urinary obs/LUTS N40.1; N13.8
[2022-09-15 23:51] VITALS: BP 104/55; PULSE 73; RESP 16; TEMP 36.6; O2SAT 95
--- NOTE | 2022-09-16 03:39 | PC.NURSE ---
BM Was c/o to nurse and sitter that he felt constipated and couldn't really remember when he had a BM. Requested a laxative but when went to get it he decided to go to the bathroom and try on his own. Did have a formed BM and laxative not administered at this time
[2022-09-16 03:50] VITALS: BP 112/61; PULSE 56; RESP 16; TEMP 36.6; O2SAT 97
[2022-09-16 06:58] LABS: Glucose Point of Care 112 mg/dL (70-110)
[2022-09-16 08:00] VITALS: BP 116/61; PULSE 57; RESP 14; TEMP 36.7; O2SAT 99
[2022-09-16] MEDS: sennosides-docusate Tablet 2 TAB PO ×2 (09:52→18:32)
[2022-09-16] MEDS: gabapentin 100 mg Capsule PO ×2 (09:52→18:32)
[2022-09-16] MEDS: pantoprazole DR 40 mg Tablet PO ×2 (09:52→18:32)
[2022-09-16] MEDS: atorvastatin 40 mg Tablet PO (09:52)
[2022-09-16] MEDS: fluoxetine 10 mg Capsule PO (09:52)
[2022-09-16] MEDS: thiamine 100 mg Tablet PO (09:52)
[2022-09-16] MEDS: polyethylene glycol 3350 Pkt 17 gm PO ×2 (09:52→18:31)
[2022-09-16] MEDS: sitagliptin 100 mg Tablet PO (09:52)
[2022-09-16] MEDS: tamsulosin 0.4 mg Capsule PO (09:52)
[2022-09-16] MEDS: nystatin 100,000 unit/mL UDC 5 mL 400000 UNIT PO ×4 (09:52→21:10)
[2022-09-16] MEDS: multivitamin therapeutic Tablet 1 TAB PO (09:52)
[2022-09-16] MEDS: levothyroxine 50 mcg Tablet PO (09:52)
[2022-09-16 11:39] LABS: Glucose Point of Care 165 mg/dL (70-110)
[2022-09-16 12:00] VITALS: BP 109/61; PULSE 58; RESP 17; TEMP 36.6; O2SAT 98
[2022-09-16] MEDS: insulin lispro 100 unit/1 mL SUBCUT (13:04)
[2022-09-16 16:00] VITALS: BP 120/69; PULSE 75; RESP 16; TEMP 36.7; O2SAT 98
[2022-09-16 18:29] LABS: Glucose Point of Care 92 mg/dL (70-110)
[2022-09-16 19:31] VITALS: BP 110/49; PULSE 60; RESP 17; TEMP 36.7; O2SAT 98
--- NOTE | 2022-09-16 19:56 | P.PN_ITS ---
Subjective Subjective: States that he ate well, no trouble with his breakfast and he enjoyed it. Are you a doctor here? States he is doing well. Asks if he can be let go to the bank branch to check on his bank account as he is worried about it. Also states he is worried about a financial company which she would go to his son. Vitals/I&O/Wt Last Vital Signs Temp 98.0 F 09/16/22 19:31 Pulse 60 09/16/22 19:31 Resp 17 09/16/22 19:31 BP 110/49 09/16/22 19:31 Pulse Ox 98 09/16/22 19:31 O2 Del Method Room Air 09/16/22 19:31 09/16/22 09/16/22 09/16/22 06:59 14:59 22:59 Intake Total 200 / 1160 720 / 720 240 / 960 Balance 200 / 1160 720 / 720 240 / 960 Physical Exam Narrative: One-to-one sitter at bedside. Const: COMMON NORMALS: alert GENERAL APPEARANCE: cooperative ORIENTATION/CONSCIOUSNESS: Yes awake OTHER: Pleasant, interactive and conversant HENMT: COMMON NORMALS: oropharynx normal OTHER: Improving, no mild thrush Neck/C-Spine: COMMON NORMALS: no JVD OTHER: No erythema/rash, swelling or any wounds. Resp: COMMON NORMALS: normal respiratory effort and clear to auscultation bilaterally AUSCULTATION: clear to auscultation bilaterally Cardio: COMMON NORMALS: no JVD, regular rhythm, S1 normal heart sound present, S2 normal heart sound present and No murmurs present (Cardio) RHYTHM: regular rhythm HEART SOUNDS: S1 normal heart sound present and S2 normal heart sound present GI: COMMON NORMALS: Normal to inspection, nondistended, normoactive bowel sounds present, Soft to palpation and non-tender PALPATION: Yes Soft to palpation Extremity: COMMON NORMALS: no joint enlargement and no pedal edema Neuro: COMMON NORMALS: moves all extremities SENSORIUM/ORIENTATION: Yes alert Skin: COMMON NORMALS: no rashes or lesions noted GENERAL SKIN EXAM: no rashes or lesions noted Data 09/10/22 03:13 09/03/22 05:18 A&P Assessment and plan (1) Dementia: Guardianship hearing appointment is made. Post discharge planning in process. Per discussion with one-to-one sitter no behavioral issues. Specific type unknown known but well documented in his records this hospital stay Has been evaluated during this hospital stay for medical causes as follows: CT of the head with diffuse cerebral atrophy and chronic microvascular white matter disease Carotid artery Dopplers with less than 50% stenosis bilaterally Echocardiogram with normal systolic function, EF at 60%, grade 1 diastolic dysfunction Unremarkable troponin delta's and BNP Normal B12, folate, RPR, HIV, acute hepatitis panel and blood alcohol levels along with tox screen, Tylenol and salicylate levels, normal electrolytes and renal function No evidence of acute infection, normal CRP, normal procalcitonin a few months prior to admission and was started on Prozac for depression Demonstrates short and long-term memory loss and inability to make complex decisions. Has been seen by psychiatry as well and deemed to not have decision- making capacity for his own safety. On a 21-day hold and application has been made for guardianship. (2) Constipation: Chronic issue on laxative therapy I do not see a documented bowel movement since 06/27. We will add MiraLAX, Dulcolax suppository. (3) Neck pain: Bothered by some posterior neck pain. Afebrile, no other meningeal signs. Cervical spine CT reviewed, soft tissues unremarkable. Noted mild DJD. Chief complaint upon arrival to the emergency room but not a current complaint. CT of the cervical spine showed no acute abnormalities. He may or may not have had a fall precipitating the neck pain. Not currently complaining of neck pain though has as needed cyclobenzaprine should pain recur. (4) Hypothyroidism: Levothyroxine dose has been decreased down to 50 mcg daily. TSH 0.03 with normal free T3 (3.8) and an elevated thyroxine level/T4 (15.49) at presentation. Has chronically been on 125 mcg of levothyroxine. Values rechecked revealing TSH of 0.10 with free T4 of 1.70 and free T3 of 2.6. Levothyroxine dose decreased on September 03 to 50 mcg with plan to repeat laboratory studies in 4 weeks (5) Sore throat: Noted to have some mild thrush, possibly contributing to his persistent sore throat. Requesting oral nystatin. Stable mild sore throat, feels it is better than before. But symptoms persist. Stop Chloraseptic. Add Cepacol lozenges. I do not appreciate obvious pharyngitis. No venous distention. No submandibular swelling or tenderness. Cannot palpate tenderness on exam externally over SCM, mastoids, do not appreciate any swollen lymph nodes. Rapid strep noted negative. In case persistent symptoms consider also follow-up with ENT. (6) Altered mental status: Resolved to recent baseline which varies (7) Diabetes mellitus, type II: Glucose noted improved with change to consistent carbohydrate diet. Changed to consistent carbohydrate diet. Sliding scale insulin. New diagnosis, [id number], A1c 7.3, started on Januvia during hospital stay. (8) Confusion: Resolved to recent baseline (9) Hyperlipidemia: Chronically on statin therapy (10) HTN (hypertension), benign: Currently at goal. Previous diagnosis, not an active medical condition, not on any medications for this prior to admission. Blood pressures have been in normal range and at times soft during hospital stay. (11) Atherosclerosis of coronary artery of [place] heart without angina pectoris: Denies any chest pain. Chronic diagnosis, history of single-vessel bypass surgery. (12) BPH w urinary obs/LUTS: Continue Flomax Plan Normocytic anemia, present on admission, slight drop likley iatrogenic. Follow- up CBC appreciated. Documentation reflects a right ankle fracture. He had an ankle fracture in July 2020. He has been able to ambulate. I do not get a sense of a recent fracture. CAM Walker is still included on his medication list from July 2020. Denies ankle pain with me. On home statin therapy, Flomax and gabapentin On lower dose of levothyroxine Need TSH rechecked ~ September 26 On laxative therapy Has had fluoxetine and Januvia added as new medications this hospital stay Monitor blood sugars Off of home diclofenac which was a as needed medication, not complaining of pain, with anemia, have continued to hold Tylenol for pain as needed, flexeril if muscle pain Benadryl topical for itchy spot on back Has Chloroseptic spray if needed Attestations Medical Necessity Statement*: Continue admission pending guardianship hearing. 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
--- NOTE | 2022-09-16 20:07 | P.NPUPN_ITS ---
Subjective NPU Subjective: Patient presented today essentially unchanged since this commercial underwriter went off service on 09/04/2022. We discussed his hearing on Monday and the likely plan for placement very quickly thereafter. He seemed to understand what was going on and expressed wanting his son to possibly function in the guardianship role. Otherwise there have been no changes he reports that he continues to struggle with short-term memory in real-time but did recall this commercial underwriter. Mental Status Exam MSE Comments: This is a well-nourished well-developed white male in hospital clothing with adequate grooming and eye contact. He was pleasant and cooperative. No abnormal movements. He appeared in no acute distress. Speech was normal rate and volume. Mood described as okay. Affect is euthymic and mood congruent.. Thought process organized but confused. Thought content: Patient denied suicidal or homicidal ideation, there were no delusions reported or noted, he denied any auditory or visual hallucinations. Attention and concentration were limited and memory was impaired but none were formally tested. He is alert and oriented to person only. He struggles with naming objects. Insight, judgment and impulse control were impaired. Memory remains impaired. Vitals/I&O/Wt Last Vital Signs Temp 98.0 F 09/16/22 19:31 Pulse 60 09/16/22 19:31 Resp 17 09/16/22 19:31 BP 110/49 09/16/22 19:31 Pulse Ox 98 09/16/22 19:31 O2 Del Method Room Air 09/16/22 19:31 09/16/22 09/16/22 09/16/22 06:59 14:59 22:59 Intake Total 200 / 1160 720 / 720 240 / 960 Balance 200 / 1160 720 / 720 240 / 960 Data NPU 09/10/22 03:13 09/03/22 05:18 A&P Assessment and plan (1) Dementia: (2) Altered mental status: Plan This is a 87-year-old male who appears to be suffering from significant dementia of unknown type who presents with confusion and appears to lack any ability to make decisions at this time. He clearly stability to make any long-term or short-term decisions due to his significant memory problems and requires guardianship. 1. Continue current medication. 2. Guardianship hearing in on 09/19/22, per schedule. Continue Prozac as prescribed. Attestations NPU Medical Necessity Statement*: Continued inpatient hospitalization as patient unable to return safely to home, no guardian in place. He will need placement in [facility]. Coding Level of Care Code Acute Code for Chg Fwd Diagnoses Dementia F03.90 Altered mental status R41.82
[2022-09-16 22:03] LABS: Glucose Point of Care 146 mg/dL (70-110)
[2022-09-16 23:58] VITALS: BP 99/47; PULSE 56; RESP 17; TEMP 36.7; O2SAT 96
[2022-09-17 03:53] VITALS: BP 112/59; PULSE 59; RESP 16; TEMP 36.7; O2SAT 96
[2022-09-17 06:38] LABS: Glucose Point of Care 108 mg/dL (70-110)
[2022-09-17 08:00] VITALS: BP 111/60; PULSE 57; TEMP 36.6; O2SAT 97
[2022-09-17] MEDS: nystatin 100,000 unit/mL UDC 5 mL 400000 UNIT PO ×4 (08:22→20:48)
[2022-09-17] MEDS: fluoxetine 10 mg Capsule PO (08:23)
[2022-09-17] MEDS: gabapentin 100 mg Capsule PO ×2 (08:23→17:21)
[2022-09-17] MEDS: thiamine 100 mg Tablet PO (08:23)
[2022-09-17] MEDS: tamsulosin 0.4 mg Capsule PO (08:23)
[2022-09-17] MEDS: sennosides-docusate Tablet 2 TAB PO ×2 (08:23→17:21)
[2022-09-17] MEDS: atorvastatin 40 mg Tablet PO (08:23)
[2022-09-17] MEDS: levothyroxine 50 mcg Tablet PO (08:23)
[2022-09-17] MEDS: multivitamin therapeutic Tablet 1 TAB PO (08:23)
[2022-09-17] MEDS: polyethylene glycol 3350 Pkt 17 gm PO ×2 (08:23→17:22)
[2022-09-17] MEDS: pantoprazole DR 40 mg Tablet PO ×2 (08:23→17:21)
[2022-09-17 12:00] VITALS: BP 130/62; PULSE 70; RESP 18; O2SAT 99
[2022-09-17 12:01] LABS: Glucose Point of Care 91 mg/dL (70-110)
[2022-09-17 16:00] VITALS: BP 113/52; PULSE 64; RESP 15; TEMP 36.6; O2SAT 97
--- NOTE | 2022-09-17 16:00 | PC.SOCIAL ---
IMM Update IMM was not updated, pt is pending guardianship.
[2022-09-17 17:21] LABS: Glucose Point of Care 101 mg/dL (70-110)
[2022-09-17 20:00] VITALS: BP 111/61; PULSE 57; RESP 17; TEMP 36.4; O2SAT 98
--- NOTE | 2022-09-17 20:14 | PM.PN ---
Subjective Subjective: Supine, napping. Wakes up to voice. Reports she is doing all right. When asked if anything is bothering him, states some soreness in his neck. 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 Denies any oral pain. Denies trouble swallowing. Vitals/I&O/Wt Last Vital Signs Temp 98 F 09/17/22 16:00 Pulse 64 09/17/22 16:00 Resp 15 09/17/22 16:00 BP 113/52 09/17/22 16:00 Pulse Ox 97 09/17/22 16:00 O2 Del Method Room Air 09/17/22 03:53 09/17/22 09/17/22 09/17/22 06:59 14:59 22:59 Intake Total 600 / 600 360 / 960 Balance 600 / 600 360 / 960 Physical Exam Narrative: One-to-one sitter at bedside. Const: COMMON NORMALS: alert GENERAL APPEARANCE: cooperative ORIENTATION/CONSCIOUSNESS: Yes awake OTHER: Pleasant, interactive and conversant HENMT: COMMON NORMALS: oropharynx normal OTHER: Improving, mild thrush Neck/C-Spine: COMMON NORMALS: no JVD OTHER: No erythema/rash, swelling or any wounds. Resp: COMMON NORMALS: normal respiratory effort and clear to auscultation bilaterally AUSCULTATION: clear to auscultation bilaterally Cardio: COMMON NORMALS: no JVD, regular rhythm, S1 normal heart sound present, S2 normal heart sound present and No murmurs present (Cardio) RHYTHM: regular rhythm HEART SOUNDS: S1 normal heart sound present and S2 normal heart sound present GI: COMMON NORMALS: Normal to inspection, nondistended, normoactive bowel sounds present, Soft to palpation and non-tender PALPATION: Yes Soft to palpation Extremity: COMMON NORMALS: no joint enlargement and no pedal edema Neuro: COMMON NORMALS: moves all extremities SENSORIUM/ORIENTATION: Yes alert Skin: COMMON NORMALS: no rashes or lesions noted GENERAL SKIN EXAM: no rashes or lesions noted Data 09/10/22 03:13 09/03/22 05:18 A&P Assessment and plan (1) Dementia: Discussed with one-to-one sitter, he has been doing well. No behavioral issues. Guardianship hearing appointment is made. Post discharge planning in process. Specific type unknown known but well documented in his records this hospital stay Has been evaluated during this hospital stay for medical causes as follows: CT of the head with diffuse cerebral atrophy and chronic microvascular white matter disease Carotid artery Dopplers with less than 50% stenosis bilaterally Echocardiogram with normal systolic function, EF at 60%, grade 1 diastolic dysfunction Unremarkable troponin delta's and BNP Normal B12, folate, RPR, HIV, acute hepatitis panel and blood alcohol levels along with tox screen, Tylenol and salicylate levels, normal electrolytes and renal function Will also check vitamin D. No evidence of acute infection, normal CRP, normal procalcitonin a few months prior to admission and was started on Prozac for depression Demonstrates short and long-term memory loss and inability to make complex decisions. Has been seen by psychiatry as well and deemed to not have decision-making capacity for his own safety. On a 21-day hold and application has been made for guardianship. (2) Constipation: Chronic issue on laxative therapy I do not see a documented bowel movement since 06/27. We will add MiraLAX, Dulcolax suppository. (3) Neck pain: Add lidocaine patch. Bothered by some posterior neck pain. Afebrile, no other meningeal signs. Cervical spine CT reviewed, soft tissues unremarkable. Noted mild DJD. Chief complaint upon arrival to the emergency room but not a current complaint. CT of the cervical spine showed no acute abnormalities. He may or may not have had a fall precipitating the neck pain. Not currently complaining of neck pain though has as needed cyclobenzaprine should pain recur. (4) Hypothyroidism: Levothyroxine dose has been decreased down to 50 mcg daily. TSH 0.03 with normal free T3 (3.8) and an elevated thyroxine level/T4 (15.49) at presentation. Has chronically been on 125 mcg of levothyroxine. Values rechecked revealing TSH of 0.10 with free T4 of 1.70 and free T3 of 2.6. Levothyroxine dose decreased on September 03 to 50 mcg with plan to repeat laboratory studies in 4 weeks (5) Sore throat: Improving thrush. Continue oral nystatin. Stable mild sore throat, feels it is better than before. But symptoms persist. Stop Chloraseptic. Add Cepacol lozenges. I do not appreciate obvious pharyngitis. No venous distention. No submandibular swelling or tenderness. Cannot palpate tenderness on exam externally over SCM, mastoids, do not appreciate any swollen lymph nodes. Rapid strep noted negative. In case persistent symptoms consider also follow-up with ENT. (6) Altered mental status: Resolved to recent baseline which varies (7) Diabetes mellitus, type II: Doing well with his glucose, 101. Glucose noted improved with change to consistent carbohydrate diet. Changed to consistent carbohydrate diet. Sliding scale insulin. New diagnosis, [id number], A1c 7.3, started on Januvia during hospital stay. (8) Confusion: Resolved to recent baseline (9) Hyperlipidemia: Chronically on statin therapy (10) HTN (hypertension), benign: Currently at goal. Previous diagnosis, not an active medical condition, not on any medications for this prior to admission. Blood pressures have been in normal range and at times soft during hospital stay. (11) Atherosclerosis of coronary artery of [place] heart without angina pectoris: Denies any chest pain. Chronic diagnosis, history of single-vessel bypass surgery. (12) BPH w urinary obs/LUTS: Continue Flomax Plan Normocytic anemia, present on admission, slight drop likley iatrogenic. Follow-up CBC appreciated. Documentation reflects a right ankle fracture. He had an ankle fracture in July 2020. He has been able to ambulate. I do not get a sense of a recent fracture. CAM Walker is still included on his medication list from July 2020. Denies ankle pain with me. On lower dose of levothyroxine Need TSH rechecked ~ September 26 Off of home diclofenac which was a as needed medication, not complaining of pain, with anemia, have continued to hold Attestations Medical Necessity Statement*: Continue admission pending arrangements for guardianship. Diagnoses Dementia F03.90 Constipation K59.00 Neck pain M54.2 Hypothyroidism E03.9 Sore throat J02.9 Altered mental status R41.82 Diabetes mellitus, type II E11.9 Confusion R41.0 Hyperlipidemia E78.5 HTN (hypertension), benign I10 Atherosclerosis of coronary artery of [place] heart without angina pectoris I25.10 BPH w urinary obs/LUTS N40.1; N13.8
[2022-09-17 20:45] LABS: Glucose Point of Care 95 mg/dL (70-110)
[2022-09-17] MEDS: lidocaine 5% Patch 1 PATCH TOPICAL (20:49)
--- NOTE | 2022-09-17 23:19 | P.NPUPN_ITS ---
Subjective NPU Subjective: Patient presented today continuing to be pleasant and seeming to overall get the essence of what is happening. We continued to discuss his desire to have his son be his guardian and remain involved in his affairs. We continued to review the guardianship hearing and our plan to immediately get him to a nursing facility. He continues to show profound memory problems with poor working memor y often asking for a review of the conversation seconds after completing a description. Mental Status Exam MSE Comments: This is a well-nourished well-developed white male in hospital clothing with adequate grooming and eye contact. No abnormal movements. Cooperative with exam in no acute distress. Speech was normal rate and volume. Mood described as fine, affect congruent. Thought process organized but confused. Thought content: Patient denied suicidal or homicidal ideation, there were no delusions reported or noted, he denied any auditory or visual hallucinations. Attention and concentration were limited and memory was impaired but none were formally tested. He is alert and oriented times person. Insight, judgment and impulse control were impaired. Vitals/I&O/Wt Last Vital Signs Temp 97.5 F L 09/17/22 20:00 Pulse 57 L 09/17/22 20:00 Resp 17 09/17/22 20:00 BP 111/61 09/17/22 20:00 Pulse Ox 98 09/17/22 20:00 O2 Del Method Room Air 09/17/22 03:53 09/17/22 09/17/22 09/18/22 14:59 22:59 06:59 Intake Total 600 / 600 600 / 1200 Balance 600 / 600 600 / 1200 Data NPU 09/10/22 03:13 09/03/22 05:18 A&P Assessment and plan (1) Dementia: (2) Altered mental status: Plan This is a 87-year-old male who appears to be suffering from significant dementia of unknown type who presents with confusion and appears to lack any ability to make decisions at this time. He clearly stability to make any long-term or short-term decisions due to his significant memory problems and requires guardianship. 1. Continue current medication. 2. Guardianship hearing in on 09/19/22, per schedule. Continue Prozac as prescribed. Attestations NPU Medical Necessity Statement*: Continued inpatient hospitalization as patient unable to return safely to home, no guardian in place. He will need placement in Dementia- [facility] Unit. Coding Level of Care Code Acute Code for [facility] Fwd Diagnoses Dementia F03.90 Altered mental status R41.82
[2022-09-17 23:49] VITALS: BP 119/67; PULSE 72; RESP 16; TEMP 36.6; O2SAT 98
[2022-09-18 04:00] VITALS: BP 123/69; PULSE 63; RESP 16; TEMP 36.7; O2SAT 97
[2022-09-18 07:18] LABS: Glucose Point of Care 120 mg/dL (70-110)
[2022-09-18 07:50] LABS: 25 Hydroxy Vitamin D 29 ng/mL (30-100)
[2022-09-18 08:00] VITALS: BP 118/70; PULSE 54; RESP 17; TEMP 36.9; O2SAT 99
[2022-09-18] MEDS: atorvastatin 40 mg Tablet PO (09:02)
[2022-09-18] MEDS: cyclobenzaprine 10 mg Tablet 5 MG PO (09:02)
[2022-09-18] MEDS: fluoxetine 10 mg Capsule PO (09:02)
[2022-09-18] MEDS: gabapentin 100 mg Capsule PO ×2 (09:02→17:05)
[2022-09-18] MEDS: nystatin 100,000 unit/mL UDC 5 mL 400000 UNIT PO ×3 (09:02→17:05)
[2022-09-18] MEDS: polyethylene glycol 3350 Pkt 17 gm PO ×2 (09:02→17:05)
[2022-09-18] MEDS: pantoprazole DR 40 mg Tablet PO ×2 (09:02→17:05)
[2022-09-18] MEDS: tamsulosin 0.4 mg Capsule PO (09:02)
[2022-09-18] MEDS: sennosides-docusate Tablet 2 TAB PO ×2 (09:02→17:05)
[2022-09-18] MEDS: multivitamin therapeutic Tablet 1 TAB PO (09:02)
[2022-09-18] MEDS: levothyroxine 50 mcg Tablet PO (09:03)
[2022-09-18] MEDS: lidocaine 5% Patch 1 PATCH TOPICAL ×2 (09:04→20:51)
[2022-09-18] MEDS: thiamine 100 mg Tablet PO (09:04)
[2022-09-18] MEDS: ergocalciferol (vitamin D2) 50,000 Unit Capsule 50000 UNIT PO (09:30)
--- NOTE | 2022-09-18 09:58 | W.PM.NPUPNS ---
Subjective NPU Subjective: Patient presented today reporting that he is doing okay. We spent a significant period of time talking about his hearing tomorrow. We talked about making sure his son was aware of the hearing and his son happened to come and visit while we were talking. So son is fully aware of the hearing tomorrow. Son did ask whether something like a vitamin like iron if it was replaced appropriately might help his memory return. We discussed that the treatment team has reviewed the different correctable causes of memory difficulties like this and none seem apparent. We discussed the likelihood that discharge would happen as soon as tomorrow but certainly in the next 48 to 72 hours. Mental Status Exam MSE Comments: This is a well-nourished well-developed white male in hospital clothing with adequate grooming and eye contact. No abnormal movements. Cooperative with exam in no acute distress. Speech was normal rate and volume. Mood described as fine, affect congruent. Thought process organized but confused. Thought content: Patient denied suicidal or homicidal ideation, there were no delusions reported or noted, he denied any auditory or visual hallucinations. Attention and concentration were limited and memory was impaired but none were formally tested. He is alert and oriented times person. Insight, judgment and impulse control were impaired. Vitals/I&O/Wt Last Vital Signs Temp 98.4 F 09/18/22 08:00 Pulse 54 L 09/18/22 08:00 Resp 17 09/18/22 08:00 BP 118/70 09/18/22 08:00 Pulse Ox 99 09/18/22 08:00 O2 Del Method Room Air 09/18/22 04:00 09/17/22 09/18/22 09/18/22 22:59 06:59 14:59 Intake Total 600 / 1200 360 / 360 Balance 600 / 1200 360 / 360 Data NPU 09/10/22 03:13 09/03/22 05:18 A&P Assessment and plan (1) Dementia: (2) Altered mental status: Plan This is a 87-year-old male who appears to be suffering from significant dementia of unknown type who presents with confusion and appears to lack any ability to make decisions at this time. He clearly stability to make any long-term or short-term decisions due to his significant memory problems and requires guardianship. 1. Continue current medication. 2. Guardianship hearing tomorrow, 4/24/23, reportedly at 8:30 AM. Continue Prozac as prescribed. 3. Agree with discharge as soon as appropriate [facility] available. Attestations NPU Medical Necessity Statement*: Continued inpatient hospitalization as patient unable to return safely to home, no guardian in place. He will need [facility]. Likely discharge as soon as tomorrow once facility determined and guardianship established. Coding Level of Care Code Acute Code for [facility] Fwd Diagnoses Dementia F03.90 Altered mental status R41.82
[2022-09-18 11:16] VITALS: BP 107/58; PULSE 60; RESP 16; TEMP 36.7; O2SAT 97
[2022-09-18 12:05] LABS: Glucose Point of Care 130 mg/dL (70-110)
--- NOTE | 2022-09-18 15:34 | PC.NURSE ---
Patient stated, That layla zavala that was here today, I think he's one of satponcho's people. (referring to Dr. Mrecado) This nurse stated, What makes you say that? 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 Patient did not respond and continued staring out the window of his room.
[2022-09-18 15:57] VITALS: BP 123/63; PULSE 58; RESP 18; TEMP 36.7; O2SAT 99
[2022-09-18 16:21] LABS: Glucose Point of Care 114 mg/dL (70-110)
[2022-09-18 19:28] VITALS: BP 102/56; PULSE 59; RESP 17; TEMP 36.7; O2SAT 97
[2022-09-18 21:13] LABS: Glucose Point of Care 146 mg/dL (70-110)
--- NOTE | 2022-09-18 22:38 | P.PN_ITS ---
Subjective Subjective: He reports he is doing well. When asked about it with lidocaine patch soreness in the back of his neck seems to be less bothersome. No mouth pain or sore throat. Vitals/I&O/Wt Last Vital Signs Temp 98.1 F 09/18/22 19:28 Pulse 59 L 09/18/22 19:28 Resp 17 09/18/22 19:28 BP 102/56 09/18/22 19:28 Pulse Ox 97 09/18/22 19:28 O2 Del Method Room Air 09/18/22 19:28 09/18/22 09/18/22 09/18/22 06:59 14:59 22:59 Intake Total 600 / 600 360 / 960 Balance 600 / 600 360 / 960 Physical Exam Narrative: One-to-one sitter at bedside. Const: COMMON NORMALS: alert GENERAL APPEARANCE: cooperative ORIENTATION/CONSCIOUSNESS: Yes awake OTHER: Pleasant, interactive and conversant HENMT: COMMON NORMALS: oropharynx normal OTHER: Improving, mild thrush Neck/C-Spine: COMMON NORMALS: no JVD OTHER: No erythema/rash, swelling or any wounds. Resp: COMMON NORMALS: normal respiratory effort and clear to auscultation bilaterally AUSCULTATION: clear to auscultation bilaterally Cardio: COMMON NORMALS: no JVD, regular rhythm, S1 normal heart sound present, S2 normal heart sound present and No murmurs present (Cardio) RHYTHM: regular rhythm HEART SOUNDS: S1 normal heart sound present and S2 normal heart sound present GI: COMMON NORMALS: Normal to inspection, nondistended, normoactive bowel sounds present, Soft to palpation and non-tender PALPATION: Yes Soft to palpation Extremity: COMMON NORMALS: no joint enlargement and no pedal edema Neuro: COMMON NORMALS: moves all extremities SENSORIUM/ORIENTATION: Yes alert Skin: COMMON NORMALS: no rashes or lesions noted GENERAL SKIN EXAM: no rashes or lesions noted Data 09/10/22 03:13 09/03/22 05:18 A&P Assessment and plan (1) Dementia: Discussed with one-to-one sitter, he has been doing well. No behavioral issues. Guardianship hearing appointment is made. Post discharge planning in process. Specific type unknown known but well documented in his records this hospital stay Has been evaluated during this hospital stay for medical causes as follows: CT of the head with diffuse cerebral atrophy and chronic microvascular white matter disease Carotid artery Dopplers with less than 50% stenosis bilaterally Echocardiogram with normal systolic function, EF at 60%, grade 1 diastolic dysfunction Unremarkable troponin delta's and BNP Normal B12, folate, RPR, HIV, acute hepatitis panel and blood alcohol levels along with tox screen, Tylenol and salicylate levels, normal electrolytes and renal function Will also check vitamin D. No evidence of acute infection, normal CRP, normal procalcitonin a few months prior to admission and was started on Prozac for depression Demonstrates short and long-term memory loss and inability to make complex decisions. Has been seen by psychiatry as well and deemed to not have decision- making capacity for his own safety. On a 21-day hold and application has been made for guardianship. (2) Constipation: Chronic issue on laxative therapy I do not see a documented bowel movement since 06/27. We will add MiraLAX, Dulcolax suppository. (3) Neck pain: Lidocaine patch appears to be helping his symptoms. Bothered by some posterior neck pain. Afebrile, no other meningeal signs. Cervical spine CT reviewed, soft tissues unremarkable. Noted mild DJD. Chief complaint upon arrival to the emergency room but not a current complaint. CT of the cervical spine showed no acute abnormalities. He may or may not have had a fall precipitating the neck pain. Not currently complaining of neck pain though has as needed cyclobenzaprine should pain recur. (4) Hypothyroidism: Levothyroxine dose has been decreased down to 50 mcg daily. TSH 0.03 with normal free T3 (3.8) and an elevated thyroxine level/T4 (15.49) at presentation. Has chronically been on 125 mcg of levothyroxine. Values rechecked revealing TSH of 0.10 with free T4 of 1.70 and free T3 of 2.6. Levothyroxine dose decreased on September 03 to 50 mcg with plan to repeat laboratory studies in 4 weeks (5) Sore throat: Improving thrush. Continue oral nystatin. Stable mild sore throat, feels it is better than before. But symptoms persist. Stop Chloraseptic. Add Cepacol lozenges. I do not appreciate obvious pharyngitis. No venous distention. No submandibular swelling or tenderness. Cannot palpate tenderness on exam externally over SCM, mastoids, do not appreciate any swollen lymph nodes. Rapid strep noted negative. In case persistent symptoms consider also follow-up with ENT. (6) Altered mental status: Resolved to recent baseline which varies (7) Diabetes mellitus, type II: Doing well with his glucose, 101. Glucose noted improved with change to consistent carbohydrate diet. Changed to consistent carbohydrate diet. Sliding scale insulin. New diagnosis, [id number], A1c 7.3, started on Januvia during [facility]. (8) Confusion: Resolved to recent baseline (9) Hyperlipidemia: Chronically on statin therapy (10) HTN (hypertension), benign: Currently at goal. Previous diagnosis, not an active medical condition, not on any medications for this prior to admission. Blood pressures have been in normal range and at times soft during hospital stay. 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 Chronic diagnosis, history of single-vessel bypass surgery. (12) BPH w urinary obs/LUTS: Continue Flomax Plan Normocytic anemia, present on admission, slight drop likley iatrogenic. Follow- up CBC appreciated. Documentation reflects a right ankle fracture. He had an ankle fracture in July 2020. He has been able to ambulate. I do not get a sense of a recent f racture. CAM Walker is still included on his medication list from July 2020. Denies ankle pain with me. On lower dose of levothyroxine Need TSH rechecked ~ September 26 Off of home diclofenac which was a as needed medication, not complaining of pain, with anemia, have continued to hold Attestations Medical Necessity Statement*: Continue admission pending arrangements for guardianship. 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
[2022-09-19] VITALS (7 sets, daily range): BP systolic 100–128; BP diastolic 48–76; PULSE 55–89; RESP 15–18; TEMP 36.5–36.8; O2SAT 95–99
[2022-09-19 06:26] LABS: Glucose Point of Care 127 mg/dL (70-110)
[2022-09-19] MEDS: polyethylene glycol 3350 Pkt 17 gm PO ×2 (08:10→17:09)
[2022-09-19] MEDS: multivitamin therapeutic Tablet 1 TAB PO (08:11)
[2022-09-19] MEDS: thiamine 100 mg Tablet PO (08:11)
[2022-09-19] MEDS: nystatin 100,000 unit/mL UDC 5 mL 400000 UNIT PO ×4 (08:11→20:58)
[2022-09-19] MEDS: sennosides-docusate Tablet 2 TAB PO ×2 (08:11→17:09)
[2022-09-19] MEDS: fluoxetine 10 mg Capsule PO (08:11)
[2022-09-19] MEDS: levothyroxine 50 mcg Tablet PO (08:11)
[2022-09-19] MEDS: atorvastatin 40 mg Tablet PO (08:11)
[2022-09-19] MEDS: gabapentin 100 mg Capsule PO ×2 (08:11→17:09)
[2022-09-19] MEDS: cholecalciferol (vitamin D3) 1,000 unit Tablet 2000 UNIT PO (08:11)
[2022-09-19] MEDS: pantoprazole DR 40 mg Tablet PO ×2 (08:12→17:09)
[2022-09-19] MEDS: tamsulosin 0.4 mg Capsule PO (08:12)
[2022-09-19 11:18] LABS: Glucose Point of Care 98 mg/dL (70-110)
--- NOTE | 2022-09-19 12:15 | P.NPUPN_ITS ---
Subjective NPU Subjective: Patient presented today reporting that he is doing okay. He is awaiting the hearing today hopes of being a part of the process. We continued to discuss the purpose of the hearing and he continues to report wanting his son to serve as his guardian if he has to have a guardian. We also discussed the plan for him to go to a care home or some other life facility once the guardianship dete rmination is made. Mental Status Exam MSE Comments: This is a well-nourished well-developed white male in hospital clothing with adequate grooming and eye contact. No abnormal movements. Cooperative with exam in no acute distress. Speech was normal rate and volume. Mood described as fine, affect congruent. Thought process organized but confused. Thought content: Patient denied suicidal or homicidal ideation, there were no delusions reported or noted, he denied any auditory or visual hallucinations. Attention and concentration were limited and memory was impaired but none were formally tested. He is alert and oriented times person. Insight, judgment and impulse control were impaired. Vitals/I&O/Wt Last Vital Signs Temp 97.7 F 09/19/22 12:00 Pulse 89 09/19/22 12:00 Resp 18 09/19/22 12:00 BP 126/75 09/19/22 12:00 Pulse Ox 99 09/19/22 12:00 O2 Del Method Room Air 09/19/22 12:00 Data NPU 09/10/22 03:13 09/03/22 05:18 A&P Assessment and plan (1) Dementia: (2) Altered mental status: Plan This is a 87-year-old male who appears to be suffering from significant dementia of unknown type who presents with confusion and appears to lack any ability to make decisions at this time. He clearly stability to make any long-term or short-term decisions due to his significant memory problems and requires guardianship. 1. Continue current medication. 2. Guardianship hearing today, 09/19/22, reportedly at 1pm. Continue Prozac as prescribed. 3. Agree with discharge as soon as appropriate care home available. Attestations NPU Medical Necessity Statement*: Continued inpatient hospitalization as patient unable to return safely to home, no guardian in place. He will need placement in Dementia- [facility] Unit. Likely discharge as soon as tomorrow once facility determined and guardianship established. Coding Level of Care Code Acute Code for Ch[facility] Fwd Diagnoses Dementia F03.90 Altered mental status R41.82
--- NOTE | 2022-09-19 12:36 | PM.PN ---
Subjective Subjective: No events overnight Vitals/I&O/Wt Last Vital Signs Temp 97.7 F 09/19/22 12:00 Pulse 89 09/19/22 12:00 Resp 18 09/19/22 12:00 BP 126/75 09/19/22 12:00 Pulse Ox 99 09/19/22 12:00 O2 Del Method Room Air 09/19/22 12:00 09/18/22 09/19/22 09/19/22 22:59 06:59 14:59 Intake Total 360 / 960 360 / 1320 300 / 300 Output Total 500 / 500 Balance 360 / 960 -140 / 820 300 / 300 Physical Exam Narrative: Awake and alert Nonfocal exam Patient is going to the bathroom on his own No active complaint Capacity Doing well on room air Pleasant and cooperative Data 09/10/22 03:13 09/03/22 05:18 A&P Assessment and plan (1) Constipation: (2) Dysphagia: Qualifiers: Dysphagia type: unspecified Qualified Code(s): R13.10 - Dysphagia, unspecified (3) HTN (hypertension), benign: (4) Hyperlipidemia: (5) Neck pain: (6) Confusion: (7) Altered mental status: (8) Dementia: (9) Hypothyroidism: (10) BPH w urinary obs/LUTS: (11) Diabetes mellitus, type II: Plan Dementia: Requiring one-to-one supervision Guardianship achieved Awaiting placement Constipation: Resolved Hypothyroidism continue levothyroxine Sore throat: Resolved Type 2 diabetes New onset A1c 7.3 Januvia added Attestations Medical Necessity Statement*: Discharge later today versus tomorrow Diagnoses Constipation K59.00 Dysphagia R13.10 Dysphagia type: unspecified HTN (hypertension), benign I10 Hyperlipidemia E78.5 Neck pain M54.2 Confusion R41.0 Altered mental status R41.82 Dementia F03.90 Hypothyroidism E03.9 BPH w urinary obs/LUTS N40.1; N13.8 Diabetes mellitus, type II E11.9
[2022-09-19 16:48] LABS: Glucose Point of Care 102 mg/dL (70-110)
[2022-09-19 20:49] LABS: Glucose Point of Care 128 mg/dL (70-110)
[2022-09-20 03:33] VITALS: BP 124/84; PULSE 86; RESP 16; TEMP 36.7; O2SAT 94
[2022-09-20 06:38] LABS: Glucose Point of Care 127 mg/dL (70-110)
[2022-09-20 07:40] VITALS: BP 114/68; PULSE 92; RESP 18; TEMP 36.8; O2SAT 97
--- NOTE | 2022-09-20 08:57 | P.NPUPN_ITS ---
Subjective NPU Subjective: Patient presented today reporting that things are fine. He is prepared for discharge and going to placement. No changes in his presentation. Mental Status Exam MSE Comments: This is a well-nourished well-developed white male in hospital clothing with adequate grooming and eye contact. No abnormal movements. Cooperative with exam in no acute distress. Speech was normal rate and volume. Mood described as fine, affect congruent. Thought process organized but confused. Thought content: Patient denied suicidal or homicidal ideation, there were no delusions reported or noted, he denied any auditory or visual hallucinations. Attention and concentration were limited and memory was impaired but none were formally tested. He is alert and oriented times person. Insight, judgment and impulse control were impaired. Vitals/I&O/Wt Last Vital Signs Temp 98.0 F 09/20/22 13:09 Pulse 76 09/20/22 13:09 Resp 18 09/20/22 13:09 BP 122/62 09/20/22 13:09 Pulse Ox 97 09/20/22 13:09 O2 Del Method Room Air 09/20/22 12:00 Data NPU 09/10/22 03:13 09/03/22 05:18 A&P Assessment and plan (1) Dementia: (2) Altered mental status: Plan This is a 87-year-old male who appears to be suffering from significant dementia of unknown type who presents with confusion and appears to lack any ability to make decisions at this time. He clearly stability to make any long-term or short-term decisions due to his significant memory problems and requires guardianship. 1. Continue current medication. 2. Guardianship hearing yesterday, 09/19/22, and guardianship granted. Continue Prozac as prescribed. 3. Agree with discharge soon. Attestations NPU Medical Necessity Statement*: Continued inpatient hospitalization as patient unable to return safely to home, no guardian in place. He will need placement in Dementia- [facility]. Likely discharge tomorrow. Coding Level of Care Code Acute Code for [facility] Fwd Diagnoses Dementia F03.90 Altered mental status R41.82
[2022-09-20] MEDS: thiamine 100 mg Tablet PO (09:28)
[2022-09-20] MEDS: gabapentin 100 mg Capsule PO (09:28)
[2022-09-20] MEDS: multivitamin therapeutic Tablet 1 TAB PO (09:29)
[2022-09-20] MEDS: tamsulosin 0.4 mg Capsule PO (09:29)
[2022-09-20] MEDS: pantoprazole DR 40 mg Tablet PO (09:29)
[2022-09-20] MEDS: fluoxetine 10 mg Capsule PO (09:29)
[2022-09-20] MEDS: levothyroxine 50 mcg Tablet PO (09:29)
[2022-09-20] MEDS: cholecalciferol (vitamin D3) 1,000 unit Tablet 2000 UNIT PO (09:29)
[2022-09-20] MEDS: sennosides-docusate Tablet 2 TAB PO (09:29)
[2022-09-20] MEDS: atorvastatin 40 mg Tablet PO (09:29)
[2022-09-20] MEDS: lidocaine 5% Patch 1 PATCH TOPICAL (09:30)
[2022-09-20] MEDS: polyethylene glycol 3350 Pkt 17 gm PO (09:31)
[2022-09-20] MEDS: nystatin 100,000 unit/mL UDC 5 mL 400000 UNIT PO (09:49)
--- NOTE | 2022-09-20 10:39 | PM.DCS ---
Discharge Providers Date of Admission: 08/13/22 15:56 Date of Discharge: September 20, 2022 Attending Provider at Admission: Elvis Cordero MD Attending Provider at Discharge: Lukasz Chavez MD Primary Care Provider: Emily Pineda MD Diagnoses at Discharge Discharge Diagnosis (1) Dementia: Status: Chronic (2) Altered mental status: Status: Chronic Reason for Visit Reason for Visit: neck pian Hospital Course Hospital Course 87-year male who was admitted to the hospital for management of altered mental status related to underlying dementia, patient has atypical depression with behavioral disturbance there were no signs of infection or meningitis. patient remained hemodynamically stable, infectious work-up was unremarkable, psychiatrist was consulted who recommended management with Prozac 10 mg daily, tramadol and Flexeril for neck pain patient is full code, patient was put on 21-day hold, patient lacks decision-making capacity, he is also suffering from dementia, guardianship was pursued, his echo revealed preserved ejection fraction grade 1 diastolic function, no acute decompensation, patient was complaining of sore throat for which rapid strep test was negative, Chloraseptic spray was recommended. He remained afebrile. COVID-negative, rapid strep negative During this hospitalization he was diagnosed with type 2 diabetes, he was put on Januvia, his levothyroxine was continued, for his BPH tamsulosin was resumed as well. His hemoglobin A1c is 7.3 At the time of discharge patient is not confused, hospital has successfully obtained guardianship, he is being discharged to a [facility], he has spent 38 days in the hospital, he required one-to-one supervision throughout his hospitalization, not complaining of sore throat at the time of discharge. Normocytic anemia remained stable. Physical Exam Narrative: Awake and alert Nonfocal exam Patient is going to the bathroom on his own No active complaint Doing well on room air Pleasant and cooperative Discharge Data Studies Completed and Pending Completed Studies During Hospitalization Category Date Time Status CT cervical spin wo con* 04502 Stat Cat Scan 08/13/22 12:[address] head wo con* [id number] Stat Cat Scan 08/13/22 12:28 Completed XR chest 1V portable [id number] Routine Exams 08/13/22 17:12 Completed CV carotid duplex BI* [id number] Routine Ultrasound 08/13/22 17:12 Completed CV. echo complete* [id number] Routine Ultrasound 08/14/22 06:00 Completed Pending at discharge Category Date Time Status COVID [SARS Covid-2 Antigen] Stat Lab 09/20/22 10:00 Received Vitamin B1(Thiamin) Plas/Ser Stat Lab 08/13/22 18:30 Received Vitamin D 1,25 Dihydroxy Routine Lab 09/18/22 09:25 Received Radiology Impressions Cervical Spine CT 08/13/22 12:28 IMPRESSION: No acute fracture. Head CT 08/13/22 12:28 IMPRESSION: No acute intracranial abnormality. Carotid Doppler Study 08/13/22 17:12 IMPRESSION: 1. Less than 50% stenosis left internal carotid artery. 2. Less than 50% stenosis right internal carotid artery. 3. Patent bilateral vertebral arteries with normal direction of flow. REFERENCES: SRU CRITERIA. The degree of internal carotid artery stenosis is based on criteria defined by the Society of Radiologists in Ultrasound (SRU). Normal is no stenosis. Mild is less than 50% stenosis. Moderate is 50-69% stenosis. Severe is greater than 69% stenosis to near occlusion. Near occlusion is a markedly narrowed lumen. Total occlusion is no detectable patent lumen. Chest X-Ray 08/13/22 17:12 IMPRESSION: Mild left basilar atelectasis and/or infiltrate and/or effusion. Laboratory Results WBC 7.0 10^3/uL (4.0-10.0) 09/10/22 03:13 RBC 3.63 10^6/uL (4.1-5.3) L 09/10/22 03:13 Hgb 11.0 g/dL (11.7-16.6) L 09/10/22 03:13 Hct 33.4 % (42.0-52.0) L 09/10/22 03:13 MCV 92.0 fl (80-94) 09/10/22 03:13 MCH 30.3 pg (28.0-34.0) 09/10/22 03:13 MCHC 32.9 g/dL (30.0-36.0) 09/10/22 03:13 RDW 12.2 % (12.1-15.1) 09/10/22 03:13 Plt Count 288 10^3/cmm (130-400) 09/10/22 03:13 MPV 9.3 fL (7.4-10.4) 09/10/22 03:13 Neut % (Auto) 38.3 % 09/10/22 03:13 Lymph % (Auto) 42.3 % 09/10/22 03:13 [place] % (Auto) 13.8 % 09/10/22 03:13 Eos % (Auto) 4.1 % 09/10/22 03:13 Baso % (Auto) 1.1 % 09/10/22 03:13 Neut # (Auto) 2.68 10^3/uL (1.8-7.7) 09/10/22 03:13 Lymph # (Auto) 3.0 10^3/uL (0.8-4.8) 09/10/22 03:13 [place] # (Auto) 1.0 10^3/uL (0.2-0.9) H 09/10/22 03:13 Eos # (Auto) 0.3 10^3/uL (0.0-0.8) 09/10/22 03:13 Baso # (Auto) 0.1 10^3/uL (0.0-0.1) 09/10/22 03:13 Nucleated RBC % (auto) 0 % 09/10/22 03:13 Nucleated RBCs # 0.0 /100WBC 09/10/22 03:13 Sodium 137 mmol/L (136-145) 09/03/22 05:18 Potassium 4.2 mmol/L (3.5-5.1) 09/03/22 05:18 Chloride 103 mmol/L (98-107) 09/03/22 05:18 Carbon Dioxide 25 mmol/L (22-29) 09/03/22 05:18 Anion Gap 13.2 (5-19) 09/03/22 05:18 BUN 13 mg/dL (8-23) 09/03/22 05:18 Creatinine 1.2 mg/dL (0.7-1.2) 09/03/22 05:18 GFR Calculation Not Reportable 09/03/22 05:18 Glucose 103 mg/dL (65-115) 09/03/22 05:18 POC Glucose 127 mg/dL (70-110) H 09/20/22 06:34 Estimat Average Glucose 163 08/13/22 18:30 Hemoglobin A1c 7.3 % (4.0-6.0) H 08/13/22 18:30 Calculated Osmolality 284 mOsm/kg (285-295) L 09/03/22 05:18 Calcium 8.9 mg/dL (8.5-10.5) 09/03/22 05:18 Phosphorus 3.1 mg/dL (2.5-4.5) 09/03/22 05:18 Magnesium 2.0 mg/dL (1.7-2.3) 09/03/22 05:18 Total Bilirubin 0.3 mg/dL (0.15-1.2) 08/28/22 05:13 AST 18 U/L (0-40) 08/28/22 05:13 ALT 12 U/L (0-41) 08/28/22 05:13 Alkaline Phosphatase 69 U/L (40-130) 08/28/22 05:13 Troponin T Baseline 22 ng/L (0-15) H 08/13/22 18:30 Troponin T 120 Minute 22.41 ng/L (0-15) H 08/13/22 20:30 Delta Troponin T 0.41 ABS# (0-10) 08/13/22 20:30 Troponin T Hi Sens 6Hr 27.26 ng/L (0-15) H 08/13/22 23:59 Troponin T Hi Sens 6Hr Delta 5.26 ng/L (0-12) 08/13/22 23:59 C-Reactive Protein 3.0 mg/L (0.0-4.9) 08/13/22 18:30 NT-Pro-B Natriuret Pep 163 pg/mL (0-450) 08/13/22 18:30 Total Protein 5.9 g/dL (6.6-8.7) L 08/28/22 05:13 Albumin 3.1 g/dL (3.5-5.2) L 08/28/22 05:13 Globulin 2.8 g/dL (1.3-4.6) 08/28/22 05:13 Triglycerides 90 mg/dL (0-150) 08/13/22 18:30 Cholesterol 124 mg/dL (0-200) 08/13/22 18:30 LDL Cholesterol, Calc 67 mg/dL (50-129) 08/13/22 18:30 HDL Cholesterol 39 mg/dL (60-100) L 08/13/22 18:30 LDL/HDL Ratio 1.72 RATIO (0.00-3.22) 08/13/22 18:30 Cholesterol/HDL Ratio 3.18 mg/dL (1.0-5.00) 08/13/22 18:30 Vitamin B12 473 pg/mL (232-1245) 08/13/22 18:30 25-OH Vitamin D Total 29 ng/mL (30-100) L 09/18/22 05:57 Folate 12.5 ng/mL (4.5-32.2) 08/13/22 18:30 Procalcitonin 0.06 ng/mL (0-0.5) 08/13/22 18:30 TSH 0.10 uIU/mL (0.27-4.20) L 09/03/22 05:18 Free T4 1.70 ng/dL (0.82-1.77) 09/03/22 05:18 Thyroxine (T4) 15.9 mcg/dL (4.9-10.5) H 08/13/22 18:30 Free T3 2.6 PG/ML (2.0-4.4) 09/03/22 05:18 Urine Color Yellow (Yellow) 08/13/22 12:08 Urine Appearance Clear (CLEAR) 08/13/22 12:08 Urine pH 5 (5-7) 08/13/22 12:08 Ur Specific [place] 1.025 (1.005-1.030) 08/13/22 12:08 Urine Protein Neg (Negative) 08/13/22 12:08 Urine Glucose (UA) 1+ (Normal) H 08/13/22 12:08 Urine Ketones Negative (Negative) 08/13/22 12:08 Urine Blood Neg (Negative) 08/13/22 12:08 Urine Nitrate Negative (Negative) 08/13/22 12:08 Urine Bilirubin Neg (Negative) 08/13/22 12:08 Urine Urobilinogen Norm mg/dL (Negative) 08/13/22 12:08 Ur Leukocyte Esterase Negative (Negative) 08/13/22 12:08 Salicylates < 0.3 mg/dL (3-10) L 08/13/22 18:30 Urine Opiates Screen Negative ng/mL (Negative) 08/13/22 12:08 Acetaminophen < 5.0 ug/mL (10-30) L 08/13/22 18:30 Ur Barbiturates Screen Negative ng/mL (Negative) 08/13/22 12:08 Ur Phencyclidine Scrn Negative ng/mL (Negative) 08/13/22 12:08 Ur Amphetamines Screen Negative ng/mL (Negative) 08/13/22 12:08 U Benzodiazepines Scrn Negative ng/mL (Negative) 08/13/22 12:08 Urine Cocaine Screen Negative ng/mL (Negative) 08/13/22 12:08 U Marijuana (THC) Screen Negative ng/mL (Negative) 08/13/22 12:08 Ethyl Alcohol < 10 mg/dL (0-10) 08/13/22 18:30 RPR Nonreactive (Nonreactive) 08/13/22 18:30 Hepatitis A IgM Ab Non-reactive (Nonreactive) 08/13/22 18:30 Hep Bs Antigen Non-reactive (Nonreactive) 08/13/22 18:30 Hep B Core IgM Ab Non-reactive (Nonreactive) 08/13/22 18:30 Hepatitis C Antibody Non-reactive (Nonreactive) 08/13/22 18:30 HIV 1&2 Ab & HIV 1 Ag Non-reactive (Non-Reactiv) 08/13/22 18:30 HIV 1&2 Antibody Non-reactive (Non-Reactiv) 08/13/22 18:30 SARS-CoV-2 Ag (Rapid) negative (Negative) 08/23/22 11:31 Group A Strep Rapid Negative (Negative) 09/07/22 16:55 Vitals Last Vital Signs Temp 98.2 F 09/20/22 07:40 Pulse 92 09/20/22 07:40 Resp 18 09/20/22 07:40 BP 114/68 09/20/22 07:40 Pulse Ox 97 09/20/22 07:40 O2 Del Method Room Air 09/20/22 07:40 Discharge Plan Discharge Patient Disposition: Xfer SNF Condition: Stable Prescriptions: New fluoxetine 10 mg Capsule 10 mg PO DAILY Qty: 30 3RF Januvia 50 mg tablet 25 mg PO BID 90 Days Qty: 90 0RF Continued (DME) Buzz Quesada See Rx Instructions .ROUTE .MEDSUPPLY Qty: 1 0RF Rx Instructions: As directed docusate sodium 50 mg capsule 50 mg PO DAILY PRN (Reason: Constipation) acetaminophen 500 mg capsule 500 mg PO Q4H PRN (Reason: Pain) levothyroxine 125 mcg capsule 125 mcg PO DAILY omeprazole 40 mg capsule,delayed release(DR/EC) 40 mg PO BID gabapentin 100 mg capsule 100 mg PO BID atorvastatin 40 mg tablet 40 mg PO DAILY Rx Instructions: bedtime cyclobenzaprine 5 mg tablet 5 mg PO .COMPLEX PRN (Reason: Muscle Pain) Rx Instructions: 5 mg PO PRN; 1-2 tablets tamsulosin [Flomax] 0.4 mg capsule 0.4 mg PO DAILY Qty: 30 0RF Discontinued diclofenac sodium 75 mg tablet,delayed release (DR/EC) 75 mg PO Q12H PRN (Reason: pain) Qty: 20 0RF Discharge Orders: Discharge Order (Routine); Ordered 09/20/22 Ordered By: Artem Diamond Referrals: [facility] [Outside] Emily Pineda MD [Primary Care Provider] - Discharge Diet: Diabetic Discharge Activity: Increase activity as tolerated Patient Instructions: Opioid Safety, Pain Management Discharge Attestations Time Spent in Discharge Care*: greater than 30 min Quality Metrics Clinical Quality Measures [ No reported AMI, CVA or VTE this stay] Coding Level of Care Code Acute Code for Chg Fwd Diagnoses Dementia F03.90 Altered mental status R41.82
[2022-09-20 10:50] LABS: SARS Covid-2 Antigen negative (Negative)
[2022-09-20 11:54] LABS: Glucose Point of Care 114 mg/dL (70-110)
[2022-09-20 12:00] VITALS: BP 122/62; PULSE 76; RESP 18; TEMP 36.7; O2SAT 97
--- NOTE | 2022-09-20 12:21 | PC.NURSE ---
1221 - REPORT CALLED TO EMILY ANGEL AT [facility]. PT VS STABLE, PREPARED FOR DISCHARGE.
[2022-09-20 13:09] VITALS: BP 122/62; PULSE 76; RESP 18; TEMP 36.7; O2SAT 97
[2022-09-23 12:50] LABS: Vit D 1,25 (Oh)2, Total 28 pg/mL (18-72); Vit D2 1,25 (Oh)2 <8 pg/mL; Vit D3 1,25 (Oh)2 28 pg/mL
[2023-02-21 15:53] LABS: Vitamin B1(Thiamin) Plas/Ser 105
== END 2022-09-20 13:11 | disposition skilled nursing facility (03) | DRG 884 ==
LOC: ER 16:08 → MEDSURG 16:20
PROVIDERS: Hospitalist; Internal Medicine; Psychiatry & Neurology Psychiatry; Student in an Organized Health Care Education/Training Program; Admitting Provider Family Medicine; Emergency Provider Family Medicine; PCP Family Medicine; Visit Provider Psychiatry & Neurology Psychiatry
DX: F03.93 Unspecified dementia, unspecified severity, with mood disturbance (principal); N13.8 Other obstructive and reflux uropathy; B37.0 Candidal stomatitis; E11.9 Type 2 diabetes mellitus without complications; N40.1 Benign prostatic hyperplasia with lower urinary tract symptoms; D64.9 Anemia, unspecified; I10 Essential (primary) hypertension; I25.10 Atherosclerotic heart disease of native coronary artery without angina pectoris; Z95.1 Presence of aortocoronary bypass graft; E78.5 Hyperlipidemia, unspecified; M54.2 Cervicalgia; K59.09 Other constipation; E03.9 Hypothyroidism, unspecified; Z75.1 Person awaiting admission to adequate facility elsewhere
CPT/HCPCS: 36415; 36416; 70450; 71045; 72125; 80048; 80053; 80061; 80074; 80306; 80307; 81003; 82306; 82607; 82652; 82746; 82962; 83036; 83735; 83880; 84100; 84145; 84425; 84436; 84439; 84443; 84481; 84484; 85025; 86140; 86592; 87040; 87081; 87426; 87806; 87880; 93005; 93306; 93880; 94664; 96372; 97161; 97165; 97167; 97530; 97535; 99285; J1630; J1650; J1815; Q3014

== ENCOUNTER 2023-11-01 12:09 | Inpatient (IN) | payer OTHER, SELFPAY ==
[2023-11-01] VITALS (27 sets, daily range): BP systolic 105–160; BP diastolic 50–88; PULSE 47–83; RESP 14–18; TEMP 36.3–37.2; O2SAT 92–100; BMI 25.1
--- NOTE | 2023-11-01 12:14 | XR_ITS ---
WS: [id number] XR hip RT 2-3V wo/w pel* [id number] REASON FOR EXAM: injury FINDINGS: Transcervical fracture of the proximal right femur. There is overriding of the fracture fragments without significant displacement. Large osteophyte along the inferior femoral head. XR/XR hip RT 2-3V wo/w pel* [id number] IMPRESSION: Subcapital right hip fracture.
--- NOTE | 2023-11-01 12:15 | ED_ITS ---
HPI - Fall 2 General: Chief Complaint: Extremity Injury, Lower Stated Complaint: Fall Time Seen by Provider: 11/01/23 12:12 Source: EMS Mode of arrival: EMS Limitations: altered mental status History of Present Illness: 88-year-old male is here from nursing [facility] he has a history of dementia. Patient had fallen onto the toilet at the custodial landed on his right hip has been having right hip pain since and falls this morning denies any other injuries denies hitting his head. History is difficult to get from patient due to his severe dementia. He is at his baseline here Review of Systems 2 General: Reports: ROS unobtainable due to mental status PFSH ED 2 PFSH: Medical History BPH w urinary obs/LUTS Diabetes mellitus, type II Hypothyroidism Chronic prostatitis Sore throat Dementia Altered mental status Confusion Fall Dementia Neck pain Bilateral carotid artery stenosis BPH with urinary obstruction Hyperlipidemia Asymptomatic stenosis of right carotid artery HTN (hypertension), benign Atherosclerosis of coronary artery of [place] heart without angina pectoris Dysphagia Fracture of right ankle, lateral malleolus (~07/2022) Constipation Chronic constipation Surgical History History of vasectomy History of coronary artery bypass graft History of cataract surgery Bilateral Family History Father , Age 34 No problems noted. Mother , Age 86 No problems noted. Denies family history of Anesthesia complication Bleeding disorder Social History Smoking and tobacco/nicotine status: never used tobacco/nicotine Substance/Drug Use: never Lives independently: Yes Marital status: Physical Exam 2 Const: COMMON NORMALS: negative for patient oriented x3 HENMT: COMMON NORMALS: normocephalic and atraumatic HEAD & SCALP: n ormocephalic and atraumatic Eye: COMMON NORMALS: Equal, round and reactive pupils present and EOMs intact bilaterally PUPIL: Yes Equal, round and reactive pupils present Neck/C-Spine: COMMON NORMALS: full ROM and supple Chest: COMMONS NORMALS: normal inspection of the chest and normal palpation of entire chest wall Resp: COMMON NORMALS: normal respiratory effort, No retractions, No use of accessory muscles and clear to auscultation bilaterally AUSCULTATION: clear to auscultation bilaterally Cardio: COMMON NORMALS: regular rate, regular rhythm and No murmurs present (Cardio) RATE: regular rate RHYTHM: regular rhythm GI: COMMON NORMALS: Normal to inspection, nondistended, normoactive bowel sounds present, Soft to palpation, non-tender and no masses PALPATION: Yes Soft to palpation Extremity: COMMON NORMALS: full ROM NARRATIVE EXTREMITY EXAM: Tenderness noted right hip distal pulses sensation intact Neuro: COMMON NORMALS: moves all extremities and no focal motor deficits; negative for patient oriented x3 Psych: COMMON NORMALS: cooperative Skin: COMMON NORMALS: no rashes or lesions noted and no wounds GENERAL SKIN EXAM: no rashes or lesions noted Course 2 Vital Signs: Vital signs: Vital Signs Temperature 98.1 F 11/01/23 12:12 Pulse Rate 71 11/01/23 12:54 Respiratory Rate 16 11/01/23 12:12 Blood Pressure 134/72 11/01/23 12:54 Pulse Oximetry 96 11/01/23 12:54 Oxygen Delivery Me thod Room Air 11/01/23 12:12 MDM - Fall Medical Decision Making Patient presents here with a hip fracture from a fall have spoken to orthopedics along with hospitalist will admit no other injuries noted. Medical Records I reviewed the patient's medical records. Lab Data I reviewed the patient's lab results. 11/01/23 12:37 11/01/23 12:37 Radiology Impressions Hip/Pelvis X-Ray 11/01/23 12:14 IMPRESSION: Subcapital right hip fracture. Chest X-Ray 11/01/23 12:25 IMPRESSION: No acute chest abnormality. Laboratory Results WBC 10.70 10^3/uL (3.29-11.43) 11/01/23 12:37 RBC 3.59 10^6/uL (3.85-5.65) L 11/01/23 12:37 Hgb 11.50 g/dL (11.27-16.99) 11/01/23 12:37 Hct 34.2 % (37-53) L 11/01/23 12:37 MCV 95.3 fl (82-101) 11/01/23 12:37 MCH 32.0 pg (27-33) 11/01/23 12:37 MCHC 33.6 g/dL (30-55) 11/01/23 12:37 RDW 11.9 % (12.1-15.1) L 11/01/23 12:37 Plt Count 207 10^3/cmm (157-399) 11/01/23 12:37 MPV 9.0 fL (7.4-10.4) 11/01/23 12:37 Neut % (Auto) 78.7 % 11/01/23 12:37 Lymph % (Auto) 10.6 % 11/01/23 12:37 [place] % (Auto) 9.2 % 11/01/23 12:37 Eos % (Auto) 0.5 % 11/01/23 12:37 Baso % (Auto) 0.5 % 11/01/23 12:37 Neut # (Auto) 8.44 10^3/uL (1.8-7.7) H 11/01/23 12:37 Lymph # (Auto) 1.1 10^3/uL (0.8-4.8) 11/01/23 12:37 [place] # (Auto) 1.0 10^3/uL (0.2-0.9) H 11/01/23 12:37 Eos # (Auto) 0.1 10^3/uL (0.0-0.8) 11/01/23 12:37 Baso # (Auto) 0.1 10^3/uL (0.0-0.1) 11/01/23 12:37 Nucleated RBC % (auto) 0 % 11/01/23 12:37 Nucleated RBCs # 0.0 /100WBC 11/01/23 12:37 PT 13.70 SECONDS (12.1-14.9) 11/01/23 12:37 INR 1.02 (0.8-1.2) 11/01/23 12:37 Sodium 138 mmol/L (136-145) 11/01/23 12:37 Potassium 4.2 mmol/L (3.5-5.1) 11/01/23 12:37 Chloride 101 mmol/L (98-107) 11/01/23 12:37 Carbon Dioxide 28 mmol/L (22-29) 11/01/23 12:37 Anion Gap 13.2 (5-19) 11/01/23 12:37 BUN 15 mg/dL (8-23) 11/01/23 12:37 Creatinine 1.0 mg/dL (0.7-1.2) 11/01/23 12:37 GFR Calculation Not Reportable 11/01/23 12:37 Glucose 140 mg/dL (65-115) H 11/01/23 12:37 Calculated Osmolality 289 mOsm/kg (285-295) 11/01/23 12:37 Calcium 9.4 mg/dL (8.5-10.5) 11/01/23 12:37 Total Bilirubin 0.5 mg/dL (0.15-1.2) 11/01/23 12:37 AST 19 U/L (0-40) 11/01/23 12:37 ALT 15 U/L (0-41) 11/01/23 12:37 Alkaline Phosphatase 70 U/L (40-130) 11/01/23 12:37 Total Protein 6.4 g/dL (6.6-8.7) L 11/01/23 12:37 Albumin 3.9 g/dL (3.5-5.2) 11/01/23 12:37 Globulin 2.5 g/dL (1.3-4.6) 11/01/23 12:37 All radiology interpretation(s) finalized by discharge Discharge Plan Discharge Patient Disposition: Admitted As Inpatient Clinical Impression: Closed right hip fracture Prescriptions: No Action (DME) Buzz Quesada See Rx Instructions .ROUTE .MEDSUPPLY Qty: 1 0RF Rx Instructions: As directed docusate sodium 50 mg capsule 50 mg PO DAILY PRN (Reason: Constipation) acetaminophen 500 mg capsule 500 mg PO Q4H PRN (Reason: Pain) levothyroxine 125 mcg capsule 125 mcg PO DAILY omeprazole 40 mg capsule,delayed release(DR/EC) 40 mg PO BID gabapentin 100 mg capsule 100 mg PO BID atorvastatin 40 mg tablet 40 mg PO DAILY Rx Instructions: bedtime cyclobenzaprine 5 mg tablet 5 mg PO .COMPLEX PRN (Reason: Muscle Pain) Rx Instructions: 5 mg PO PRN; 1-2 tablets fluoxetine 10 mg Capsule 10 mg PO DAILY Qty: 30 3RF tamsulosin [Flomax] 0.4 mg capsule 0.4 mg PO DAILY Qty: 30 0RF Referrals: Pineda,Emily Jenelle, MD [Primary Care Provider] - Coding Level of Care Code ED Meter Maintenance Person for Madi Gonzalez
--- NOTE | 2023-11-01 12:25 | XR_ITS ---
WS: [id number] XR chest 1V portable [id number] REASON FOR EXAM: fall FINDINGS: Sternal sutures. Mild tortuosity of the thoracic aorta with normal heart size. No acute pulmonary parenchymal or pleural disease is noted. Chronic appearing pulmonary parenchymal s carring in the left lower lobe. XR/XR chest 1V portable [id number] IMPRESSION: No acute chest abnormality.
[2023-11-01 12:44] LABS: Basophils # 0.1 10^3/uL (0.0-0.1); Basophils % 0.5 %; Eosinophils # 0.1 10^3/uL (0.0-0.8); Eosinophils % 0.5 %; Hematocrit 34.2 % (37-53); Lymphocytes # 1.1 10^3/uL (0.8-4.8); Lymphocytes % 10.6 %; Mean Corpuscular HGB Conc 33.6 g/dL (30-55); Mean Corpuscular Volume 95.3 fl (82-101); Monocytes % 9.2 %; Neutrophils # 8.44 10^3/uL (1.8-7.7); Neutrophils % 78.7 %; Nucleated Red Blood Cells % 0 %; Platelet Count 207 10^3/cmm (157-399); Red Blood Count 3.59 10^6/uL (3.85-5.65); Red Cell Distribution Width 11.9 % (12.1-15.1)
--- NOTE | 2023-11-01 12:55 | ECG_ITS ---
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 Measurements Intervals [place] Rate: 87 P: 105 OR: 176 QRS: -19 QRSD: 98 T: 90 QT: 396 QTc: 479 Interpretive Statements SINUS RHYTHM WITH OCCASIONAL VENTRICULAR PREMATURE COMPLEXES WITH OCCASIONAL SUPRAVENTRICULAR PREMATURE COMPLEXES NONSPECIFIC ST & T-WAVE ABNORMALITY Compared to ECG 08/13/2022 20:04:45 Ventricular premature complex(es) now present T-wave abnormality now present First degree AV block no longer present Electronically Signed On 11-01-2023 18:14:23 CDT by Vahe Flores M.D. [email or web address] ([place] [email or web address]/OM/[id number]/[id number]
[2023-11-01 13:04] LABS: INR 1.02 (0.8-1.2)
[2023-11-01 13:06] LABS: Alanine Aminotransferase 15 U/L (0-41); Albumin Level 3.9 g/dL (3.5-5.2); Alkaline Phosphatase 70 U/L (40-130); Anion Gap 13.2 (5-19); Aspartate Amino Transferase 19 U/L (0-40); Blood Urea Nitrogen 15 mg/dL (8-23); Calcium 9.4 mg/dL (8.5-10.5); Carbon Dioxide 28 mmol/L (22-29); Chloride 101 mmol/L (98-107); Creatinine Clr Calc Pharmacy 54.9483; Globulin 2.5 g/dL (1.3-4.6); Glucose 140 mg/dL (65-115); Osmolality Calculated 289 mOsm/kg (285-295); Potassium 4.2 mmol/L (3.5-5.1); Sodium 138 mmol/L (136-145); Total Bilirubin 0.5 mg/dL (0.15-1.2); Total Protein 6.4 g/dL (6.6-8.7)
[2023-11-01] MEDS: morphine 4 mg/mL SDV 1 mL IVP (13:31)
[2023-11-01] MEDS: ondansetron 2 mg/ML SDV 2 mL 4 MG IVP (13:31)
--- NOTE | 2023-11-01 13:31 | PC.PHAR ---
PT IS [facility] FOR [facility] L[facility] 11/01/23 1:30PM
--- NOTE | 2023-11-01 13:44 | P.CONIM_ITS ---
Providers/Reason For Consult 2 Consulting Physician/Specialty*: Hospitalist Reason for Consult*: Hip fracture Attending Physician: Emanuel Melissa DO Primary Care Provider: Emily Pineda MD History of Present Illness History of Present Illness Ida Vásquez is a 88 year old male from detention he has a history of dementia. Patient had fallen onto the toilet at the detention landed on his right hip has been having right hip pain since and falls this morning denies any other injuries denies hitting his head. History is difficult to get from patient due to his severe dementia. Review of Systems 2 General: Reports: ROS unobtainable due to mental status Medications/Allergies Home Medications Medication Instructions Recorded Confirmed Last Taken Type acetaminophen 500 mg capsule 500 mg PO Q4H PRN Pain 06/03/19 08/13/22 Unknown History atorvastatin 40 mg tablet 40 mg PO DAILY 06/03/19 08/13/22 Unknown History cyclobenzaprine 5 mg tablet 5 mg PO .COMPLEX PRN Muscle Pain 06/03/19 08/13/22 Unknown History docusate sodium 50 mg capsule 50 mg PO DAILY PRN Constipation 06/03/19 08/13/22 Unknown History gabapentin 100 mg capsule 100 mg PO BID 06/03/19 08/13/22 Unknown History levothyroxine 125 mcg capsule 125 mcg PO DAILY 06/03/19 08/13/22 Unknown History omeprazole 40 mg capsule,delayed 40 mg PO BID 06/03/19 08/13/22 Unknown History release Cam Walker #1 ea 07/28/20 08/13/22 Unknown Rx tamsulosin 0.4 mg capsule (Flomax) 0.4 mg PO DAILY #30 caps 05/25/22 08/13/22 Unknown Rx fluoxetine 10 mg capsule 10 mg PO DAILY #30 caps 08/23/22 Unknown Rx Allergies Allergy/AdvReac Type Severity Reaction Status Date / Time promethazine Allergy Unknown Verified 04/26/21 13:03 PFSH Acute 2 PFSH: Medical History BPH w urinary obs/LUTS Diabetes mellitus, type II Hypothyroidism Chronic prostatitis Sore throat Dementia Altered mental status Confusion Fall Dementia Neck pain Bilateral carotid artery stenosis BPH with urinary obstruction Hyperlipidemia Asymptomatic stenosis of right carotid artery HTN (hypertension), benign Atherosclerosis of coronary artery of [place] heart without angina pectoris Dysphagia Fracture of right ankle, lateral malleolus (~07/2022) Constipation Chronic constipation Surgical History History of vasectomy History of coronary artery bypass graft History of cataract surgery Bilateral Family History Father , Age 34 No problems noted. Mother , Age 86 No problems noted. Denies family history of Anesthesia complication Bleeding disorder Social History Smoking and tobacco/nicotine status: never used tobacco/nicotine Substance/Drug Use: never Lives independently: Yes Marital status: Vitals/I&O/Wt Last Vital Signs Temp 98.4 F 11/01/23 13:40 Pulse 77 11/01/23 13:40 Resp 17 11/01/23 13:40 BP 148/88 11/01/23 13:40 Pulse Ox 93 11/01/23 13:40 O2 Del Method Room Air 11/01/23 13:40 Weight last 48 hrs Weight 170 lb Physical Exam 2 Narrative: Right leg shortened externally rotated Data 11/01/23 12:37 11/01/23 12:37 A&P Assessment and plan (1) Closed right hip fracture: Plan to do a right hip hemiarthroplasty Qualifiers: Encounter type: initial encounter Qualified Code(s): S72.001A - Fracture of unspecified part of neck of right femur, initial encounter for closed fracture Coding Level of Care Code Acute Code for Chg Fwd Diagnoses Closed fracture of right hip, initial encounter S72.001A Encounter type: initial encounter
[2023-11-01] MEDS: sodium chloride 0.9% 1,000 ML 30 ML IV (14:03)
--- NOTE | 2023-11-01 14:10 | P.ANESASSM_ITS ---
Pre-Anesthetic Assessment Height/Weight: Height 1.75 m Weight 77.111 kg Temp Pulse Resp BP Pulse Ox O2 Del Method 98.4 F 75 17 134/82 95 Room Air 11/01/23 13:40 11/01/23 13:47 11/01/23 13:40 11/01/23 13:47 11/01/23 13:47 11/01/23 13:40 Preop Diagnosis: Right femoral neck fracture Operation Date: 11/01/23 14:00 Proposed Procedures p Hemiarthroplasty Hip(Right) - Emanuel Melissa DO Familial anesthetic complications: patient denies, but has hx dementia, unable to contact family Was Beta Aime taken within 24 hours: N/A Was Clonidine taken within 24 hours: N/A Last intake: Intake Last Liquid Date 11/01/23 Last Liquid Time 07:00 Last Solid Date 10/31/23 Last Solid Time 23:00 Social No alcohol and No tobacco Exam alert, oriented x 3, clear to auscultation bilaterally and regular rate & rhythm Airway Mallampati: Class II Dentition: full Pulmonary None reported CV/HEM Coronary Artery Disease (hx cabg) and Hypertension mod TVR on GI Gastroesophageal Reflux Disease Metabolic Diabetes Mellitus and Thyroid Disease Anesthetic Plan ASA status: 3 Anesthesia: General Risk of > 500 ml blood loss (7ml/kg in children): No Other Pertinent Information Consent obtained from Guardian(deputy) - unable to get a hold of family for any further history Medications/Allergies Home Medications Medication Instructions Recorded Confirmed Last Taken Type acetaminophen 500 mg capsule 500 mg PO Q4H PRN Pain 06/03/19 08/13/22 Unknown History atorvastatin 40 mg tablet 40 mg PO DAILY 06/03/19 08/13/22 Unknown History cyclobenzaprine 5 mg tablet 5 mg PO .COMPLEX PRN Muscle Pain 06/03/19 08/13/22 Unknown History docusate sodium 50 mg capsule 50 mg PO DAILY PRN Constipation 06/03/19 08/13/22 Unknown History gabapentin 100 mg capsule 100 mg PO BID 06/03/19 08/13/22 Unknown History levothyroxine 125 mcg capsule 125 mcg PO DAILY 06/03/19 08/13/22 Unknown History omeprazole 40 mg capsule,delayed 40 mg PO BID 06/03/19 08/13/22 Unknown History release Cam Walker #1 ea 07/28/20 08/13/22 Unknown Rx tamsulosin 0.4 mg capsule (Flomax) 0.4 mg PO DAILY #30 caps 05/25/22 08/13/22 Unknown Rx fluoxetine 10 mg capsule 10 mg PO DAILY #30 caps 08/23/22 Unknown Rx Allergies Allergy/AdvReac Type Severity Reaction Status Date / Time promethazine Allergy Unknown Verified 04/26/21 13:03 Current Medications Generic Name Dose Route Start Last Admin Trade Name Freq PRN Reason Stop Dose Admin Sodium Chloride 1,000 mls @ 30 mls/hr 11/01/23 13:45 11/01/23 14:03 Sodium Chloride 0.9% IV 11/02/23 13:44 30 mls/hr .Q24H NICHOLAS Administration PFSH Anesthesia Medical History BPH w urinary obs/LUTS Diabetes mellitus, type II Hypothyroidism Chronic prostatitis Sore throat Dementia Altered mental status Confusion Fall Dementia Neck pain Bilateral carotid artery stenosis BPH with urinary obstruction Hyperlipidemia Asymptomatic stenosis of right carotid artery HTN (hypertension), benign Atherosclerosis of coronary artery of [place] heart without angina pectoris Dysphagia Fracture of right ankle, lateral malleolus (~07/2022) Constipation Chronic constipation Surgical History History of vasectomy History of coronary artery bypass graft History of cataract surgery Bilateral Family History Father , Age 34 No problems noted. Mother , Age 86 No problems noted. Denies family history of Anesthesia complication Bleeding disorder Social History Smoking and tobacco/nicotine status: never used tobacco/nicotine Substance/Drug Use: never Lives independently: Yes Marital status: Data Anesthesia 11/01/23 12:37 11/01/23 12:37 Short CBC 11/01/23 Range/Units 12:37 WBC 10.70 (3.29-11.43) 10^3/uL Hgb 11.50 (11.27-16.99) g/dL Hct 34.2 L (37-53) % MCV 95.3 (82-101) fl Plt Count 207 (157-399) 10^3/cmm Neut % (Auto) 78.7 % Neut # (Auto) 8.44 H (1.8-7.7) 10^3/uL BMP 11/01/23 12:37 Sodium 138 Potassium 4.2 Chloride 101 Carbon Dioxide 28 BUN 15 Creatinine 1.0 Glucose 140 H Calcium 9.4 Liver Function 11/01/23 Range/Units 12:37 Total Bilirubin 0.5 (0.15-1.2) mg/dL AST 19 (0-40) U/L ALT 15 (0-41) U/L Alkaline Phosphatase 70 (40-130) U/L Albumin 3.9 (3.5-5.2) g/dL Coags 11/01/23 12:37 PT 13.70 INR 1.02 Cardiac Studies: 2 Echocardiogram 08/14/22
[2023-11-01] MEDS: ceFAZolin 2,000 MG in sodium chloride 0.9% (plus) 50 ML 100 MG IV ×2 (14:20→21:56)
--- NOTE | 2023-11-01 15:53 | P.HP_ITS ---
Providers/Chief Complaint 2 Admitting Physician: Zoe Graham MD Primary Care Provider: Emily Pineda MD Chief Complaint: Fall History of Present Illness Ida Vásquez is a 88 year old male resident of [facility], fell in the bathroom and sustained hip fracture, Dr. Melissa took him to the OR right away, I have evaluate the patient after his surgery, he is hemodynamically stable, able to answer simple questions, not in active pain, Francois catheter is in place Patient is stating that he did not experience any chest pain seizure-like activity or syncope. He lost his balance and fell in the bathroom. Review of Systems 2 Const: Denies: fever(s) Eyes: Denies: change in vision ENMT: Denies: throat pain Card: Denies: chest pain Resp: Denies: dyspnea Medications/Allergies Home Medications Medication Instructions Recorded Confirmed Last Taken Type acetaminophen 500 mg capsule 500 mg PO Q4H PRN Pain 06/03/19 08/13/22 Unknown History atorvastatin 40 mg tablet 40 mg PO DAILY 06/03/19 08/13/22 Unknown History cyclobenzaprine 5 mg tablet 5 mg PO .COMPLEX PRN Muscle Pain 06/03/19 08/13/22 Unknown History docusate sodium 50 mg capsule 50 mg PO DAILY PRN Constipation 06/03/19 08/13/22 Unknown History gabapentin 100 mg capsule 100 mg PO BID 06/03/19 08/13/22 Unknown History levothyroxine 125 mcg capsule 125 mcg PO DAILY 06/03/19 08/13/22 Unknown History omeprazole 40 mg capsule,delayed 40 mg PO BID 06/03/19 08/13/22 Unknown History release Cam Walker #1 ea 07/28/20 08/13/22 Unknown Rx tamsulosin 0.4 mg capsule (Flomax) 0.4 mg PO DAILY #30 caps 05/25/22 08/13/22 Unknown Rx fluoxetine 10 mg capsule 10 mg PO DAILY #30 caps 08/23/22 Unknown Rx Allergies Allergy/AdvReac Type Severity Reaction Status Date / Time promethazine Allergy Unknown Verified 04/26/21 13:03 PFSH Acute 2 PFSH: Medical History BPH w urinary obs/LUTS Diabetes mellitus, type II Hypothyroidism Chronic prostatitis Sore throat Dementia Altered mental status Confusion Fall Dementia Neck pain Bilateral carotid artery stenosis BPH with urinary obstruction Hyperlipidemia Asymptomatic stenosis of right carotid artery HTN (hypertension), benign Atherosclerosis of coronary artery of [place] heart without angina pectoris Dysphagia Fracture of right ankle, lateral malleolus (~07/2022) Constipation Chronic constipation Surgical History History of vasectomy History of coronary artery bypass graft History of cataract surgery Bilateral Family History Father , Age 34 No problems noted. Mother , Age 86 No problems noted. Denies family history of Anesthesia complication Bleeding disorder Social History Smoking and tobacco/nicotine status: never used tobacco/nicotine Substance/Drug Use: never Lives independently: Yes Marital status: Vitals/I&O/Wt Last Vital Signs Temp 98.4 F 11/01/23 13:40 Pulse 75 11/01/23 13:47 Resp 17 11/01/23 13:40 BP 134/82 11/01/23 13:47 Pulse Ox 95 11/01/23 13:47 O2 Del Method Room Air 11/01/23 13:40 Weight last 48 hrs Weight 77.111 kg Physical Exam 2 Narrative: Euvolemic GCS 15 Pleasant cough Currently on 2 L Hemodynamically stable Abdomen soft Right leg hip area covered with dressing No active pain S1, S2 Data 11/01/23 12:37 11/01/23 12:37 A&P Assessment and plan (1) Closed right hip fracture: Qualifiers: Encounter type: initial encounter Qualified Code(s): S72.001A - Fracture of unspecified part of neck of right femur, initial encounter for closed fracture Plan Hip fracture status post intervention by Dr. Melissa Postop day 0 Monitor for postop complications Add DVT prophylaxis with Eliquis Will discontinue Francois catheter in the morning Will request physical therapy Continue morphine along bowel regimen Continue levothyroxine Discontinue IV fluids I will allow patient to have regular diet Attestations 2 Medical Necessity Statement*: More than 2 midnights anticipated Diagnoses Closed fracture of right hip, initial encounter S72.001A Encounter type: initial encounter
--- NOTE | 2023-11-01 15:55 | PM.OP ---
Operative Report Date of procedure: November 01, 2023 Pre-op diagnosis: Right femoral neck fracture Post-op diagnosis: same Procedure done: Right hip hemiarthroplasty Surgeon: Emanuel Melissa DO Estimated blood loss (mL): 10 Procedure: Right hip hemiarthroplasty Patient is brought to the operative suite after undergoing anesthesia was placed in the lateral decubitus position. All areas impingement well-padded. Patient's prepped draped normal sterile fashion. Skin incision made over the right hip. Modified Souza approach was used. IT band was split abductors were taken anteriorly along the joint capsule. Fracture was identified. Femoral neck cut was made approximately 1 fingerbreadth above the lesser trochanter. Next tension was brought to removing the head this was done using a Abdi the head was removed measured to be 50. Next tension was brought to the femur. A corrugated box machine operator was used followed by the canal finder followed by the lateralizer. The canal was broached to a 5 using the Harika system. A size 5 stem was used. Negative for neck length and 50 head were used. This was tamped onto the head. And then the hip was reduced felt to be stable in all positions. Good leg lengths. Capsule was repaired along the abductors using the FiberWire. IT band was repaired with 0 Vicryl skin was closed with 2-0 Vicryl and franklin. Sterile dressings applied patient was transferred to the PACU in stable condition.
--- NOTE | 2023-11-01 16:10 | PC.RESP ---
unable to assess pt at this time- pt in surgery
[2023-11-01] MEDS: fentaNYL 50 mcg/mL INJ 2mL IVP (16:24)
--- NOTE | 2023-11-01 16:55 | ANE.PACU2 ---
Inpatient post-anesthesia follow up: Airway intact: Yes Vital signs: Temperature 98.2 F Pulse Rate 67 Respiratory Rate 18 Blood Pressure 99/55 Pulse Oximetry 98 Oxygen Delivery Me thod Nasal Cannula Oxygen Flow Rate 2 Fraction of Inspir ed Oxygen Hydration adequate: Yes Nausea and vomiting: No Pain level: 1 Mental status: Baseline
[2023-11-01] MEDS: pantoprazole 40 mg SDV IVP (17:31)
[2023-11-01] MEDS: sodium chloride 0.45% 1,000 ML 75 ML IV (17:32)
[2023-11-01 20:34] LABS: Procalcitonin 0.08 ng/mL (0-0.5)
[2023-11-01 20:45] LABS: Glucose Point of Care 162 mg/dL (70-110)
[2023-11-01] MEDS: HYDROcodone-acetaminophen 5-325 mg Tablet 1 TAB PO (21:57)
[2023-11-02] VITALS (12 sets, daily range): BP systolic 99–128; BP diastolic 54–74; PULSE 67–85; RESP 16–24; TEMP 36.4–38.2; O2SAT 92–100
[2023-11-02] MEDS: morphine 4 mg/mL SDV 1 mL 2 MG IVP ×4 (00:47→14:00)
[2023-11-02] MEDS: HYDROcodone-acetaminophen 5-325 mg Tablet 1 TAB PO ×3 (02:30→17:06)
[2023-11-02 04:28] LABS: Glucose Point of Care 128 mg/dL (70-110)
[2023-11-02] MEDS: hyDROXYzine 25 mg Capsule PO (04:55)
[2023-11-02] MEDS: ceFAZolin 2,000 MG in sodium chloride 0.9% (plus) 50 ML 100 MG IV ×2 (05:28→14:01)
[2023-11-02 06:12] LABS: Magnesium 1.8 mg/dL (1.7-2.3)
--- NOTE | 2023-11-02 08:07 | P.PN_ITS ---
Subjective 2 Subjective: pt s/p hip repair pt without gown attempting to get out of bed confused. Vitals/I&O/Wt Last Vital Signs Temp 98.6 F 11/02/23 08:06 Pulse 69 11/02/23 08:06 Resp 17 11/02/23 08:06 BP 112/57 11/02/23 08:06 Pulse Ox 100 11/02/23 08:06 O2 Del Method Nasal Cannula 11/02/23 08:06 O2 Flow Rate 2 11/01/23 16:55 11/01/23 11/02/23 11/02/23 22:59 06:59 14:59 Intake Total 401.5 / 401.5 110 / 511.5 Output Total 750 / 750 200 / 950 Balance -348.5 / -348.5 -90 / -438.5 Weight last 48 hrs Weight 63.304 kg Weight 77.111 kg Physical Exam 2 Narrative: euvolemic attempting to get out of bed confused ao.[id number] Currently on 2 L Hemodynamically stable Abdomen soft Right leg hip area covered with dressing No active pain S1, S2 Urinary Catheter Management: Francois: Cath Placed During This Visit: yes, but has since been removed by the nurse Reason for Continuing Indwelling Catheter: Decision to DC Catheter Date Urinary Catheter Removed: 11/02/23 Time Urinary Catheter Discontinued: 06:04 Data 11/01/23 12:37 11/01/23 12:37 A&P Assessment and plan (1) Closed right hip fracture: Qualifiers: Encounter type: initial encounter Qualified Code(s): S72.001A - Fracture of unspecified part of neck of right femur, initial encounter for closed fracture Plan Hip fracture status post intervention by Dr. Melissa Postop day 1 Monitor for postop complications continue DVT prophylaxis with Eliquis Will discontinue Francois catheter today Will request physical therapy Continue morphine along bowel regimen Continue levothyroxine Discontinue IV fluids order speech swallow evaluation patient had possible aspiration episode this am check xr in am possible pnuemonitis hold off on antibiotics for now watch for fever check cbc bmp in am Attestations 2 Medical Necessity Statement*: hip fracture Diagnoses Closed fracture of right hip, initial encounter S72.001A Encounter type: initial encounter
--- NOTE | 2023-11-02 08:49 | PC.NURSE ---
Pt coughs after eating and drinking this AM. NPO diet and Speech Eval and Treat ordered per protocol.
[2023-11-02] MEDS: tamsulosin 0.4 mg Capsule 0.400000000000000022 MG PO (08:51)
[2023-11-02] MEDS: levothyroxine 125 mcg Tablet PO (08:51)
[2023-11-02] MEDS: apixaban 5 mg Tablet 2.5 MG PO ×2 (08:51→17:06)
--- NOTE | 2023-11-02 09:09 | P.PN_ITS ---
Subjective 2 Subjective: Patient postop day #1 from surgery patient is in bed appears to be comfortable. Vitals/I&O/Wt Last Vital Signs Temp 98.6 F 11/02/23 08:06 Pulse 69 11/02/23 08:06 Resp 17 11/02/23 08:06 BP 112/57 11/02/23 08:06 Pulse Ox 100 11/02/23 08:06 O2 Del Method Nasal Cannula 11/02/23 08:06 O2 Flow Rate 2 11/01/23 16:55 11/01/23 11/02/23 11/02/23 22:59 06:59 14:59 Intake Total 401.5 / 401.5 110 / 511.5 120 / 120 Output Total 750 / 750 200 / 950 Balance -348.5 / -348.5 -90 / -438.5 120 / 120 Weight last 48 hrs Weight 139 lb 9 oz Weight 170 lb Physical Exam 2 Narrative: Resting in bed comfortably Urinary Catheter Management: Francois: Cath Placed During This Visit: yes, but has since been removed by the nurse Reason for Continuing Indwelling Catheter: Decision to DC Catheter Date Urinary Catheter Removed: 11/02/23 Time Urinary Catheter Discontinued: 06:04 Data 11/01/23 12:37 11/01/23 12:37 A&P Assessment and plan (1) Closed right hip fracture: Postop day #1 hip hemiarthroplasty Up with physical therapy DVT prophylaxis with Eliquis Qualifiers: Encounter type: initial encounter Qualified Code(s): S72.001A - Fracture of unspecified part of neck of right femur, initial encounter for closed fracture Attestations 2 Medical Necessity Statement*: Per primary service Coding Level of Care Code Acute Code for Chg Fwd Diagnoses Closed fracture of right hip, initial encounter S72.001A Encounter type: initial encounter
[2023-11-02 11:22] LABS: Glucose Point of Care 140 mg/dL (70-110)
[2023-11-02 16:23] LABS: Glucose Point of Care 217 mg/dL (70-110)
[2023-11-02] MEDS: pantoprazole 40 mg SDV IVP (17:06)
[2023-11-02 20:30] LABS: Glucose Point of Care 135 mg/dL (70-110)
[2023-11-03] VITALS (9 sets, daily range): BP systolic 109–148; BP diastolic 54–67; PULSE 65–99; RESP 15–20; TEMP 36.4–36.9; O2SAT 96–100
[2023-11-03 04:12] LABS: Glucose Point of Care 123 mg/dL (70-110)
[2023-11-03 06:31] LABS: Basophils % 0.3 %; Eosinophils % 0.3 %; Hematocrit 27.3 % (37-53); Lymphocytes # 1.2 10^3/uL (0.8-4.8); Lymphocytes % 12.2 %; Mean Corpuscular HGB Conc 32.6 g/dL (30-55); Mean Corpuscular Hemoglobin 31.6 pg (27-33); Mean Corpuscular Volume 96.8 fl (82-101); Mean Platelet Volume 9.7 fL (7.4-10.4); Monocytes # 1.4 10^3/uL (0.2-0.9); Monocytes % 14.1 %; Neutrophils # 7.14 10^3/uL (1.8-7.7); Neutrophils % 72.7 %; Nucleated Red Blood Cells % 0 %; Platelet Count 191 10^3/cmm (157-399); Red Blood Count 2.82 10^6/uL (3.85-5.65); Red Cell Distribution Width 12.2 % (12.1-15.1); White Blood Count 9.83 10^3/uL (3.29-11.43)
[2023-11-03 06:53] LABS: Anion Gap 11.1 (5-19); Blood Urea Nitrogen 20 mg/dL (8-23); Carbon Dioxide 27 mmol/L (22-29); Chloride 100 mmol/L (98-107); Creatinine Clr Calc Pharmacy 56.2813; Glucose 110 mg/dL (65-115); Magnesium 1.8 mg/dL (1.7-2.3); Osmolality Calculated 281 mOsm/kg (285-295); Potassium 4.1 mmol/L (3.5-5.1); Sodium 134 mmol/L (136-145)
--- NOTE | 2023-11-03 08:00 | XR_ITS ---
WS: [id number] XR chest 1V portable [id number] REASON FOR EXAM: r/o pneumonia FINDINGS: The chest appears unchanged compared to 11/01/2023. Sternal sutures. Calcification in the aortic arch. Tortuous origin of the innominate artery. Normal heart size. Chronic appearing atelectatic changes in the left lower lung. Chronic blunting of the left costophren ic angle. Peridiaphragmatic pleural and adjacent pleural calcifications compatible with asbestos expo sure. XR/XR chest 1V portable [id number] IMPRESSION: Stable chest with no acute abnormality identified.
[2023-11-03 08:13] LABS: Glucose Point of Care 126 mg/dL (70-110)
[2023-11-03] MEDS: apixaban 5 mg Tablet 2.5 MG PO ×2 (09:41→17:13)
[2023-11-03] MEDS: levothyroxine 125 mcg Tablet PO (09:41)
[2023-11-03] MEDS: tamsulosin 0.4 mg Capsule 0.400000000000000022 MG PO (09:42)
[2023-11-03] MEDS: HYDROcodone-acetaminophen 5-325 mg Tablet 1 TAB PO ×2 (09:42→17:13)
--- NOTE | 2023-11-03 10:39 | PC.SOCIAL ---
IMM Update pg 2 of IMM updated and reviewed w/ patients guardian. Copy provided and copy dated, initialed and placed in chart.
[2023-11-03] MEDS: morphine 4 mg/mL SDV 1 mL 2 MG IVP ×3 (11:03→23:51)
--- NOTE | 2023-11-03 11:36 | PM.DCS ---
Discharge Providers Date of Admission: 11/01/23 14:36 Date of Discharge: November 03, 2023 Attending Provider at Admission: Zoe Graham MD Attending Provider at Discharge: Zoe Graham MD Primary Care Provider: Emily Pineda MD Diagnoses at Discharge Discharge Diagnosis (1) Closed right hip fracture: Status: Acute Qualifiers: Encounter type: initial encounter Qualified Code(s): S72.001A - Fracture of unspecified part of neck of right femur, initial encounter for closed fracture Reason for Visit Reason for Visit: Fall Physical Exam Urinary Catheter Management: Francois: Cath Placed During This Visit: yes, but has since been removed by the nurse Reason for Continuing Indwelling Catheter: Decision to DC Catheter Date Urinary Catheter Removed: 11/02/23 Time Urinary Catheter Discontinued: 06:04 Discharge Data Studies Completed and Pending Completed Studies During Hospitalization Category Date Time Status XR chest 1V portable [id number] Stat Exams 11/01/23 12:25 Completed XR hip RT 2-3V wo/w pel* [id number] Stat Exams 11/01/23 12:14 Completed Pending at discharge Category Date Time Status XR chest 1V portable [id number] Routine Exams 11/03/23 08:00 Taken Complete Blood Count w/Auto AM LABS Lab 11/02/23 04:00 Uncollected Comprehensive Metabolic Panel AM LABS Lab 11/02/23 04:00 Uncollected Radiology Impressions Hip/Pelvis X-Ray 11/01/23 12:14 IMPRESSION: Subcapital right hip fracture. Laboratory Results WBC 9.83 10^3/uL (3.29-11.43) 11/03/23 05:26 RBC 2.82 10^6/uL (3.85-5.65) L 11/03/23 05:26 Hgb 8.90 g/dL (11.27-16.99) L 11/03/23 05:26 Hct 27.3 % (37-53) L 11/03/23 05:26 MCV 96.8 fl (82-101) 11/03/23 05:26 MCH 31.6 pg (27-33) 11/03/23 05:26 MCHC 32.6 g/dL (30-55) 11/03/23 05:26 RDW 12.2 % (12.1-15.1) 11/03/23 05:26 Plt Count 191 10^3/cmm (157-399) 11/03/23 05:26 MPV 9.7 fL (7.4-10.4) 11/03/23 05:26 Neut % (Auto) 72.7 % 11/03/23 05:26 Lymph % (Auto) 12.2 % 11/03/23 05:26 [place] % (Auto) 14.1 % 11/03/23 05:26 Eos % (Auto) 0.3 % 11/03/23 05:26 Baso % (Auto) 0.3 % 11/03/23 05:26 Neut # (Auto) 7.14 10^3/uL (1.8-7.7) 11/03/23 05:26 Lymph # (Auto) 1.2 10^3/uL (0.8-4.8) 11/03/23 05:26 [place] # (Auto) 1.4 10^3/uL (0.2-0.9) H 11/03/23 05:26 Eos # (Auto) 0.0 10^3/uL (0.0-0.8) 11/03/23 05:26 Baso # (Auto) 0.0 10^3/uL (0.0-0.1) 11/03/23 05:26 Nucleated RBC % (auto) 0 % 11/03/23 05:26 Nucleated RBCs # 0.0 /100WBC 11/03/23 05:26 PT 13.70 SECONDS (12.1-14.9) 11/01/23 12:37 INR 1.02 (0.8-1.2) 11/01/23 12:37 Sodium 134 mmol/L (136-145) L 11/03/23 05:26 Potassium 4.1 mmol/L (3.5-5.1) 11/03/23 05:26 Chloride 100 mmol/L (98-107) 11/03/23 05:26 Carbon Dioxide 27 mmol/L (22-29) 11/03/23 05:26 Anion Gap 11.1 (5-19) 11/03/23 05:26 BUN 20 mg/dL (8-23) 11/03/23 05:26 Creatinine 0.9 mg/dL (0.7-1.2) 11/03/23 05:26 GFR Calculation Not Reportable 11/03/23 05:26 Glucose 110 mg/dL (65-115) 11/03/23 05:26 POC Glucose 126 mg/dL (70-110) H 11/03/23 08:09 Calculated Osmolality 281 mOsm/kg (285-295) L 11/03/23 05:26 Calcium 9.0 mg/dL (8.5-10.5) 11/03/23 05:26 Magnesium 1.8 mg/dL (1.7-2.3) 11/03/23 05:26 Total Bilirubin 0.5 mg/dL (0.15-1.2) 11/01/23 12:37 AST 19 U/L (0-40) 11/01/23 12:37 ALT 15 U/L (0-41) 11/01/23 12:37 Alkaline Phosphatase 70 U/L (40-130) 11/01/23 12:37 Total Protein 6.4 g/dL (6.6-8.7) L 11/01/23 12:37 Albumin 3.9 g/dL (3.5-5.2) 11/01/23 12:37 Globulin 2.5 g/dL (1.3-4.6) 11/01/23 12:37 Procalcitonin 0.08 ng/mL (0-0.5) 11/01/23 12:27 Vitals Last Vital Signs Temp 98.1 F 11/03/23 07:22 Pulse 68 11/03/23 07:57 Resp 18 11/03/23 11:03 BP 113/54 11/03/23 07:22 Pulse Ox 99 11/03/23 07:57 O2 Del Method Nasal Cannula 11/03/23 07:57 O2 Flow Rate 1 11/03/23 07:57 Discharge Plan Discharge Patient Disposition: Home Prescriptions: No Action (DME) Cam Walker See Rx Instructions .ROUTE .MEDSUPPLY Qty: 1 0RF Rx Instructions: As directed docusate sodium 50 mg capsule 50 mg PO DAILY PRN (Reason: Constipation) levothyroxine 125 mcg capsule 125 mcg PO DAILY omeprazole 40 mg capsule,delayed release(DR/EC) 40 mg PO BID gabapentin 100 mg capsule 100 mg PO BID atorvastatin 40 mg tablet 40 mg PO BEDTIME Rx Instructions: bedtime fluoxetine 10 mg Capsule 10 mg PO DAILY Qty: 30 3RF tamsulosin [Flomax] 0.4 mg capsule 0.4 mg PO DAILY Qty: 30 0RF naltrexone 50 mg Tablet 25 mg PO DAILY Senna-S 8.6-50 mg Tablet 1 tab-cap PO BID PRN (Reason: Constipation) acetaminophen 500 mg Tablet 500 mg PO Q4-5H PRN (Reason: Pain/Fever) Risperdal 1 mg Tablet 1.5 mg PO BID Artificial Tears Ointment 1 applic OPHTHALMIC (EYE) BEDTIME Januvia 100 mg Tablet 250 mg PO BID Artificial Tears (PF) Dropperette 1 drp OPHTHALMIC (EYE) QID Referrals: Emily Pineda MD [Primary Care Provider] - Patient Instructions: Opioid Safety Coding Level of Care Code Acute Code for Chg Fwd Diagnoses Closed fracture of right hip, initial encounter S72.001A Encounter type: initial encounter
[2023-11-03 11:43] LABS: Glucose Point of Care 142 mg/dL (70-110)
--- NOTE | 2023-11-03 11:46 | CT_ITS ---
WS: [id number] CT HEAD NONCONTRAST HISTORY: dysphagia TECHNIQUE: Contiguous axial imaging performed through the brain in 2.5 mm imaging. Bone and soft tiss ue windows. Sagittal and coronal reformats reviewed. All CT scans at [facility] use at least one of these dose optimization techniques: automated exposure control; mA and/or kV adjustment per pa tient size (includes targeted exams where dose is matched to clinical indication); or iterative recon struction. DLP: 1267.88 mGy.cm COMPARISON: 08/13/2022 No acute intracranial hemorrhage, midline shift or mass effect. Diffuse moderate atrophy with severe small vessel ischemic changes throughout the white matter. Simil ar to most recent examinations. No new area of sulcal effacement. Ventricles: Mild ex vacuo dilatation of the ventricles. Greatest dilatation involves the occipital ho rn of the LEFT lateral ventricle. No inferior displacement of the cerebellar tonsils. Paranasal sinuses: As visualized are clear. Mastoid air cells: Well pneumatized. Calvarium and scalp: Skull is intact with no soft tissue edema or swelling. CT/CT head wo con* [id number] IMPRESSION: 1. No acute intracranial hemorrhage or edema. 2. Cerebral atrophy and severe small vessel ischemic disease to prior study. N o acute findings.
--- NOTE | 2023-11-03 12:46 | PC.NURSE ---
Confirmed with Matilde at [facility] that pt had a regular liquid and soft diet at [facility].
--- NOTE | 2023-11-03 13:02 | P.PN_ITS ---
Subjective 2 Subjective: Patient is resting comfortably in bed Vitals/I&O/Wt Last Vital Signs Temp 98.1 F 11/03/23 07:22 Pulse 99 11/03/23 11:38 Resp 17 11/03/23 11:38 BP 128/63 11/03/23 11:38 Pulse Ox 96 11/03/23 11:38 O2 Del Method Room Air 11/03/23 11:38 O2 Flow Rate 1 11/03/23 07:57 11/02/23 11/03/23 11/03/23 22:59 06:59 14:59 Intake Total 60 / 230 60 / 290 25 / 25 Balance 60 / 230 60 / 290 25 / 25 Weight last 48 hrs Weight 138 lb 7 oz Weight 139 lb 9 oz Physical Exam 2 Narrative: Patient resting in bed comfortably Urinary Catheter Management: Francois: Cath Placed During This Visit: yes, but has since been removed by the nurse Reason for Continuing Indwelling Catheter: Decision to DC Catheter Date Urinary Catheter Removed: 11/02/23 Time Urinary Catheter Discontinued: 06:04 Data 11/03/23 05:26 11/03/23 05:26 A&P Assessment and plan (1) Closed right hip fracture: Postop day 2 hip hemiarthroplasty. Qualifiers: Encounter type: initial encounter Qualified Code(s): S72.001A - Fracture of unspecified part of neck of right femur, initial encounter for closed fracture Attestations 2 Medical Necessity Statement*: Per primary service Coding Level of Care Code Acute Code for Chg Fwd Diagnoses Closed fracture of right hip, initial encounter S72.001A Encounter type: initial encounter
[2023-11-03 13:12] LABS: Phosphorus 2.9 mg/dL (2.5-4.5)
--- NOTE | 2023-11-03 13:44 | P.PN_ITS ---
Subjective 2 Subjective: seen today pt having dysphagia Vitals/I&O/Wt Last Vital Signs Temp 98.1 F 11/03/23 07:22 Pulse 99 11/03/23 11:38 Resp 17 11/03/23 11:38 BP 128/63 11/03/23 11:38 Pulse Ox 96 11/03/23 11:38 O2 Del Method Room Air 11/03/23 11:38 O2 Flow Rate 1 11/03/23 07:57 11/02/23 11/03/23 11/03/23 22:59 06:59 14:59 Intake Total 60 / 230 60 / 290 25 / 25 Balance 60 / 230 60 / 290 25 / 25 Weight last 48 hrs Weight 62.794 kg Weight 63.304 kg Physical Exam 2 Narrative: euvolemic confused ao.x1 Currently on 2 L Hemodynamically stable Abdomen soft Right leg hip area covered with dressing No active pain S1, S2 room air Urinary Catheter Management: Francois: Cath Placed During This Visit: yes, but has since been removed by the nurse Reason for Continuing Indwelling Catheter: Decision to DC Catheter Date Urinary Catheter Removed: 11/02/23 Time Urinary Catheter Discontinued: 06:04 Data 11/03/23 05:26 11/03/23 05:26 A&P Assessment and plan (1) Closed right hip fracture: Qualifiers: Encounter type: initial encounter Qualified Code(s): S72.001A - Fracture of unspecified part of neck of right femur, initial encounter for closed fracture Plan Hip fracture status post intervention by Dr. Melissa Postop day 1 Monitor for postop complications continue DVT prophylaxis with Eliquis Will discontinue Francois catheter today Will request physical therapy Continue morphine along bowel regimen Continue levothyroxine Discontinue IV fluids order speech swallow evaluation patient had possible aspiration episode this am check xr in am possible pnuemonitis hold off on antibiotics for now watch for fever check cbc bmp in am speech swallow eval complete: pt having dysphagia pt was on regular diet at [facility] will call them to ask about other aspiration events check modified barium swallow ct head negative for stroke no other gross motor neuro deficiits . difficult neuro exam secondary to dementia Attestations 2 Medical Necessity Statement*: dysphagia workup Diagnoses Closed fracture of right hip, initial encounter S72.001A Encounter type: initial encounter
[2023-11-03 16:34] LABS: Glucose Point of Care 134 mg/dL (70-110)
[2023-11-03] MEDS: pantoprazole 40 mg SDV IVP (17:13)
[2023-11-03 20:12] LABS: Glucose Point of Care 142 mg/dL (70-110)
[2023-11-04] VITALS (10 sets, daily range): BP systolic 100–138; BP diastolic 49–68; PULSE 62–90; RESP 15–18; TEMP 36.5–37; O2SAT 93–98
[2023-11-04 00:07] LABS: Glucose Point of Care 112 mg/dL (70-110)
[2023-11-04] MEDS: HYDROcodone-acetaminophen 5-325 mg Tablet 1 TAB PO ×3 (00:46→15:25)
[2023-11-04] MEDS: hyDROXYzine 25 mg Capsule PO (00:47)
[2023-11-04 04:08] LABS: Glucose Point of Care 112 mg/dL (70-110)
[2023-11-04] MEDS: morphine 4 mg/mL SDV 1 mL 2 MG IVP ×2 (05:59→13:27)
[2023-11-04 08:02] LABS: Glucose Point of Care 111 mg/dL (70-110)
[2023-11-04 09:21] LABS: Basophils % 0.3 %; Eosinophils % 0.4 %; Hematocrit 24.2 % (37-53); Lymphocytes % 10.5 %; Mean Corpuscular HGB Conc 32.2 g/dL (30-55); Mean Corpuscular Hemoglobin 32.4 pg (27-33); Mean Corpuscular Volume 100.4 fl (82-101); Mean Platelet Volume 9.8 fL (7.4-10.4); Monocytes # 1.1 10^3/uL (0.2-0.9); Monocytes % 12.3 %; Neutrophils # 6.87 10^3/uL (1.8-7.7); Neutrophils % 76.1 %; Nucleated Red Blood Cells % 0 %; Platelet Count 170 10^3/cmm (157-399); Red Blood Count 2.41 10^6/uL (3.85-5.65); Red Cell Distribution Width 11.9 % (12.1-15.1); White Blood Count 9.04 10^3/uL (3.29-11.43)
[2023-11-04] MEDS: levothyroxine 125 mcg Tablet PO (09:30)
[2023-11-04] MEDS: apixaban 5 mg Tablet 2.5 MG PO ×2 (09:30→17:13)
[2023-11-04] MEDS: tamsulosin 0.4 mg Capsule 0.400000000000000022 MG PO (09:31)
[2023-11-04 09:42] LABS: Albumin Level 2.6 g/dL (3.5-5.2); Alkaline Phosphatase 55 U/L (40-130); Blood Urea Nitrogen 30 mg/dL (8-23); Carbon Dioxide 23 mmol/L (22-29); Chloride 100 mmol/L (98-107); Creatinine Clr Calc Pharmacy 62.6126; Glucose 100 mg/dL (65-115); Osmolality Calculated 280 mOsm/kg (285-295); Sodium 132 mmol/L (136-145); Total Bilirubin 0.5 mg/dL (0.15-1.2); Total Protein 5.6 g/dL (6.6-8.7)
--- NOTE | 2023-11-04 10:12 | P.PN_ITS ---
Subjective 2 Subjective: seen this am no acute events overnight patient confused awaiting barium swallow monday Vitals/I&O/Wt Last Vital Signs Temp 97.7 F 11/04/23 07:27 Pulse 68 11/04/23 09:04 Resp 16 11/04/23 09:04 BP 100/49 11/04/23 07:27 Pulse Ox 98 11/04/23 09:04 O2 Del Method Room Air 11/04/23 09:04 O2 Flow Rate 1 11/03/23 07:57 11/03/23 11/04/23 11/04/23 22:59 06:59 14:59 Intake Total 60 / 85 240 / 325 0 / 0 Balance 60 / 85 240 / 325 0 / 0 Weight last 48 hrs Weight 60.917 kg Weight 62.794 kg Physical Exam 2 Narrative: euvolemic confused ao.x1 Currently on 2 L Hemodynamically stable Abdomen soft Right leg hip area covered with dressing No active pain S1, S2 room air Urinary Catheter Management: Francois: Cath Placed During This Visit: yes, but has since been removed by the nurse Reason for Continuing Indwelling Catheter: Decision to DC Catheter Date Urinary Catheter Removed: 11/02/23 Time Urinary Catheter Discontinued: 06:04 Data 11/04/23 09:08 11/04/23 09:08 A&P Assessment and plan (1) Closed right hip fracture: Qualifiers: Encounter type: initial encounter Qualified Code(s): S72.001A - Fracture of unspecified part of neck of right femur, initial encounter for closed fracture Plan Hip fracture status post intervention by Dr. Melissa Postop day 1 Monitor for postop complications continue DVT prophylaxis with Eliquis Will discontinue Francois catheter today Will request physical therapy Continue morphine along bowel regimen Continue levothyroxine Discontinue IV fluids order speech swallow evaluation patient had possible aspiration episode 6 cxr rules out pna speech swallow eval complete: pt having dysphagia. pt now on puree diet. will call them to ask about other aspiration events check modified barium swallow monday ct head negative for stroke no other gross motor neuro deficiits . difficult neuro exam secondary to dementia hb 7.8 this am on admission 11.50 check iron, tibc, ferritin - threshold to transfuse < 7 check cbc q12h check fobt Attestations 2 Medical Necessity Statement*: dysphagia workup Diagnoses Closed fracture of right hip, initial encounter S72.001A Encounter type: initial encounter
[2023-11-04 10:14] LABS: Alanine Aminotransferase 11 U/L (0-41); Anion Gap 13.4 (5-19); Aspartate Amino Transferase 56 U/L (0-40); Potassium 4.4 mmol/L (3.5-5.1)
--- NOTE | 2023-11-04 11:18 | PC.PT ---
PT attempted but patient too drowsy to follow directions. Pt fell asleep while trying to do exercises. Will attempt later today.
[2023-11-04 11:51] LABS: Glucose Point of Care 112 mg/dL (70-110)
--- NOTE | 2023-11-04 14:44 | PC.PT ---
Pt was found in bed yelling out Help, help, I'm in pain. God help me, God help me, God help me Pt repeated this over and over. When patient was asked what he needed help with he just said he was in pain in his leg. Pt was scooted up in bed and that did not help. Pt did not want me to touch him or move his leg. Pt then agreed to move it to see if it would help and it did not change the pain. A blanket was found that was folded up to put under his hip to roll away from the pain and that did not help and he wanted it moved. Pt has dementia and calls out all the time. Nursing was notified and she was going to get some pain meds which the patient wanted. Pt was not seen due to patient not having controlled pain and not wanting to move his leg at this time. Will attempt tomorrow.
[2023-11-04 14:55] LABS: Ferritin 511 ng/mL (30-400); Iron 16 ug/dL (59-158)
[2023-11-04 14:56] LABS: Percent Saturation 9.4 % (20-50); Total Iron Binding Capacity 170 mcg/dl; Unsaturated Iron Binding 154 ug/dL (112-347)
[2023-11-04 17:00] LABS: Glucose Point of Care 136 mg/dL (70-110)
[2023-11-04] MEDS: pantoprazole 40 mg SDV IVP (17:13)
[2023-11-04 17:57] LABS: Basophils % 0.3 %; Eosinophils % 0.4 %; Hematocrit 23.7 % (37-53); Lymphocytes # 0.7 10^3/uL (0.8-4.8); Lymphocytes % 8.8 %; Mean Corpuscular HGB Conc 33.8 g/dL (30-55); Mean Corpuscular Hemoglobin 31.9 pg (27-33); Mean Corpuscular Volume 94.4 fl (82-101); Mean Platelet Volume 9.4 fL (7.4-10.4); Monocytes # 1.1 10^3/uL (0.2-0.9); Monocytes % 13.2 %; Neutrophils # 6.11 10^3/uL (1.8-7.7); Neutrophils % 76.9 %; Nucleated Red Blood Cells % 0 %; Platelet Count 215 10^3/cmm (157-399); Red Blood Count 2.51 10^6/uL (3.85-5.65); Red Cell Distribution Width 11.9 % (12.1-15.1); White Blood Count 7.94 10^3/uL (3.29-11.43)
[2023-11-04 20:49] LABS: Glucose Point of Care 150 mg/dL (70-110)
[2023-11-05] VITALS (8 sets, daily range): BP systolic 103–157; BP diastolic 57–65; PULSE 62–145; RESP 16–20; TEMP 36.4–37.2; O2SAT 94–97
[2023-11-05 00:10] LABS: Glucose Point of Care 105 mg/dL (70-110)
[2023-11-05] MEDS: haloperidol inj 5 mg/mL INJ 1 mL 2 MG IVP (01:40)
[2023-11-05 04:20] LABS: Glucose Point of Care 113 mg/dL (70-110)
[2023-11-05 05:22] LABS: Basophils % 0.2 %; Eosinophils % 0.2 %; Hematocrit 24.8 % (37-53); Lymphocytes # 1.1 10^3/uL (0.8-4.8); Mean Corpuscular HGB Conc 33.9 g/dL (30-55); Mean Corpuscular Hemoglobin 31.9 pg (27-33); Mean Corpuscular Volume 94.3 fl (82-101); Mean Platelet Volume 9.3 fL (7.4-10.4); Monocytes # 1.2 10^3/uL (0.2-0.9); Monocytes % 14.7 %; Neutrophils # 5.99 10^3/uL (1.8-7.7); Neutrophils % 71.4 %; Nucleated Red Blood Cells % 0 %; Platelet Count 231 10^3/cmm (157-399); Red Blood Count 2.63 10^6/uL (3.85-5.65); White Blood Count 8.39 10^3/uL (3.29-11.43)
[2023-11-05 06:16] LABS: Glucose Point of Care 105 mg/dL (70-110)
[2023-11-05] MEDS: HYDROcodone-acetaminophen 5-325 mg Tablet 1 TAB PO ×3 (09:15→23:34)
[2023-11-05] MEDS: apixaban 5 mg Tablet 2.5 MG PO ×2 (09:16→17:42)
[2023-11-05] MEDS: tamsulosin 0.4 mg Capsule 0.400000000000000022 MG PO (09:17)
[2023-11-05] MEDS: levothyroxine 125 mcg Tablet PO (09:17)
--- NOTE | 2023-11-05 10:31 | P.PN_ITS ---
Subjective 2 Subjective: seen today resting comfortably in bed Vitals/I&O/Wt Last Vital Signs Temp 98.2 F 11/05/23 07:32 Pulse 68 11/05/23 08:18 Resp 16 11/05/23 08:18 BP 105/65 11/05/23 07:32 Pulse Ox 96 11/05/23 08:18 O2 Del Method Room Air 11/05/23 08:18 O2 Flow Rate 1 11/03/23 07:57 11/04/23 11/05/23 11/05/23 22:59 06:59 14:59 Intake Total 110 / 350 120 / 470 240 / 240 Balance 110 / 350 120 / 470 240 / 240 Weight last 48 hrs Weight 59.693 kg Weight 60.917 kg Physical Exam 2 Narrative: euvolemic confused ao.x1 room air Hemodynamically stable Abdomen soft Right leg hip area covered with dressing No active pain S1, S2 room air Urinary Catheter Management: Francois: Cath Placed During This Visit: yes, but has since been removed by the nurse Reason for Continuing Indwelling Catheter: Decision to DC Catheter Date Urinary Catheter Removed: 11/02/23 Time Urinary Catheter Discontinued: 06:04 Data 11/05/23 04:25 11/04/23 09:08 A&P Assessment and plan (1) Closed right hip fracture: Qualifiers: Encounter type: initial encounter Qualified Code(s): S72.001A - Fracture of unspecified part of neck of right femur, initial encounter for closed fracture Plan Hip fracture status post intervention by Dr. Melissa Postop day 3 Monitor for postop complications continue DVT prophylaxis with Eliquis Will discontinue Francois catheter today Will request physical therapy Continue morphine along bowel regimen Continue levothyroxine Discontinue IV fluids order speech swallow evaluation patient had possible aspiration episode 10/31 cxr rules out pna speech swallow eval complete: pt having dysphagia. pt now on puree diet. will call them to ask about other aspiration events check modified barium swallow monday ct head negative for stroke no other gross motor neuro deficiits . difficult neuro exam secondary to dementia hb 8.4 this am on admission 11.50 check iron, tibc, ferritin - threshold to transfuse < 7 check cbc q12h check fobt hb is stable plan to dc to NH in am 11/05/2023 - barium swallow in am - hb stable at 8.40 - fobt pending - dc to NH after barium swallow. - eliquis 2.5 bid at dc Attestations 2 Medical Necessity Statement*: barium swallow in am Diagnoses Closed fracture of right hip, initial encounter S72.001A Encounter type: initial encounter
[2023-11-05 11:02] LABS: Glucose Point of Care 127 mg/dL (70-110)
[2023-11-05 16:22] LABS: Glucose Point of Care 162 mg/dL (70-110)
[2023-11-05] MEDS: pantoprazole 40 mg SDV IVP (17:43)
[2023-11-05 19:56] LABS: Glucose Point of Care 170 mg/dL (70-110)
[2023-11-06] VITALS (7 sets, daily range): BP systolic 94–156; BP diastolic 53–65; PULSE 66–137; RESP 16–18; TEMP 36.4–37.1; O2SAT 93–99
[2023-11-06 05:05] LABS: Basophils % 0.5 %; Eosinophils # 0.1 10^3/uL (0.0-0.8); Eosinophils % 1.4 %; Hematocrit 26.1 % (37-53); Lymphocytes # 2.1 10^3/uL (0.8-4.8); Lymphocytes % 26.8 %; Mean Corpuscular HGB Conc 32.6 g/dL (30-55); Mean Corpuscular Hemoglobin 30.9 pg (27-33); Mean Corpuscular Volume 94.9 fl (82-101); Mean Platelet Volume 9.2 fL (7.4-10.4); Monocytes # 1.1 10^3/uL (0.2-0.9); Monocytes % 14.5 %; Neutrophils # 4.31 10^3/uL (1.8-7.7); Neutrophils % 56.3 %; Nucleated Red Blood Cells % 0 %; Platelet Count 300 10^3/cmm (157-399); Red Blood Count 2.75 10^6/uL (3.85-5.65); Red Cell Distribution Width 12.1 % (12.1-15.1); White Blood Count 7.66 10^3/uL (3.29-11.43)
[2023-11-06 06:29] LABS: Glucose Point of Care 118 mg/dL (70-110)
[2023-11-06] MEDS: apixaban 5 mg Tablet 2.5 MG PO ×2 (08:03→17:23)
[2023-11-06] MEDS: tamsulosin 0.4 mg Capsule 0.400000000000000022 MG PO (08:03)
[2023-11-06] MEDS: levothyroxine 125 mcg Tablet PO (08:03)
[2023-11-06 10:43] LABS: SARS Covid-2 Antigen negative (Negative)
[2023-11-06] MEDS: sennosides-docusate Tablet 2 TAB PO ×2 (11:04→17:23)
[2023-11-06] MEDS: magnesium hydroxide 30 mL UDC PO (11:04)
[2023-11-06 11:57] LABS: Glucose Point of Care 140 mg/dL (70-110)
[2023-11-06 13:03] LABS: Thyroid Stimulating Hormone 0.92 uIU/mL (0.27-4.20)
[2023-11-06] MEDS: fluoxetine 10 mg Capsule PO (13:59)
--- NOTE | 2023-11-06 13:59 | PC.SOCIAL ---
IMM updated IMM dated and given to patient, copy placed in chart.
--- NOTE | 2023-11-06 15:33 | P.PN_ITS ---
Subjective 2 Subjective: Hospital course, labs appreciated. Examination patient sitting in bed, awake and alert but seems confused. He thinks he is tied up in the bed but he does not seem to have any restraints. Has remained hemodynamically stable and afebrile. Vitals/I&O/Wt Last Vital Signs Temp 97.8 F 11/06/23 12:00 Pulse 89 11/06/23 12:00 Resp 18 11/06/23 12:00 BP 146/62 11/06/23 12:00 Pulse Ox 99 11/06/23 12:00 O2 Del Method Room Air 11/06/23 12:00 O2 Flow Rate 1 11/03/23 07:57 11/06/23 11/06/23 11/06/23 06:59 14:59 22:59 Intake Total 100 / 1240 720 / 720 Balance 100 / 1240 720 / 720 Weight last 48 hrs Weight 58.173 kg Weight 59.693 kg Physical Exam 2 Narrative: General: No acute distress, Confused, AO x 1-2 HEENT: PERRLA, pupils bilaterally equal and reactive Chest: Normal vesicular breath sounds, no added sounds, equal good air entry bilaterally CVS: S1-S2 regular, no murmurs, no tachycardia, no gallops, no rubs Abdomen: Soft, nontender, no organomegaly, bowel sounds present Neuro: No focal deficits, no facial deformity, moving all limbs Urinary Catheter Management: Francois: Cath Placed During This Visit: yes, but has since been removed by the nurse Reason for Continuing Indwelling Catheter: Decision to DC Catheter Date Urinary Catheter Removed: 11/02/23 Time Urinary Catheter Discontinued: 06:04 Data 11/06/23 04:37 11/04/23 09:08 A&P Assessment and plan (1) Closed right hip fracture: Postop day 4. Appreciate orthopedics recommendation. Eliquis for anticoagulation as per surgical team Monitor hemoglobin. Qualifiers: Encounter type: initial encounter Qualified Code(s): S72.001A - Fracture of unspecified part of neck of right femur, initial encounter for closed fracture (2) Dementia: Restart home dose of Prozac and risperidone. Currently on dysphagia level for baseline diet. (3) Confusion: Could be in setting sundowning secondary to recent surgical procedure in setting of baseline dementia versus withdrawal from chronic Prozac and Risperdal. Continue to monitor. Fall and aspiration precautions. Check CMP. (4) Anemia: Postoperative anemia. Hemoglobin stable for now. Continue to monitor daily. Appreciate iron panel. Plan Type 2 diabetes mellitus: Takes Januvia at home. Start on insulin sliding scale low-dose protocol for now. Full code Dysphagia level 4 diet Eliquis will be sufficient for DVT prophylaxis Protonix 40 mg twice daily will be sufficient for PUD prophylaxis. Discharge plan: Plan to discharge back to long-term within next 24 hours if remains hemodynamically stable and afebrile. Attestations 2 Medical Necessity Statement*: Requires further hospitalization for postoperative care in a patient with post- ORIF with baseline dementia leading to confusion while safe discharge planning is sought. Diagnoses Closed fracture of right hip, initial encounter S72.001A Encounter type: initial encounter Dementia F03.90 Confusion R41.0 Anemia D64.9
[2023-11-06] MEDS: HYDROcodone-acetaminophen 5-325 mg Tablet 1 TAB PO ×2 (15:52→22:00)
[2023-11-06 16:11] LABS: Alanine Aminotransferase 19 U/L (0-41); Albumin Level 3.2 g/dL (3.5-5.2); Alkaline Phosphatase 60 U/L (40-130); Aspartate Amino Transferase 62 U/L (0-40); Blood Urea Nitrogen 36 mg/dL (8-23); Carbon Dioxide 23 mmol/L (22-29); Chloride 104 mmol/L (98-107); Creatinine Clr Calc Pharmacy 48.4775; Globulin 3.1 g/dL (1.3-4.6); Glucose 96 mg/dL (65-115); Osmolality Calculated 304 mOsm/kg (285-295); Sodium 143 mmol/L (136-145); Total Bilirubin 1.1 mg/dL (0.15-1.2); Total Protein 6.3 g/dL (6.6-8.7)
[2023-11-06] MEDS: pantoprazole DR 40 mg Tablet PO (17:23)
[2023-11-06] MEDS: risperiDONE 1 mg Tablet 1.5 MG PO (17:23)
[2023-11-06] MEDS: gabapentin 100 mg Capsule PO (17:23)
[2023-11-06 17:39] LABS: Glucose Point of Care 137 mg/dL (70-110)
[2023-11-06 20:50] LABS: Glucose Point of Care 173 mg/dL (70-110)
[2023-11-06] MEDS: insulin lispro 100 unit/1 mL SUBCUT (22:00)
[2023-11-07 00:54] VITALS: BP 120/60; PULSE 80; RESP 16; TEMP 37; O2SAT 96
[2023-11-07] MEDS: HYDROcodone-acetaminophen 5-325 mg Tablet 1 TAB PO ×2 (04:22→09:31)
[2023-11-07 05:04] VITALS: BP 120/60; PULSE 76; RESP 18; TEMP 37; O2SAT 94
[2023-11-07 06:00] LABS: Basophils % 0.4 %; Eosinophils # 0.1 10^3/uL (0.0-0.8); Eosinophils % 1.8 %; Hematocrit 26.8 % (37-53); Lymphocytes # 1.8 10^3/uL (0.8-4.8); Mean Corpuscular HGB Conc 33.2 g/dL (30-55); Mean Corpuscular Hemoglobin 31.7 pg (27-33); Mean Corpuscular Volume 95.4 fl (82-101); Monocytes % 13.7 %; Neutrophils % 59.4 %; Nucleated Red Blood Cells % 0 %; Platelet Count 335 10^3/cmm (157-399); Red Blood Count 2.81 10^6/uL (3.85-5.65); Red Cell Distribution Width 12.1 % (12.1-15.1); White Blood Count 7.39 10^3/uL (3.29-11.43)
[2023-11-07 06:19] LABS: Alanine Aminotransferase 21 U/L (0-41); Albumin Level 3.4 g/dL (3.5-5.2); Alkaline Phosphatase 61 U/L (40-130); Anion Gap 15.9 (5-19); Aspartate Amino Transferase 53 U/L (0-40); Blood Urea Nitrogen 38 mg/dL (8-23); Calcium 9.2 mg/dL (8.5-10.5); Carbon Dioxide 25 mmol/L (22-29); Chloride 104 mmol/L (98-107); Creatinine Clr Calc Pharmacy 54.5372; Globulin 3.2 g/dL (1.3-4.6); Glucose 129 mg/dL (65-115); Osmolality Calculated 303 mOsm/kg (285-295); Potassium 3.9 mmol/L (3.5-5.1); Sodium 141 mmol/L (136-145); Total Bilirubin 1.4 mg/dL (0.15-1.2); Total Protein 6.6 g/dL (6.6-8.7)
[2023-11-07 06:22] LABS: Magnesium 2.3 mg/dL (1.7-2.3)
[2023-11-07 06:33] LABS: Glucose Point of Care 125 mg/dL (70-110)
[2023-11-07 07:38] VITALS: BP 109/57; PULSE 73; RESP 16; TEMP 36.4; O2SAT 97
[2023-11-07] MEDS: gabapentin 100 mg Capsule PO (09:25)
[2023-11-07] MEDS: apixaban 5 mg Tablet 2.5 MG PO (09:26)
[2023-11-07] MEDS: fluoxetine 10 mg Capsule PO (09:27)
[2023-11-07] MEDS: pantoprazole DR 40 mg Tablet PO (09:27)
[2023-11-07] MEDS: tamsulosin 0.4 mg Capsule 0.400000000000000022 MG PO (09:28)
[2023-11-07] MEDS: sennosides-docusate Tablet 2 TAB PO (09:28)
[2023-11-07] MEDS: levothyroxine 125 mcg Tablet PO (09:28)
[2023-11-07] MEDS: magnesium hydroxide 30 mL UDC PO (09:29)
[2023-11-07 09:30] VITALS: PULSE 77; RESP 17; O2SAT 97
[2023-11-07] MEDS: risperiDONE 1 mg Tablet 1.5 MG PO (09:31)
[2023-11-07 10:03] LABS: Glucose Point of Care 206 mg/dL (70-110)
[2023-11-07] MEDS: TRAMadol 50 mg Tablet PO (10:56)
--- NOTE | 2023-11-07 11:12 | P.DS_ITS ---
Discharge Providers Date of Admission: 11/01/23 14:36 Date of Discharge: November 07, 2023 Attending Provider at Admission: Zoe Graham MD Attending Provider at Discharge: Macho Olguin MD Consults: Orthopedics: Dr. Melissa Primary Care Provider: Emily Pineda MD Diagnoses at Discharge Discharge Diagnosis (1) Closed right hip fracture: Status: Acute Qualifiers: Encounter type: initial encounter Qualified Code(s): S72.001A - Fracture of unspecified part of neck of right femur, initial encounter for closed fracture (2) Dementia: Status: Acute (3) Confusion: Status: Acute (4) Anemia: Status: Acute Reason for Visit Reason for Visit: Fall Brief History: History as per HPI: Ida Vásquez is a 88 year old [facility], fell in the bathroom and sustained hip fracture, Dr. Melissa took him to the OR right away, I have evaluate the patient after his surgery, he is hemodynamically stable, able to answer simple questions, not in active pain, Francois catheter is in place Patient is stating that he did not experience any chest pain seizure-like activity or syncope. He lost his balance and fell in the bathroom. Hospital Course Hospital Course Patient was admitted to the hospital further evaluation and management of right hip fracture. Orthopedics was consulted and he underwent ORIF on 10/31. Patient's postoperative stay was mostly unremarkable. He tolerated his baseline diet again. Hemoglobin postoperatively had remained stable. Patient's mentation is improving back to baseline on his baseline home medications. He has been discharged back to SNF for further rehabilitation. Physical Exam Narrative: General: No acute distress, Confused, AO x 1-2 HEENT: PERRLA, pupils bilaterally equal and reactive Chest: Normal vesicular breath sounds, no added sounds, equal good air entry bilaterally CVS: S1-S2 regular, no murmurs, no tachycardia, no gallops, no rubs Abdomen: Soft, nontender, no organomegaly, bowel sounds present Neuro: No focal deficits, no facial deformity, moving all limbs Urinary Catheter Management: Francois: Cath Placed During This Visit: yes, but has since been removed by the nurse Reason for Continuing Indwelling Catheter: Decision to DC Catheter Date Urinary Catheter Removed: 11/02/23 Time Urinary Catheter Discontinued: 06:04 Discharge Data Studies Completed and Pending Completed Studies During Hospitalization Category Date Time Status CT head wo con* [id number] Urgent Cat Scan 11/03/23 11:46 Completed XR chest 1V portable [id number] Routine Exams 11/03/23 08:00 Completed XR chest 1V portable [id number] Stat Exams 11/01/23 12:25 Completed XR hip RT 2-3V wo/w pel* [id number] Stat Exams 11/01/23 12:14 Completed Pending at discharge Category Date Time Status MAG [Magnesium] AM LABS Lab 11/08/23 04:00 Ordered MAG [Magnesium] AM LABS Lab 11/09/23 04:00 Ordered Occult Blood Stool [Immunochemical Fecal OCB] Routine Lab 11/04/23 14:06 Uncollected Radiology Impressions Hip/Pelvis X-Ray 11/01/23 12:14 IMPRESSION: Subcapital right hip fracture. Chest X-Ray 11/03/23 08:00 IMPRESSION: Stable chest with no acute abnormality identified. Head CT 11/03/23 11:46 IMPRESSION: 1. No acute intracranial hemorrhage or edema. 2. Cerebral atrophy and severe small vessel ischemic disease to prior study. No acute findings. Laboratory Results WBC 7.39 10^3/uL (3.29-11.43) 11/07/23 05:35 Corrected WBC Cancelled 11/05/23 04:25 RBC 2.81 10^6/uL (3.85-5.65) L 11/07/23 05:35 Hgb 8.90 g/dL (11.27-16.99) L 11/07/23 05:35 Hct 26.8 % (37-53) L 11/07/23 05:35 MCV 95.4 fl (82-101) 11/07/23 05:35 MCH 31.7 pg (27-33) 11/07/23 05:35 MCHC 33.2 g/dL (30-55) 11/07/23 05:35 RDW 12.1 % (12.1-15.1) 11/07/23 05:35 Plt Count 335 10^3/cmm (157-399) 11/07/23 05:35 MPV 9.0 fL (7.4-10.4) 11/07/23 05:35 Gran % Cancelled 11/05/23 04:25 Neut % (Auto) 59.4 % 11/07/23 05:35 Lymph % (Auto) 24.0 % 11/07/23 05:35 [place] % (Auto) 13.7 % 11/07/23 05:35 Eos % (Auto) 1.8 % 11/07/23 05:35 Baso % (Auto) 0.4 % 11/07/23 05:35 Neut # (Auto) 4.40 10^3/uL (1.8-7.7) 11/07/23 05:35 Lymph # (Auto) 1.8 10^3/uL (0.8-4.8) 11/07/23 05:35 [place] # (Auto) 1.0 10^3/uL (0.2-0.9) H 11/07/23 05:35 Eos # (Auto) 0.1 10^3/uL (0.0-0.8) 11/07/23 05:35 Baso # (Auto) 0.0 10^3/uL (0.0-0.1) 11/07/23 05:35 Absolute Gran (auto) Cancelled 11/05/23 04:25 Nucleated RBC % (auto) 0 % 11/07/23 05:35 Nucleated RBCs # 0.0 /100WBC 11/07/23 05:35 PT 13.70 SECONDS (12.1-14.9) 11/01/23 12:37 INR 1.02 (0.8-1.2) 11/01/23 12:37 Sodium 141 mmol/L (136-145) 11/07/23 05:35 Potassium 3.9 mmol/L (3.5-5.1) 11/07/23 05:35 Chloride 104 mmol/L (98-107) 11/07/23 05:35 Carbon Dioxide 25 mmol/L (22-29) 11/07/23 05:35 Anion Gap 15.9 (5-19) 11/07/23 05:35 BUN 38 mg/dL (8-23) H 11/07/23 05:35 Creatinine 0.8 mg/dL (0.7-1.2) 11/07/23 05:35 GFR Calculation Not Reportable 11/07/23 05:35 Glucose 129 mg/dL (65-115) H 11/07/23 05:35 POC Glucose 206 mg/dL (70-110) H 11/07/23 10:00 Calculated Osmolality 303 mOsm/kg (285-295) H 11/07/23 05:35 Calcium 9.2 mg/dL (8.5-10.5) 11/07/23 05:35 Phosphorus 2.9 mg/dL (2.5-4.5) 11/03/23 05:26 Magnesium 2.3 mg/dL (1.7-2.3) 11/07/23 05:35 Iron 16 ug/dL (59-158) L 11/04/23 09:08 TIBC 170 mcg/dl 11/04/23 09:08 % Saturation 9.4 % (20-50) L 11/04/23 09:08 Unsat Iron Binding 154 ug/dL (112-347) 11/04/23 09:08 Ferritin 511 ng/mL (30-400) H 11/04/23 09:08 Total Bilirubin 1.4 mg/dL (0.15-1.2) H 11/07/23 05:35 AST 53 U/L (0-40) H 11/07/23 05:35 ALT 21 U/L (0-41) 11/07/23 05:35 Alkaline Phosphatase 61 U/L (40-130) 11/07/23 05:35 Total Protein 6.6 g/dL (6.6-8.7) 11/07/23 05:35 Albumin 3.4 g/dL (3.5-5.2) L 11/07/23 05:35 Globulin 3.2 g/dL (1.3-4.6) 11/07/23 05:35 Procalcitonin 0.08 ng/mL (0-0.5) 11/01/23 12:27 TSH 0.92 uIU/mL (0.27-4.20) 11/06/23 04:37 SARS-CoV-2 Ag (Rapid) negative (Negative) 11/06/23 08:09 Vitals Last Vital Signs Temp 97.6 F 11/07/23 07:38 Pulse 77 11/07/23 09:30 Resp 17 11/07/23 09:30 BP 109/57 11/07/23 07:38 Pulse Ox 97 11/07/23 09:30 O2 Del Method Room Air 11/07/23 09:30 O2 Flow Rate 1 11/03/23 07:57 Discharge Plan Discharge Patient Disposition: Xfer SNF Condition: Good Prescriptions: New hydrocodone-acetaminophen 5-325 mg Tablet 1 tab PO Q8H PRN (Reason: Moderate Pain) Qty: 12 0RF Eliquis 5 mg Tablet 2.5 mg PO BID Qty: 26 0RF Continued (DME) Cam Walker See Rx Instructions .ROUTE .MEDSUPPLY Qty: 1 0RF Rx Instructions: As directed docusate sodium 50 mg capsule 50 mg PO DAILY PRN (Reason: Constipation) levothyroxine 125 mcg capsule 125 mcg PO DAILY omeprazole 40 mg capsule,delayed release(DR/EC) 40 mg PO BID gabapentin 100 mg capsule 100 mg PO BID atorvastatin 40 mg tablet 40 mg PO BEDTIME Rx Instructions: bedtime fluoxetine 10 mg Capsule 10 mg PO DAILY Qty: 30 3RF tamsulosin [Flomax] 0.4 mg capsule 0.4 mg PO DAILY Qty: 30 0RF Senna-S 8.6-50 mg Tablet 1 tab-cap PO BID PRN (Reason: Constipation) acetaminophen 500 mg Tablet 500 mg PO Q4-5H PRN (Reason: Pain/Fever) Risperdal 1 mg Tablet 1.5 mg PO BID artificial tears with lanolin Ointment 1 applic OPHTHALMIC (EYE) BEDTIME Januvia 100 mg Tablet 250 mg PO BID Artificial Tears (PF) Dropperette 1 drp OPHTHALMIC (EYE) QID No Action naltrexone 50 mg Tablet 25 mg PO DAILY Discharge Orders: Discharge Order (Routine); Ordered 11/07/23 Ordered By: Macho Olguin Referrals: Emanuel Melissa DO [Physician] - 11/14/23 3:30 pm Discharge Diet: Usual diet Discharge Activity: Resume usual activity and Increase activity as tolerated Patient Instructions: Hydrocodone/Acetaminophen (By mouth), Apixaban (By mouth) Activity Restrictions/Additional Instructions: Extremely thick pureed diet. Dysphagia level 4. You are being discharged from the hospital today during which time you have been under the care of Dr. Melissa. You had a hip fracture. You were treated for this injury with hip hemiarthroplasty. You may resume you normal diet (including any special diets as directed by your primary doctor) as well as your home medications. You should follow up with you primary doctor if you have any questions regarding medication you took prior to your stay in the hospital. You may take your pain medication as prescribed. After the first few days, take your pain medication as needed. Do not drive or drink alcohol while taking your pain medication. Your injury may increase your risk of developing a blood clot,or DVT, in your arm or leg. This could potentially dislodge and travel to your lungs and become a life threatening condition called apulmonary embolus,or PE. You have been prescribed Eliquis to be taken to prevent this. Frequent movement of the feet will also help prevent this from occurring. If you develop any new or worsening cough, chestpain, bloody sputum or shortness of breath, call 911 or go to the EmergencyRoom. Always keep your surgical incision/dressing clean and dry. If you experience increasing pain at your incision site, redness, swelling, increasing discharge, foul odors, or fevers (greater than 100.4), night sweats or chills you should ca ll the office at the above number. If you feel this is an emergency you should be evaluated in the Emergency Department of a nearby hospital. Orthopedic Patient Instructions Summary: Weight Bearing: Weight-bear as tolerated Activity: As tolerated. Diet: Extremely thick. Diet dysphagia level 4. Wound Care: Keep dressing clean and dry. Anticoagulation: Eliquis Pain Medication: Take only as needed. Ice, rest and elevation will be of great benefit. Please plan to follow-up [facility] Dr Melissa in 2 weeks. You will need to call the clinic [phone] to schedule this visit. Thank you far allowing me to participate in your care. Do not hesitate to call the office with any questions or concerns. Discharge Attestations Time Spent in Discharge Care*: greater than 30 min Specific Discharge Activities: discussing with pcp/other providers, discussing with family preservation caseworker/social workers/dc planners, documenting/other paperwork and evaluating patient/reviewing data Status at Discharge: Cognitive status at discharge: moderately impaired cognition , Behavioral status at discharge: cooperative , Functional status at discharge: other assisted ambulation , Overall status at discharge: patient is progressing back to baseline Quality Metrics Clinical Quality Measures [ No reported AMI, CVA or VTE this stay] Coding Level of Care Code 54452 Total time (in minutes) for Discharge: 56 Diagnoses Closed fracture of right hip, initial encounter S72.001A Encounter type: initial encounter Dementia F03.90 Confusion R41.0 Anemia D64.9
[2023-11-07 11:20] VITALS: BP 111/64; PULSE 64; RESP 16; TEMP 36.6; O2SAT 97
[2023-11-07] MEDS: insulin lispro 100 unit/1 mL SUBCUT (12:04)
--- NOTE | 2023-11-07 15:31 | PC.NURSE ---
Discharge Note Patient discharged to SNF via [facility] accompanied by [facility] personnel. Discharge instructions reviewed with patient and/or employee's representative. Mobile pharmacy medications and/or prescriptions provided. Belongings/home medications returned.
[2023-11-07 15:33] VITALS: BP 111/64; PULSE 64; RESP 16; TEMP 36.6; O2SAT 97
== END 2023-11-07 15:34 | disposition skilled nursing facility (03) | DRG 522 ==
LOC: ER 13:27 → OR 13:30 → MEDSURG 15:03
PROVIDERS: Internal Medicine; Orthopaedic Surgery; Admitting Provider Internal Medicine; Emergency Provider Emergency Medicine; PCP Family Medicine; Visit Provider Student in an Organized Health Care Education/Training Program
PROC: 0SRR0JZ Replacement of Right Hip Joint, Femoral Surface with Synthetic Substitute, Open Approach (ICD-10-PCS; CPT 27125; principal; 2023-11-01 14:00)
DX: S72.011A Unspecified intracapsular fracture of right femur, initial encounter for closed fracture (principal); W01.0XXA Fall on same level from slipping, tripping and stumbling without subsequent striking against object, initial encounter; Y92.121 Bathroom in nursing home as the place of occurrence of the external cause; F03.C0 Unspecified dementia, severe, without behavioral disturbance, psychotic disturbance, mood disturbance, and anxiety; N40.1 Benign prostatic hyperplasia with lower urinary tract symptoms; E11.9 Type 2 diabetes mellitus without complications; E03.9 Hypothyroidism, unspecified; N41.1 Chronic prostatitis; I65.23 Occlusion and stenosis of bilateral carotid arteries; I10 Essential (primary) hypertension; I25.10 Atherosclerotic heart disease of native coronary artery without angina pectoris; K59.09 Other constipation; R13.10 Dysphagia, unspecified; D64.9 Anemia, unspecified; Z11.52 Encounter for screening for COVID-19; Z95.1 Presence of aortocoronary bypass graft; Z79.84 Long term (current) use of oral hypoglycemic drugs
CPT/HCPCS: 36415; 36416; 70450; 71045; 73502; 80048; 80053; 82728; 82962; 83540; 83550; 83735; 84100; 84145; 84443; 85025; 85610; 87426; 92507; 92523; 92526; 92610; 93005; 94664; 96372; 96374; 96375; 97110; 97161; 97167; 97530; 99285; C1776; C9113; J0690; J1100; J1630; J1815; J2270; J2405; J2704; J3010; J7030

== ENCOUNTER → 2023-11-21 13:24 | Outpatient (BNVA) | payer OTHER, SELFPAY | PROVIDERS: PCP Family Medicine; Visit Provider Orthopaedic Surgery | DX: Z48.89 Encounter for other specified surgical aftercare | CPT/HCPCS: 99024 ==